=== PATIENT | female | born 1970 | race Caucasian/White ===

== ENCOUNTER 2020-05-31 10:24 | Outpatient (CLI) | payer BC, SELFPAY ==
[2020-05-31 11:18] LABS: Basophils Absolute Auto 0.1 K/mm3 (0.0-0.1); Basophils Percent Auto 1.3 % (0.2-1.2); Eosinophils Absolute Auto 0.1 K/mm3 (0-0.3); Eosinophils Percent Auto 2.2 % (0-4.4); Hemoglobin 12.2 g/dL (12.0-15.0); Immature Granulocyte Absolute 0.01 K/mm3 (0.00-0.031); Immature Granulocyte Percent A 0.2 % (0-0.5); Lymphocytes Percent Auto 43.2 % (18.3-44.2); Mean Corpuscular Volume 91.1 fl (80-100); Mean Platelet Volume 9.9 fl (7.4-10.4); Monocytes Absolute Auto 0.3 K/mm3 (0.1-0.6); Monocytes Percent Auto 5.6 % (2.6-8.5); Neutrophils Absolute Auto 2.2 K/mm3 (1.3-6.7); Neutrophils Percent Auto 47.5 % (45.5-73.1); Platelet Count Result 221 k/mm3 (150-375); Red Blood Count 4.06 M/mm3 (4.2-5.4); Red Cell Distribution Width 12.5 % (11.5-14.5); White Blood Count 4.6 K/mm3 (4.5-10.0)
[2020-05-31 11:32] LABS: Alanine Aminotransferase 53 U/L (4-35); Albumin Level 4.1 g/dL (3.5-5.1); Alkaline Phosphatase 63 U/L (38-126); Anion Gap 6 mmol/L (8-16); Aspartate Amino Transferase 48 U/L (14-36); Bilirubin,Total 0.5 mg/dL (0.2-1.3); Blood Urea Nitrogen 6 mg/dL (7-17); Calcium 8.7 mg/dL (8.4-10.2); Carbon Dioxide 30 mmol/L (22-30); Chloride 102 mmol/L (98-107); Estimated Glomerular Filt Rate > 60; Glucose 90 mg/dL (65-105); Sodium 138 mmol/L (137-145)
[2020-05-31 12:11] LABS: Free T4 Free Thyroxine 1.27 ng/mL (0.78-2.19)
== END 2020-05-31 10:25 | disposition home or self-care (01) ==
PROVIDERS: PCP Family Medicine; Visit Provider Physician Assistant
DX: D64.9 Anemia, unspecified (principal); J45.909 Unspecified asthma, uncomplicated; E03.9 Hypothyroidism, unspecified; Z13.220 Encounter for screening for lipoid disorders
CPT/HCPCS: 36415; 80053; 84439; 84443; 85025

== ENCOUNTER 2020-06-10 15:53 | Outpatient (CLI) | payer BC, SELFPAY ==
--- NOTE | ~2020-06-10 | MM_ITS ---
EXAMINATION: MM screening april BI w taina HISTORY: Screening TECHNIQUE: Craniocaudal and mediolateral oblique 3-D tomosynthesis images were obtained and synthetic 2-D images were generated. CAD analysis was submitted and interpreted. COMPARISON: Comparison to multiple prior studies sequentially, with oldest reviewed study dated 06/16. BREAST PARENCHYMAL COMPOSITION: The breasts are extremely dense, which lowers the sensitivity of mamm ography. FINDINGS: There is focal cluster of calcifications in the upper aspect of the right breast on MLO vie w. No mammographic evidence for malignancy in the left breast. IMPRESSION: 1. Focal cluster of calcifications upper aspect of the right breast on MLO view. 2. Magnification views are recommended. BI-RADS Category 0: Incomplete: Needs additional imaging evaluation. Reviewed, dictated and finalized at location A. IMPRESSION: 1. Focal cluster of calcifications upper aspect of the right breast on MLO view . 2. Magnification views are recommended. BI-RADS Category 0: Incomplete: Needs additional imaging evaluation.
== END 2020-06-10 15:54 | disposition home or self-care (01) ==
LOC: ANHIMG 15:55
PROVIDERS: PCP Family Medicine; Visit Provider Family Medicine
DX: Z12.31 Encounter for screening mammogram for malignant neoplasm of breast (principal); R92.8 Other abnormal and inconclusive findings on diagnostic imaging of breast
CPT/HCPCS: 77063; 77067

== ENCOUNTER 2020-07-05 11:30 | Outpatient (CLI) | payer BC, SELFPAY ==
--- NOTE | ~2020-07-05 | MM_ITS ---
EXAMINATION: MM diagnostic mammo unilat RT HISTORY: Right breast calcifications. TECHNIQUE: Additional 3-D tomosynthesis images of the right breast were performed and synthetic 2-D i mages were generated. CAD analysis was submitted and interpreted. COMPARISON: 06/10/2020 BREAST PARENCHYMAL COMPOSITION: The breasts are heterogenously dense, which may obscure small masses. FINDINGS: There are 2 separate clusters of indeterminate calcifications in the upper outer quadrant o f the right breast. There are no discrete masses or architectural distortion. IMPRESSION: 1. Clustered indeterminate calcifications upper outer quadrant of the right breast. BI-RADS CATEGORY 4-SUSPICIOUS ABNORMALITY RECOMMENDATION: Stereotactic right breast biopsy recommended. Reviewed, dictated and finalized at location A. IMPRESSION: 1. Clustered indeterminate calcifications upper outer quadrant of the right pilar ast. BI-RADS CATEGORY 4-SUSPICIOUS ABNORMALITY RECOMMENDATION: Stereotactic right breast biopsy recommended.
== END 2020-07-05 11:31 | disposition home or self-care (01) ==
PROVIDERS: PCP Family Medicine; Visit Provider Family Medicine
DX: R92.8 Other abnormal and inconclusive findings on diagnostic imaging of breast (principal)
CPT/HCPCS: 77065

== ENCOUNTER 2020-07-19 09:56 | Outpatient (CLI) | payer BC, SELFPAY ==
--- NOTE | ~2020-07-19 | MM_ITS ---
EXAMINATION: MM stereotactic bx RT, MM post biopsy diagnostic RT, MM stereotactic specimen RT, Specim en Radiograph, Tissue Marker Clip Placement, Unilateral Mammogram DATE: 07/19/2020 11:42 (accession [id number]), 07/19/2020 11:48 (accession [id number]), 07/19 11:46 (accession [id number]) INDICATION: Abnormal mammogram: 2 clusters of grouped microcalcifications, upper outer right breast. TECHNIQUE AND FINDINGS: The risks and potential benefits of the procedure were discussed with the patient and written informe d consent was obtained. Timeout procedure was performed. The patient was placed in the prone position on the dedicated stereotactic table with the right breast in lateral medial compression, and the are a of interest was localized and targeted utilizing digital imaging with stereotaxis. After sterile preparation of the skin, 1% lidocaine was utilized for local anesthesia at the skin pun cture site and 1% lidocaine with epinephrine was utilized for deeper local anesthesia/is about the bi opsy site. A 9G [employer] vacuum assisted biopsy needle was advanced to the level of the calcification o f interest from a lateral approach utilizing stereotactic guidance and a total of 15 tissue core biop sies were obtained. A specimen radiograph demonstrates that the great majority of the calcifications of interest are incl uded within the tissue cores. A tissue marker clip was then placed at the biopsy site. A digital ma mmographic exposure confirmed the successful deployment of the biopsy marker. The needle was removed and hemostasis was achieved. A sterile bandage was applied. The patient tolerated the procedure we ll and there is no evidence of significant immediate complication. The patient was given verbal as w ell as written postprocedural instructions prior to discharge from the department. Tissue cores were submitted to surgical pathology for histologic analysis. A 2-view right unilateral digital mammogram was obtained post procedure, demonstrating the tissue mar ker clip in expected position. IMPRESSION: 1. Successful stereotactic biopsy of grouped upper-outer quadrant right breast microcalcifications, followed by tissue marker clip placement. Please refer to pathology report for histologic analysis. Reviewed, dictated and finalized at Location A. Reviewed, dictated and finalized at location A. IMPRESSION: 1. Successful stereotactic biopsy of grouped upper-outer quadrant right breas t microcalcifications, followed by tissue marker clip placement. Please refer to pathology report for histologic analysis. IMPRESSION: 1. Successful stereotactic biopsy of grouped upper-outer quadrant right breas t microcalcifications, followed by tissue marker clip placement. Please refer to pathology report for histologic analysis.
== END 2020-07-19 09:57 | disposition home or self-care (01) ==
PROVIDERS: PCP Family Medicine; Visit Provider Surgery
DX: R92.8 Other abnormal and inconclusive findings on diagnostic imaging of breast (principal)
CPT/HCPCS: 19081; 77065; 88305; 88342; A4648

== ENCOUNTER 2020-11-23 08:10 | Emergency (ER) | payer BC, SELFPAY ==
[2020-11-23 08:36] VITALS: BP 92/64; PULSE 86; RESP 16; TEMP 37.1; O2SAT 97
--- NOTE | 2020-11-23 09:06 | ED.URI ---
HPI - URI/Sore Throat General Chief Complaint: Upper Respiratory Infection Stated Complaint: congestion/headache/body chills-pains/sob Source: patient Mode of arrival: ambulatory Limitations: no limitations History of Present Illness HPI Narrative: 50-year-old female presents to [facility] with complaints of fatigue, body aches, runny nose, shortness of breath, diarrhea, intermittent wheezing, headache and mild cough for the past 2 to 3 days. Patient reports that she has been extremely fatigued and feels out of it. Patient has been taking [id number] cold medications with little relief. Patient reports that she does have history of TIA few years ago. Patient is a non-smoker. Patient denies sick contact. Patient denies recent travel. Patient denies chest pain, nausea or vomiting. MD elicited complaint: cough and rhinorrhea Onset (ago): day(s) (2-3) Consistency: constant Able to tolerate fluids by mouth: Yes Exacerbating factors: nothing Relieving factors: nothing Treatments prior to arrival: cold medicine Related Data Home Medications Medication Instructions Recorded Confirmed cyanocobalamin (vitamin B-12) mcg INTRANASAL 09/07/19 07/18/20 [Nascobal] divalproex PO 09/07/19 07/18/20 duloxetine 30 mg capsule,delayed mg PO DAILY cap 03/10/20 07/18/20 release duloxetine 60 mg capsule,delayed mg PO DAILY cap 03/10/20 07/18/20 release levetiracetam 1,000 mg tablet 1,000 mg PO BID tablet 03/10/20 07/18/20 levetiracetam 250 mg tablet 250 mg PO BID tablet 03/10/20 07/18/20 lorazepam 0.5 mg tablet 0.5 mg PO BID tablet 03/10/20 07/18/20 zaleplon 10 mg capsule 10 mg PO DAILY cap 03/10/20 07/18/20 zonisamide 25 mg capsule 50 mg PO BID cap 05/13/20 07/18/20 sumatriptan succinate mg PO 11/23/20 Allergies Allergy/AdvReac Type Severity Reaction Status Date / Time tetanus immune globulin Allergy Mild HIVES AND Verified 07/18/20 09:20 SWELLING canagliflozin Allergy Unknown Rash Verified 07/18/20 09:20 Penicillins Allergy Unknown Rash Verified 07/18/20 09:20 Tetanus Vaccines and Toxoid Allergy Unknown Rash Verified 07/18/20 09:20 erythromycin base AdvReac Mild NAUSEA/VOMI Verified 07/18/20 09:20 TING IMMUNIZATIONS Allergy Unknown RASH Uncoded 03/10/20 15:02 Mold (Blue) Cheese Allergy Unknown .Hives and Uncoded 03/10/20 15:02 swelling Review of Systems Constitutional: Constitutional: Reports fatigue, Denies fever(s) and Reports weakness ENT: Denies dysphagia, Denies epistaxis and Denies sore throat Comments: runny nose Cardiovascular: Cardiovascular: Denies chest pain, Denies rapid heart rate, Denies radiating jaw, neck or arm pain and Denies slow heart rate Respiratory: Respiratory: Denies chest congestion, Reports cough, Reports dyspnea and Reports wheezing Gastrointestinal: Gastrointestinal: Denies abdominal pain, Reports diarrhea, Denies nausea and Denies vomiting Neurologic: Denies vertigo, Denies dizziness, Denies syncope, Reports headache(s) and Reports weakness PMFSH Past Medical History Medical History Anxiety and depression Asthma Bilateral carpal tunnel syndrome Bipolar disorder Epilepsy GERD (gastroesophageal reflux disease) History of COPD Hypothyroid Interstitial cystitis Migraine Polycystic disease, ovaries Seasonal allergies Shingles Stroke TIA (transient ischemic attack) Surgical History Surgical History H/O arthroscopy of left knee H/O carpal tunnel repair bilateral H/O dilation and curettage History of bunionectomy History of cholecystectomy History of foot surgery History of left knee replacement History of thyroidectomy, subtotal Hx of gastric bypass Family History Family History Sibling Family history of multiple sclerosis, Onset Age: 43 Cerebrovascular accident, Onset Age: 19 Father Hy
== END 2020-11-23 09:11 | disposition left against medical advice (07) ==
PROVIDERS: Emergency Provider Nurse Practitioner Family
DX: J06.9 Acute upper respiratory infection, unspecified (principal); R47.9 Unspecified speech disturbances; Z20.822 Contact with and (suspected) exposure to COVID-19; F41.9 Anxiety disorder, unspecified; J45.909 Unspecified asthma, uncomplicated; K21.9 Gastro-esophageal reflux disease without esophagitis; J44.9 Chronic obstructive pulmonary disease, unspecified; E03.9 Hypothyroidism, unspecified; Z86.73 Personal history of transient ischemic attack (TIA), and cerebral infarction without residual deficits; E28.2 Polycystic ovarian syndrome; G40.909 Epilepsy, unspecified, not intractable, without status epilepticus
CPT/HCPCS: 87426; 87804; 99213; C9803; G0463

== ENCOUNTER 2020-12-01 14:30 | Outpatient (CLI) | payer BC, SELFPAY ==
[2020-12-01 15:08] LABS: Alanine Aminotransferase 44 U/L (4-35); Aspartate Amino Transferase 41 U/L (14-36)
[2020-12-01 16:33] LABS: Free T4 Free Thyroxine 0.52 ng/mL (0.78-2.19)
== END 2020-12-01 14:31 | disposition home or self-care (01) ==
LOC: ANHLAB 14:33
PROVIDERS: PCP Family Medicine; Visit Provider Physician Assistant
DX: E03.9 Hypothyroidism, unspecified (principal); R74.8 Abnormal levels of other serum enzymes
CPT/HCPCS: 36415; 84439; 84443; 84450; 84460

== ENCOUNTER 2021-08-19 11:23 | Outpatient (CLI) | payer BC, SELFPAY ==
[2021-08-19 13:50] LABS: Free T4 Free Thyroxine 0.26 ng/mL (0.78-2.19)
[2021-08-19 14:41] LABS: Thyroid Stimulating Hormone > 100.000 uIU/mL (0.465-4.680)
== END 2021-08-19 11:24 | disposition home or self-care (01) ==
LOC: ANHLAB 11:26
PROVIDERS: PCP Family Medicine; Visit Provider Family Medicine
DX: E03.9 Hypothyroidism, unspecified (principal)
CPT/HCPCS: 36415; 84439; 84443; 84480

== ENCOUNTER 2021-10-24 09:59 | Emergency (ER) | payer BC, SELFPAY ==
[2021-10-24 10:09] VITALS: BP 107/65; PULSE 69; RESP 16; TEMP 36.3; O2SAT 98
--- NOTE | 2021-10-24 10:09 | ED.HA ---
HPI - Headache General Chief Complaint: Headache Stated Complaint: headache Time Seen by Provider: 10/24/21 10:09 Source: patient, RN notes reviewed and old records reviewed Mode of arrival: ambulatory Limitations: no limitations History of Present Illness HPI Narrative: 51-year-old female presents to the [facility] with complaints of a migraine headache that woke her up about 1 AM today. States it feels like her typical migraine and took her Imitrex which is made it better but not gone away. Has vomited 1 time. Patient denies any blurry vision or change in vision but does have a sensitivity to light and sound MD elicited complaint: migraine Related Data Home Medications Medication Instructions Recorded Confirmed budesonide-formoterol 2 puff INHALATION DAILY 10/24/21 10/24/21 cariprazine [Vraylar] 6 mg PO DAILY 10/24/21 10/24/21 divalproex 250 mg PO DAILY 10/24/21 10/24/21 divalproex 500 mg PO DAILY 10/24/21 10/24/21 duloxetine 30 mg PO DAILY 10/24/21 10/24/21 duloxetine 60 mg PO DAILY 10/24/21 10/24/21 levetiracetam 1,000 mg PO DAILY 10/24/21 10/24/21 levothyroxine 200 mcg PO DAILY 10/24/21 10/24/21 liothyronine 5 mcg PO DAILY 10/24/21 10/24/21 montelukast 10 mg PO DAILY 10/24/21 10/24/21 sumatriptan succinate 50 mg PO DAILY 10/24/21 10/24/21 Allergies Allergy/AdvReac Type Severity Reaction Status Date / Time tetanus immune globulin Allergy Mild HIVES AND Verified 10/24/21 10:15 SWELLING canagliflozin Allergy Unknown Rash Verified 10/24/21 10:15 Penicillins Allergy Unknown Rash Verified 10/24/21 10:15 Tetanus Vaccines and Toxoid Allergy Unknown Rash Verified 10/24/21 10:15 erythromycin base AdvReac Mild NAUSEA/VOMI Verified 10/24/21 10:15 TING IMMUNIZATIONS Allergy Unknown RASH Uncoded 09/07/21 16:45 Mold (Blue) Cheese Allergy Unknown .Hives and Uncoded 09/07/21 16:45 swelling Review of Systems Review of Systems: All systems reviewed & are unremarkable except as noted in HPI and below Constitutional: Constitutional: Reports no additional constitutional complaints, Denies chills and Denies fever(s) Eyes: Eyes: Reports no additional eye complaints ENT: Reports system reviewed and no additional complaints, except as documented Cardiovascular: Cardiovascular: Reports no additional cardiovascular complaints Respiratory: Respiratory: Reports no additional respiratory complaints Gastrointestinal: Gastrointestinal: Reports no additional gastrointestinal complaints Musculoskeletal: Musculoskeletal: Reports no additional musculoskeletal complaints Integumentary/Breasts: Skin/Breast: Reports system reviewed and no additional complaints, except as docu Neurologic: Reports as per HPI and Reports headache(s) (Frontal, typical migraine) Psychiatric: Psychiatric: Reports no additional psychiatric complaints Allergic/Immunologic: Allergic/Immunologic: Reports no additional allergic/immunologic complaints [facility] Past Medical History Medical History Anxiety and depression Asthma Bilateral carpal tunnel syndrome Bipolar disorder Epilepsy GERD (gastroesophageal reflux disease) History of COPD Hypothyroid Hypothyroidism (acquired) Interstitial cystitis Migraine Polycystic disease, ovaries Seasonal allergies Shingles Stroke TIA (transient ischemic attack) Surgical History Surgical History H/O arthroscopy of left knee H/O carpal tunnel repair bilateral H/O dilation and curettage History of bunionectomy History of cholecystectomy History of foot surgery History of left knee replacement History of thyroidectomy, subtotal Hx of gastric bypass Family History Family History Sibling Family history of multiple sclerosis, Onset Age: 43 Cerebrovascular accident, Onset Age: 19 Father Hypertension Family history of elevated blood lipids Family histo
[2021-10-24 10:19] VITALS: BP 107/65; PULSE 69; RESP 16; TEMP 36.3; O2SAT 98
[2021-10-24] MEDS: KETOROLAC (*BKC) 60 MG/2 ML VIAL IM (10:24)
[2021-10-24] MEDS: ONDANSETRON HCL ODT 4 MG TABLET SUBLINGUAL (10:24)
== END 2021-10-24 10:50 | disposition home or self-care (01) ==
PROVIDERS: Emergency Provider Nurse Practitioner; PCP Family Medicine
DX: G43.009 Migraine without aura, not intractable, without status migrainosus (principal); E03.9 Hypothyroidism, unspecified; J45.909 Unspecified asthma, uncomplicated; K21.9 Gastro-esophageal reflux disease without esophagitis; E28.2 Polycystic ovarian syndrome; Z86.73 Personal history of transient ischemic attack (TIA), and cerebral infarction without residual deficits; G40.909 Epilepsy, unspecified, not intractable, without status epilepticus
CPT/HCPCS: 96372; 99213; A9270; G0463; J1885

== ENCOUNTER 2022-02-02 12:02 | Outpatient (CLI) | payer BC, SELFPAY ==
[2022-02-02 12:55] LABS: Free T4 Free Thyroxine 2.14 ng/mL (0.78-2.19)
[2022-02-02 13:02] LABS: Total Triiodothyronine (T3) 0.85 NG/ML (0.97-1.69)
== END 2022-02-02 12:03 | disposition home or self-care (01) ==
LOC: ANHLAB 12:04
PROVIDERS: PCP Family Medicine; Visit Provider Family Medicine
DX: E03.9 Hypothyroidism, unspecified (principal)
CPT/HCPCS: 36415; 84439; 84443; 84480

== ENCOUNTER 2022-02-09 16:38 | Outpatient (CLI) | payer BC, SELFPAY ==
[2022-02-09 16:53] LABS: Basophils Absolute Auto 0.1 K/mm3 (0.0-0.1); Basophils Percent Auto 1.1 % (0.2-1.2); Eosinophils Absolute Auto 0.1 K/mm3 (0-0.3); Eosinophils Percent Auto 1.5 % (0-4.4); Hematocrit 34.6 % (37.0-47.0); Hemoglobin 10.8 g/dL (12.0-15.0); Immature Granulocyte Absolute 0.01 K/mm3 (0.00-0.031); Immature Granulocyte Percent A 0.2 % (0-0.5); Lymphocytes Absolute Auto 1.91 K/mm3 (0.9-3.2); Lymphocytes Percent Auto 41.2 % (18.3-44.2); Mean Corpuscular HGB Conc 31.2 g/dl (32-36); Mean Corpuscular Hemoglobin 28.3 pg (26-34); Mean Corpuscular Volume 90.6 fl (80-100); Mean Platelet Volume 9.7 fl (7.4-10.4); Monocytes Absolute Auto 0.4 K/mm3 (0.1-0.6); Monocytes Percent Auto 8.2 % (2.6-8.5); Neutrophils Absolute Auto 2.2 K/mm3 (1.3-6.7); Neutrophils Percent Auto 47.8 % (45.5-73.1); Platelet Count Result 208 k/mm3 (150-375); Red Blood Count 3.82 M/mm3 (4.2-5.4); Red Cell Distribution Width 14.3 % (11.5-14.5); White Blood Count 4.6 K/mm3 (4.5-10.0)
[2022-02-09 17:24] LABS: Iron 62 ug/dL (37-170)
[2022-02-09 17:38] LABS: Percent Iron Saturation 15 % (20-50)
== END 2022-02-09 16:39 | disposition home or self-care (01) ==
LOC: ANHLAB 16:41
PROVIDERS: PCP Family Medicine; Visit Provider Family Medicine
DX: D64.9 Anemia, unspecified (principal); Z98.84 Bariatric surgery status
CPT/HCPCS: 36415; 82607; 82746; 83540; 83550; 85025

== ENCOUNTER 2022-02-22 23:32 | Observation (INO) | payer BC, SELFPAY ==
--- NOTE | ~2022-02-22 | XR_ITS ---
EXAMINATION: XR chest 2V DATE: 02/23/2022 01:08 INDICATION: Chest pain. TECHNIQUE: Frontal and lateral views of the chest were obtained. COMPARISON: Chest 2 views 07/12/2018 FINDINGS: The chest demonstrates clear lungs without pneumonia, pleural effusion, or pneumothorax. Th e heart size is normal. There are prominent paracardial fat pads. Surgical clips in the right upper q uadrant are likely from cholecystectomy. IMPRESSION: 1. No acute cardiopulmonary disease. Reviewed, dictated and finalized at location A.
--- NOTE | 2022-02-22 23:32 | ECG_ITS ---
Measurements Intervals [place] Rate: 87 P: 54 [place]: 137 QRS: 66 QRSD: 91 T: 49 QT: 367 QTc: 443 Interpretive Statements SINUS RHYTHM INCOMPLETE RIGHT BUNDLE BRANCH BLOCK BORDERLINE ECG Electronically Signed On 02-23-2022 6:05:18 CDT by Bertrand Fung D.O.
[2022-02-22 23:34] VITALS: BP 118/68; PULSE 79; RESP 22; TEMP 36.6; O2SAT 95
[2022-02-23] VITALS (16 sets, daily range): BP systolic 93–125; BP diastolic 50–72; PULSE 54–87; RESP 16–20; TEMP 36.1–36.7; O2SAT 96–100; BMI 34.9
--- NOTE | 2022-02-23 00:48 | ED.CHESTPAIN ---
HPI - Chest Pain General Chief Complaint: Chest Pain Stated Complaint: chest pain Time Seen by Provider: 02/22/22 23:51 History of Present Illness HPI narrative: Patient is a 51-year-old female who presents ER with chest pain. Sudden onset at 11:30 PM. Left-sided and pressure. Radiates to the left shoulder and down the left arm. Also radiates into the left neck. Patient reports she feels mild nausea and shortness of breath with this. No history of heart disease. She took 2 baby aspirin's at home and then came to the ER. Patient has no history of heart disease but has history of TIA in the past. No known aggravating factors. Patient reports initially pain was 8/10 but currently 3/10. Related Data Home Medications Medication Instructions Recorded Confirmed cariprazine 6 mg capsule (Vraylar) 4.5 mg PO DAILY 10/24/21 02/23/22 divalproex 250 mg tablet,extended 250 mg PO DAILY 10/24/21 02/23/22 release 24 hr divalproex 500 mg tablet,extended 500 mg PO DAILY 10/24/21 02/23/22 release 24 hr duloxetine 30 mg capsule,delayed 30 mg PO DAILY 10/24/21 02/23/22 release duloxetine 60 mg capsule,delayed 60 mg PO DAILY 10/24/21 02/23/22 release levetiracetam 1,000 mg tablet 1,000 mg PO BID 10/24/21 02/23/22 levothyroxine 200 mcg tablet 200 mcg PO DAILY 10/24/21 02/23/22 liothyronine 5 mcg tablet 5 mcg PO DAILY 10/24/21 02/23/22 montelukast 10 mg tablet 10 mg PO DAILY 10/24/21 02/23/22 levetiracetam 250 mg tablet 250 mg PO BID 02/23/22 02/23/22 linaclotide 290 mcg capsule 290 mcg PO DAILY 02/23/22 02/23/22 (Linzess) lorazepam 0.5 mg tablet 0.5 mg PO BID PRN Anxiety 02/23/22 02/23/22 sumatriptan succinate 50 mg tablet 50 mg PO DAILY PRN Headache 02/23/22 02/23/22 zaleplon 10 mg capsule 10 mg PO HS PRN Insomnia 02/23/22 02/23/22 zonisamide 50 mg capsule 50 mg PO BID 02/23/22 02/23/22 Allergies Allergy/AdvReac Type Severity Reaction Status Date / Time tetanus immune globulin Allergy Mild HIVES AND Verified 02/09/22 15:49 SWELLING canagliflozin Allergy Unknown Rash Verified 02/09/22 15:49 Penicillins Allergy Unknown Rash Verified 02/09/22 15:49 Tetanus Vaccines and Toxoid Allergy Unknown Rash Verified 02/09/22 15:49 erythromycin base AdvReac Mild NAUSEA/VOMI Verified 02/09/22 15:49 TING IMMUNIZATIONS Allergy Unknown RASH Uncoded 02/09/22 15:49 Mold (Blue) Cheese Allergy Unknown .Hives and Uncoded 02/09/22 15:49 swelling Review of Systems Review of Systems: All systems reviewed & are unremarkable except as noted in HPI and below Constitutional: Constitutional: Denies chills, Denies fatigue and Denies fever(s) Cardiovascular: Cardiovascular: Reports chest pain, Denies rapid heart rate and Reports radiating jaw, neck or arm pain Respiratory: Respiratory: Denies chest congestion, Denies cough and Reports dyspnea Gastrointestinal: Gastrointestinal: Denies abdominal pain, Denies diarrhea, Reports nausea and Denies vomiting Musculoskeletal: Musculoskeletal: Denies back pain and Denies myalgias Neurologic: Denies syncope, Denies headache(s) and Denies focal weakness PMFSH Past Medical History Medical History Anxiety and depression Asthma Bilateral carpal tunnel syndrome Bipolar disorder Epilepsy GERD (gastroesophageal reflux disease) History of COPD Hypothyroid Hypothyroidism (acquired) Interstitial cystitis Migraine Polycystic disease, ovaries Seasonal allergies Shingles Stroke TIA (transient ischemic attack) Surgical History Surgical History H/O arthroscopy of left knee H/O carpal tunnel repair bilateral H/O dilation and curettage History of bunionectomy History of cholecystectomy History of foot surgery History of left knee replacement History of thyroidectomy, subtotal Hx of gastric bypass Family History Family History Chiquita
[2022-02-23 01:44] LABS: Alanine Aminotransferase 27 U/L (6-35); Albumin Level 3.5 g/dL (3.5-5.1); Alkaline Phosphatase 68 U/L (38-126); Anion Gap 6 mmol/L (8-16); Aspartate Amino Transferase 28 U/L (14-36); Bilirubin,Total 0.1 mg/dL (0.2-1.3); Blood Urea Nitrogen 8 mg/dL (7-17); Calcium 8.7 mg/dL (8.4-10.2); Carbon Dioxide 28 mmol/L (22-30); Chloride 106 mmol/L (98-107); Estimated CRCL calculation 106 ml/min; Estimated Glomerular Filt Rate > 60; Glucose 79 mg/dL (65-110); Lipase 65 U/L (23-300); Potassium 3.9 mmol/L (3.4-5.0); Sodium 140 mmol/L (137-145); Troponin I < 0.012 ng/mL (0.000-0.034)
[2022-02-23 01:52] LABS: INR 1.1; Partial Thromboplastin Time 28.3 SECONDS (22.3-36.8); Prothrombin Time 13.6 Seconds (11.1-14.7)
[2022-02-23 02:07] LABS: Basophils Absolute Auto 0.1 K/mm3 (0.0-0.1); Basophils Percent Auto 0.9 % (0.2-1.2); Eosinophils Absolute Auto 0.1 K/mm3 (0-0.3); Eosinophils Percent Auto 1.3 % (0-4.4); Hematocrit 33.1 % (37.0-47.0); Hemoglobin 10.7 g/dL (12.0-15.0); Immature Granulocyte Absolute 0.01 K/mm3 (0.00-0.031); Immature Granulocyte Percent A 0.2 % (0-0.5); Lymphocytes Absolute Auto 2.44 K/mm3 (0.9-3.2); Lymphocytes Percent Auto 38.4 % (18.3-44.2); Mean Corpuscular HGB Conc 32.3 g/dl (32-36); Mean Corpuscular Hemoglobin 28.5 pg (26-34); Mean Corpuscular Volume 88.3 fl (80-100); Mean Platelet Volume 9.8 fl (7.4-10.4); Monocytes Absolute Auto 0.7 K/mm3 (0.1-0.6); Monocytes Percent Auto 11.5 % (2.6-8.5); Neutrophils Percent Auto 47.7 % (45.5-73.1); Platelet Count Result 262 k/mm3 (150-375); Red Blood Count 3.75 M/mm3 (4.2-5.4); Red Cell Distribution Width 13.5 % (11.5-14.5); White Blood Count 6.4 K/mm3 (4.5-10.0)
[2022-02-23 03:38] LABS: Troponin I < 0.012 ng/mL (0.000-0.034)
--- NOTE | 2022-02-23 03:38 | PM.IMHP ---
H&P: HPI History of Present Illness Date/Time: 02/23/22 03:38 Chief Complaint: chest pain Narrative: 51-year-old female with past medical history significant for TIA, sees psychiatry for major depressive disorder with associated bipolar disorder, History of bariatric surgery, epilepsy with occasional breakthrough seizures seen Neurology, had medications adjusted recently and has not had any recent seizures since then, COPD, GERD is presenting with left-sided chest pain that radiates up into the left shoulder and down the left arm. There was some associated nausea and shortness of breath. She took 2 baby aspirins at home and then came to the ER. She states the pain did not seem to be exertional. She denies orthopnea. No fevers or chills. She is currently completely asymptomatic. In the ER, EKG and 1st set of troponin were completely normal. Of note, patient is quite sedentary and has been working from home since pandemic. Review of Systems Review of Systems: Twelve point review of systems was reviewed and is negative except as noted in the HPI PMFSH Past Medical History Medical History Anxiety and depression Asthma Bilateral carpal tunnel syndrome Bipolar disorder Epilepsy GERD (gastroesophageal reflux disease) History of COPD Hypothyroid Hypothyroidism (acquired) Interstitial cystitis Migraine Polycystic disease, ovaries Seasonal allergies Shingles Stroke TIA (transient ischemic attack) Surgical History Surgical History H/O arthroscopy of left knee H/O carpal tunnel repair bilateral H/O dilation and curettage History of bunionectomy History of cholecystectomy History of foot surgery History of left knee replacement History of thyroidectomy, subtotal Hx of gastric bypass Family History Family History Sibling Family history of multiple sclerosis, Onset Age: 43 Cerebrovascular accident, Onset Age: 19 Father Hypertension Family history of elevated blood lipids Family history of diabetes mellitus in first degree relative Family history of coronary artery disease Mother Hypertension Family history of elevated blood lipids Family history of diabetes mellitus in first degree relative Family history of coronary artery disease Grandparent Family history of malignant neoplasm of cervix Family history of malignant neoplasm of breast Social History Social History Social History: Smoking status: Never smoker Second hand tobacco smoke exposure: No Alcohol intake: never Substance use: never Substance use type: does not use 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 Gender identity (if verbalized by the patient): Female Sexual Orientation (if Verbalized by the Patient): Lesbian, Thompson, or Homosexual Spiritual care concerns: No Meds Home Medications and Allergies Home Medications Medication Instructions Recorded Confirmed Type cariprazine 6 mg capsule (Vraylar) 6 mg PO DAILY 10/24/21 12/07/21 History divalproex 250 mg tablet,extended 250 mg PO DAILY 10/24/21 12/07/21 History release 24 hr divalproex 500 mg tablet,extended 500 mg PO DAILY 10/24/21 12/07/21 History release 24 hr duloxetine 30 mg capsule,delayed 30 mg PO DAILY 10/24/21 12/07/21 History release duloxetine 60 mg capsule,delayed 60 mg PO DAILY 10/24/21 12/07/21 History release levetiracetam 1,000 mg tablet 1,000 mg PO DAILY 10/24/21 12/07/21 History levothyroxine 200 mcg tablet 200 mcg PO DAILY 10/24/21 12/07/21 History liothyronine 5 mcg tablet 5 mcg PO DAILY 10/24/21 12/07/21 History montelukast 10 mg tablet 10 mg PO DAILY 10/24/21 12/07/21 History polysaccharide iron complex 150 mg 150 mg PO DAILY #30 caps 02/12/22 Rx iron capsule (Poly-Iron) atif
--- NOTE | 2022-02-23 04:16 | ADMGEN ---
This patient, Andrea Grimes, was admitted to IMU Room 207-01. Patient/family oriented to hospital policies and general routines including ID bracelet, bed and alarms, visiting hours, pain management, procedures, bathroom and other care routines, personal items, smoking policy, room service/diet, and visiting hours. Information on how to activate the Rapid Response Team has been discussed. Patient/Family are encouraged to report perceived risks to care and to ask questions if they do not understand what they are told or what they should do.
[2022-02-23] MEDS: MORPHINE SULFATE (*CRX) 2 MG/ML INJ 1 MG IV PUSH (05:28)
[2022-02-23 06:28] LABS: Basophils Absolute Auto 0.1 K/mm3 (0.0-0.1); Basophils Percent Auto 1.2 % (0.2-1.2); Eosinophils Absolute Auto 0.1 K/mm3 (0-0.3); Hematocrit 31.3 % (37.0-47.0); Immature Granulocyte Absolute 0.01 K/mm3 (0.00-0.031); Immature Granulocyte Percent A 0.2 % (0-0.5); Lymphocytes Absolute Auto 2.01 K/mm3 (0.9-3.2); Lymphocytes Percent Auto 40.7 % (18.3-44.2); Mean Corpuscular HGB Conc 31.9 g/dl (32-36); Mean Corpuscular Hemoglobin 28.7 pg (26-34); Mean Corpuscular Volume 89.9 fl (80-100); Mean Platelet Volume 10.1 fl (7.4-10.4); Monocytes Absolute Auto 0.5 K/mm3 (0.1-0.6); Monocytes Percent Auto 10.9 % (2.6-8.5); Neutrophils Absolute Auto 2.2 K/mm3 (1.3-6.7); Platelet Count Result 248 k/mm3 (150-375); Red Blood Count 3.48 M/mm3 (4.2-5.4); Red Cell Distribution Width 13.8 % (11.5-14.5); White Blood Count 4.9 K/mm3 (4.5-10.0)
[2022-02-23] MEDS: LINACLOTIDE 145 MCG CAPSULE 290 MCG PO (06:44)
[2022-02-23] MEDS: LEVOTHYROXINE SODIUM 100 MCG TABLET 200 MCG PO (06:44)
[2022-02-23 06:46] LABS: Alanine Aminotransferase 24 U/L (6-35); Albumin Level 3.3 g/dL (3.5-5.1); Alkaline Phosphatase 65 U/L (38-126); Anion Gap 0 mmol/L (8-16); Aspartate Amino Transferase 26 U/L (14-36); Bilirubin,Total 0.2 mg/dL (0.2-1.3); Blood Urea Nitrogen 7 mg/dL (7-17); Calcium 8.6 mg/dL (8.4-10.2); Carbon Dioxide 31 mmol/L (22-30); Chloride 107 mmol/L (98-107); Estimated CRCL calculation 95 ml/min; Estimated Glomerular Filt Rate > 60; Glucose 92 mg/dL (65-110); Potassium 3.7 mmol/L (3.4-5.0); Sodium 138 mmol/L (137-145)
[2022-02-23 06:58] LABS: Troponin I < 0.012 ng/mL (0.000-0.034)
[2022-02-23] MEDS: levETIRAcetam 250 MG TABLET PO (08:32)
[2022-02-23] MEDS: levETIRAcetam 500 MG TABLET 1000 MG PO (08:33)
[2022-02-23] MEDS: MONTELUKAST SODIUM 10 MG TABLET PO (08:33)
[2022-02-23] MEDS: LIOTHYRONINE SODIUM 5 MCG TABLET PO (08:33)
[2022-02-23] MEDS: DULoxetine HCL 30 MG CAPSULE.DR PO (08:34)
[2022-02-23] MEDS: DIVALPROEX SODIUM ER 250 MG TAB.24H PO (08:34)
[2022-02-23] MEDS: DIVALPROEX SODIUM ER 500 MG TAB.24H PO (08:35)
[2022-02-23] MEDS: POLYSACCHARIDE IRON COMPLEX 150 MG CAPSULE PO (08:36)
[2022-02-23] MEDS: DULoxetine HCL 60 MG CAPSULE.DR PO (08:36)
--- NOTE | 2022-02-23 12:26 | PM.CNCAR ---
Assessment and Plan Assessment and plan (1) Chest pain: Code(s): R07.9 - Chest pain, unspecified Status: Acute Plan This is a 51-year-old lady with an episode of chest pain creating concern last evening with which she came to the hospital. Symptoms are rather atypical for angina. No evidence of acute coronary syndrome by ECG and biomarkers. I would like to arrange for a Lexiscan nuclear study to be done if possible this afternoon to rule out evidence of coronary disease. The patient has risk factors including hypercholesterolemia by her description. He says she can not exercise on the treadmill because of chronic arthritis of her knee. Mervin Phillips MD [facility] History of Present Illness History of Present Illness Consult date/time: 02/23/22 12:26 Consult reason: chest pain Reason For Visit: chest pain Narrative: This is a 51-year-old female I am seeing today at the request of the hospitalist because of chest pain. She is not known to have any specific cardiac problems prior to this and came into the emergency room yesterday because of an episode of chest pain that occurred last night while she was at home she describes the sudden onset of a sharp left precordial discomfort that radiated up into the left side of the neck and down into the left arm. The discomfort was moderate to severe in intensity and was not associated with a sense of any air hunger or diaphoresis. She came to the emergency room for evaluation and her electrocardiogram appears to be normal. Her 1st set of biomarkers in the emergency room were negative. The discomfort gradually subsided on its own it did not really respond to nitrates or any other medication. She has a very mild sense of pressure in the center of the chest following this but otherwise appears to be very comfortable. Since admission to the IMU her vital signs have been fine her telemetry has been unremarkable and her troponin levels are normal x3 sets. The patient denies any history of hypertension or diabetes she does states she has had some elevated cholesterol readings in the past. She has a history of morbid obesity but underwent a bariatric operation with a gastric bypass about 5 or 6 years ago and lost 170 lb. She is not reporting any orthopnea PND or edema palpitations or syncope. Review of Systems Constitutional: Constitutional: Reports no additional constitutional complaints Eyes: Eyes: Reports no additional eye complaints ENT: Reports system reviewed and no additional complaints, except as documented Cardiovascular: Cardiovascular: Reports as per HPI Respiratory: Respiratory: Reports no additional respiratory complaints Gastrointestinal: Gastrointestinal: Reports no additional gastrointestinal complaints Musculoskeletal: Musculoskeletal: Reports no additional musculoskeletal complaints Integumentary/Breasts: Skin/Breast: Reports system reviewed and no additional complaints, except as docu Neurologic: Reports system reviewed and no additional complaints, except as documented Endocrine: Endocrine: Reports no additional endocrine complaints Hematologic/Lymphatic: Hematologic/Lymphatic: Reports no additional hematologic/lymphatic complaints Allergic/Immunologic: Allergic/Immunologic: Reports no additional allergic/immunologic complaints PMFSH Past Medical History Medical History Anxiety and depression Asthma Bilateral carpal tunnel syndrome Bipolar disorder Epilepsy GERD (gastroesophageal reflux disease) History of COPD Hypothyroid Hypothyroidism (acquired) Interstitial cystitis Migraine Polycystic disease, ovaries Seasonal allergies Shingles Stroke TIA (transient ischemic attack) Surgical History Surgical History H/O arthroscopy of left knee H/O carpal tunnel repair bilateral H/O dilation and curettage History of bunionectomy History of
--- NOTE | 2022-02-23 18:46 | PM.DS ---
DS: Admitting Diagnosis Discharge Date 02/23/22 Admitting Diagnosis Atypical Chest Pain DS: Discharge Diagnosis Discharge Diagnosis (1) Chest pain: Code(s): R07.9 - Chest pain, unspecified Status: Acute Assessment and Plan: Troponin negative. EKG w/ st segment or t wave changes. Cardiology recommends outpatient lexiscan. Initially planned to complete today but was unable to be completed and lexiscans are not completed on the weekend. Given patient hemodynamically stable Cardiology VICE PROVOST, spoke with patient who was amenable to completing an outpatient lexiscan -Discharge to home with plan for outpatient lexiscan (2) Hypothyroidism (acquired): Code(s): E03.9 - Hypothyroidism, unspecified Status: Acute Assessment and Plan: TSH 1.040 on 02/02. Continue home medication. (3) BMI 32.0-32.9,adult: Code(s): Z68.32 - Body mass index [BMI] 32.0-32.9, adult Status: Acute (4) Epilepsy: Code(s): G40.909 - Epilepsy, unspecified, not intractable, without status epilepticus Status: Acute Assessment and Plan: continue home medications, stable DS: Summary Hospital Course Reason for hospitalization: Atypical Chest Pain Hospital Course: 51F with a past medical history of TIA, Depression, Bipolar disorder, bariatric surgery, epilepsy, COPD, GERD who presented to the ED reporting left sided chest pain with radiation up into the left shoulder and down the left arm. Troponin were negative. Cardiology consulted and saw no evidence of ACS. Cardiology recommended lexiscan but the lexiscan was unable to be completed inpatient. Cardiology VICE PROVOST spoke with the patient who was amenable to completing the lexiscan outpatient as the lexiscan could not be completed over the weekend. Patient discharged to home. Time Spent with Patient Time attestation: Total time spent providing and/or coordinating discharge services: Exam Narrative: GENERAL: NAD, cooperative HEENT: Normocephalic, atraumatic, anicteric, nares clear, oropharynx moist and clear, dentition normal NECK: Supple CV: Normal S1, S2, RRR, No MRG RESP: CTAB, Normal work of breathing. EXTREMITIES: Warm and well perfused, no clubbing, cyanosis, or edema. SKIN: warm, dry and intact. NEURO: CN 2-12 grossly intact. DS: Data Data Completed and Pending Labs on day of discharge: Labs from last 24 hours 02/23/22 02/23/22 02/23/22 05:46 05:46 05:46 WBC 4.9 RBC 3.48 L Hgb 10.0 L Hct 31.3 L MCV 89.9 MCH 28.7 MCHC 31.9 L RDW 13.8 Plt Count 248 MPV 10.1 Immature Gran % (Auto) 0.2 Neut % (Auto) 45.0 L Lymph % (Auto) 40.7 Robeson % (Auto) 10.9 H Eos % (Auto) 2.0 Baso % (Auto) 1.2 Lymph # (Auto) 2.01 Robeson # (Auto) 0.5 Eos # (Auto) 0.1 Baso # (Auto) 0.1 Abs Immat Gran (auto) 0.01 Absolute Neuts (auto) 2.2 Absolute Nucleated RBC 0.0 Nucleated RBC % 0.0 PT INR APTT Sodium 138 Potassium 3.7 Chloride 107 Carbon Dioxide 31 H Anion Gap 0 L BUN 7 Creatinine 0.60 L Estim Creat Clear Calc 95 Estimated GFR > 60 Glucose 92 Calcium 8.6 Total Bilirubin 0.2 AST 26 ALT 24 Alkaline Phosphatase 65 Troponin I < 0.012 Total Protein 6.0 L Albumin 3.3 L Lipase 02/23/22 02/22/22 02/22/22 02:56 23:58 23:58 WBC RBC Hgb Hct MCV MCH MCHC RDW Plt Count MPV Immature Gran % (Auto) Neut % (Auto) Lymph % (Auto) Robeson % (Auto) Eos % (Auto) Baso % (Auto) Lymph # (Auto) Robeson # (Auto) Eos # (Auto) Baso # (Auto) Abs Immat Gran (auto) Absolute Neuts (auto) Absolute Nucleated RBC Nucleated RBC % PT 13.6 INR 1.1 APTT 28.3 Sodium 140 Potassium 3.9 Chloride 106 Carbon Dioxide 28 Anion Gap 6 L BUN 8 Creatinine 0.60 L Estim Creat Clear Calc 106 Estimated GFR > 60 Glucose 79
== END 2022-02-23 19:20 | disposition home or self-care (01) ==
LOC: ANHED 02-23 02:25 → ANHIMU 02-23 04:30
PROVIDERS: Admitting Provider Student in an Organized Health Care Education/Training Program; Emergency Provider Emergency Medicine; PCP Family Medicine; Visit Provider Family Medicine
DX: R07.9 Chest pain, unspecified (principal); R06.02 Shortness of breath; R11.0 Nausea; J45.909 Unspecified asthma, uncomplicated; G40.909 Epilepsy, unspecified, not intractable, without status epilepticus; F41.8 Other specified anxiety disorders; E89.0 Postprocedural hypothyroidism; K21.9 Gastro-esophageal reflux disease without esophagitis; F31.9 Bipolar disorder, unspecified; E28.2 Polycystic ovarian syndrome; Z86.73 Personal history of transient ischemic attack (TIA), and cerebral infarction without residual deficits; Z98.84 Bariatric surgery status; E66.9 Obesity, unspecified; Z68.34 Body mass index [BMI] 34.0-34.9, adult
CPT/HCPCS: 36415; 71046; 80053; 83690; 84484; 85025; 85610; 85730; 93005; 96374; 99285; A9270; G0378; J2270

== ENCOUNTER 2022-04-14 12:40 | Outpatient (CLI) | payer BC, SELFPAY ==
[2022-04-14 13:00] LABS: Basophils Absolute Auto 0.1 K/mm3 (0.0-0.1); Basophils Percent Auto 0.3 % (0.2-1.2); Eosinophils Absolute Auto 0.1 K/mm3 (0-0.3); Eosinophils Percent Auto 0.2 % (0-4.4); Hematocrit 33.8 % (37.0-47.0); Hemoglobin 11.1 g/dL (12.0-15.0); Immature Granulocyte Absolute 0.15 K/mm3 (0.00-0.031); Immature Granulocyte Percent A 0.7 % (0-0.5); Lymphocytes Absolute Auto 1.23 K/mm3 (0.9-3.2); Mean Corpuscular HGB Conc 32.8 g/dl (32-36); Mean Corpuscular Hemoglobin 28.8 pg (26-34); Mean Corpuscular Volume 87.8 fl (80-100); Mean Platelet Volume 9.1 fl (7.4-10.4); Monocytes Absolute Auto 0.8 K/mm3 (0.1-0.6); Neutrophils Absolute Auto 18.1 K/mm3 (1.3-6.7); Neutrophils Percent Auto 88.8 % (45.5-73.1); Platelet Count Result 305 k/mm3 (150-375); Red Blood Count 3.85 M/mm3 (4.2-5.4); Red Cell Distribution Width 13.8 % (11.5-14.5); White Blood Count 20.4 K/mm3 (4.5-10.0)
== END 2022-04-14 12:41 | disposition home or self-care (01) ==
LOC: ANHLAB 12:41
PROVIDERS: PCP Family Medicine; Visit Provider Nurse Practitioner Gerontology
DX: D64.9 Anemia, unspecified (principal)
CPT/HCPCS: 36415; 85025

== ENCOUNTER 2022-06-07 14:29 | Outpatient (CLI) | payer BC, SELFPAY ==
[2022-06-07 14:55] LABS: Basophils Absolute Auto 0.1 K/mm3 (0.0-0.1); Basophils Percent Auto 1.4 % (0.2-1.2); Eosinophils Absolute Auto 0.1 K/mm3 (0-0.3); Eosinophils Percent Auto 2.8 % (0-4.4); Hematocrit 34.1 % (37.0-47.0); Hemoglobin 10.6 g/dL (12.0-15.0); Immature Granulocyte Absolute 0.01 K/mm3 (0.00-0.031); Immature Granulocyte Percent A 0.2 % (0-0.5); Lymphocytes Percent Auto 32.3 % (18.3-44.2); Mean Corpuscular HGB Conc 31.1 g/dl (32-36); Mean Corpuscular Hemoglobin 28.5 pg (26-34); Mean Corpuscular Volume 91.7 fl (80-100); Mean Platelet Volume 9.6 fl (7.4-10.4); Monocytes Absolute Auto 0.4 K/mm3 (0.1-0.6); Monocytes Percent Auto 8.1 % (2.6-8.5); Neutrophils Absolute Auto 2.4 K/mm3 (1.3-6.7); Neutrophils Percent Auto 55.2 % (45.5-73.1); Platelet Count Result 239 k/mm3 (150-375); Red Blood Count 3.72 M/mm3 (4.2-5.4); Red Cell Distribution Width 14.3 % (11.5-14.5); White Blood Count 4.3 K/mm3 (4.5-10.0)
[2022-06-07 15:00] LABS: Cholesterol 166 mg/dL (0-200); HDL Direct 63 mg/dL; Triglycerides 101 mg/dL (<150)
[2022-06-07 15:04] LABS: Alanine Aminotransferase 22 U/L (6-35); Albumin Level 3.9 g/dL (3.5-5.1); Alkaline Phosphatase 68 U/L (38-126); Anion Gap 8 mmol/L (8-16); Aspartate Amino Transferase 27 U/L (14-36); Bilirubin,Total 0.3 mg/dL (0.2-1.3); Blood Urea Nitrogen 7 mg/dL (7-17); CRP < 0.5 mg/dL (<1.0); Calcium 8.9 mg/dL (8.4-10.2); Carbon Dioxide 28 mmol/L (22-30); Chloride 100 mmol/L (98-107); Estimated Glomerular Filt Rate > 60; Glucose 98 mg/dL (65-110); Sodium 136 mmol/L (137-145)
[2022-06-07 15:11] LABS: LDL Cholesterol Direct 56 mg/dL
[2022-06-07 15:41] LABS: Erythrocyte Sedimentation Rate 16 mm/hr (0-20)
[2022-06-07 16:10] LABS: Folic Acid 12.1 ng/mL (2.76->20)
[2022-06-07 18:45] LABS: Iron 78 ug/dL (37-170); Percent Iron Saturation 16 % (20-50)
[2022-06-13 13:41] LABS: BCR/abl Prior Result Not Given
[2022-06-13 14:29] LABS: BCR/abl P190 Not Detected; BCR/abl P190 Chg YES; BCR/abl P210 Not Detected; BCR/abl P210 Chg YES
== END 2022-06-07 14:30 | disposition home or self-care (01) ==
LOC: ANHLAB 14:31
PROVIDERS: PCP Family Medicine; Referring Provider Internal Medicine Hematology & Oncology; Visit Provider Family Medicine
DX: G45.9 Transient cerebral ischemic attack, unspecified (principal); D72.829 Elevated white blood cell count, unspecified; D64.9 Anemia, unspecified
CPT/HCPCS: 36415; 80053; 80061; 81206; 81207; 82607; 82728; 82746; 83540; 83550; 85025; 85652; 86140; 88184

== ENCOUNTER 2022-07-02 12:00 | Emergency (ER) | payer BC, SELFPAY ==
[2022-07-02 12:15] VITALS: BP 101/53; PULSE 81; RESP 16; TEMP 35.8; O2SAT 99
[2022-07-02 12:20] VITALS: BP 101/53; PULSE 81; RESP 16; TEMP 35.8; O2SAT 99
--- NOTE | 2022-07-02 13:10 | ED.URI ---
HPI - URI/Sore Throat General Chief Complaint: Upper Respiratory Infection Stated Complaint: Nausea,Cough,Running Nose Time Seen by Provider: 07/02/22 13:11 Source: patient, RN notes reviewed and old records reviewed Mode of arrival: ambulatory Limitations: no limitations History of Present Illness HPI Narrative: 52-year-old female presents to the [facility] with complaints of cough, nausea and runny nose. Patient states that she was around a baby with runny nose on Saturday, Saturday night when she got home started having generalized body aches, feeling feverish, took NyQuil and did not get better. MD elicited complaint: cough Related Data Home Medications Medication Instructions Recorded Confirmed cariprazine 6 mg capsule (Vraylar) 4.5 mg PO DAILY 10/24/21 07/02/22 divalproex 500 mg tablet,extended 500 mg PO DAILY 10/24/21 07/02/22 release 24 hr duloxetine 30 mg capsule,delayed 30 mg PO DAILY 10/24/21 07/02/22 release montelukast 10 mg tablet 10 mg PO DAILY 10/24/21 07/02/22 linaclotide 290 mcg capsule 290 mcg PO DAILY 02/23/22 07/02/22 (Linzess) lorazepam 0.5 mg tablet 0.5 mg PO BID PRN Anxiety 02/23/22 07/02/22 zonisamide 50 mg capsule 50 mg PO BID 02/23/22 07/02/22 lemborexant 5 mg tablet (Dayvigo) 5 mg PO QHS 04/26/22 07/02/22 Allergies Allergy/AdvReac Type Severity Reaction Status Date / Time tetanus immune globulin Allergy Mild HIVES AND Verified 07/02/22 12:15 SWELLING canagliflozin Allergy Unknown Rash Verified 07/02/22 12:15 Penicillins Allergy Unknown Rash Verified 07/02/22 12:15 Tetanus Vaccines and Toxoid Allergy Unknown Rash Verified 07/02/22 12:15 erythromycin base AdvReac Mild NAUSEA/VOMI Verified 07/02/22 12:15 TING IMMUNIZATIONS Allergy Unknown RASH Uncoded 07/02/22 12:15 Mold (Blue) Cheese Allergy Unknown .Hives and Uncoded 07/02/22 12:15 swelling Review of Systems Review of Systems: All systems reviewed & are unremarkable except as noted in HPI and below Constitutional: Constitutional: Reports as per HPI, Reports chills, Reports fatigue and Denies fever(s) Eyes: Eyes: Reports no additional eye complaints ENT: Reports as per HPI and Reports sore throat Cardiovascular: Cardiovascular: Reports no additional cardiovascular complaints Respiratory: Respiratory: Reports as per HPI and Reports cough Gastrointestinal: Gastrointestinal: Reports no additional gastrointestinal complaints Musculoskeletal: Musculoskeletal: Reports no additional musculoskeletal complaints Integumentary/Breasts: Skin/Breast: Reports system reviewed and no additional complaints, except as docu Neurologic: Reports system reviewed and no additional complaints, except as documented Psychiatric: Psychiatric: Reports no additional psychiatric complaints Allergic/Immunologic: Allergic/Immunologic: Reports no additional allergic/immunologic complaints [facility] Past Medical History Medical History Anxiety and depression Asthma Bilateral carpal tunnel syndrome Bipolar disorder Epilepsy GERD (gastroesophageal reflux disease) History of COPD Hypothyroid Hypothyroidism (acquired) Interstitial cystitis Migraine Polycystic disease, ovaries Seasonal allergies Shingles Stroke TIA (transient ischemic attack) Surgical History Surgical History H/O arthroscopy of left knee H/O carpal tunnel repair bilateral H/O dilation and curettage History of bunionectomy History of cholecystectomy History of foot surgery History of left knee replacement History of thyroidectomy, subtotal Hx of gastric bypass Family History Family History Sibling Family history of multiple sclerosis, Onset Age: 43 Cerebrovascular accident, Onset Age: 19 Father Hypertension Family history of elevated blood lipids Family history of diabetes mellitus in first deg
== END 2022-07-02 14:05 | disposition home or self-care (01) ==
PROVIDERS: Emergency Provider Nurse Practitioner; PCP Family Medicine
DX: J06.9 Acute upper respiratory infection, unspecified (principal); Z20.822 Contact with and (suspected) exposure to COVID-19; J45.909 Unspecified asthma, uncomplicated; K21.9 Gastro-esophageal reflux disease without esophagitis; J44.9 Chronic obstructive pulmonary disease, unspecified; E03.9 Hypothyroidism, unspecified; E28.2 Polycystic ovarian syndrome; Z86.73 Personal history of transient ischemic attack (TIA), and cerebral infarction without residual deficits; G40.909 Epilepsy, unspecified, not intractable, without status epilepticus; F41.9 Anxiety disorder, unspecified; F31.9 Bipolar disorder, unspecified
CPT/HCPCS: 87426; 87804; 99213; C9803; G0463

== ENCOUNTER 2022-10-03 16:46 | Outpatient (CLI) | payer SELFPAY ==
[2022-10-03 17:46] LABS: Basophils Absolute Auto 0.1 K/mm3 (0.0-0.1); Basophils Percent Auto 0.5 % (0.2-1.2); Eosinophils Percent Auto 0.3 % (0-4.4); Hematocrit 34.3 % (37.0-47.0); Immature Granulocyte Absolute 0.06 K/mm3 (0.00-0.031); Immature Granulocyte Percent A 0.5 % (0-0.5); Lymphocytes Absolute Auto 1.91 K/mm3 (0.9-3.2); Lymphocytes Percent Auto 14.7 % (18.3-44.2); Mean Corpuscular HGB Conc 32.1 g/dl (32-36); Mean Corpuscular Hemoglobin 28.7 pg (26-34); Mean Corpuscular Volume 89.6 fl (80-100); Mean Platelet Volume 9.8 fl (7.4-10.4); Monocytes Absolute Auto 0.8 K/mm3 (0.1-0.6); Monocytes Percent Auto 5.9 % (2.6-8.5); Neutrophils Absolute Auto 10.1 K/mm3 (1.3-6.7); Neutrophils Percent Auto 78.1 % (45.5-73.1); Platelet Count Result 234 k/mm3 (150-375); Red Blood Count 3.83 M/mm3 (4.2-5.4); Red Cell Distribution Width 13.8 % (11.5-14.5)
== END 2022-10-03 16:47 | disposition home or self-care (01) ==
PROVIDERS: PCP Family Medicine; Visit Provider Family Medicine
DX: D72.829 Elevated white blood cell count, unspecified (principal)
CPT/HCPCS: 36415; 85025

== ENCOUNTER 2022-11-10 10:36 | Outpatient (CLI) | payer BC, SELFPAY ==
[2022-11-10 11:12] LABS: Basophils Percent Auto 0.7 % (0.2-1.2); Eosinophils Absolute Auto 0.1 K/mm3 (0-0.3); Eosinophils Percent Auto 2.5 % (0-4.4); Hematocrit 38.2 % (37.0-47.0); Hemoglobin 12.2 g/dL (12.0-15.0); Immature Granulocyte Absolute 0.02 K/mm3 (0.00-0.031); Immature Granulocyte Percent A 0.4 % (0-0.5); Lymphocytes Absolute Auto 1.26 K/mm3 (0.9-3.2); Lymphocytes Percent Auto 28.3 % (18.3-44.2); Mean Corpuscular HGB Conc 31.9 g/dl (32-36); Mean Corpuscular Hemoglobin 29.5 pg (26-34); Mean Corpuscular Volume 92.3 fl (80-100); Mean Platelet Volume 9.5 fl (7.4-10.4); Monocytes Absolute Auto 0.2 K/mm3 (0.1-0.6); Monocytes Percent Auto 5.4 % (2.6-8.5); Neutrophils Absolute Auto 2.8 K/mm3 (1.3-6.7); Neutrophils Percent Auto 62.7 % (45.5-73.1); Platelet Count Result 246 k/mm3 (150-375); Red Blood Count 4.14 M/mm3 (4.2-5.4); Red Cell Distribution Width 13.2 % (11.5-14.5); White Blood Count 4.5 K/mm3 (4.5-10.0)
[2022-11-10 11:40] LABS: Iron 68 ug/dL (37-170)
[2022-11-10 11:49] LABS: Percent Iron Saturation 17 % (20-50)
== END 2022-11-10 10:37 | disposition home or self-care (01) ==
PROVIDERS: PCP Family Medicine; Visit Provider Nurse Practitioner Gerontology
DX: D72.829 Elevated white blood cell count, unspecified (principal); D64.9 Anemia, unspecified
CPT/HCPCS: 36415; 82607; 83540; 83550; 85025

== ENCOUNTER 2022-11-21 09:58 | Emergency (ER) | payer BC, SELFPAY ==
--- NOTE | ~2022-11-21 | XR_ITS ---
Right Knee Technique: AP, lateral, and oblique views were obtained. Clinical History: Pain Findings: No fracture or dislocation is seen. Osseous alignment is anatomic. Minimal tricompartmental degenerative spurring noted. Soft tissues are unremarkable. No joint effusion is seen. Impression: No fracture or dislocation. Minimal tricompartmental degenerative change. Reviewed, dictated and finalized at [facility]. ARE INTERVIEWER Impression: No fracture or dislocation. Minimal tricompartmental degenerative change.
[2022-11-21 10:07] VITALS: BP 118/77; PULSE 81; RESP 12; TEMP 36.3; O2SAT 99
[2022-11-21 10:10] VITALS: BP 118/77; PULSE 81; RESP 12; TEMP 36.3; O2SAT 99
--- NOTE | 2022-11-21 10:19 | ED.LOWEXIN ---
HPI - Extremity Injury (Lower) General Chief Complaint: Extremity Injury, Lower Stated Complaint: right knee pain Time Seen by Provider: 11/21/22 10:25 Source: patient Mode of arrival: ambulatory Limitations: no limitations History of Present Illness HPI Narrative: 52 y/o female presented for c/o right knee pain after injury 2 days ago. States she missed a step while moving a mattress, causing her to hyper extend the right knee and land on it. Denies hitting her head or LOC. Hx residual left sided weakness from CVA (2014) and hx of left TKR (2019). Reports Pain is to the right lateral aspect and behind the knee. Endorses she has been bearing weight but pain is worse with walking and feels the knee will give out. Since the fall she has fallen one more time onto the right knee because the knee gave out. Denies swelling, bruising, numbness, tingling or weakness of the RLE. Taking Motrin for pain. Related Data Home Medications Medication Instructions Recorded Confirmed cariprazine 6 mg capsule (Vraylar) 6 mg PO DAILY 10/24/21 11/15/22 divalproex 500 mg tablet,extended 2,000 mg PO DAILY 10/24/21 11/15/22 release 24 hr duloxetine 30 mg capsule,delayed 30 mg PO DAILY 10/24/21 11/15/22 release lorazepam 0.5 mg tablet 0.5 mg PO TID PRN Anxiety 02/23/22 11/15/22 eszopiclone 3 mg tablet mg 11/21/22 11/21/22 Allergies Allergy/AdvReac Type Severity Reaction Status Date / Time tetanus immune globulin Allergy Mild HIVES AND Verified 11/21/22 10:09 SWELLING canagliflozin Allergy Unknown Rash Verified 11/21/22 10:09 Penicillins Allergy Unknown Rash Verified 11/21/22 10:09 Tetanus Vaccines and Toxoid Allergy Unknown Rash Verified 11/21/22 10:09 erythromycin base AdvReac Mild NAUSEA/VOMI Verified 11/21/22 10:09 TING IMMUNIZATIONS Allergy Unknown RASH Uncoded 11/21/22 10:09 Mold (Blue) Cheese Allergy Unknown .Hives and Uncoded 11/21/22 10:09 swelling Review of Systems Review of Systems: CONSTITUTIONAL: Denies body aches, fever, chills CARDIOVASCULAR: Denies chest pain, palpitations, or edema. RESPIRATORY: Denies cough or dyspnea. GASTROINTESTINAL: Denies abdominal pain, nausea, vomiting, or diarrhea. SKIN: Denies rash, itching, or wounds. MUSCULOSKELETAL: per HPI NEUROLOGIC: Denies headache, numbness, tingling, or weakness. All systems reviewed & are unremarkable except as noted in HPI and below [facility] Past Medical History Medical History Anxiety and depression Asthma Bilateral carpal tunnel syndrome Bipolar disorder Epilepsy GERD (gastroesophageal reflux disease) History of COPD Hypothyroid Hypothyroidism (acquired) Interstitial cystitis Migraine Polycystic disease, ovaries Seasonal allergies Shingles Stroke TIA (transient ischemic attack) Surgical History Surgical History H/O arthroscopy of left knee H/O carpal tunnel repair bilateral H/O dilation and curettage History of bunionectomy History of cholecystectomy History of foot surgery History of left knee replacement History of thyroidectomy, subtotal Hx of gastric bypass Family History Family History Sibling Family history of multiple sclerosis, Onset Age: 43 Cerebrovascular accident, Onset Age: 19 Father Hypertension Family history of elevated blood lipids Family history of diabetes mellitus in first degree relative Family history of coronary artery disease Mother Hypertension Family history of elevated blood lipids Family history of diabetes mellitus in first degree relative Family history of coronary artery disease Grandparent Family history of malignant neoplasm of cervix Family history of malignant neoplasm of breast Social History Social History Social History: Smoking status: Never sm
== END 2022-11-21 10:46 | disposition home or self-care (01) ==
PROVIDERS: Emergency Provider Nurse Practitioner Family; PCP Family Medicine
DX: M25.561 Pain in right knee (principal); K21.9 Gastro-esophageal reflux disease without esophagitis; E03.9 Hypothyroidism, unspecified; E28.2 Polycystic ovarian syndrome; Z96.652 Presence of left artificial knee joint; Z98.84 Bariatric surgery status; F41.9 Anxiety disorder, unspecified; I69.354 Hemiplegia and hemiparesis following cerebral infarction affecting left non-dominant side
CPT/HCPCS: 73564; 99213; G0463

== ENCOUNTER 2022-12-03 15:23 | Observation (INO) | payer BC, SELFPAY ==
[2022-12-03] VITALS (8 sets, daily range): BP systolic 116–146; BP diastolic 70–108; PULSE 72–92; RESP 12–18; TEMP 36.4–36.8; O2SAT 99–100; BMI 41.1
--- NOTE | ~2022-12-03 | CT_ITS ---
EXAMINATION: CT brain wo con DATE: 12/03/2022 15:45 INDICATION: Cerebrovascular accident. TECHNIQUE: Computed tomography (CT) of the head was performed without intravenous contrast. The mA wa s adjusted according to patient size. Iterative reconstruction technique was employed. The dose-lengt h product was 681.00 mGy-cm. COMPARISON: Head CT 01/28/2019 FINDINGS: There is no intracranial hemorrhage, acute infarction, or abnormal intracranial mass lesion . There is a prominent perivascular space in the left basal ganglia. The ventricles are normal in siz e. There is mild mucosal thickening in the ethmoid sinuses. The mastoid air cells are normal. The orb its are normal. IMPRESSION: 1. Normal brain. Reviewed, dictated and finalized at location A. RVISOR LOCOMOTIVE IMPRESSION: 1. Normal brain.
--- NOTE | ~2022-12-03 | XR_ITS ---
XR chest 1V portable DATE: 12/03/2022 16:10 INDICATION: Suspected cerebrovascular accident. TECHNIQUE: Portable upright AP chest views on 12/03/2022 at 1606 and 1607 hours COMPARISON: 02/23/2022 PA and lateral chest FINDINGS: Normal heart size. No hilar or mediastinal enlargement. No pulmonary infiltrate or consolid ation, pleural effusion or pulmonary vascular congestion or pneumothorax. Diffuse idiopathic skeletal hyperostosis of the thoracic spine. Osteopenia. IMPRESSION: No active cardiopulmonary disease Reviewed, dictated and finalized at location B. CATCHER
--- NOTE | ~2022-12-03 | MR_ITS ---
EXAMINATION: MR brain/brain stem wo/w con DATE: 12/04/2022 10:24 INDICATION: Left-sided hemiparesis. Speech changes. Seizure. TECHNIQUE: Magnetic resonance imaging (MRI) of the brain and brainstem was performed without and with 20 mL Multihance intravenous contrast. Sequences included sagittal and axial T1-weighted SE, axial d iffusion-weighted FS SE, axial T2*-weighted GRE, axial 3D SWAN, axial T2-weighted FLAIR, and axial T2 -weighted FSE. Postcontrast axial and coronal T1-weighted SE was obtained. Apparent diffusion coeffic ient (ADC) maps were created. COMPARISON: Head CT dated 12/03/2022 and brain MR dated 07/14/2018 FINDINGS: There are no areas of restricted diffusion to suggest acute infarction. No intracranial hemorrhage or abnormal intracranial mass lesion. No change in a prominent perivascular space at the inferior left basal ganglia. There are no intraparenchymal signal abnormalities seen on the other pulse sequences. The ventricles are symmetric and normal in size. There are no abnormal extra-axial fluid collections. Flow voids are seen in the cerebral arteries on the T2-weighted sequences consistent with their expe cted patency. Mild mucoperiosteal thickening the bilateral anterior ethmoid sinuses. Visualized orbit s and soft tissues are unremarkable. There are no areas of abnormal enhancement on the post contrast images. IMPRESSION: 1. Normal brain. Reviewed, dictated and finalized at location A. OXIDE MILL TENDER IMPRESSION: 1. Normal brain.
--- NOTE | 2022-12-03 15:30 | PC.NURSE ---
Patients partner came into room and told this RN that patients speech was not affected until they were on the way to the hospital, which was in the past hour. Dr. Zamora made aware. Patient taken to stroke stop
--- NOTE | 2022-12-03 15:32 | ECG_ITS ---
Measurements Intervals Raymond Rate: 69 P: DC: 0 QRS: 71 QRSD: 95 T: -23 QT: 383 QTc: 412 Interpretive Statements SINUS RHYTHM INCOMPLETE RIGHT BUNDLE BRANCH BLOCK BORDERLINE ST-T WAVE ABNORMALITY- ANT/INF LEADS BASELINE ARTIFACT- I, II, AVR, AVL, AVF, V1-V6 BORDERLINE ECG COMPARED TO ECG 02/22/2022 23:37:34 NO SIGNIFICANT CHANGES Electronically Signed On 12-03-2022 16:51:28 FURNITURE STAINER by Bertrand Fung D.O.
[2022-12-03 15:40] LABS: Glucose Point of Care 96 mg/dl (65-105)
--- NOTE | 2022-12-03 16:04 | ED.NEUROSD ---
HPI - Neuro Symptoms/Deficit General Chief Complaint: Suspected CVA Stated Complaint: had a seizure this AM, neuro s/s Time Seen by Provider: 12/03/22 15:46 Source: patient and RN notes reviewed Mode of arrival: wheelchair Limitations: no limitations History of Present Illness HPI Narrative: This is a 52 year old female who presents for evaluation of slurred speech. Patient was brought to stroke [facility] for evaluation of speech difficulty. Patient states she has history of epilepsy and she had seizure this morning at 430 am. She states I feel like I've been stuck on stupid since then . She feels like she is having trouble concentrating. She made an appointment with her PCP after her seizure. PCP sent to ER because she seemed confused. Her partner states that while she was in triage, she witnessed her having a seizure, and then they brought patient to [facility]. Patient states she has been out of her lorazepam for 3 days and she takes 0.5 mg tid . She takes keppra 1250 mg bid but she has not missed any doses. She denies any focal weakness. She does reports numbness to her left foot. She is scheduled for MRI brain on Saturday for evaluation of episodes of slurred speech. Related Data Home Medications Medication Instructions Recorded Confirmed cariprazine 6 mg capsule (Vraylar) 6 mg PO HS 10/24/21 12/03/22 divalproex 500 mg tablet,extended 2,000 mg PO HS 10/24/21 12/03/22 release 24 hr duloxetine 30 mg capsule,delayed 90 mg PO HS 10/24/21 12/03/22 release lorazepam 0.5 mg tablet 0.5 mg PO TID PRN Anxiety 02/23/22 12/03/22 eszopiclone 3 mg tablet 3 mg PO HS 11/21/22 12/03/22 duloxetine 60 mg capsule,delayed 90 mg PO HS 12/03/22 12/03/22 release levetiracetam 1,000 mg tablet 1,250 mg PO BID 12/03/22 12/03/22 levetiracetam 250 mg tablet 1,250 mg PO BID 12/03/22 12/03/22 Allergies Allergy/AdvReac Type Severity Reaction Status Date / Time tetanus immune globulin Allergy Mild HIVES AND Verified 12/03/22 20:58 SWELLING Penicillins Allergy Unknown Rash Verified 12/03/22 20:58 Tetanus Vaccines and Toxoid Allergy Unknown Rash Verified 12/03/22 20:58 erythromycin base AdvReac Mild NAUSEA/VOMI Verified 12/03/22 20:58 TING IMMUNIZATIONS Allergy Unknown RASH Uncoded 12/03/22 16:16 Mold (Blue) Cheese Allergy Unknown .Hives and Uncoded 12/03/22 16:16 swelling Review of Systems Constitutional: Constitutional: Denies weakness Cardiovascular: Cardiovascular: Denies syncope, Denies rapid heart rate, Denies irregular heart rhythm, Denies leg edema and Denies dyspnea Respiratory: Respiratory: Denies chest congestion, Denies hemoptysis, Denies excessive phlegm production and Denies dyspnea Gastrointestinal: Gastrointestinal: Denies abdominal pain, Denies hematochezia, Denies diarrhea and Denies vomiting Genitourinary: Genitourinary: Denies hematuria and Denies dysuria Musculoskeletal: Musculoskeletal: Denies joint swelling, Denies loss of height and Denies muscle weakness Neurologic: Reports Abnormal speech present, Denies syncope, Reports lack of coordination, Denies focal weakness, Reports seizure-like activity, Reports Sensory deficit (Neuro), Reports tingling and Denies weakness [facility] Past Medical History Medical History Abdominal pain in female Abnormal finding on breast imaging Acute asthma exacerbation Acute cystitis without hematuria Acute maxillary sinusitis, unspecified Acute pain Anemia Anemia Anxiety and depression Asthma Atrial tachycardia Bilateral carpal tunnel syndrome Bipolar disorder BMI 32.0-32.9,adult Breast cancer screening Breast screening Breast screening Ermelinda tropicalis infection Chest pain Concussion syndrome Congenital hernia of foramen of [place] Constipation by delayed colonic transit Encounter for general adult medical examination with abnormal findings Epilepsy Epilepsy, unspecified, not intractable, witho
--- NOTE | 2022-12-03 16:46 | PC.NURSE ---
multiple IV attempts without success. will attempt with ultrasound.
[2022-12-03 17:50] LABS: Basophils Absolute Auto 0.1 K/mm3 (0.0-0.1); Basophils Percent Auto 1.3 % (0.2-1.2); Eosinophils Absolute Auto 0.1 K/mm3 (0-0.3); Eosinophils Percent Auto 0.9 % (0-4.4); Hematocrit 38.5 % (37.0-47.0); Hemoglobin 12.6 g/dL (12.0-15.0); Immature Granulocyte Absolute 0.01 K/mm3 (0.00-0.031); Immature Granulocyte Percent A 0.2 % (0-0.5); Lymphocytes Absolute Auto 2.04 K/mm3 (0.9-3.2); Lymphocytes Percent Auto 38.3 % (18.3-44.2); Mean Corpuscular HGB Conc 32.7 g/dl (32-36); Mean Corpuscular Volume 91.7 fl (80-100); Monocytes Absolute Auto 0.3 K/mm3 (0.1-0.6); Monocytes Percent Auto 5.4 % (2.6-8.5); Neutrophils Absolute Auto 2.9 K/mm3 (1.3-6.7); Neutrophils Percent Auto 53.9 % (45.5-73.1); Platelet Count Result 265 k/mm3 (150-375); Red Cell Distribution Width 13.5 % (11.5-14.5); White Blood Count 5.3 K/mm3 (4.5-10.0)
[2022-12-03 18:02] LABS: INR 1.1; Prothrombin Time 13.6 Seconds (11.1-14.7)
[2022-12-03 18:03] LABS: Partial Thromboplastin Time 29.7 SECONDS (22.3-36.8)
[2022-12-03] MEDS: LORazepam INJ (*CRX) 2 MG/ML VIAL 0.5 MG IV PUSH (18:05)
[2022-12-03 18:07] LABS: Alanine Aminotransferase 26 U/L (6-35); Albumin Level 4.5 g/dL (3.5-5.1); Alkaline Phosphatase 79 U/L (38-126); Anion Gap 8 mmol/L (8-16); Aspartate Amino Transferase 37 U/L (14-36); Bilirubin,Total 0.5 mg/dL (0.2-1.3); Blood Urea Nitrogen 4 mg/dL (7-17); Calcium 9.1 mg/dL (8.4-10.2); Carbon Dioxide 27 mmol/L (22-30); Chloride 101 mmol/L (98-107); Estimated CRCL calculation 125 ml/min; Estimated Glomerular Filt Rate > 60; Glucose 92 mg/dL (65-110); Potassium 3.8 mmol/L (3.4-5.0); Sodium 136 mmol/L (137-145)
[2022-12-03 18:08] LABS: Ethanol < 10 mg/dL (<10)
[2022-12-03 18:19] LABS: Troponin I < 0.012 ng/mL (0.000-0.034)
[2022-12-03 18:36] LABS: Valproic Acid 49.5 ug/mL (50-120)
[2022-12-03 19:18] LABS: Amphetamine Screen Urine Negative (Negative); Barbiturate Screen Urine Negative (Negative); Benzodiazepines Screen Urine Negative (Negative); Cannabinoid Screen Urine Negative (Negative); Cocaine Screen Urine Negative (Negative); Methadone Screen Urine Negative (Negative); Opiate Screen Urine Negative (Negative); Phencyclidine Screen Urine Negative (Negative)
--- NOTE | 2022-12-03 20:50 | ADMGEN ---
This patient, Andrea Grimes, was admitted to Medical Room 342-01. Patient/family oriented to hospital policies and general routines including ID bracelet, bed and alarms, visiting hours, pain management, procedures, bathroom and other care routines, personal items, smoking policy, room service/diet, and visiting hours. Information on how to activate the Rapid Response Team has been discussed. Patient/Family are encouraged to report perceived risks to care and to ask questions if they do not understand what they are told or what they should do.
[2022-12-04] VITALS (7 sets, daily range): BP systolic 104–121; BP diastolic 54–64; PULSE 74–86; RESP 14–18; TEMP 36.7–37; O2SAT 94–99
[2022-12-04] MEDS: DULoxetine HCL 30 MG CAPSULE.DR 90 MG PO (01:53)
[2022-12-04] MEDS: DIVALPROEX SODIUM ER 500 MG TAB.24H 2000 MG PO (01:53)
--- NOTE | 2022-12-04 02:44 | PM.IMHP ---
H&P: HPI History of Present Illness Date/Time: 12/04/22 02:44 Chief Complaint: Seizure, left-sided weakness Narrative: 52-year-old female with a past medical history of TIA, major depressive disorder/bipolar disorder, COPD, GERD and seizure disorder who presented to the ER with concerns for stroke after having persistent left-sided weakness following a seizure. The patient reports that she had a seizure around 04:30. She reports that she knows that she had a seizures when she woke up she felt her body was extended in achy like when she usually has a seizure. She states she was alone in her room with her 3 dogs. Her was sleeping in the recliner in the living room per their usual. She reports that she ?I feel like I have been stuck on stupid since then. ?. She feels as if it is taking significant thought process to express her self and that her speech is slow. She is having trouble concentrating. She reported that her left side felt heavy and a little bit weak. She has been having intermittent headaches all day. While she was in triage she actually had her typical aura which is like a lightening type sensation in the left side of her head. This was followed by a brief seizure. Her witnessed the root seizure. The patient reports that she has been out of her lorazepam for approximately 3 days. She has not missed any doses of her Keppra. Do her seizure this morning occurred before her usual Keppra dose would be given. She was already scheduled to have an outpatient MRI on Saturday to evaluate episodes of slurred speech. She follows with Dr. Jesse Vila for seizures. The patient reports that her symptoms have completely resolved at this time. She was having some headache that was 6/10 in intensity but that has also resolved. The headache was bandlike in nature around her head. It is been intermittent since her seizure. She denies any loss of bowel or bladder function, she denies any tongue injury. Review of Systems Review of Systems: 12 systems were reviewed with pertinent positives and negatives per HPI. Except as documented in the HPI, all other systems were reviewed and are negative. [facility] Past Medical History Medical History (Updated 12/04/22 @ 08:17 by Alejandra Rodney, ) Anemia Anxiety and depression Asthma Atrial tachycardia Bilateral carpal tunnel syndrome Bipolar disorder Concussion syndrome Congenital hernia of foramen of [place] Constipation by delayed colonic transit Epilepsy Essential (primary) hypertension GERD (gastroesophageal reflux disease) Hypothyroidism (acquired) Interstitial cystitis Metabolic syndrome Migraine Obesity TAM (obstructive sleep apnea) With CPAP use PCOS (polycystic ovarian syndrome) Seasonal allergies Seizure disorder Shingles Slow rate of speech TIA (transient ischemic attack) Surgical History Surgical History H/O arthroscopy of left knee H/O carpal tunnel repair bilateral H/O dilation and curettage History of bunionectomy History of cholecystectomy History of foot surgery History of left knee replacement History of thyroidectomy, subtotal Hx of gastric bypass Family History Family History (Updated 12/04/22 @ 08:18 by Alejandra Rodney DO) Sibling Cerebrovascular accident, Onset Age: 19 Multiple sclerosis Father Hypertension Coronary artery disease Hyperlipidemia Mother Hypertension Heart disease Hyperlipidemia Diabetes mellitus Grandparent Family history of malignant neoplasm of cervix Family history of malignant neoplasm of breast Social History Social History (Updated 12/04/22 @ 08:20 by Alejandra Rodney DO) Social History: The patient has been with her since 2005 they we will give when the lost changed. They have 3 medium to large his dogs at home. The patient works for the [employer] She is lifelong nonsmoker but had history of heavy secondhand smoke exposure until
[2022-12-04] MEDS: FLUTICASONE/SALMETEROL 115-21 MCG INHALER 1 PUFF 2 PUFF INHALATION (08:10)
[2022-12-04] MEDS: LIOTHYRONINE SODIUM 5 MCG TABLET 10 MCG PO (08:54)
[2022-12-04] MEDS: levETIRAcetam 250 MG TABLET PO (08:55)
[2022-12-04] MEDS: levETIRAcetam 500 MG TABLET 1000 MG PO (08:55)
--- NOTE | 2022-12-04 08:55 | WPDNEUROLOGY ---
Neurology EEG Report General Information Date of Study: 12/04/22 TEST eeg DIAGNOSIS Epilepsy CONDITION OF RECORDING awake and drowsy EEG NUMBER [id number] CLINICAL HISTORY patient reports she was brought into the hospital yesterday after having a grand mal seizure and unable to return to normal. Had continued slurred speech and confusion. As a 2nd seizure in the emergency room. History of seizure following the TIA in 2013 EEG DESCRIPTION basic resting occipital frequency consists of low to medium voltage 8 to 10 hertz per 2nd alpha admixed with low-voltage 15 to 18 hertz per 2nd beta. During drowsiness low-voltage beta activity seen diffusely admixed with waxing and waning posterior alpha rhythm. Hyperventilation not done. Photic stimulation not done. Non paroxysmal. Nonfocal. Nonlateralizing. IMPRESSION Normal record at this time.
--- NOTE | 2022-12-04 12:08 | WPDNEUROPN ---
Progress Note: A&P Assessment and Plan (1) Breakthrough seizure: Code(s): G40.919 - Epilepsy, unspecified, intractable, without status epilepticus Status: Acute Plan 1 Breakthrough seizure with normal EEG nonfocal neuro examination and anticonvulsant dosage is enough. Patient was advised to return to home with instruction to follow in the office and transient 3.75 mg has been started for anxiety. Subjective Date/time seen: 12/04/22 12:08 Interval history: 52 years old right-handed female admitted to the hospital through the emergency room for the complaints of dysarthria in addition to the ongoing history of epilepsy and reported seizure in the morning around 4:30 a.m. she also complained of difficulties in concentration while she was in the triage at the emergency room she was noted to have a seizure she has ran out of her lorazepam for 72 hours which she takes 0.5 mg 3 times a day in addition to Keppra 12 50 mg b.i.d. though she has not missed any dosage at the time of visit to the ER she had been taking Depakote 2000 mg at night, duloxetine 90 mg at night, lorazepam 0.5 mg t.i.d. levetiracetam 12 50 mg twice a day, she has ongoing history of multiple medical problems as outlined she has never smoked and never drinker initial exam in the emergency room was nonfocal so as the vital signs were normal she was afebrile CBC was normal basic metabolic panel with borderline sodium 136 valproic acid level 49.5 alcohol level less than 10 drug screen negative levetiracetam level were pending CT scan of the head was negative for the bleed EKG without evidence of atrial fibrillation stroke scale only 1, had an EEG which is normal Review of Systems Review of Systems: All systems reviewed & are unremarkable except as noted in HPI and below Exam Narrative: revealed her to be awake alert cooperative, in no obvious acute distress his speech nor dysphasic no dysarthric not dysphonic. Head normocephalic with no cranial bruit. Ear nose throat examination normal. Neck is supple with no meningeal signs no cervical bruit. Heart regular with no murmur. Lungs clear to auscultation. Abdomen is soft nontender. Neuro examination revealed her to be awake alert oriented x3 his speech nor dysphasic no dysarthric not dysphonic the cranial examination is normal motor examination revealed normal strength and tone bilaterally in upper and lower extremities reflexes symmetrical and plantars are downgoing with no evidence of any cerebellar dysfunction. Objective Data Vital Signs Vital Signs: Vital Signs - 24 hr 12/03/22 15:28 12/03/22 15:49 12/03/22 18:02 Temperature 36.8 C 36.4 C Pulse Rate 73 74 76 Respiratory Rate 18 12 16 Blood Pressure 122/70 146/108 H 136/76 Pulse Oximetry 100 100 100 Oxygen Delivery Room Air 12/03/22 18:53 12/03/22 20:28 12/03/22 21:18 Temperature 36.7 C Pulse Rate 72 92 91 Respiratory Rate 16 16 Blood Pressure 116/72 145/79 H 124/72 Pulse Oximetry 100 100 100 Oxygen Delivery 12/03/22 22:25 12/04/22 00:00 12/04/22 04:00 Temperature Pulse Rate 78 79 81 Respiratory Rate Blood Pressure Pulse Oximetry Oxygen Delivery 12/04/22 05:35 12/03/22 23:05 12/04/22 08:15 Temperature 36.7 C Pulse Rate 74 86 Respiratory Rate 16 18 Blood Pressure 121/64 Pulse Oximetry 99 99 98 Oxygen Delivery Room Air Room Air 12/04/22 08:15 12/04/22 08:00 12/04/22 08:00 Temperature Pulse Rate 86 75 Respiratory Rate 18 Blood Pressure Pulse Oximetry Oxygen Delivery Room Air Intake/Output Intake/Output: Intake & Output 12/01/22 12/02/22 12/03/22 12/04/22 23:59 23:59 23:59 23:59 Intake Total 860 Output Total 900 Balance -900 860 Meds/Results Medications: Active Medications Generic Name Dose Route Start Last Admin Trade Name Freq PRN Reason Stop Dose Admin Divalproex Sodium 2,000 mg 12/04/22 01:35 12/04/22 01:53 Divalproex Sodium Er 500 Mg Tab.
--- NOTE | 2022-12-04 15:01 | PM.DS ---
DS: Admitting Diagnosis Discharge Date 12/04/22 Admitting Diagnosis Persistent left-sided weakness following a seizure DS: Discharge Diagnosis Discharge Diagnosis (1) Breakthrough seizure: Code(s): G40.919 - Epilepsy, unspecified, intractable, without status epilepticus Status: Acute (2) Acute left-sided weakness: Code(s): R53.1 - Weakness Status: Acute (3) Anxiety and depression: Code(s): F41.9 - Anxiety disorder, unspecified; F32.9 - Major depressive disorder, single episode, unspecified Status: Acute DS: Summary Hospital Course Reason for hospitalization: 52yo female with a past medical history of TIA, major depressive disorder/bipolar disorder, COPD, GERD and seizure disorder who presented to the ER with concerns for stroke after having persistent left-sided weakness following a seizure.?Please see H&P for details. Hospital Course: Patient here for left sided weakness after a seizure. The patient reports that she has been out of her lorazepam for approximately 3 days.? She has not missed any doses of her Keppra.? She follows with Dr. Vila for seizures.? CXR clear. Head CT showing no acute findings. CBC, PT, PTT and CMP essentially normal. Troponin negative. UDS negative. Alcohol level negative. VPA level 50. Patient did receive a dose of Keppra in the ER.? Patient did report some left-sided weakness of the hand and foot which has since resolved.? MRI brain showing no acute findings. EEG showing normal record. 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 Neurology was consulted.?They recommended Tranxene 3.75mg bid. She has been up walking to the bathroom. She overall did well and was able to be discharged home on 12/04/22. Discharge instructions discussed. Status at Discharge Cognitive/behavioral status at discharge: Stable Time Spent with Patient Time attestation: Total time spent providing and/or coordinating discharge services: 35 minutes Time spent: Greater than 30 minutes Exam Narrative: AF 98.6 104/54 84 14 94% ra Gen - NARD Chest - CTA bilaterally, nml RR CV - RRR S1/S2 Abd - Soft, NT/ND, Positive BS Ext - No pedal edema Psych - Nml mood and affect Skin - Warm and dry DS: Data Data Completed and Pending Labs on day of discharge: Labs from last 24 hours 12/03/22 12/03/22 12/03/22 18:28 17:38 17:38 WBC RBC Hgb Hct MCV MCH MCHC RDW Plt Count MPV Immature Gran % (Auto) Neut % (Auto) Lymph % (Auto) [place] % (Auto) Eos % (Auto) Baso % (Auto) Lymph # (Auto) [place] # (Auto) Eos # (Auto) Baso # (Auto) Abs Immat Gran (auto) Absolute Neuts (auto) Absolute Nucleated RBC Nucleated RBC % PT INR APTT Sodium Potassium Chloride Carbon Dioxide Anion Gap BUN Creatinine Estim Creat Clear Calc Estimated GFR Glucose POC Capillary Glucose Calcium Total Bilirubin AST ALT Alkaline Phosphatase Troponin I Total Protein Albumin Urine Opiates Screen Negative Urine Methadone Screen Negative Ur Barbiturates Screen Negative Valproic Acid Levetiracetam Pending Ur Phencyclidine Scrn Negative Ur Amphetamine Screen Negative U Benzodiazepines Scrn Negative Urine Cocaine Screen Negative U Cannabinoids Screen Negative Ethyl Alcohol < 10 12/03/22 12/03/22 12/03/22 17:38 17:38 17:38 WBC RBC Hgb Hct MCV MCH MCHC RDW Plt Count MPV Immature Gran % (Auto) Neut % (Auto) Lymph % (Auto) [place] % (Auto) Eos % (Auto) Baso % (Auto) Lymph # (Auto) [place] # (Auto) Eos # (Auto) Baso # (Auto) Abs Immat Gran (auto) Absolute Neuts (auto) Absolute Nucleated RBC Nucleated RBC % PT 13.6 INR 1.1 APTT 29.7 Sodium 136 L Potassium 3.8 Chloride 101 Carbon Dioxide 27 Anion Gap 8 BUN 4 L Creatinin
[2022-12-05 15:03] LABS: Levetiracetam Keppra 17.4 mcg/mL (6.0-46.0)
== END 2022-12-04 16:18 | disposition home or self-care (01) ==
LOC: ANHED 16:27 → ANH3MED 12-04 00:09
PROVIDERS: Emergency Medicine; Admitting Provider Internal Medicine; Emergency Provider General Practice; PCP Family Medicine; Visit Provider Internal Medicine
DX: G40.919 Epilepsy, unspecified, intractable, without status epilepticus (principal); R53.1 Weakness; F41.9 Anxiety disorder, unspecified; R47.81 Slurred speech; J45.909 Unspecified asthma, uncomplicated; K21.9 Gastro-esophageal reflux disease without esophagitis; I10 Essential (primary) hypertension; E03.9 Hypothyroidism, unspecified; F31.9 Bipolar disorder, unspecified; D64.9 Anemia, unspecified; I45.10 Unspecified right bundle-branch block; G43.909 Migraine, unspecified, not intractable, without status migrainosus; G47.33 Obstructive sleep apnea (adult) (pediatric); Z98.84 Bariatric surgery status; Z86.73 Personal history of transient ischemic attack (TIA), and cerebral infarction without residual deficits; Z79.899 Other long term (current) drug therapy; Z82.3 Family history of stroke; Z83.3 Family history of diabetes mellitus; Z82.49 Family history of ischemic heart disease and other diseases of the circulatory system
CPT/HCPCS: 36415; 70450; 70553; 71045; 80053; 80164; 80177; 80307; 81025; 82948; 84484; 85025; 85610; 85730; 93005; 94640; 95816; 96374; 99285; A9270; A9577; G0378; J2060

== ENCOUNTER 2022-12-12 14:21 | Emergency (ER) | payer BC, SELFPAY ==
--- NOTE | ~2022-12-12 | XR_ITS ---
Right ankle Technique: AP, oblique, and lateral views were obtained. Clinical History: Pain Findings: No acute fracture or dislocation is seen. Osseous alignment is anatomic. Ankle mortise and other visualized joint spaces are preserved. Enthesopathic change noted at the Achilles tendon insert ion. Small plantar calcaneal spur noted. Impression: No acute abnormality. Reviewed, dictated and finalized at location . Impression: No acute abnormality.
--- NOTE | 2022-12-12 14:25 | ED.LOWEXIN ---
HPI - Extremity Injury (Lower) General Chief Complaint: Extremity Injury, Lower Stated Complaint: Right Ankle Pain Time Seen by Provider: 12/12/22 14:26 Source: patient Mode of arrival: ambulatory Limitations: no limitations History of Present Illness HPI Narrative: is a 52-year-old female patient presenting to the clinic today with complaints of right ankle pain times. She reports she stepped in a mole hole on Saturday and sprained her right ankle. She reports pain to the lateral aspect of her ankle. Related Data Home Medications Medication Instructions Recorded Confirmed cariprazine 6 mg capsule (Vraylar) 6 mg PO HS 10/24/21 12/03/22 divalproex 500 mg tablet,extended 2,000 mg PO HS 10/24/21 12/03/22 release 24 hr duloxetine 30 mg capsule,delayed 90 mg PO HS 10/24/21 12/03/22 release eszopiclone 3 mg tablet 3 mg PO HS 11/21/22 12/03/22 levetiracetam 1,000 mg tablet 1,250 mg PO BID 12/03/22 12/03/22 budesonide-formoterol HFA 160 2 puff inhalation Q12H PRN Allergy 12/04/22 12/03/22 mcg-4.5 mcg/actuation aerosol Symptoms inhaler (Symbicort) liothyronine 5 mcg tablet 10 mcg PO DAILY 12/04/22 12/04/22 Allergies Allergy/AdvReac Type Severity Reaction Status Date / Time tetanus immune globulin Allergy Mild HIVES AND Verified 12/03/22 20:58 SWELLING Penicillins Allergy Unknown Rash Verified 12/03/22 20:58 Tetanus Vaccines and Toxoid Allergy Unknown Rash Verified 12/03/22 20:58 erythromycin base AdvReac Mild NAUSEA/VOMI Verified 12/03/22 20:58 TING IMMUNIZATIONS Allergy Unknown RASH Uncoded 12/03/22 16:16 Mold (Blue) Cheese Allergy Unknown .Hives and Uncoded 12/03/22 16:16 swelling Review of Systems Review of Systems: Pertinent positives per HPI. Patient denies any fever, chills, rash, headache, visual changes, dizziness, cough, runny nose, sore throat, shortness of breath, chest pain, palpitations, nausea, vomiting, diarrhea, constipation, abdominal pain, or any urinary issues. [facility] Past Medical History Medical History Anemia Anxiety and depression Asthma Atrial tachycardia Bilateral carpal tunnel syndrome Bipolar disorder Concussion syndrome Congenital hernia of foramen of [place] Constipation by delayed colonic transit Epilepsy Essential (primary) hypertension GERD (gastroesophageal reflux disease) Hypothyroidism (acquired) Interstitial cystitis Metabolic syndrome Migraine Obesity TAM (obstructive sleep apnea) With CPAP use PCOS (polycystic ovarian syndrome) Seasonal allergies Seizure disorder Shingles Slow rate of speech TIA (transient ischemic attack) Surgical History Surgical History H/O arthroscopy of left knee H/O carpal tunnel repair bilateral H/O dilation and curettage History of bunionectomy History of cholecystectomy History of foot surgery History of left knee replacement History of thyroidectomy, subtotal Hx of gastric bypass Family History Family History Sibling Cerebrovascular accident, Onset Age: 19 Multiple sclerosis Father Hypertension Coronary artery disease Hyperlipidemia Mother Hypertension Heart disease Hyperlipidemia Diabetes mellitus Grandparent Family history of malignant neoplasm of cervix Family history of malignant neoplasm of breast Social History Social History Social History: The patient has been with her since 2005 they we will give when the lost changed. They have 3 medium to large his dogs at home. The patient works for the [employer]. She is lifelong nonsmoker but had history of heavy secondhand smoke exposure until she was a teenager. She never drinks alcohol and does not have any history of illicit substance use. Code status: Full code Surrogate decision maker:
[2022-12-12 14:33] VITALS: BP 106/60; PULSE 86; RESP 16; TEMP 36.3; O2SAT 98
== END 2022-12-12 15:07 | disposition home or self-care (01) ==
PROVIDERS: Emergency Provider Nurse Practitioner Family; PCP Family Medicine
DX: S93.411A Sprain of calcaneofibular ligament of right ankle, initial encounter (principal); E03.9 Hypothyroidism, unspecified; I10 Essential (primary) hypertension; J45.909 Unspecified asthma, uncomplicated; Z86.73 Personal history of transient ischemic attack (TIA), and cerebral infarction without residual deficits; X50.0XXA Overexertion from strenuous movement or load, initial encounter
CPT/HCPCS: 73610; 99213; G0463

== ENCOUNTER 2023-01-28 14:05 | Outpatient (CLI) | payer BC, SELFPAY ==
[2023-01-28 14:27] LABS: Basophils Absolute Auto 0.1 K/mm3 (0.0-0.1); Eosinophils Absolute Auto 0.1 K/mm3 (0-0.3); Hematocrit 39.2 % (37.0-47.0); Hemoglobin 12.2 g/dL (12.0-15.0); Immature Granulocyte Absolute 0.02 K/mm3 (0.00-0.031); Immature Granulocyte Percent A 0.3 % (0-0.5); Lymphocytes Percent Auto 30.3 % (18.3-44.2); Mean Corpuscular HGB Conc 31.1 g/dl (32-36); Mean Corpuscular Hemoglobin 29.3 pg (26-34); Mean Platelet Volume 9.3 fl (7.4-10.4); Monocytes Absolute Auto 0.4 K/mm3 (0.1-0.6); Monocytes Percent Auto 5.9 % (2.6-8.5); Neutrophils Absolute Auto 3.9 K/mm3 (1.3-6.7); Neutrophils Percent Auto 61.5 % (45.5-73.1); Platelet Count Result 282 k/mm3 (150-375); Red Blood Count 4.17 M/mm3 (4.2-5.4); Red Cell Distribution Width 13.8 % (11.5-14.5); White Blood Count 6.3 K/mm3 (4.5-10.0)
[2023-01-28 14:39] LABS: Alanine Aminotransferase 52 U/L (6-35); Alkaline Phosphatase 64 U/L (38-126); Anion Gap 8 mmol/L (8-16); Aspartate Amino Transferase 42 U/L (14-36); Bilirubin,Total 0.4 mg/dL (0.2-1.3); Blood Urea Nitrogen 8 mg/dL (7-17); Calcium 8.7 mg/dL (8.4-10.2); Carbon Dioxide 27 mmol/L (22-30); Chloride 99 mmol/L (98-107); Estimated Glomerular Filt Rate > 60; Glucose 92 mg/dL (65-110); Potassium 3.9 mmol/L (3.4-5.0); Sodium 134 mmol/L (137-145)
[2023-01-28 15:10] LABS: Total Triiodothyronine (T3) 0.62 NG/ML (0.97-1.69)
[2023-01-28 15:45] LABS: Free T4 Free Thyroxine 0.46 ng/mL (0.78-2.19)
== END 2023-01-28 14:06 | disposition home or self-care (01) ==
LOC: ANHLAB 14:06
PROVIDERS: PCP Family Medicine; Visit Provider Nurse Practitioner Gerontology
DX: D72.829 Elevated white blood cell count, unspecified (principal); E03.9 Hypothyroidism, unspecified; F31.9 Bipolar disorder, unspecified; R74.8 Abnormal levels of other serum enzymes
CPT/HCPCS: 36415; 80053; 84439; 84443; 84480; 85025

== ENCOUNTER 2023-08-02 16:22 | Outpatient (CLI) | payer BC, SELFPAY ==
[2023-08-02 18:03] LABS: Appearance Urine Turbid (Clear); Bacteria Urine None Seen /hpf; Bilirubin Urine Negative (Negative); Blood Urine 3+ (Negative); Color Urine Yellow (Yellow); Glucose Urine UA Negative (Negative); Ketones Urine 1+ mg/dL (Negative); Leukocyte Esterase Ur 3+ LEU/UL (Negative); Nitrate Urine Negative (Negative); Non Pathogenic Casts 0-2; Protein Urine 2+ mg/dL (Negative); RBC Urine 51-100 /hpf (0-2); Specific Grav Ur 1.009 (1.001-1.035); Squamous Epithelial Cell Urine None seen /hpf (Few); Urobilinogen Urine 0.2 mg/dL (<2.0); WBC Urine >100 /hpf
[2023-08-02 18:09] LABS: Add Urine Microscopic? YES
[2023-08-02 18:12] LABS: Alanine Aminotransferase 22 U/L (6-35); Albumin Level 4.2 g/dL (3.5-5.1); Alkaline Phosphatase 67 U/L (38-126); Anion Gap 7 mmol/L (8-16); Aspartate Amino Transferase 25 U/L (14-36); Bilirubin,Total 0.6 mg/dL (0.2-1.3); Blood Urea Nitrogen 8 mg/dL (7-17); Calcium 9.3 mg/dL (8.4-10.2); Carbon Dioxide 27 mmol/L (22-30); Chloride 96 mmol/L (98-107); Estimated Glomerular Filt Rate > 60; Glucose 92 mg/dL (65-110); Potassium 3.7 mmol/L (3.4-5.0); Sodium 130 mmol/L (137-145)
[2023-08-02 18:29] LABS: Free T4 Free Thyroxine 2.74 ng/mL (0.78-2.19)
[2023-08-06 13:51] LABS: Triiodothyronine T3 Free 3.6 pg/mL (2.3-4.2)
== END 2023-08-02 16:23 | disposition home or self-care (01) ==
LOC: ANHLAB 16:24
PROVIDERS: PCP Family Medicine; Referring Provider Physician Assistant; Visit Provider Family Medicine
DX: E03.9 Hypothyroidism, unspecified (principal); E07.9 Disorder of thyroid, unspecified; R30.0 Dysuria; I10 Essential (primary) hypertension
CPT/HCPCS: 36415; 80053; 81001; 84439; 84481; 87077; 87086; 87186

== ENCOUNTER 2023-08-12 16:21 | Outpatient (CLI) | payer BC, SELFPAY ==
[2023-08-12 16:52] LABS: Appearance Urine Cloudy (Clear); Bacteria Urine None Seen /hpf; Bilirubin Urine 1+ (Negative); Blood Urine Negative (Negative); Color Urine Dark Yellow (Yellow); Glucose Urine UA Negative (Negative); Ketones Urine Negative (Negative); Leukocyte Esterase Ur 2+ LEU/UL (Negative); Need Manual Microscopic Reviewed; Nitrate Urine Positive (Negative); Non Pathogenic Casts 0-2; Protein Urine Negative (Negative); Specific Grav Ur 1.017 (1.001-1.035); Squamous Epithelial Cell Urine Moderate /hpf (Few); WBC Urine 51-100 /hpf; pH Urine 5.5 (5.0-9.0)
[2023-08-12 16:53] LABS: Add Urine Microscopic? YES
== END 2023-08-12 16:22 | disposition home or self-care (01) ==
LOC: ANHLAB 16:22
PROVIDERS: PCP Family Medicine; Visit Provider Physician Assistant
DX: R30.0 Dysuria (principal)
CPT/HCPCS: 81001; 87086

== ENCOUNTER 2023-08-25 08:02 | Emergency (ER) | payer BC, SELFPAY ==
--- NOTE | ~2023-08-25 | XR_ITS ---
EXAMINATION: XR chest 2V DATE: 08/25/2023 08:23 INDICATION: Cough and shortness of breath TECHNIQUE: Frontal and lateral views of the chest are obtained COMPARISON: 12/03/2022 FINDINGS: There are minimal airspace opacities of the lung bases. No pleural effusion or pneumothorax . The cardiomediastinal silhouette is normal. There are bridging osteophytes at multiple levels in th e spine, consistent with diffuse idiopathic skeletal hyperostosis (DISH). IMPRESSION: 1. Minimal airspace opacities of the lung bases, likely pneumonia. Reviewed, dictated and finalized at location F. ESS COACH
--- NOTE | 2023-08-25 08:08 | ED.URI ---
HPI - URI/Sore Throat General Chief Complaint: Upper Respiratory Infection Stated Complaint: cough,chest heaviness, hurts to breathe Time Seen by Provider: 08/25/23 08:05 Source: patient Mode of arrival: ambulatory Limitations: no limitations History of Present Illness HPI Narrative: Josue is a 53-year-old female patient presenting to clinic today with complaints of cough, chest heaviness, and pain with inspiration since yesterday. She reports she is bringing up some yellow phlegm. Having periods of shortness of breath as well with body aches and chills. MD elicited complaint: cough, nasal congestion and other (Chest heaviness, shortness breath, pain with inspiration) Related Data Home Medications Medication Instructions Recorded Confirmed divalproex 500 mg tablet,extended 2,000 mg PO HS 10/24/21 08/25/23 release 24 hr ubrogepant 100 mg tablet (Ubrelvy) 100 mg PO ONCE 01/30/23 08/25/23 lorazepam 0.5 mg tablet 0.5 mg PO TID PRN Anxiety 01/31/23 08/25/23 cariprazine 4.5 mg capsule 3 mg PO DAILY 07/30/23 08/25/23 (Vraylar) Allergies Allergy/AdvReac Type Severity Reaction Status Date / Time tetanus immune globulin Allergy Mild HIVES AND Verified 07/30/23 16:29 SWELLING Penicillins Allergy Unknown Rash Verified 07/30/23 16:29 Tetanus Vaccines and Toxoid Allergy Unknown Rash Verified 07/30/23 16:29 erythromycin base AdvReac Mild NAUSEA/VOMI Verified 07/30/23 16:29 TING IMMUNIZATIONS Allergy Unknown RASH Uncoded 07/30/23 16:29 Mold (Blue) Cheese Allergy Unknown .Hives and Uncoded 07/30/23 16:29 swelling Review of Systems Review of Systems: Pertinent positives per HPI. Patient denies any rash, headache, visual changes, dizziness, chest pain, palpitations, nausea, vomiting, diarrhea, constipation, abdominal pain, or any urinary issues. [facility] Past Medical History Medical History Anemia Anxiety and depression Asthma Atrial tachycardia Bilateral carpal tunnel syndrome Bipolar disorder Concussion syndrome Congenital hernia of foramen of [place] Constipation by delayed colonic transit Epilepsy Essential (primary) hypertension GERD (gastroesophageal reflux disease) Hypothyroidism (acquired) Interstitial cystitis Metabolic syndrome Migraine Obesity TAM (obstructive sleep apnea) With CPAP use PCOS (polycystic ovarian syndrome) Seasonal allergies Seizure disorder Shingles Slow rate of speech TIA (transient ischemic attack) Surgical History Surgical History H/O arthroscopy of left knee H/O carpal tunnel repair bilateral H/O dilation and curettage History of bunionectomy History of cholecystectomy History of foot surgery History of left knee replacement History of thyroidectomy, subtotal Hx of gastric bypass Family History Family History Sibling Cerebrovascular accident, Onset Age: 19 Multiple sclerosis Father Hypertension Coronary artery disease Hyperlipidemia Mother Hypertension Heart disease Hyperlipidemia Diabetes mellitus Grandparent Family history of malignant neoplasm of cervix Family history of malignant neoplasm of breast Social History Social History Social History: The patient has been with her since 2005 they we will give when the lost changed. They have 3 medium to large his dogs at home. The patient works for the [employer]. She is lifelong nonsmoker but had history of heavy secondhand smoke exposure until she was a teenager. She never drinks alcohol and does not have any history of illicit substance use. Code status: Full code Surrogate decision maker: Smoking status: Never smoker Second hand tobacco smoke exposure: No Alcohol intake: never Substance use: never Substance use type: does not use [place]
[2023-08-25 08:15] VITALS: BP 119/53; PULSE 75; RESP 14; TEMP 36.6; O2SAT 100
== END 2023-08-25 09:10 | disposition home or self-care (01) ==
PROVIDERS: Emergency Provider Nurse Practitioner Family; PCP Family Medicine
DX: U07.1 COVID-19 (principal); J18.9 Pneumonia, unspecified organism; J45.909 Unspecified asthma, uncomplicated; I10 Essential (primary) hypertension; K21.9 Gastro-esophageal reflux disease without esophagitis; E03.9 Hypothyroidism, unspecified; G47.33 Obstructive sleep apnea (adult) (pediatric); E28.2 Polycystic ovarian syndrome; G40.909 Epilepsy, unspecified, not intractable, without status epilepticus; F41.9 Anxiety disorder, unspecified; F31.9 Bipolar disorder, unspecified; Z86.73 Personal history of transient ischemic attack (TIA), and cerebral infarction without residual deficits; E66.9 Obesity, unspecified; Z68.41 Body mass index [BMI] 40.0-44.9, adult; Z98.84 Bariatric surgery status; Z96.652 Presence of left artificial knee joint
CPT/HCPCS: 71046; 87426; 87804; 99213; C9803; G0463

== ENCOUNTER 2024-03-12 12:52 | Outpatient (CLI) | payer BC, SELFPAY ==
[2024-03-12 14:05] LABS: Appearance Urine Clear (Clear); Bacteria Urine None Seen /hpf; Bilirubin Urine Negative (Negative); Blood Urine Trace (Negative); Color Urine Dark Yellow (Yellow); Glucose Urine UA Negative (Negative); Ketones Urine 1+ mg/dL (Negative); Leukocyte Esterase Ur 1+ LEU/UL (Negative); Need Manual Microscopic Reviewed; Nitrate Urine Positive (Negative); Non Pathogenic Casts 0-2; Protein Urine 1+ mg/dL (Negative); Specific Grav Ur 1.027 (1.001-1.035); Squamous Epithelial Cell Urine None Seen /hpf (Few); WBC Urine 21-50 /hpf (0-3); pH Urine 5.5 (5.0-9.0)
[2024-03-12 14:08] LABS: Add Urine Microscopic? YES
== END 2024-03-12 12:53 | disposition home or self-care (01) ==
PROVIDERS: PCP Family Medicine; Visit Provider Physician Assistant
DX: R30.0 Dysuria (principal)
CPT/HCPCS: 81001; 87077; 87086; 87088; 87186

== ENCOUNTER 2024-03-18 12:14 | Outpatient (CLI) | payer BC, SELFPAY ==
[2024-03-18 12:48] LABS: Basophils Percent Auto 0.6 % (0.2-1.2); Eosinophils Percent Auto 0.6 % (0-4.4); Hematocrit 37.5 % (37.0-47.0); Hemoglobin 12.1 g/dL (12.0-15.0); Immature Granulocyte Absolute 0.01 K/mm3 (0.00-0.031); Immature Granulocyte Percent A 0.2 % (0-0.5); Lymphocytes Absolute Auto 1.53 K/mm3 (0.9-3.2); Lymphocytes Percent Auto 31.5 % (18.3-44.2); Mean Corpuscular HGB Conc 32.3 g/dl (32-36); Mean Corpuscular Hemoglobin 29.2 pg (26-34); Mean Corpuscular Volume 90.4 fl (80-100); Mean Platelet Volume 9.5 fl (7.4-10.4); Monocytes Absolute Auto 0.3 K/mm3 (0.1-0.6); Monocytes Percent Auto 6.8 % (2.6-8.5); Neutrophils Absolute Auto 2.9 K/mm3 (1.3-6.7); Neutrophils Percent Auto 60.3 % (45.5-73.1); Platelet Count Result 255 k/mm3 (150-375); Red Blood Count 4.15 M/mm3 (4.2-5.4); Red Cell Distribution Width 13.9 % (11.5-14.5); White Blood Count 4.9 K/mm3 (4.5-10.0)
[2024-03-18 13:00] LABS: Alanine Aminotransferase 23 U/L (6-35); Alkaline Phosphatase 86 U/L (38-126); Anion Gap 4 mmol/L (4-12); Aspartate Amino Transferase 29 U/L (14-36); Bilirubin,Total 0.7 mg/dL (0.2-1.3); Blood Urea Nitrogen 5 mg/dL (7-17); Calcium 9.2 mg/dL (8.4-10.2); Carbon Dioxide 30 mmol/L (22-30); Chloride 100 mmol/L (98-107); Cholesterol 132 mg/dL (0-200); Estimated Glomerular Filt Rate > 60; Glucose 99 mg/dL (65-110); HDL Direct 76 mg/dL; Potassium 4.3 mmol/L (3.4-5.0); Sodium 134 mmol/L (137-145); Triglycerides 63 mg/dL (<150)
[2024-03-18 13:12] LABS: LDL Cholesterol Direct 46 mg/dL
[2024-03-18 13:31] LABS: Thyroid Stimulating Hormone 0.229 uIU/mL (0.465-4.680)
[2024-03-19 10:19] LABS: Levetiracetam Keppra 22.9 mcg/mL (6.0-46.0)
[2024-03-19 18:24] LABS: Red Blood Cell Folate 552 ng/mL RBC (>280)
[2024-03-21 14:48] LABS: Vitamin D 1,25 (OH)2 Total 58 pg/mL (18-72); Vitamin D2 1,25 (OH)2 <8 pg/mL; Vitamin D3 1,25 (OH)2 58 pg/mL
[2024-03-22 18:52] LABS: Immunofixation, Serum Normal pattern.
[2024-03-23 10:14] LABS: Vitamin B6 8.1 ng/mL (2.1-21.7)
[2024-03-23 15:03] LABS: Vitamin B1 11 nmol/L (8-30)
== END 2024-03-18 12:15 | disposition home or self-care (01) ==
LOC: ANHLAB 12:15
PROVIDERS: PCP Family Medicine; Visit Provider Psychiatry & Neurology Neurology
DX: G40.909 Epilepsy, unspecified, not intractable, without status epilepticus (principal); F31.9 Bipolar disorder, unspecified; G43.909 Migraine, unspecified, not intractable, without status migrainosus; R26.9 Unspecified abnormalities of gait and mobility; E55.9 Vitamin D deficiency, unspecified; G45.9 Transient cerebral ischemic attack, unspecified
CPT/HCPCS: 36415; 80053; 80061; 80164; 80165; 80177; 82607; 82652; 82747; 83036; 84207; 84425; 84443; 85025; 86334

== ENCOUNTER 2024-03-25 13:13 | Emergency (ER) | payer BC, SELFPAY ==
[2024-03-25 13:21] VITALS: BP 99/54; PULSE 74; RESP 18; TEMP 36.3; O2SAT 100
--- NOTE | 2024-03-25 13:55 | ED.HA ---
HPI - Headache General Chief Complaint: Headache Stated Complaint: Migraine Time Seen by Provider: 03/25/24 13:43 Source: patient and RN notes reviewed Mode of arrival: ambulatory Limitations: no limitations History of Present Illness HPI Narrative: Patient presents today complaining of a migraine that started at 6:30 a.m. this morning accompanied by 2 episodes of vomiting with continued mild nausea, photophobia, area. Denies dizziness or lightheadedness, vision changes, numbness or tingling in her extremities. She took some sumatriptan and Excedrin this morning, but states she was not fast enough after onset and they provided no relief. Currently rates her pain 8/10. States her current symptoms are similar to previous migraine symptoms. She does not take any daily control medication for migraines. She is currently taking Levaquin for UTI. Related Data Home Medications Medication Instructions Recorded Confirmed divalproex 500 mg tablet,extended 2,000 mg PO HS 10/24/21 03/25/24 release 24 hr lorazepam 0.5 mg tablet 0.5 mg PO TID PRN Anxiety 01/31/23 03/25/24 cariprazine 4.5 mg capsule 3 mg PO DAILY 07/30/23 03/25/24 (Vraylar) deutetrabenazine 12 mg tablet 12 mg PO DIRECTED 03/25/24 03/25/24 (Austedo) duloxetine 30 mg capsule,delayed 30 mg PO DIRECTED 03/25/24 03/25/24 release sumatriptan 100 mg PO DIRECTED PRN Migraine 03/25/24 03/25/24 Headache Allergies Allergy/AdvReac Type Severity Reaction Status Date / Time tetanus immune globulin Allergy Mild HIVES AND Verified 02/05/24 14:28 SWELLING Penicillins Allergy Unknown Rash Verified 02/05/24 14:28 Tetanus Vaccines and Toxoid Allergy Unknown Rash Verified 02/05/24 14:28 erythromycin base AdvReac Mild NAUSEA/VOMI Verified 02/05/24 14:28 TING IMMUNIZATIONS Allergy Unknown RASH Uncoded 02/05/24 14:28 Mold (Blue) Cheese Allergy Unknown .Hives and Uncoded 02/05/24 14:28 swelling Review of Systems Review of Systems: CONSTITUTIONAL: Denies body aches, fever, chills, or sweats. EYES: Denies visual changes, redness, or discharge. ENT: Denies rhinorrhea, congestion, sore throat, or otalgia.+ photophobia, phonophobia CARDIOVASCULAR: Denies chest pain, palpitations, or edema. RESPIRATORY: Denies cough or dyspnea. GASTROINTESTINAL: Denies abdominal pain,or diarrhea. + nausea, vomiting GENITOURINARY: Denies dysuria or hematuria. SKIN: Denies rash, itching, or wounds. MUSCULOSKELETAL: Denies back pain, joint pain, or myalgia. NEUROLOGIC: Denies numbness, tingling, or weakness.+ headache PSYCH: Denies depression or anxiety. [facility], [facility] Past Medical History Medical History Anemia Anxiety and depression Asthma Atrial tachycardia Bilateral carpal tunnel syndrome Bipolar disorder Concussion syndrome Congenital hernia of foramen of [place] Constipation by delayed colonic transit Epilepsy Essential (primary) hypertension GERD (gastroesophageal reflux disease) Hypothyroidism (acquired) Interstitial cystitis Metabolic syndrome Migraine Obesity TAM (obstructive sleep apnea) With CPAP use PCOS (polycystic ovarian syndrome) Seasonal allergies Seizure disorder Shingles Slow rate of speech TIA (transient ischemic attack) Surgical History Surgical History H/O arthroscopy of left knee H/O carpal tunnel repair bilateral H/O dilation and curettage History of bunionectomy History of cholecystectomy History of foot surgery History of left knee replacement History of thyroidectomy, subtotal Hx of gastric bypass Family History Family History Sibling Cerebrovascular accident, Onset Age: 19 Multiple sclerosis Father Hypertension Coronary artery disease Hyperlipidemia Mother Hypertension Heart disease Hyperlipidemia Diabetes mellitus Grandparent
[2024-03-25] MEDS: KETOROLAC (*BKC) 60 MG/2 ML VIAL IM (14:06)
== END 2024-03-25 15:00 | disposition home or self-care (01) ==
PROVIDERS: Emergency Provider Nurse Practitioner; PCP Family Medicine
DX: G43.909 Migraine, unspecified, not intractable, without status migrainosus (principal); J45.909 Unspecified asthma, uncomplicated; I10 Essential (primary) hypertension; K21.9 Gastro-esophageal reflux disease without esophagitis; G40.909 Epilepsy, unspecified, not intractable, without status epilepticus; E03.9 Hypothyroidism, unspecified; G47.33 Obstructive sleep apnea (adult) (pediatric); E28.2 Polycystic ovarian syndrome; Z86.73 Personal history of transient ischemic attack (TIA), and cerebral infarction without residual deficits; F41.9 Anxiety disorder, unspecified; E66.9 Obesity, unspecified; Z68.42 Body mass index [BMI] 45.0-49.9, adult; Z96.652 Presence of left artificial knee joint; Z98.84 Bariatric surgery status; Z90.89 Acquired absence of other organs
CPT/HCPCS: 96372; 99213; G0463; J1885

== ENCOUNTER 2024-03-26 14:44 | Outpatient (CLI) | payer BC, SELFPAY ==
--- NOTE | ~2024-03-26 | US_ITS ---
EXAMINATION: US carotid duplex BI DATE: 03/26/2024 15:11 INDICATION: Transient ischemic attack. Epilepsy, unspecified, not intractable. TECHNIQUE: Grayscale, color Doppler, and pulsed Doppler images of the cervical carotid arteries were obtained. The degree of vessel stenosis is placed in one of the following categories: normal, <50%, 5 0-69%, >=70% but less than near-occlusion, near-occlusion, or total occlusion. Note that percent sten osis relative to normal distal artery lumen diameter is indirectly measured from velocity measurement s as described by David, et al. Radiology 2003; 229:[id number]. COMPARISON: Ultrasound 04/29/2014 FINDINGS: RIGHT: The right common carotid artery (CCA) peak systolic velocity (PSV) is 126 cm/s. The right internal ca rotid artery (ICA) PSV is 103 cm/s. The right ICA end-diastolic velocity (EDV) is 32 cm/s. The right ICA/CCA PSV ratio is 0.8. Grayscale and color Doppler images yield an estimate of <50% diameter reduc tion from plaque in the ICA. There is antegrade flow in the right vertebral artery. LEFT: The left CCA PSV is 114 cm/s. The left ICA PSV is 106 cm/s. The left ICA EDV is 34 cm/s. The left ICA /CCA PSV ratio is 0.9. Grayscale and color Doppler images yield an estimate of <50% diameter reductio n from plaque in the ICA. There is antegrade flow in the left vertebral artery. IMPRESSION: 1. <50% stenosis in the right internal carotid artery. 2. <50% stenosis in the left internal carotid artery. Reviewed, dictated and finalized at location A.
== END 2024-03-26 14:45 ==
LOC: MICIMG 14:45
PROVIDERS: PCP Family Medicine; Visit Provider Psychiatry & Neurology Neurology
DX: I65.23 Occlusion and stenosis of bilateral carotid arteries (principal); R26.9 Unspecified abnormalities of gait and mobility; G43.909 Migraine, unspecified, not intractable, without status migrainosus; F31.9 Bipolar disorder, unspecified; G40.909 Epilepsy, unspecified, not intractable, without status epilepticus
CPT/HCPCS: 93880

== ENCOUNTER 2024-04-09 11:53 | Emergency (ER) | payer BC, SELFPAY ==
[2024-04-09 12:25] VITALS: BP 112/58; PULSE 75; RESP 20; TEMP 36.1; O2SAT 100
--- NOTE | 2024-04-09 13:16 | ED.FALL ---
HPI - Fall General Chief Complaint: Fall Stated Complaint: FALL Time Seen by Provider: 04/09/24 13:17 Source: patient, RN notes reviewed and old records reviewed Mode of arrival: ambulatory Limitations: no limitations History of Present Illness HPI Narrative: patient presents complaining of pain to left buttock after falling yesterday. She reports that her dog pulled her, she landed on her buttocks. States that left side is hurting her today. She denies other injury or trauma. She is walking without difficulty. She is noted to sit without difficulty. She voices no other concerns or complaints at this time. Related Data Home Medications Medication Instructions Recorded Confirmed divalproex 500 mg tablet,extended 2,000 mg PO HS 10/24/21 04/09/24 release 24 hr lorazepam 0.5 mg tablet 0.5 mg PO TID PRN Anxiety 01/31/23 04/09/24 cariprazine 4.5 mg capsule 3 mg PO DAILY 07/30/23 04/09/24 (Vraylar) deutetrabenazine 12 mg tablet 12 mg PO DIRECTED 03/25/24 04/09/24 (Austedo) duloxetine 30 mg capsule,delayed 30 mg PO DIRECTED 03/25/24 04/09/24 release sumatriptan 100 mg PO DIRECTED PRN Migraine 03/25/24 04/09/24 Headache Allergies Allergy/AdvReac Type Severity Reaction Status Date / Time tetanus immune globulin Allergy Mild HIVES AND Verified 04/09/24 12:12 SWELLING Penicillins Allergy Unknown Rash Verified 04/09/24 12:12 Tetanus Vaccines and Toxoid Allergy Unknown Rash Verified 04/09/24 12:12 erythromycin base AdvReac Mild NAUSEA/VOMI Verified 04/09/24 12:12 TING IMMUNIZATIONS Allergy Unknown RASH Uncoded 04/09/24 12:12 Mold (Blue) Cheese Allergy Unknown .Hives and Uncoded 04/09/24 12:12 swelling Review of Systems Review of Systems: All systems reviewed & are unremarkable except as noted in HPI and below Constitutional: Constitutional: Reports no additional constitutional complaints ENT: Reports system reviewed and no additional complaints, except as documented Cardiovascular: Cardiovascular: Reports no additional cardiovascular complaints Respiratory: Respiratory: Reports no additional respiratory complaints Gastrointestinal: Gastrointestinal: Reports no additional gastrointestinal complaints Musculoskeletal: Comments: Left buttock pain PMFSH Past Medical History Medical History Anemia Anxiety and depression Asthma Atrial tachycardia Bilateral carpal tunnel syndrome Bipolar disorder Concussion syndrome Congenital hernia of foramen of [place] Constipation by delayed colonic transit Epilepsy Essential (primary) hypertension GERD (gastroesophageal reflux disease) Hypothyroidism (acquired) Interstitial cystitis Metabolic syndrome Migraine Obesity TAM (obstructive sleep apnea) With CPAP use PCOS (polycystic ovarian syndrome) Seasonal allergies Seizure disorder Shingles Slow rate of speech TIA (transient ischemic attack) Surgical History Surgical History H/O arthroscopy of left knee H/O carpal tunnel repair bilateral H/O dilation and curettage History of bunionectomy History of cholecystectomy History of foot surgery History of left knee replacement History of thyroidectomy, subtotal Hx of gastric bypass Family History Family History Sibling Cerebrovascular accident, Onset Age: 19 Multiple sclerosis Father Hypertension Coronary artery disease Hyperlipidemia Mother Hypertension Heart disease Hyperlipidemia Diabetes mellitus Grandparent Family history of malignant neoplasm of cervix Family history of malignant neoplasm of breast Social History Social History Social History: The patient has been with her since 2005 they we will give when the lost changed. They have 3 medium to large his dogs at
== END 2024-04-09 13:38 | disposition home or self-care (01) ==
PROVIDERS: Emergency Provider Nurse Practitioner Family; PCP Family Medicine
DX: S30.0XXA Contusion of lower back and pelvis, initial encounter (principal); W19.XXXA Unspecified fall, initial encounter; J45.909 Unspecified asthma, uncomplicated; I10 Essential (primary) hypertension; G40.909 Epilepsy, unspecified, not intractable, without status epilepticus; K21.9 Gastro-esophageal reflux disease without esophagitis; E03.9 Hypothyroidism, unspecified; E88.810 Metabolic syndrome; E28.2 Polycystic ovarian syndrome; Z86.73 Personal history of transient ischemic attack (TIA), and cerebral infarction without residual deficits; G47.33 Obstructive sleep apnea (adult) (pediatric); E66.9 Obesity, unspecified; Z68.43 Body mass index [BMI] 50.0-59.9, adult; Z96.652 Presence of left artificial knee joint; Z98.84 Bariatric surgery status; F41.9 Anxiety disorder, unspecified
CPT/HCPCS: 99212; G0463

== ENCOUNTER 2024-04-20 12:28 | Emergency (ER) | payer BC, SELFPAY ==
--- NOTE | ~2024-04-20 | XR_ITS ---
XR ankle LT min 3V Ordering provider: UZIEL Davenport History: . twisted x4 days. lateral pain to left ankle . Comparison: None. FINDINGS: BONES: No acute fracture or dislocation. Calcaneal spur. Ossification of the insertion of the tendo Achilles. JOINT SPACES: The ankle mortise is normal. SOFT TISSUES: Soft tissue swelling over the lateral malleolus. IMPRESSION: No acute osseous abnormality left ankle. Reviewed, dictated and finalized at location A.
[2024-04-20 12:41] VITALS: BP 104/57; PULSE 69; RESP 16; TEMP 36.2; O2SAT 100
--- NOTE | 2024-04-20 13:39 | ED.LOWEXIN ---
HPI - Extremity Injury (Lower) General Chief Complaint: Extremity Injury, Lower Stated Complaint: twisted left ankle Time Seen by Provider: 04/20/24 13:34 Source: patient and RN notes reviewed Mode of arrival: ambulatory Limitations: no limitations History of Present Illness HPI Narrative: Patient presents today with left ankle pain. Four days ago her large dog was sitting on her ankle when it suddenly jumped up twisting the ankle, causing patient to feel a pop. Since that time she has had some severe ankle pain, the increases with weight-bearing. Denies numbness or tingling. Currently rates her pain 5/10. She has been alternating heat and ice as well as taking Tylenol and wrapping it with mild relief. Related Data Home Medications Medication Instructions Recorded Confirmed divalproex 500 mg tablet,extended 2,000 mg PO HS 10/24/21 04/14/24 release 24 hr lorazepam 0.5 mg tablet 0.5 mg PO TID PRN Anxiety 01/31/23 04/14/24 cariprazine 4.5 mg capsule 3 mg PO DAILY 07/30/23 04/14/24 (Vraylar) deutetrabenazine 12 mg tablet 12 mg PO DIRECTED 03/25/24 04/14/24 (Austedo) duloxetine 30 mg capsule,delayed 30 mg PO DIRECTED 03/25/24 04/14/24 release sumatriptan 100 mg PO DIRECTED PRN Migraine 03/25/24 04/14/24 Headache Allergies Allergy/AdvReac Type Severity Reaction Status Date / Time tetanus immune globulin Allergy Mild HIVES AND Verified 04/14/24 15:40 SWELLING Penicillins Allergy Unknown Rash Verified 04/14/24 15:40 Tetanus Vaccines and Toxoid Allergy Unknown Rash Verified 04/14/24 15:40 erythromycin base AdvReac Mild NAUSEA/VOMI Verified 04/14/24 15:40 TING IMMUNIZATIONS Allergy Unknown RASH Uncoded 04/14/24 15:40 Mold (Blue) Cheese Allergy Unknown .Hives and Uncoded 04/14/24 15:40 swelling Review of Systems Review of Systems: CONSTITUTIONAL: Denies body aches, fever, chills, or sweats. EYES: Denies visual changes, redness, or discharge. ENT: Denies rhinorrhea, congestion, sore throat, or otalgia. CARDIOVASCULAR: Denies chest pain, palpitations, or edema. RESPIRATORY: Denies cough or dyspnea. GASTROINTESTINAL: Denies abdominal pain, nausea, vomiting, or diarrhea. GENITOURINARY: Denies dysuria or hematuria. SKIN: Denies rash, itching, or wounds. MUSCULOSKELETAL: Denies back pain, or myalgia.+ left ankle pain NEUROLOGIC: Denies headache, numbness, tingling, or weakness. PSYCH: Denies depression or anxiety. [facility] Past Medical History Medical History Anemia Anxiety and depression Asthma Atrial tachycardia Bilateral carpal tunnel syndrome Bipolar disorder Concussion syndrome Congenital hernia of foramen of [place] Constipation by delayed colonic transit Epilepsy Essential (primary) hypertension GERD (gastroesophageal reflux disease) Hypothyroidism (acquired) Interstitial cystitis Metabolic syndrome Migraine Obesity TAM (obstructive sleep apnea) With CPAP use PCOS (polycystic ovarian syndrome) Seasonal allergies Seizure disorder Shingles Slow rate of speech TIA (transient ischemic attack) Surgical History Surgical History H/O arthroscopy of left knee H/O carpal tunnel repair bilateral H/O dilation and curettage History of bunionectomy History of cholecystectomy History of foot surgery History of left knee replacement History of thyroidectomy, subtotal Hx of gastric bypass Family History Family History Sibling Cerebrovascular accident, Onset Age: 19 Multiple sclerosis Father Hypertension Coronary artery disease Hyperlipidemia Mother Hypertension Heart disease Hyperlipidemia Diabetes mellitus Grandparent Family history of malignant neoplasm of cervix Family history of malignant neoplasm of breast Social History Social History (Reviewed 04/20/24 @ 13:40 by
== END 2024-04-20 13:46 | disposition home or self-care (01) ==
PROVIDERS: Emergency Provider Nurse Practitioner; PCP Family Medicine
DX: S93.402A Sprain of unspecified ligament of left ankle, initial encounter (principal); W54.8XXA Other contact with dog, initial encounter; J45.909 Unspecified asthma, uncomplicated; F31.9 Bipolar disorder, unspecified; I10 Essential (primary) hypertension; K21.9 Gastro-esophageal reflux disease without esophagitis; E03.9 Hypothyroidism, unspecified; E88.810 Metabolic syndrome; G47.33 Obstructive sleep apnea (adult) (pediatric); E28.2 Polycystic ovarian syndrome; Z86.73 Personal history of transient ischemic attack (TIA), and cerebral infarction without residual deficits; Z96.652 Presence of left artificial knee joint
CPT/HCPCS: 73610; 99213; G0463

== ENCOUNTER 2024-04-21 10:53 | Emergency (ER) | payer BC, SELFPAY ==
--- NOTE | 2024-04-21 11:03 | ED.GENADULT ---
HPI - General Adult General Chief complaint: Extremity Injury, Lower Stated complaint: L ANKLE INJURY Time Seen by Provider: 04/21/24 11:03 Source: patient, RN notes reviewed and old records reviewed Mode of arrival: ambulatory Limitations: no limitations History of Present Illness HPI narrative: 53-year-old female to [facility] for complaint of left ankle pain and swelling. Patient seen here yesterday for same complaint. Patient states that she is unable to control pain with Tylenol at home and is requesting 2nd opinion. Patient able to ambulate to exam room with steady gait. Patient denies numbness, tingling, weakness. patient has attempted to treat at home with Tylenol without relief. Patient sitting in exam room in no acute distress. Respirations even and nonlabored. Related Data Home Medications Medication Instructions Recorded Confirmed divalproex 500 mg tablet,extended 2,000 mg PO HS 10/24/21 04/14/24 release 24 hr lorazepam 0.5 mg tablet 0.5 mg PO TID PRN Anxiety 01/31/23 04/14/24 deutetrabenazine 12 mg tablet 12 mg PO DIRECTED 03/25/24 04/14/24 (Austedo) duloxetine 30 mg capsule,delayed 30 mg PO DIRECTED 03/25/24 04/14/24 release sumatriptan 100 mg PO DIRECTED PRN Migraine 03/25/24 04/14/24 Headache cariprazine 3 mg capsule (Vraylar) mg 04/21/24 04/21/24 Allergies Allergy/AdvReac Type Severity Reaction Status Date / Time tetanus immune globulin Allergy Mild HIVES AND Verified 04/21/24 11:27 SWELLING Penicillins Allergy Unknown Rash Verified 04/21/24 11:27 Tetanus Vaccines and Toxoid Allergy Unknown Rash Verified 04/21/24 11:27 erythromycin base AdvReac Mild NAUSEA/VOMI Verified 04/21/24 11:27 TING IMMUNIZATIONS Allergy Unknown RASH Uncoded 04/21/24 11:27 Mold (Blue) Cheese Allergy Unknown .Hives and Uncoded 04/21/24 11:27 swelling Review of Systems Review of Systems: All systems reviewed & are unremarkable except as noted in HPI and below Constitutional: Constitutional: Reports no additional constitutional complaints Eyes: Eyes: Reports no additional eye complaints ENT: Reports system reviewed and no additional complaints, except as documented Cardiovascular: Cardiovascular: Reports no additional cardiovascular complaints, Denies chest pain and Denies dyspnea Respiratory: Respiratory: Reports no additional respiratory complaints, Denies cough and Denies dyspnea Musculoskeletal: Musculoskeletal: Reports as per HPI, Reports arthralgias and Reports joint swelling Comments: Left ankle Neurologic: Reports system reviewed and no additional complaints, except as documented Psychiatric: Psychiatric: Reports no additional psychiatric complaints PMFSH Past Medical History Medical History Anemia Anxiety and depression Asthma Atrial tachycardia Bilateral carpal tunnel syndrome Bipolar disorder Concussion syndrome Congenital hernia of foramen of [place] Constipation by delayed colonic transit Epilepsy Essential (primary) hypertension GERD (gastroesophageal reflux disease) Hypothyroidism (acquired) Interstitial cystitis Metabolic syndrome Migraine Obesity TAM (obstructive sleep apnea) With CPAP use PCOS (polycystic ovarian syndrome) Seasonal allergies Seizure disorder Shingles Slow rate of speech TIA (transient ischemic attack) Surgical History Surgical History H/O arthroscopy of left knee H/O carpal tunnel repair bilateral H/O dilation and curettage History of bunionectomy History of cholecystectomy History of foot surgery History of left knee replacement History of thyroidectomy, subtotal Hx of gastric bypass Family History Family History Sibling Cerebrovascular accident, Onset Age: 19 Multiple sclerosis Father Hypertension Coronary artery disease Hy
[2024-04-21 11:06] VITALS: BP 108/71; PULSE 65; RESP 16; TEMP 36; O2SAT 100
== END 2024-04-21 11:54 | disposition home or self-care (01) ==
PROVIDERS: Emergency Provider Nurse Practitioner Family; PCP Family Medicine
DX: S93.402A Sprain of unspecified ligament of left ankle, initial encounter (principal); S96.912A Strain of unspecified muscle and tendon at ankle and foot level, left foot, initial encounter; W54.8XXA Other contact with dog, initial encounter; F41.9 Anxiety disorder, unspecified; J45.909 Unspecified asthma, uncomplicated; I10 Essential (primary) hypertension; K21.9 Gastro-esophageal reflux disease without esophagitis; E03.9 Hypothyroidism, unspecified; E88.810 Metabolic syndrome; E66.9 Obesity, unspecified; Z68.41 Body mass index [BMI] 40.0-44.9, adult; G47.33 Obstructive sleep apnea (adult) (pediatric); Z86.73 Personal history of transient ischemic attack (TIA), and cerebral infarction without residual deficits
CPT/HCPCS: 99212; G0463

== ENCOUNTER 2024-08-13 16:36 | Outpatient (CLI) | payer BC, SELFPAY ==
[2024-08-13 16:57] LABS: Add Urine Microscopic? YES; Appearance Urine Clear (Clear); Bacteria Urine Rare /hpf; Bilirubin Urine Negative (Negative); Blood Urine Negative (Negative); Color Urine Yellow (Yellow); Glucose Urine UA Negative (Negative); Ketones Urine Negative (Negative); Leukocyte Esterase Ur 1+ LEU/UL (Negative); Nitrate Urine Negative (Negative); Non Pathogenic Casts 0-2; Protein Urine Negative (Negative); RBC Urine 0-2 /hpf (0-2); Specific Grav Ur 1.007 (1.001-1.035); Squamous Epithelial Cell Urine None Seen /hpf (Few); WBC Urine 21-50 /hpf (0-3)
== END 2024-08-13 16:37 | disposition home or self-care (01) ==
LOC: ANHLAB 16:38
PROVIDERS: PCP Family Medicine; Visit Provider Student in an Organized Health Care Education/Training Program
DX: R30.0 Dysuria (principal)
CPT/HCPCS: 81001

== ENCOUNTER 2024-09-28 13:02 | Emergency (ER) | payer BC, SELFPAY ==
[2024-09-28 13:10] VITALS: BP 126/69; PULSE 75; RESP 16; TEMP 36.4; O2SAT 98
--- NOTE | 2024-09-28 14:22 | ED_ITS ---
HPI - URI/Sore Throat General Chief Complaint: Upper Respiratory Infection Stated Complaint: Cough/Headaches Time Seen by Provider: 09/28/24 14:45 Source: patient, RN notes reviewed and old records reviewed Mode of arrival: ambulatory Limitations: no limitations History of Present Illness HPI Narrative: Patient with generalized muscle weakness due to neurological condition presents accompanied by her friend. She is complaining about 1 week of body aches, productive cough, headache, subjective fever. She reports that sometimes it hurts when she coughs. Due to muscle weakness, she is unable to expectorate, b ut feels as though she needs to cough something up. She reports that she is more tired than normal. She has been taking [id number] medications for her symptoms, but they are worsening. Related Data Home Medications ?Medication ?Instructions ?Recorded ?Confirmed ?Last Taken ?Type divalproex 500 mg tablet,extended 2,000 mg PO HS 10/24/21 04/14/24 12/02/22 21:00 History release 24 hr lorazepam 0.5 mg tablet 0.5 mg PO TID PRN Anxiety 01/31/23 04/14/24 Unknown History deutetrabenazine 12 mg tablet 12 mg PO DIRECTED 03/25/24 04/14/24 Unknown History (Austedo) cariprazine 3 mg capsule (Vraylar) mg 04/21/24 04/21/24 Unknown History lumateperone 10.5 mg capsule 10.5 mg PO DAILY 05/12/24 Unknown History (Caplyta) lithium carbonate 300 mg capsule mg 09/28/24 Unknown History Allergies Allergy/AdvReac Type Severity Reaction Status Date / Time tetanus immune globulin Allergy Mild HIVES AND Verified 09/28/24 13:36 SWELLING Penicillins Allergy Unknown Rash Verified 09/28/24 13:36 Tetanus Vaccines and Toxoid Allergy Unknown Rash Verified 09/28/24 13:36 erythromycin base AdvReac Mild NAUSEA/VOMI Verified 09/28/24 13:36 TING IMMUNIZATIONS Allergy Unknown RASH Uncoded 09/28/24 13:36 Mold (Blue) Cheese Allergy Unknown .Hives and Uncoded 09/28/24 13:36 swelling Review of Systems Review of Systems: All systems reviewed & are unremarkable except as noted in HPI and below Constitutional: Constitutional: Reports no additional constitutional complaints, Reports body ache(s), Reports headache(s) and Reports lethargy ENT: Reports system reviewed and no additional complaints, except as documented Cardiovascular: Cardiovascular: Reports no additional cardiovascular complaints Respiratory: Respiratory: Reports no additional respiratory complaints, Reports chest congestion, Reports cough, Reports excessive phlegm production and Reports wheezing Gastrointestinal: Gastrointestinal: Reports no additional gastrointestinal complaints [facility] Past Medical History Medical History COVID-19 Breakthrough seizure PCOS (polycystic ovarian syndrome) Seizure disorder Obesity Slow rate of speech TAM (obstructive sleep apnea) With CPAP use Metabolic syndrome Essential (primary) hypertension Constipation by delayed colonic transit Congenital hernia of foramen of [place] Concussion syndrome Atrial tachycardia Anemia Hypothyroidism (acquired) Bilateral carpal tunnel syndrome Shingles Bipolar disorder Anxiety and depression Interstitial cystitis GERD (gastroesophageal reflux disease) Epilepsy TIA (transient ischemic attack) Asthma Seasonal allergies Migraine Surgical History Surgical History H/O carpal tunnel repair bilateral History of cholecystectomy History of bunionectomy History of left knee replacement History of foot surgery History of thyroidectomy, subtotal H/O arthroscopy of left knee H/O dilation and curettage Hx of gastric bypass Family History Family History Sibling Cerebrovascular accident, Onset Age: 19 Multiple sclerosis Father Hypertension Coronary artery disease Hyperlipidemia Mother Hypertension Heart disease Hyperlipidemia Diabetes mellitus Grandparent Family history of malignant neoplasm of cervix Family history of malignant neoplasm of breast Social History Social History Social History: The patient has been with her since 2005 they we will give when the lost changed. They have 3 medium to large his dogs at home. The patient works for the [employer]. She is lifelong nonsmoker but had history of heavy secondhand smoke exposure until she was a teenager. She never drinks alcohol and does not have any history of illicit substance use. 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 There is no relevant family history pertinent to the patient complaint. Exam Const: General: cooperative, no acute distress, alert and awake Orientation/consciousness: oriented to person, oriented to place and oriented to time HENMT: Head: normal to inspection Ears: TM's normal bilaterally Mouth: Yes moist mucous membranes Resp: Effort & Inspection: normal respiratory effort and able to speak in complete sentences Auscultation: clear to auscultation bilaterally, no crackles, no rales, no rhonchi, no wheezes and diminished lung sounds Cardio: Palpation: normal PMI Rate: regular rate Rhythm: regular rhythm Heart sounds: S1 normal heart sound present and S2 normal heart sound present Neuro: General: oriented to person, oriented to place and oriented to time Cranial nerves: Yes CN's II-XII intact bilaterally Psych: Appearance: grossly normal Thought process: Normal thought process present Insight: Good insight present (Psych) Judgement: Good judgement present (Psych) Course Course Level of Care: Express Care Visit Vital Signs Vital signs: Vital Signs Temperature 97.5 F L 09/28/24 13:10 Pulse Rate 75 09/28/24 13:10 Respiratory Rate 16 09/28/24 13:10 Blood Pressure 126/69 09/28/24 13:10 Pulse Oximetry 98 09/28/24 13:10 Oxygen Delivery Room Air 09/28/24 13:10 Temperature 97.5 F L 09/28/24 13:10 Pulse Rate 75 09/28/24 13:10 Respiratory Rate 16 09/28/24 13:10 Blood Pressure 126/69 09/28/24 13:10 Pulse Oximetry 98 09/28/24 13:10 Oxygen Delivery Room Air 09/28/24 13:10 Reviewed MDM - URI/Sore Throat MDM Narrative Medical decision making narrative: Patient in no distress at this time. Negative COVID, negative flu, negative strep. Culture pending. History and exam consistent with atypical pneumonia that is prevalent within the community. This patient has generalized muscle weakness, unable to give a strong cough. She is nontoxic appearing at this time. Stable for discharge home with p.o. antibiotics, steroids, bronchodilators. Discharge instructions reviewed with patient, as well as provided in writing per nursing staff. The instructions also include specific and strict return/GO TO THE ER as well as f/u information. All questions have been answered, and the patient deny any further questions with discharge and discharge plan. Some parts of this dictation were generated by voice recognition software and may contain typographical and/or grammatical inaccuracies. Differential Diagnosis Differential diagnosis: Likely upper respiratory infection, sinusitis, viral infection, influenza and pharyngitis Medical Records Attestation: I reviewed the patient's medical records. Lab Data Attestation: I reviewed the patient's lab results. Discharge Plan Discharge Clinical Impression: Atypical pneumonia Patient Disposition: Home, Self-Care Condition: Stable Instructions: Antibiotic Form, Community Acquired Pneumonia (ED) Additional Instructions: Take medications as prescribed. Follow with primary care provider. Emergency department for any new or worsening symptoms Patient Language: [place] Citizen Prescriptions: New prednisone 50 mg tablet 50 mg PO DAILY Qty: 5 0RF albuterol sulfate [Ventolin HFA] 90 mcg/actuation HFA aerosol inhaler 2 puff inhalation QID PRN (Reason: shortness of breath or wheezing) Qty: 8.5 0RF doxycycline hyclate 100 mg capsule 100 mg PO BID Qty: 20 0RF No Action Vraylar 3 mg capsule divalproex 500 mg tablet extended release 24 hr 2,000 mg PO HS Austedo 12 mg tablet 12 mg PO DIRECTED lithium carbonate 300 mg capsule albuterol sulfate 90 mcg/actuation HFA aerosol inhaler 2 puff inhalation Q4-6H PRN (Reason: shortness of breath or wheezing) 30 Days Qty: 8.5 0RF lorazepam 0.5 mg tablet 0.5 mg PO TID PRN (Reason: Anxiety) Caplyta 10.5 mg capsule 10.5 mg PO DAILY levetiracetam 1,000 mg tablet 1,500 mg PO BID Qty: 60 5RF Rx Instructions: takes 1500 mg total BID liothyronine 5 mcg tablet See Rx Instructions .ROUTE .COMPLEX Qty: 120 0RF Dose Instruction: TAKE 4 TABLETS BY MOUTH DAILY Rx Instructions: TAKE 2 TABLETS BY MOUTH DAILY ipratropium-albuterol 0.5 mg-3 mg(2.5 mg base)/3 mL solution for nebulization 3 ml INHALATION Q4H PRN (Reason: wheezing) Qty: 180 3RF Ubrelvy 100 mg tablet 100 mg PO ONCE PRN (Reason: migraine headache) Qty: 14 3RF levothyroxine 200 mcg tablet See Rx Instructions .ROUTE .COMPLEX Qty: 90 1RF Dose Instruction: TAKE 1 TABLET BY MOUTH EVERY DAY Rx Instructions: TAKE 1 TABLET BY MOUTH EVERY DAY zonisamide 100 mg capsule See Rx Instructions .ROUTE .COMPLEX Qty: 270 1RF Dose Instruction: TAKE 3 CAPS BY MOUTH DAILY Rx Instructions: TAKE 3 CAPS BY MOUTH DAILY Linzess 290 mcg capsule See Rx Instructions .ROUTE .COMPLEX Qty: 90 0RF Dose Instruction: TAKE 1 CAPSULE BY MOUTH EVERY DAY Rx Instructions: TAKE 1 CAPSULE BY MOUTH EVERY DAY Breztri Aerosphere 160-9-4.8 mcg/actuation HFA aerosol inhaler See Rx Instructions .ROUTE .COMPLEX Qty: 10.7 0RF Dose Instruction: 2 INHALED BY MOUTH TWICE A DAY Rx Instructions: 2 INHALED BY MOUTH TWICE A DAY Follow-up/Referrals: Tana Doran MD [Primary Care Provider] - 1 Week Time of Disposition: 15:01
[2024-09-28 14:29] LABS: EDCOVIDSCREEN Negative (Negative)
[2024-09-28 14:31] LABS: EDINFLUASCREEN Negative (Negative); EDINFLUBSCREEN Negative (Negative); EDSTREPNEGPOS1 Negative (Negative)
== END 2024-09-28 15:08 | disposition home or self-care (01) ==
PROVIDERS: Emergency Provider Nurse Practitioner Family; PCP Family Medicine
DX: J18.9 Pneumonia, unspecified organism (principal); Z20.822 Contact with and (suspected) exposure to COVID-19; E28.2 Polycystic ovarian syndrome; G40.909 Epilepsy, unspecified, not intractable, without status epilepticus; G47.33 Obstructive sleep apnea (adult) (pediatric); I10 Essential (primary) hypertension; E03.9 Hypothyroidism, unspecified; F31.9 Bipolar disorder, unspecified; F41.9 Anxiety disorder, unspecified; K21.9 Gastro-esophageal reflux disease without esophagitis; J45.909 Unspecified asthma, uncomplicated; Z96.652 Presence of left artificial knee joint; Z98.84 Bariatric surgery status; Z90.89 Acquired absence of other organs; Z86.16 Personal history of COVID-19; Z86.73 Personal history of transient ischemic attack (TIA), and cerebral infarction without residual deficits
CPT/HCPCS: 87081; 87426; 87804; 87880; 99213; G0463

== ENCOUNTER 2024-10-16 10:30 | Outpatient (CLI) | payer BC, SELFPAY ==
[2024-10-16 11:38] LABS: Hematocrit 37.9 % (37.0-47.0); Hemoglobin 11.4 g/dL (12.0-15.0); Mean Corpuscular HGB Conc 30.1 g/dl (32-36); Mean Corpuscular Volume 99.7 fl (80-100); Mean Platelet Volume 10.3 fl (7.4-10.4); Platelet Count Result 243 k/mm3 (150-375); Red Cell Distribution Width 15.5 % (11.5-14.5); White Blood Count 5.7 K/mm3 (4.5-10.0)
[2024-10-16 11:51] LABS: Alanine Aminotransferase 20 U/L (6-35); Albumin Level 3.6 g/dL (3.5-5.1); Alkaline Phosphatase 92 U/L (38-126); Anion Gap 7 mmol/L (4-12); Aspartate Amino Transferase 29 U/L (14-36); Bilirubin,Total 0.6 mg/dL (0.2-1.3); Calcium 8.5 mg/dL (8.4-10.2); Carbon Dioxide 28 mmol/L (22-30); Chloride 104 mmol/L (98-107); Estimated Glomerular Filt Rate > 60; Glucose 109 mg/dL (65-110); Potassium 3.8 mmol/L (3.4-5.0); Sodium 139 mmol/L (137-145)
[2024-10-16 11:52] LABS: Blood Urea Nitrogen < 2 mg/dL (7-17)
[2024-10-16 14:29] LABS: Lithium 0.5 mmol/L (0.6-1.2); Valproic Acid 100.3 ug/mL (50-120)
[2024-10-16 14:44] LABS: Free T4 Free Thyroxine 1.53 ng/dL (0.78-2.19)
[2024-10-21 02:49] LABS: Triiodothyronine T3 Free 2.4 pg/mL (2.3-4.2)
--- OUTSIDE RECORDS SUMMARY | 2024-10-22 06:24 | XMS_ITS | Clinical Summary ---
Author Organization [facility] Address [address] [place] [address] Care Team Providers Care Hospitality Director Name Role Phone Oren Raymond DO Primary Care Provider [phone] Source Comments [facility],non-owned Affiliates and Associated Physician Practices is amultiple site organization consisting of ambulatory clinics and hospital sitesin [place], [place], [place] and [place]. This disclosure is being madepursuant to the Care Everywhere program and may not contain all information available regarding this patient. Last updated 18.[facility] Active Problems Problem Noted Date Diagnosed Date Seizures 06/12/2024 Social History Tobacco Use Types Packs/Day Years Used Date Smoking Tobacco: Never Assessed Sex and Gender Information Value Date Recorded Sex Assigned at Not on file Gender Identity Not on file Sexual Orientation Not on file Last Filed Vital Signs Vital Sign Reading Time Taken Comments Blood Pressure 107/64 05/28/2014 2:28 PM CDT Pulse 80 05/28/2014 2:28 PM CDT Temperature 36.9 ??C (98.4 ??F) 05/28/2014 8:45 AM CD T Respiratory Rate 18 05/28/2014 2:28 PM CDT Oxygen Saturation 100% 05/28/2014 2:28 PM CDT Inhaled Oxygen Concentration - - Weight - - Height - - Body Mass Index - - Plan of Treatment Health Maintenance Due Date Last Done Comments ERIC (AGES 45-75) - COL ON CA SCREENING 1969 COLON MONITORING 1969 COLONOSCOPY - COLON CA SCREENING 1969 CT COLONOGRAPHY - COLON CA SCREENING 1969 Colorectal Cancer Screening 1969 FIT - COLON CA SCREENING 1969 FLEX SIG - COLON CA SCREENING 1969 LIPID TESTING 1969 MAMMOGRAM 1969 PAP SMEAR 1969 HIV SCREENING 1984 HEPATITIS C SCREENING 06/01/1987 DTAP/TDAP/TD VACCINES (1 - Tdap) 1988 HEPATITIS B VACCINE (1 of 3 - 19+ 3-dose series) 1988 PNEUMOCOCCAL VACCINE 50+ (1 of 1 - PCV) 2019 ZOSTER VACCINE (1 of 2) 2019 COVID-19 VACCINE ( - 2023-2 5 season) 2024 INFLUENZA VACCINE (#1) 2024 DEPRESSION SCREENING 09/30/2024 HIB VACCINE Aged Out No longer eligi ble based on patient's age to complete this topic HPV VACCINE Aged Out No longer eligi ble based on patient's age to complete this topic MENINGOCOCCAL (Group B) VACCINE Aged Out No longer eligible based on patient's age to complete this topic MENINGOCOCCAL VACCINE Aged Out No emily sonu eligible based on patient's age to complete this topic PNEUMOCOCCAL VACCINE Aged Out No long er eligible based on patient's age to complete this topic Care Teams Hospitality Director Relationship Specialty Start Date End Date Oren Raymond DO [address] [place] [address] PCP - General 04/07/19
--- OUTSIDE RECORDS SUMMARY | 2024-10-22 06:24 | XMS_ITS | Referral Summary ---
Author Organization [facility] Address [address] [place] [address] Care Team Providers Care Software Support Technician Name Role Phone Oren Raymond DO Primary Care Provider Source Comments [facility],non-owned Affiliates and Associated Physician Practices is amultiple site organization consisting of ambulatory clinics and hospital sitesin [place], [place], [place] and [place]. This disclosure is being madepursuant to the Care Everywhere program and may not contain all information available regarding this patient. Last updated 18.[facility] Active Problems Problem Noted Date Diagnosed Date [...] Mass Index - - Plan of Treatment Not on file Care Teams Software Support Technician Relationship Specialty Start Date End Date Oren Raymond DO [address] [place] [address] PCP - General 04/07/19
--- OUTSIDE RECORDS SUMMARY | 2024-10-22 06:25 | XMS_ITS | Encounter Summary ---
Author Organization [facility] Address [address] [place] [address] Phone Care Team Providers Care Technology Assistant Name Role Phone Tana Doran MD Primary Care Provider [phone] Daquan Dowd MD Primary Care Provider [phone] Reason for Visit * Reason Onset Date Comments New Patient 06/27/2021 new pt appt Encounter Details Date Type Department Care Team (Late st Contact Info) Description 06/27/2021 Telephone [facility] [address] [place] [address] Tana Doran MD [address] [facility] [address] [place] [address] New Patient (new pt appt) Social History Tobacco Use Types Packs/Day Years Used Date Smoking Tobacco: Never Cigarettes Smokeless Tobacco: Never Chew Alcohol Use Standard Drinks/Week Comments Never 0 (1 standard drink = 0.6 oz pur e alcohol) AUDIT-C Answer Date Recorded Frequency of Alcohol Consumption Never 05/25/2020 Average Number of Drinks Not on file 020 Frequency of Binge Drinking Not on file 05/01 PHQ-2 Answer Date Recorded PHQ-2 Score 0 2019 Comments Unknown Sex and Gender Information Value Date Recorded Sex Assigned at Not on file Legal Sex Female 7:41 AM CDT Gender Identity Not on file Sexual Orientation Not on file COVID-19 Exposure Response Date Recorded In the last month, have you been in contact with someone who was confirmed or suspected to have Coronavirus / COVID-19? No / Unsure 06/29/2021 8:08 AM CDT documented as of this encounter Miscellaneous Notes * Telephone Encounter - Allyssa Ro - 06/27/2021 11:21 AM CDT ----- Message from Corrine Wynn sent at 06/27/2021 10:23 AM CDT ----- Regarding: new patient New [facility] Primary Provider Request Insurance of patient: joao [facility] Name of person calling: Andrea Grimes Relationship to patient: self Preferred phone number: [phone] Alternate phone number: na Region / Office location preference: [place] Provider preference (male/female, specific provider name): female Willing to see someone other than physician, such as [facility]NAL [facility], [place], resident? na Patient reason for appointment/any current symptoms: needing pcp/Daquan Dowd Other information (including need for healthcare interpreter): na Route ALL calls to: [facility] PATIENT STONEWORK SUPERVISOR documented in this encounter Plan of Treatment Not on file documented as of this encounter Visit Diagnoses Not on filedocumented in this encounter Additional Health Concerns Assessment Noted Time PHQ-9 Depression Total Score: 0 05/11/20 19 12:01 PM CDT documented as of this encounter Care Teams Technology Assistant Relationship Specialty Start Date End Date Tana Doran MD [address] [place] [address] PCP - General Family Medicine 04/06/19 06/28/21 Daquan Dowd MD [address] [place] [address] PCP - General Family Medicine 06/29/21 04/26/22 documented as of this encounter
--- OUTSIDE RECORDS SUMMARY | 2024-10-22 06:25 | XMS_ITS | Encounter Summary ---
Author Organization [facility] Address [address] [place] [address] Care Team Providers Care Supervisor Lamp Shades Name Role Phone Oren Raymond Primary Care Provider [phone] Encounter Details Date Type Department Care Team (Late st Contact Info) Description 04/08/2019 Lab Requisition [facility] Care Pathology Lab [address] [place] [address] Padmini Smith MD [address] [place] [address] Gross hematuria Social History Tobacco Use Types Packs/Day Years Used Date Smoking Tobacco: Never Assessed Sex and Gender Information Value Date Recorded Sex Assigned at Not on file Gender Identity Not on file Sexual Orientation Not on file documented as of this encounter Plan of Treatment Not on file documented as of this encounter Procedures Procedure Name Priority Date/Time Associated Diagnosis Comments PATHOLOGY TISSUE Routine 04/06/2019 11:1 7 AM CDT Gross hematuria documented in this encounter Results * PATHOLOGY TISSUE (04/06/2019 11:17 AM CDT) Case Report Surgical Pathology Report ? Case: [id number] ? Authorizing Provider: ??Padmini Smith MD ? Collected: ? 04/06/2019 11:17 AM ? Pathologist: ? Jose Miguel Gaitan MD ? Received: ?04/08/2019 11:17 AM ? Specimen: ?Urine ? 04/09/2019 10:09 AM [facility] Final Diagnosis Urine, voided, Thin Prep, cytology: - Hypocellular for urothelial cells - Negative for high-grade urothelial neoplasia - Benign squamous cells are seen in abundance 04/09/2019 10:09 AM [facility] Microscopic Description and Comment Performed 04/09/2019 10:09 AM [facility] Clinical History Hematuria; cystoscopy negative. 04/09/2019 10:09 AM [facility] Gross Description Prepared slide (1) received from [facility] labeled [id number], Andrea Grimes . All material will be returned. 04/09/2019 10:09 AM [facility] Disclaimer The performance characteristics of all immunohistochemical and indirect immunofluorescence stains (if any) cited in this report were determined by the [facility] of [facility]. Some of these tests were developed by our own laboratory and have not been cleared or approved by the US Food and Drug Administration. The FDA does not require this test to go through premarket FDA review. These tests are used for clinical purposes. They should not be regarded as investigational or for research. This laboratory is certified under the Clinical Laboratory Improvement Amendments (CLIA) as qualified to perform high complexity clinical laboratory testing. This case has been personally reviewed and interpreted by the attending (teaching) pathologist. 04/09/2019 10:09 AM CDT [facility] Embedded Images 04/09/2019 10:09 AM CDT [facility] Pathology/Cytolo gy URINE / Unknown 04/06/2019 11:17 AM CDT 04/08/2019 11:17 AM CDT Padmini Smith MD LAB - PATHOLOGY/CYTO LOGY ORDERABLES Performing Organization Address City/State/[facility] Co de Phone Number [facility] [address] [phone] documented in this encounter Visit Diagnoses Diagnosis Gross hematuria documented in this encounter Care Teams Supervisor Lamp Shades Relationship Specialty Start Date End Date Oren Ramyond DO [address] [place] [address] PCP - General 04/07/19 documented as of this encounter
--- OUTSIDE RECORDS SUMMARY | 2024-10-22 06:25 | XMS_ITS | Clinical Summary ---
Author Organization [facility] Address [address] [address] Phone Care Team Providers Care Business Banking Sales Assistant Name Role Phone Unavailable Primary Care Provider Unavailabl e Allergies Active Allergy Reactions Criticality Noted Date Comments Penicillins Hives 04/24/2019 Tetanus Antitoxin Hives 04/24/2019 Medications levothyroxine (SYNTHROID) 200 MCG Tablet Take 200 mcg by mouth every morning. Active estazolam (PROSOM) 2 MG Tablet Take 2 mg by mouth nightly as needed. Active LORazepam (ATIVAN) 0.5 MG Tablet Take 0.5 mg by mouth every 6 hours as needed. Active iron polysaccharides (NIFEREX) 150 MG Capsule Take 150 mg by mouth 2 times daily. Active Zonisamide 50 MG Capsule Take 25 mg by mouth 2 times daily. Active levETIRAcetam (KEPPRA) 250 MG Tablet Take 250 mg by mouth 2 times daily. Active Levetiracetam 1000 MG Tablet Take 1 Tab by mouth 2 times daily. Active DULOXETINE HCL PO Take 90 mg by mouth every evening. Active divalproex (DEPAKOTE) 250 MG Tablet Delayed Response Take 250 mg by mouth 3 times daily. Active linaclotide (LINZESS) 290 MCG Capsule Take by mouth every morning (before breakfast). Active Ascorbic Acid (VITAMIN C PO) Take 1 Tab by mouth daily as needed. when taking a cold Active aspirin 81 MG Chewable Tablet Take 81 mg by mouth daily. Active Family History Medical History Relation Name Comments Alcohol Abuse Brother 1 Alcohol Abuse Brother 2 Alcohol Abuse Brother 3 Colon Cancer Father Diabetes Maternal Grandfather Heart Disease Maternal Grandfather Diabetes Maternal Grandmother Heart Disease Maternal Grandmother Multiple Sclerosis Maternal Grandmother Ovarian Cancer Maternal Grandmother Heart Disease Mother atrial fibrill ation Hypertension Mother Multiple Sclerosis Sister Relation Name Status Comments Brother 1 Brother 2 Brother 3 Alive Father Maternal Grandfather Maternal Grandmother Mother Alive Sister patient has 9 S ISTERS TOTAL Social History Tobacco Use Types Packs/Day Years [...] Sign Reading Time Taken Comments Blood Pressure 114/72 06/28/2020 12:58 PM CDT Pulse 82 06/28/2020 12:58 PM CDT Temperature 36 ??C (96.8 ??F) 06/28/2020 12:58 PM CDT Respiratory Rate 15 06/28/2020 12:58 PM CDT Oxygen Saturation 100% 06/28/2020 12:58 PM CDT Inhaled Oxygen Concentration - - Weight 81.6 kg (180 lb) 05/25/2020 1:00 PM CDT Height 160 cm (5' 3 ) 05/25/2020 1:00 PM CDT Body Mass Index 31.89 05/25/2020 1:00 PM CDT Plan of Treatment Health Maintenance Due Date Last Done Comments Hepatitis C Virus (HCV) Screening 1969 TdaP Immunization 1969 Hepatitis B Immunization (1 of 3 - 19+ 3-dose series) 1988 Pap Smear 1990 Cervical Cancer Screening (CCS) 1999 HPV/Cotest 1999 Cologuard 2019 Immunochemical Fecal Occult Blood 2019 Mammogram 2019 Pneumococcal Immunization (5 0+ years) (1 of 1 - PCV) 2019 Zoster Immunization (1 of 2) 2019 Colonoscopy 06/28/2023 06/28/2020, 05/11/2019 Colorectal Cancer Screening 06/28/2023 Influenza Immunization (#1) 2024 06/30/2020 SARS-COV-2 Immunization (4 - season) 2024 05/18/2021, 12/24/2020, 12/01/2020 Respiratory Syncytial Virus (RSV) Immunization (Adult) (1 - 1-dose 75+ series) 2044 06/28/2020, 05/11/2019 Meningococcal Immunization (ACWY) Aged Out No longer eligible b ased on patient's age to complete this topic Pneumococcal Immunization Combined Aged Out No longer eligible b ased on patient's age to complete this topic Rotavirus Immunization Aged Out No lo nger eligible based on patient's age to complete this topic Insurance
--- OUTSIDE RECORDS SUMMARY | 2024-10-22 06:25 | XMS_ITS | Patient Health Summary ---
Author Organization [facility] Address [address] [place] [address] Care Team Providers Care Band Saw Runner Name Role Phone Oren Raymond DO Primary Care Provider [phone] Note from Formerly named [facility],non-owned Affiliates and Associated Physician Practices is amultiple site organization consisting of ambulatory clinics and hospital sitesin [place], [place], [place] and [place]. This disclosure is being madepursuant to the Care Everywhere program and may not contain all information available regarding this patient. Last updated 18.[facility] Active Problems Problem Noted Date Diagnosed Date [...] - - Body Mass Index - - Procedures * PATHOLOGY TISSUE(Performed 04/06/2019) Performed for Gross hematuria * CT HEAD WO CONTRAST(Performed 05/28/2014) * HCG URINE QUALITATIVE - POCT (IP) [facility](Performed 05/28/2014) * HCG URINE QUALITATIVE - POCT (IP) [facility](Performed 05/28/2014) * GLUCOSE - POINT OF CARE (AMB) [facility](Performed 05/28/2014) * GLUCOSE - POINT OF CARE (AMB) [facility](Performed 05/28/2014) * GLUCOSE ACCUCHECK(Performed 05/28/2014) * DRUG ABUSE PANEL 10-20+ETHANOL URINE NO CONFIRM(Performed 05/28/2014) * BASIC METABOLIC PANEL (CALCIUM TOTAL)(Performed 05/28/2014) * URINALYSIS REFLEX TO MICROSCOPIC NO CULTURE(Performed 05/28/2014) * CBC W AUTO DIFFERENTIAL(Performed 05/28/2014) * CBC W AUTO DIFFERENTIAL(Performed 05/28/2014) * CULTURE BLOOD(Performed 04/29/2014) * CULTURE BLOOD(Performed 04/29/2014) Results * PATHOLOGY TISSUE (04/06/2019 11:17 AM CDT) Case Report Surgical Pathology Report ? Case: [id number] ? Authorizing Provider: ??Padmini Smith MD ? Collected: ? 04/06/2019 11:17 AM ? Pathologist: ? Jose Miguel Gaitan MD ? Received: ?04/08/2019 11:17 AM ? Specimen: ?Urine ? 04/09/2019 10:09 AM CDT [facility] Final Diagnosis Urine, voided, Thin Prep, cytology: - Hypocellular for urothelial cells - Negative for high-grade urothelial neoplasia - Benign squamous cells are seen in abundance 04/09/2019 10:09 AM [facility] Microscopic Description and Comment Performed 04/09/2019 10:09 AM [facility] Clinical History Hematuria; cystoscopy negative. 04/09/2019 10:09 AM [facility] Gross Description Prepared slide (1) received from [facility] labeled [id number], [place] . All material will be returned. 04/09/2019 10:09 AM [facility] Disclaimer The performance characteristics of all immunohistochemical and indirect immunofluorescence stains (if any) cited in this report were determined by the Histopathology Laboratory of [facility]. Some of these tests were developed by [...] the attending (teaching) pathologist. 04/09/2019 10:09 AM [facility] Embedded Images 04/09/2019 10:09 AM [facility] Pathology/Cytolo gy URINE / Unknown 04/06/2019 11:17 AM CDT 04/08/2019 11:17 AM CDT Padmini Smith MD LAB - PATHOLOGY/CYTO LOGY ORDERABLES [facility] [address] [place], [place] [id number] [place] [address] * CT HEAD WO CONTRAST (05/28/2014 11:13 AM CDT) Anatomical Region Laterality Modality Head Other Impressions 05/28/2014 1:07 PM CDT IMPRESSION: 1. No acute intracranial process. The above findings were discussed with Dr. Irving by Dr. Son at 11:20 AM. This report was approved ??by Jamie Son M.D. ?? on 05/28/2014 11:23 AM . I, Dr. CAMPOS POTTER M.D. have personally reviewed and interpreted this examination/study. This report was electronically signed by CAMPOS POTTER M.D. ??on 05/28/2014 1:07 PM . Narrative 05/28/2014 1:07 PM CDT EXAMINATION: Computed tomography (CT) of the head without contrast HISTORY: Seizure. TECHNIQUE: CT of the head was performed without contrast according to standard protocol. FINDINGS: No prior study is available for comparison. No acute intra- or extra-axial fluid collections are identified. The ventricles are of normal size, shape, and morphology. The basilar cisterns are patent. No mass effect or midline shift is seen. The bright-white matter differentiation is normal. Hypoattenuating focus in the left basal ganglia likely represents a dilated perivascular space. Other than trace fluid in the mastoids bilaterally, the visualized portions of the orbits, paranasal sinuses, and mastoids appear normal. No acute fracture is identified. Procedure Note Campos Potter MD - 12/28/2017 EXAMINATION: Computed tomography (CT) of the head without contrast HISTORY: Seizure. TECHNIQUE: CT of the head was performed without contrast according tostandard protocol. FINDINGS: No prior study is available for comparison. No acute intra- or extra-axial fluid collections are identified. Theventricles are of normal size, shape, and morphology. The basilar cisternsare patent. No mass effect or midline shift is seen. The bright-white matterdifferentiation is normal. Hypoattenuating focus in the left basal ganglia likely represents adilated perivascular space. Other than trace fluid in the mastoidsbilaterally, the visualized portions of the orbits, paranasal sinuses, andmastoids appear normal. No acute fracture is identified. IMPRESSION IMPRESSION: 1. No acute intracranial process. The above findings were discussed with Dr. Irving by Dr. Son at 11:20 AM. This report was approved by Jamie Son M.D. on 05/28/2014 11:23 AM. I, Dr. CAMPOS POTTER M.D. have personally reviewed and interpreted thisexamination/study. This report was electronically signed by CAMPOS POTTER M.D. on 05/28/20141:07 PM . Deborah Gracia MD CT ORDERABLES * HCG URINE QUALITATIVE - POCT (IP) [facility] (05/28/2014 10:43 AM CDT) Only the most recent of2 resultswithin the time period is included. NEGATIVE [facility] Comment:Block Machine Operator: PENELOPE MACIEL 05/28/2014 10:4 3 AM CDT Deborah Gracia MD LAB - POINT OF CARE ORDERABLES Performing Organization Address [facility] Co de Phone Number [facility] * GLUCOSE - POINT OF CARE (AMB) [facility] (05/28/2014 10:42 AM CDT) Only the most recent of2 resultswithin the time period is included. Deborah Gracia MD LAB - POINT OF CARE ORDERABLES Performing Organization Address [facility]/ZIP Co de Phone Number [facility] * GLUCOSE ACCUCHECK (05/28/2014 10:42 AM CDT) Glucose, Fingerstick 87 70-115mg/d L mg/dL [facility] Comment:Block Machine Operator: PENELOPE MACIEL 05/28/2014 10:4 2 AM CDT Deborah Gracia MD LAB - CHEMISTRY ORDE RABLES Performing Organization Address [facility] Co de Phone Number [facility] * DRUG ABUSE PANEL 10-20+ETHANOL URINE NO CONFIRM (05/28/2014 10:39 AM CDT) Amphetamines Screen Urine Negative Negative: < 1000 ng/mL [facility] Barbiturates Screen Urine Negative Negative: < 200 ng/mL [facility] Benzodiazepine Screen Urine Negative Negative: < 200 ng/mL [facility] Opiates Urine Negative Negative: < 300 ng/mL [facility] Cocaine Metabolites Urine Negative Negative: < 300 ng/mL [facility] Phencyclidine Screen Urine Negative Negative: < 25 ng/ml [facility] Cannabinoids Screen Urine Negative Negative: <50 ng/mL [facility] Methadone Screen Urine Negative Negative: < 300 ng/mL [facility] Urine specimen (specimen) 05/28/2014 10:39 AM CDT 05/28/2014 10:58 AM CDT Narrative [facility] - 05/28/2014 11:48 AM CDT The Urine Toxicology Screening Panel does not screen for Propoxyphene, Meprobamate, Carisoprodol, Trazodone, [id number] medications and/or volatiles (Acetone, Isopropanol, Methanol or Ethylene Glycol). Ethanol, Salicylate, Acetaminophen, Tricyclic Antidepressants and several therapeutic drugs may be individually assayed in serum or plasma specimen. Toxicology testing by the [facility] is an aid to medical diagnosis and treatment of patients. No documented chain of custody was maintained. Results are intended to be used for clinical purposes only. ? Deborah Gracia MD LAB - URINE CHEMISTR Y ORDERABLES [facility] [address] [place] [id number], [facility] [phone] * (ABNORMAL) URINALYSIS REFLEX TO MICROSCOPIC NO CULTURE (05/28/2014 10:39 AM CDT) Color UA Yellow Straw, Yellow, Colorless, Light Yellow [facility] Clarity UA Clear Clear [facility] Specific [place] UA 1.004 1.001 - 1.030 [facility] pH UA 5.0 5.0 - 8.0 [facility] Protein UA Negative <=20 mg/dL [facility] Glucose UA Negative Negative mg/dL [facility] Ketone UA Negative Negative mg/dL [facility] Bilirubin UA Negative Negative mg/dL [facility] Blood UA Negative Negative [facility] Nitrite UA Negative Negative [facility] Leukocyte Esterase Negative Negative [facility] Urobilinogen UA <2.0 <2.0 mg/dL [facility] RBC UA 1 0 - 8 /HPF [facility] WBC UA 1 0 - 2 /HPF [facility] Bacteria UA Rare Rare, Occasional, None /HPF [facility] Squamous Epithelial Cells UA 3(H) 0 - 1 /HPF [facility] Urine specimen (specimen) 05/28/2014 10:39 AM CDT 05/28/2014 10:59 AM CDT Deborah Gracia MD LAB - URINALYSIS ORD ERABLES [facility] [address] [place] [address] * (ABNORMAL) CBC W AUTO DIFFERENTIAL (05/28/2014 10:39 AM CDT) Only the most recent of2 resultswithin the time period is included. WBC 6.6 3.5 - 10.5 10? 3 /uL [facility] RBC 4.21 3.90 - 5.00 10? 6 /uL [facility] Hemoglobin 11.7(L) 12.0 - 15.5 g/dL [facility] Hematocrit 35.9 35.0 - 45.0 % [facility] MCV 85.3 81.0 - 97.0 fL [facility] MCH 27.8(L) 28.0 - 34.0 pg [facility] MCHC 32.6 32.0 - 36.0 g/dL [facility] Platelet Count 328 150 - 400 10? 3 /uL [facility] RDW-SD 41.6 36.0 - 50.0 fL [facility] RDW-CV 13.5 11.2 - 14.8 % [facility] MPV 9.4 9.3 - 12.8 fL [facility] nRBC Absolute 0.00 0 10? 3 /uL [facility] nRBC Auto 0.0 0 /100 WBC [facility] Neutrophils % 68.2 35.0 - 70.0 % [facility] Lymphocytes % 23.6 19.7 - 55.1 % [facility] Monocytes % 5.7 3.0 - 15.0 % [facility] Eosinophils % 1.8 0.0 - 6.0 % [facility] Basophil % 0.5 0.0 - 1.5 % [facility] Neutrophils Absolute 4.5 1.6 - 7.0 10? 3 /uL [facility] Lymphocyte Absolute 1.6 0.8 - 2.9 10? 3 /uL [facility] Monocytes Absolute 0.38 0.14 - 0.66 10? 3 /uL [facility] Eosinophils Absolute 0.12 0.00 - 0.22 10? 3 /uL [facility] Basophils Absolute 0.03 0.00 - 0.06 10? 3 /uL [facility] Immature Granulocytes % 0.2 0.0 - 1.0 % [facility] Blood specimen (specimen) BLOOD SPECIMEN / Unknown 05/28/2014 10:39 AM CDT 05/28/2014 10:59 AM CDT Deborah rGacia MD LAB - HEMATOLOGY ORD ERABLES Performing Organization Address City/State/[facility] Co de Phone Number [address] [phone] * (ABNORMAL) BASIC METABOLIC PANEL (CALCIUM TOTAL) (05/28/2014 10:39 AM CDT) BUN 7 7 - 26 mg/dL [facility] Creatinine 0.7 0.6 - 1.2 mg/dL [facility] Sodium 141 136 - 145 mmol/L [facility] Potassium 4.2 3.5 - 4.5 mmol/L [facility] Chloride 108(H) 98 - 107 mmol/L [facility] CO2 20(L) 22 - 29 mmol/L [facility] Glucose 82 70 - 115 mg/dL [facility] Calcium 9.1 8.4 - 10.2 mg/dL [facility] Anion Gap 17 8 - 18 [facility] BUN/Creatinine Ratio 10 7 - 23 [facility] Osmolality Calculated 274 270 - 300 mOsm/kg [facility] eGFR >60 >60 mL/min/1.7 3 m2 [facility] Blood specimen (specimen) BLOOD SPECIMEN / Unknown 05/28/2014 10:39 AM CDT 05/28/2014 10:59 AM CDT Deborah Gracia MD LAB - CHEMISTRY JUSTINO GUAMAN Performing Organization Address City/[facility]/ZIP Co de Phone Number [address] [phone] * CULTURE BLOOD (04/29/2014 1:45 AM CDT) Only the most recent of2 resultswithin the time period is included. Culture Blood No Growth at 5 days [facility] Blood specimen (specimen) BLOOD SPECIMEN / Unknown 04/29/2014 1:45 AM CDT 04/29/2014 3:05 PM CDT Narrative [facility] - 05/04/2014 3:15 PM CDT AndersonSpecimen#[id number] Kai Loc/Rm/Bed: 3 [facility]/316/01 Historical Provider LAB - MICROBIOLOG Y ORDERABLES [address] [phone] Care Teams Band Saw Runner Relationship Specialty Start Date End Date Oren Raymond DO [address] [place] [address] PCP - General 04/07/19
--- OUTSIDE RECORDS SUMMARY | 2024-10-22 06:25 | XMS_ITS | Clinical Summary ---
Author Organization [facility] Address [address] [place] [address] Phone Care Team Providers Care Drapery Head Former Name Role Phone Tana Doran MD Primary Care Provider [phone] Allergies Active Allergy Reactions Criticality Noted Date Comments Penicillins Hives,Itching,Swelling High 04/24/2019 Tetanus Antitoxin Hives,Itching,Swelling High 2018 Medications ascorbic acid, vitamin C, (Vitamin C) 1,000 mg Tablet Take 1 Tablet by mouth daily. Active Vraylar 4.5 mg Capsule capsule Take 4.5 mg by mouth late in the day. 05/04/20 20 Active cyclobenzaprine (FLEXERIL) 5 mg Tablet Take 5 mg by mouth Continuous as needed for Spasm. Active divalproex (DEPAKOTE) 250 mg Delayed Release tablet Take 250 mg by mouth see administration instructions. Take 3 tablets once a day. 05/03/20 20 Active DULoxetine (CYMBALTA) 30 mg Capsule, Delayed Release(E.C.) Take 30 mg by mouth late in the day. Active DULoxetine (CYMBALTA) 60 mg Capsule, Delayed Release(E.C.) Take 60 mg by mouth late in the day. Active zaleplon (SONATA) 10 mg capsule Take 10 mg by mouth daily. 04/24/20 20 Active ipratropium-albute roL (DUONEB) 0.5 mg-3 mg(2.5 mg base)/3 mL Solution for Nebulization INHALE 3 ML EVERY 4 HOURS NEEDED FOR WHEEZING 03/14/20 20 Active polysaccharide iron complex (FERREX 150,IFEREX 150) 150 mg iron capsule Poly-Iron 150 mg iron capsule TK 1 C PO BID Active levETIRAcetam (KEPPRA) 1,000 mg tablet Take 1,000 mg by mouth 2 times daily. 04/14/20 20 Active levETIRAcetam (KEPPRA) 250 mg tablet Take 250 mg by mouth 2 times daily. Active levothyroxine 200 mcg tablet Take 200 mcg by mouth daily. Active linaCLOtide (Linzess) 290 mcg capsule Take 290 mcg by mouth daily. Active LORazepam (ATIVAN) 0.5 mg tablet Take 0.5 mg by mouth 2 times daily. Active SUMAtriptan (IMITREX) 50 mg tablet Take 50 mg by mouth Continuous as needed for Headaches. 04/08/20 20 Active zonisamide (ZONEGRAN) 50 mg CapsuleIndications :Partial epilepsy with nonintractable epilepsy (CMS/HCC) Take one capsule by mouth in the morning. 30 Capsule 5 07/14/20 20 Active Zonisamide (ZONEGRAN) 100 mg capsuleIndications :Partial epilepsy with nonintractable epilepsy (CMS/HCC) TAKE 1 CAPSULE BY MOUTH EVERY DAY IN THE EVENING 90 Capsule 06/22/20 21 Active eszopiclone (LUNESTA) 3 mg Tablet Take 3 mg by mouth nightly as needed for Insomnia. Active Active Problems Problem Noted Date Diagnosed Date Other dietary vitamin B12 deficiency anemia 06/01 Leukocytosis (leucocytosis) 06/07/2022 Chronic anemia 06/07/2022 Social History Tobacco Use Types Packs/Day Years Used Date Smoking Tobacco: Never Smokeless Tobacco: Never Tobacco Cessation:Counseling Given: Not Answered Comments No Sex and Gender Information Value Date Recorded Sex Assigned at Not on file Legal Sex Female 3:03 PM CDT Gender Identity Not on file Sexual Orientation Not on file Last Filed Vital Signs Vital Sign Reading Time Taken Comments Blood Pressure 113/82 06/28/2022 2:34 PM CDT Pulse 79 06/28/2022 2:34 PM CDT Temperature 36.2 ??C (97.1 ??F) 06/28/2022 2:34 PM CD T Respiratory Rate - - Oxygen Saturation 98% 06/28/2022 2:34 PM CDT Inhaled Oxygen Concentration - - Weight 98.4 kg (217 lb) 06/28/2022 2:34 PM CDT Height 160 cm (5' 3 ) 06/28/2022 2:34 PM CDT Body Mass Index 38.44 06/28/2022 2:34 PM CDT Plan of Treatment Health Maintenance Due Date Last Done Comments PNEUMOCOCCAL VACCINE 0-64 YEARS (1 of 2 - PCV) 975 DTAP/TDAP/TD VACCINES (1 - Tdap) 1988 HEPATITIS B VACCINES (1 of 3 - 19+ 3-dose series) 02/1988 CERVICAL CANCER SCREENING 1999 BREAST CANCER SCREENING 2009 COLORECTAL SCREENING 2014 Colorectal Cancer Screening 2014 FIT-DNA Q 3 years 2014 FIT/FOBT Q 1 year 2014 Flex Sig/CT Colonography Q 5 years 2014 ZOSTER VACCINE (1 of 2) 2019 INFLUENZA VACCINE (#1) 2024 Insurance [facility] [employer] PREFERRED Care Teams Drapery Head Former Relationship Specialty Start Date End Date Tana Doran MD PCP - General Family Practice 06/07/22
== END 2024-10-16 10:31 | disposition home or self-care (01) ==
LOC: ANHLAB 10:32
PROVIDERS: PCP Family Medicine; Visit Provider Nurse Practitioner Family
DX: Z79.899 Other long term (current) drug therapy (principal)
CPT/HCPCS: 36415; 80053; 80164; 80178; 84439; 84443; 84481; 85027

== ENCOUNTER 2024-11-05 06:14 | Emergency (ER) | payer BC, SELFPAY ==
[2024-11-05] VITALS (31 sets, daily range): BP systolic 93–128; BP diastolic 53–97; PULSE 69–84; RESP 9–22; TEMP 36.4; O2SAT 99–100
--- NOTE | 2024-11-05 | ECHO_ITS ---
Patient Info Name: Andrea Grimes Age: 54 years : 1970 Gender: Female Ht: 62 in Wt: 245 lbs BSA: 2.27 m2 HR: 79 bpm BP: 118 / 68 mmHg Heart Rhythm: Sinus Rhythm Technical Quality: Good Exam Date: 11/05/2024 1:21 PM Exam Location: Echo Lab Exam Room: ER 2-B Patient Status: Emergency Admit Date: 11/05/2024 Staff Ordering Physician: Evan Guzman MD Ross Lift Operator: Kathy Hughes RDCS Attending Provider: Evan Guzman MD Referring Physician: Megan CASH; Exam Type: CA echo doppler color flow Study Info Indications - Dyspnea Complete two-dimensional, color flow and Doppler transthoracic echocardiogram is performed. Summary 1. Complete two-dimensional, color flow and Doppler transthoracic echocardiogram is performed. 2. The left ventricle is normal in size and systolic function. 3. The right ventricle is normal in size and systolic function. Left Ventricle The left ventricle is normal in size and systolic function. Right Ventricle The right ventricle is normal in size and systolic function. Left Atria The left atrium is normal size. Right Atria The right atrium is normal size. Atrial Septum The atrial septum visually appears intact. Aortic Valve The aortic valve is probable trileaflet and opens well. Pulmonic Valve The pulmonic valve is grossly normal. Mitral Valve The mitral valve is normal. Tricuspid Valve The tricuspid valve is normal. Pericardium/Pleural Pericardium is normal in appearance with no evidence for significant pericardial effusion. Inferior Vena Cava Normal inferior vena cava with >50% collapse upon inspiration consistent with normal right atrial pressure, 3 mmHg. Aorta The aortic root at the sinus of valsalva is 2.9cm in diameter. Left Ventricular Outflow Tract Name Value Normal LVOT 2D LVOT Diameter 2.1 cm LVOT Doppler LVOT Peak Gradient 7 mmHg LVOT Mean Gradient 3 mmHg LVOT VTI 27 cm LVOT VTI/AV VTI Ratio 1.0 LVOT Stroke Volume 91 ml LVOT CO 6.4 l/min LVOT CI 2.8 l/min/m2 Pulmonic Valve Name Value Normal PV Doppler PV Peak Gradient 4 mmHg Mitral Valve Name Value Normal MV Doppler MV Peak Gradient 5 mmHg MV Mean Gradient 2 mmHg MV Decel [place] 595 cm/s2 MV PHT 56 ms MV Area (PHT) 3.9 cm2 4.0-5.0 MV Area (Cont Eq VTI) 2.8 cm2 MV Diastolic Function MV E Peak Velocity 115 cm/s MV A Peak Velocity 94 cm/s MV E/A 1.2 MV Decel Time 193 ms MV Annular TDI MV E/e' (Septal) 10.3 <=8.0 MV E/e' (Lateral) 7.8 <=8.0 MV E/e' (Average) 9.1 Tricuspid Valve Name Value Normal Estimated PAP/RSVP RA Pressure 3 mmHg <=5 Aorta Name Value Normal Ascending Aorta Ao Root Diameter (MM) 1.9 cm Ao Root Diam Index (MM) 0.8 cm/m2 Aortic Valve Name Value Normal AV Doppler AV Peak Velocity 144 cm/s AV Peak Gradient 8 mmHg AV Mean Gradient 4 mmHg AV VTI 28 cm AV Area (Cont Eq VTI) 3.3 cm2 >=3.0 AV Area (Cont Eq Leonel) 2.9 cm2 AV Regurgitation 2D LVOT Area 3.3 cm2 Ventricles Name Value Normal LV Dimensions 2D/MM IVS Diastolic Thickness (2D) 0.8 cm 0.6-1.0 IVS Diastole Thickness (MM) 0.8 cm 0.6-0.9 LVID Diastole (2D) 5.5 cm 3.8-5.2 LVID Diastole (MM) 5.2 cm 3.8-5.2 LVIW Diastolic Thickness (2D) 0.8 cm 0.6-0.9 LVIW Diastolic Thickness (MM) 0.8 cm 0.6-0.9 LVID Systole (2D) 3.9 cm 2.2-3.5 LVID Systole (MM) 3.3 cm 2.2-3.5 LVOT Diameter 2.1 cm LV Mass (2D Cubed) 152.59 g 67.00-162.00 LV Mass Index (2D Cubed) 67 g/m2 43-95 Relative Wall Thickness (2D) 0.28 LV Mass (MM Cubed) 139.73 g 67.00-162.00 LV Mass Index (MM Cubed) 62 g/m2 43-95 Relative Wall Thickness (MM) 0.30 LV Fractional Shortening/Ejection Fraction 2D/MM LV Fractional Shortening (2D) 29 % 27-45 LV Fractional Shortening (MM) 37 % 27-45 LV EF (MM Teicholz) 66 % 54-74 LV EF (2D Teicholz) 56 % 54-74 LV Diastolic Volume (4C MOD) 131 ml LV EF (4C MOD) 70 % LV Diastolic Length (4C) 8.8 cm LV Systolic Length (4C) 6.8 cm LV Stroke Volume (4C MOD) 92 ml Atria Name Value Normal LA Dimensions LA Dimension (MM) 3.8 cm 2.7-3.8 LA Volume (4C A-L) 45 ml RA Dimensions RA Area (4C) 15.4 cm2 <=18.0 Report Signatures
--- NOTE | ~2024-11-05 | CT_ITS ---
EXAMINATION: CTA chest PE protocol DATE: 11/05/2024 09:57 INDICATION: Shortness of breath. TECHNIQUE: Computed tomography (CT) pulmonary angiogram of the chest was performed with 100 mL Omnipa que-350 intravenous contrast. Additional 3D reconstructions utilizing coronal maximum intensity proje ction (MIP) were performed. Automated exposure control and iterative reconstruction technique were em ployed. The dose-length product was 811.14 mGy-cm. COMPARISON: 11/05/2016 FINDINGS: No pulmonary embolism. Mild mosaic artifact in the lungs with diffuse subtle groundglass opacity with subsegmental regions of more lucent air trapping likely related to incomplete inspiratory effort wit h scattered air trapping related to small airway disease. Mild discoid atelectasis in the left lower lobe. No pneumonia, pulmonary edema or pleural effusion. Heart size is normal. No pericardial effusio n. Thoracic aorta is normal in caliber with no dissection. No pathologically enlarged abdominal or pe lvic lymphadenopathy. Cholecystectomy clips the gallbladder fossa. Postoperative change of prior gilberto araceli bypass procedure. Mild thoracic spondylosis. Age-indeterminate but likely relatively recent L2 bu rst fracture with subtle linear sclerosis underlying the mildly depressed superior endplate with 10% anterior to central vertebral body height loss and with 1 mm retropulsion. IMPRESSION: 1. No pulmonary embolism or other acute cardiopulmonary disease. 2. Age-indeterminate but likely relatively recent L2 burst fracture with 10% vertebral body height lo ss. Reviewed, dictated and finalized at location A. N ROOM OPERATOR IMPRESSION: 1. No pulmonary embolism or other acute cardiopulmonary disease. 2. Age-indeterminate but likely relatively recent L2 burst fracture with 10% ve rtebral body height loss.
--- NOTE | ~2024-11-05 | US_ITS ---
EXAMINATION: US venous doppler [facility] DATE: 11/05/2024 10:30 INDICATION: Lower limb and pain, swelling and erythema TECHNIQUE: Grayscale ultrasound images without and with compression and Doppler ultrasound images of the bilateral lower extremity veins were obtained. COMPARISON: None. FINDINGS: The visualized portions of right common femoral vein, profunda (deep) femoral vein, femoral vein, pop liteal vein, posterior tibial veins and greater saphenous vein outflow are patent. The visualized portions of left common femoral vein, profunda femoral vein, femoral vein, popliteal v ein, posterior tibial veins and greater saphenous vein outflow are patent. IMPRESSION: 1. No deep venous thrombosis in either lower limb. Reviewed, dictated and finalized at location A. TRAINER
--- NOTE | ~2024-11-05 | XR_ITS ---
Clinical Indication: Shortness of breath PA and lateral views of the chest: Comparison: 08/25/2023 Findings: The lungs are clear, without evidence of focal consolidation or pleural effusion. Cardiome diastinal silhouette is within normal limits. Bones and soft tissues are unremarkable. Impression: Normal chest. Reviewed, dictated and finalized at [facility]. CRITIC Impression: Normal chest.
--- OUTSIDE RECORDS SUMMARY | 2024-11-05 06:17 | XMS_ITS | Encounter Summary ---
Author Organization [facility] Address [address] [place] [address] Care Team Providers Care Mussel Opener Name Role Phone Oren Raymond Primary Care Provider [phone] Encounter Details Date Type Department Care Team (Late st Contact Info) Description 04/08/2019 Lab Requisition [facility] Care Pathology Lab [address] [place] [address] Padmini Smith MD [address] [place] [address] Gross hematuria Social History Tobacco Use Types [...] AM CDT) Case Report Surgical Pathology Report Case: [id number] Authorizing Provider: Padmini Smith MD Collected: 04/06/2019 11:17 AM Pathologist: Jose Miguel Gaitan MD Received: 04/08/2019 11:17 AM Specimen: Urine 04/09/2019 10:09 AM [facility] PATH[facility] Final Diagnosis Urine, voided, Thin Prep, cytology: - Hypocellular for urothelial cells - Negative for high-grade urothelial neoplasia - Benign squamous cells are seen in abundance 04/09/2019 10:09 AM [facility] PATH[facility] Microscopic Description and Comment Performed 04/09/2019 10:09 AM [facility] PATH[facility] Clinical History Hematuria; cystoscopy negative. 04/09/2019 10:09 AM [facility] PATH[facility] Gross Description Prepared slide (1) received from [facility] labeled [id number], Andrea Grimes . All material will be returned. 04/09/2019 10:09 AM [facility] PATH[facility] Disclaimer The performance characteristics of all immunohistochemical and indirect immunofluorescence stains (if any) cited in this report were determined by the Histopathology Laboratory of [facility]. Some of these tests were developed by [...] the attending (teaching) pathologist. 04/09/2019 10:09 AM [facility] PATH[facility] Embedded Images 04/09/2019 10:09 AM [facility] PATH[facility] Pathology/Cytolo gy URINE / Unknown 04/06/2019 11:17 AM CDT 04/08/2019 11:17 AM CDT Padmini Smith MD LAB - PATHOLOGY/CYTO LOGY ORDERABLES [facility] PATHOLOGY LAB [address] [place], [place] [address] [place] [address] documented in this encounter Visit Diagnoses Diagnosis Gross hematuria documented in this encounter Care Teams Mussel Opener Relationship Specialty Start Date End Date Oren Raymond DO [address] [place] [address] PCP - General 04/07/19 documented as of this encounter
--- OUTSIDE RECORDS SUMMARY | 2024-11-05 06:17 | XMS_ITS | Clinical Summary ---
Author Organization [facility] Address [address] [address] Phone Care Team Providers Care Senior Estimator Name Role Phone Unavailable Primary Care Provider [...] 82 06/28/2020 12:58 PM CDT Temperature 36 C (96.8 F) 06/28/2020 12:58 PM CDT Respiratory Rate 15 [...] Influenza Immunization (#1) 2024 06/30/2020 SARS-COV-2 Immunization ( season) 2024 05/18/2021, 12/24/2020, 12/01/2020 Respiratory Syncytial [...] patient's age to complete this topic Insurance * Guarantor: Andrea Grimes Account Type Relation to Patient Date of Phone Billing Address Personal/Family Self [address] [place] [address]
--- OUTSIDE RECORDS SUMMARY | 2024-11-05 06:17 | XMS_ITS | Encounter Summary ---
Author Organization [facility] Address [address] [facility] [place] [address] Phone Care Team Providers Care Tennis Ball Cover Cementer Name Role Phone Tana Doran MD Primary Care Provider [phone] Daquan Dowd MD Primary Care Provider [phone] Reason for Visit * Reason Onset Date Comments New Patient 06/27/2021 new pt appt Encounter Details Date Type Department Care Team (Late st Contact Info) Description 06/27/2021 Telephone [facility] [address] [place] [address] Tana Doran MD [address] [facility] [address] [place] [address] New Patient (new pt appt) [...] Primary Provider Request Insurance of patient: joao [facility] Name of person calling: Andrea Grimes Relationship to patient: self Preferred phone number: [phone] Alternate phone number: na Region / Office location preference: [place] Provider preference (male/female, specific provider name): female Willing to see someone other than physician, such as CHIEF MEDICAL TECHNOLOGIST, PA, resident? na Patient reason for appointment/any current symptoms: needing pcp/Daquan Dodw Other information (including need for erecting engineer): na Route ALL calls to: [facility] PATIENT MAINTENANCE MECHANIC HELPER documented in this encounter Plan of Treatment Not on file documented as of this encounter Visit Diagnoses Not on filedocumented in this encounter Additional Health Concerns Assessment Noted Time PHQ-9 Depression Total Score: 0 05/11/20 19 12:01 PM CDT documented as of this encounter Care Teams Tennis Ball Cover Cementer Relationship Specialty Start Date End Date Tana Doran MD [address] [place] [address] PCP - General Family Medicine 04/06/19 06/28/21 Daquan Dowd MD [address] [place] [address] PCP - General Family Medicine 06/29/21 04/26/22 documented as of this encounter
--- OUTSIDE RECORDS SUMMARY | 2024-11-05 06:17 | XMS_ITS | Clinical Summary ---
Author Organization [facility] Address [address] [place] [address] Phone Care Team Providers Care Host And Hostess Name Role Phone Tana Doran MD Primary Care Provider [phone] Allergies Active Allergy Reactions Criticality Noted Date [...] 79 06/28/2022 2:34 PM CDT Temperature 36.2 C (97.1 F) 06/28/2022 2:34 PM CDT Respiratory Rate - - Oxygen Saturation 98% [...] 2) 2019 INFLUENZA VACCINE (#1) 2024 Insurance [employer] PREFERRED Care Teams Host And Hostess Relationship Specialty Start Date End Date Tana Doran MD PCP - General Family Practice 06/07/22
--- OUTSIDE RECORDS SUMMARY | 2024-11-05 06:17 | XMS_ITS | Patient Health Summary ---
Author Organization [facility] Address [address] [place] [address] Care Team Providers Care Imaging Services Director Name Role Phone Oren Raymond DO Primary Care Provider [phone] Note from [facility],non-owned Affiliates and Associated Physician Practices is amultiple site organization consisting of ambulatory clinics and hospital sitesin [place], [place], [place] and [place]. This disclosure is being madepursuant to the Care Everywhere program and may not contain all information available regarding this patient. Last updated 18.[facility] Active Problems Problem Noted Date [...] 80 05/28/2014 2:28 PM CDT Temperature 36.9 C (98.4 F) 05/28/2014 8:45 AM CDT Respiratory Rate 18 05/28/2014 2:28 PM CDT [...] CDT) Case Report Surgical Pathology Report Case: [id number] Authorizing Provider: Padmini Smith MD Collected: 04/06/2019 11:17 AM Pathologist: Jose Miguel Gaitan MD Received: 04/08/2019 11:17 AM Specimen: Urine 04/09/2019 10:09 AM [facility] PATH[facility] Final Diagnosis Urine, voided, Thin Prep, cytology: - Hypocellular for urothelial cells - Negative for high-grade urothelial neoplasia - Benign squamous cells are seen in abundance 04/09/2019 10:09 AM [facility] PATH[facility] LAB Microscopic Description and Comment Performed 04/09/2019 10:09 AM CDT [facility] PATH[facility]Y LAB Clinical History Hematuria; cystoscopy negative. 04/09/2019 10:09 AM CDT [facility] PATH[facility] Gross Description Prepared slide (1) received from [facility] labeled [id number], Andrea Grimes . All material will be returned. 04/09/2019 10:09 AM [facility] Disclaimer The performance characteristics of all immunohistochemical and indirect immunofluorescence stains (if any) cited in this report were determined by the Histopathology Laboratory of [facility]. Some of these tests were developed [...] attending (teaching) pathologist. 04/09/2019 10:09 AM CDT [facility] PATH[facility] Embedded Images 04/09/2019 10:09 AM CDT [facility] PATH[facility] Pathology/Cytolo gy URINE / Unknown 04/06/2019 11:17 AM CDT 04/08/2019 11:17 AM CDT Padmini Smith MD LAB - PATHOLOGY/CYTO LOGY ORDERABLES Performing Organization Address City/State/[facility] Co de Phone Number [facility] [address] [phone] * CT HEAD WO CONTRAST (05/28/2014 11:13 AM CDT) Anatomical Region Laterality Modality Head Other Impressions 05/28/2014 1:07 PM CDT IMPRESSION: 1. No acute intracranial process. The above findings were discussed with Dr. Irving by Dr. Son at 11:20 AM. This report was approved by Jamie Son M.D. on 05/28/2014 11:23 AM . I, Dr. CAMPOS POTTER M.D. have personally reviewed and interpreted this examination/study. This report was electronically signed by CAMPOS POTTER M.D. on 05/28/2014 1:07 PM . Narrative 05/28/2014 1:07 [...] * HCG URINE QUALITATIVE - POCT (IP) [facility] (05/28/2014 10:43 AM CDT) Only the most recent of2 resultswithin the time period is included. NEGATIVE [facility] CYNTHIA PENA) Comment:Airconditioning Engineer: PENELOPE MACIEL 05/28/2014 10:4 3 AM CDT Deborah Gracia MD LAB - POINT OF CARE ORDERABLES [facility] [place]IA PENA) * GLUCOSE - POINT OF CARE (AMB) [facility] (05/28/2014 10:42 AM CDT) Only the most recent of2 resultswithin the time period is included. Deborah Gracia MD LAB - POINT OF CARE ORDERABLES [facility] RADIOLOGY * GLUCOSE ACCUCHECK (05/28/2014 10:42 AM CDT) Glucose, Fingerstick 87 70-115mg/d L mg/dL [facility]) Comment:Airconditioning Engineer: PENELOPE MACIEL 05/28/2014 10:4 2 AM CDT Deborah Gracia MD LAB - CHEMISTRY ORDE RABLES Performing Organization Address City/[facility]/ZIP Co de Phone Number [facility]) * DRUG ABUSE PANEL 10-20+ETHANOL URINE NO CONFIRM (05/28/2014 10:39 AM CDT) Amphetamines Screen Urine Negative Negative: < 1000 ng/mL [facility] Barbiturates Screen Urine Negative Negative: < 200 ng/mL [facility] Benzodiazepine Screen Urine Negative Negative: < 200 ng/mL [facility] Opiates Urine Negative Negative: < 300 ng/mL [facility] Cocaine Metabolites Urine Negative Negative: < 300 ng/mL [facility] Phencyclidine Screen Urine Negative Negative: < 25 ng/ml [facility] Cannabinoids Screen Urine Negative Negative: <50 ng/mL [facility] Methadone Screen Urine Negative Negative: < 300 ng/mL [facility] Urine specimen (specimen) 05/28/2014 10:39 AM CDT 05/28/2014 10:58 AM CDT Narrative [facility] - 05/28/2014 11:48 AM CDT The Urine Toxicology Screening Panel does not screen for Propoxyphene, Meprobamate, Carisoprodol, Trazodone, phjj-gze-pmennjl medications and/or volatiles (Acetone, Isopropanol, Methanol or Ethylene Glycol). Ethanol, Salicylate, Acetaminophen, Tricyclic Antidepressants and several therapeutic drugs may be individually assayed in serum or plasma specimen. Toxicology testing by the [facility] is an aid to medical diagnosis and treatment of patients. No documented chain of custody was maintained. Results are intended to be used for clinical purposes only. Deborah Gracia MD LAB - URINE CHEMISTR Y ORDERABLES Performing Organization Address [facility]/ZIP Co de Phone Number [address] [phone] * (ABNORMAL) URINALYSIS REFLEX TO MICROSCOPIC NO CULTURE (05/28/2014 10:39 AM CDT) Color UA Yellow Straw, Yellow, Colorless, Light Yellow [facility] Clarity UA Clear Clear [facility] Specific [place] UA 1.004 1.001 - 1.030 [facility] pH UA 5.0 5.0 - 8.0 [facility] Protein UA Negative <=20 mg/dL [facility] Glucose UA Negative Negative mg/dL [facility] Ketone UA Negative Negative mg/dL [facility] Bilirubin UA Negative Negative mg/dL [facility] Blood UA Negative Negative [facility] Nitrite UA Negative Negative [facility] Leukocyte Esterase Negative Negative [facility] Urobilinogen UA <2.0 <2.0 mg/dL [facility] RBC UA 1 0 - 8 /HPF [facility] WBC UA 1 0 - 2 /HPF [facility] Bacteria UA Rare Rare, Occasional, None /HPF [facility] Squamous Epithelial Cells UA 3(H) 0 - 1 /HPF [facility] Urine specimen (specimen) 05/28/2014 10:39 AM CDT 05/28/2014 10:59 AM CDT Deborah Gracia MD LAB - URINALYSIS ORD ERABLES Performing Organization Address [facility]/ZIP Co de Phone Number [address] [phone] * (ABNORMAL) CBC W AUTO DIFFERENTIAL (05/28/2014 10:39 AM CDT) Only the most recent of2 resultswithin the time period is included. WBC 6.6 3.5 - 10.5 10 3/uL [facility] RBC 4.21 3.90 - 5.00 10 6/uL [facility] Hemoglobin 11.7(L) 12.0 - 15.5 g/dL [facility] Hematocrit 35.9 35.0 - 45.0 % [facility] MCV 85.3 81.0 - 97.0 fL [facility] MCH 27.8(L) 28.0 - 34.0 pg [facility] MCHC 32.6 32.0 - 36.0 g/dL [facility] Platelet Count 328 150 - 400 10 3/uL [facility] RDW-SD 41.6 36.0 - 50.0 fL [facility] RDW-CV 13.5 11.2 - 14.8 % [facility] MPV 9.4 9.3 - 12.8 fL [facility] nRBC Absolute 0.00 0 10 3/uL [facility] nRBC Auto 0.0 0 /100 WBC [facility] Neutrophils % 68.2 35.0 - 70.0 % [facility] Lymphocytes % 23.6 19.7 - 55.1 % [facility] Monocytes % 5.7 3.0 - 15.0 % [facility] Eosinophils % 1.8 0.0 - 6.0 % [facility] Basophil % 0.5 0.0 - 1.5 % [facility] Neutrophils Absolute 4.5 1.6 - 7.0 10 3/uL [facility] Lymphocyte Absolute 1.6 0.8 - 2.9 10 3/uL [facility] Monocytes Absolute 0.38 0.14 - 0.66 10 3/uL [facility] Eosinophils Absolute 0.12 0.00 - 0.22 10 3/uL [facility] Basophils Absolute 0.03 0.00 - 0.06 10 3/uL [facility] Immature Granulocytes % 0.2 0.0 - 1.0 % [facility] Blood specimen (specimen) BLOOD SPECIMEN / Unknown 05/28/2014 10:39 AM CDT 05/28/2014 10:59 AM CDT Deborah Gracia MD LAB - HEMATOLOGY ORD ERABLES [facility] [address] [phone] * (ABNORMAL) BASIC METABOLIC PANEL (CALCIUM TOTAL) (05/28/2014 10:39 AM CDT) BUN 7 7 - 26 mg/dL [facility] Creatinine 0.7 0.6 - 1.2 mg/dL [facility] Sodium 141 136 - 145 mmol/L [facility] Potassium 4.2 3.5 - 4.5 mmol/L [facility] Chloride 108(H) 98 - 107 mmol/L [facility] CO2 20(L) 22 - 29 mmol/L [facility] Glucose 82 70 - 115 mg/dL [facility] Calcium 9.1 8.4 - 10.2 mg/dL [facility] Anion Gap 17 8 - 18 [facility] BUN/Creatinine Ratio 10 7 - 23 [facility] Osmolality Calculated 274 270 - 300 mOsm/kg [facility] eGFR >60 >60 mL/min/1.7 3 m2 [facility] Blood specimen (specimen) BLOOD SPECIMEN / Unknown 05/28/2014 10:39 AM CDT 05/28/2014 10:59 AM CDT Deborah Gracia MD LAB - CHEMISTRY JUSTINO GUAMAN [address] [phone] * CULTURE BLOOD (04/29/2014 1:45 AM CDT) Only the most recent of2 resultswithin the time period is included. Culture Blood No Growth at 5 days [facility] Blood specimen (specimen) BLOOD SPECIMEN / Unknown 04/29/2014 1:45 AM CDT 04/29/2014 3:05 PM CDT Narrative [facility] - 05/04/2014 3:15 PM CDT AndersonSpecimen#[id number] Kai Loc/Rm/Bed: 3 MED/316/01 Historical Provider LAB - MICROBIOLOG Y ORDERABLES [address] [phone] Care Teams Imaging Services Director Relationship Specialty Start Date End Date Oren Raymond DO [address] [place] [address] PCP - General 04/07/19
--- OUTSIDE RECORDS SUMMARY | 2024-11-05 06:17 | XMS_ITS | Clinical Summary ---
Author Organization [facility] Address [address] [place] [address] Care Team Providers Care Associate Professor Of Biostatistics Name Role Phone Oren Raymond DO Primary Care Provider [phone] Source Comments [facility],non-owned Affiliates and Associated Physician Practices is amultiple site organization consisting of ambulatory clinics and hospital sitesin [place], [place], [place] and [place]. This disclosure is being madepursuant to the Care Everywhere program and may not contain all information available regarding this patient. Last updated 18.[facility] Active Problems Problem Noted Date Diagnosed Date [...] age to complete this topic Care Teams Associate Professor Of Biostatistics Relationship Specialty Start Date End Date Oren Raymond DO [address] [place] [address] PCP - General 04/07/19
--- OUTSIDE RECORDS SUMMARY | 2024-11-05 06:17 | XMS_ITS | Referral Summary ---
Author Organization [facility] Address [address] [facility] [place] [address] Care Team Providers Care Retirement Manager Name Role Phone Oren Raymond DO Primary Care Provider [phone] Source Comments [facility],non-owned Affiliates and Associated Physician Practices is amultiple site organization consisting of ambulatory clinics and hospital sitesin [place], [place], [place] and [place]. This disclosure is being madepursuant to the Care Everywhere program and may not contain all information available regarding this patient. Last updated 18.[facility] Active Problems Problem Noted Date Diagnosed [...] of Treatment Not on file Care Teams Retirement Manager Relationship Specialty Start Date End Date Oren Raymond DO [address] [place] [address] PCP - General 04/07/19
--- NOTE | 2024-11-05 06:22 | ECG_ITS ---
Test Date: 2024-11-05 06:28:22 Measurements Intervals [place] Rate: 82 P: 21 AR: 148 QRS: 59 QRSD: 102 T: 13 QT: 401 QTc: 471 Interpretive Statements SINUS RHYTHM LOW QRS VOLTAGE IN PRECORDIAL LEADS NONSPECIFIC ST & T-WAVE ABNORMALITY- ANTEROLAT/INF LEADS BASELINE ARTIFACT- I, II, AVR, AVL BORDERLINE ECG No previous ECG available for comparison Electronically Signed On 11-05-2024 07:55:32 TRAFFIC MAINTENANCE SUPERVISOR by Bertrand Fung D.O.
[2024-11-05 07:54] LABS: Basophils Percent Auto 0.5 % (0.2-1.2); Eosinophils Absolute Auto 0.1 K/mm3 (0-0.3); Eosinophils Percent Auto 1.6 % (0-4.4); Hematocrit 33.6 % (37.0-47.0); Hemoglobin 10.2 g/dL (12.0-15.0); Immature Granulocyte Absolute 0.01 K/mm3 (0.00-0.031); Immature Granulocyte Percent A 0.2 % (0-0.5); Lymphocytes Absolute Auto 1.64 K/mm3 (0.9-3.2); Lymphocytes Percent Auto 28.9 % (18.3-44.2); Mean Corpuscular HGB Conc 30.4 g/dl (32-36); Mean Corpuscular Volume 102.1 fl (80-100); Mean Platelet Volume 9.1 fl (7.4-10.4); Monocytes Absolute Auto 0.7 K/mm3 (0.1-0.6); Monocytes Percent Auto 11.8 % (2.6-8.5); Neutrophils Absolute Auto 3.2 K/mm3 (1.3-6.7); Platelet Count Result 327 k/mm3 (150-375); Red Blood Count 3.29 M/mm3 (4.2-5.4); Red Cell Distribution Width 14.6 % (11.5-14.5); White Blood Count 5.7 K/mm3 (4.5-10.0)
[2024-11-05 08:31] LABS: NT Pro B Type Natriuretic Pept 274 pg/mL (19.9-100); Troponin I < 0.012 ng/mL (0.000-0.034)
[2024-11-05 08:34] LABS: Alanine Aminotransferase 15 U/L (6-35); Albumin Level 3.7 g/dL (3.5-5.1); Alkaline Phosphatase 83 U/L (38-126); Anion Gap 10 mmol/L (4-12); Aspartate Amino Transferase 20 U/L (14-36); Bilirubin,Total 0.5 mg/dL (0.2-1.3); Blood Urea Nitrogen 2 mg/dL (7-17); Calcium 9.3 mg/dL (8.4-10.2); Carbon Dioxide 22 mmol/L (22-30); Chloride 108 mmol/L (98-107); Estimated CRCL calculation 107 ml/min; Estimated Glomerular Filt Rate > 60; Glucose 47 mg/dL (65-110); Sodium 140 mmol/L (137-145)
[2024-11-05 08:40] LABS: Glucose Point of Care 88 mg/dl (65-105)
[2024-11-05 08:45] LABS: Prothrombin Time 13.5 Seconds (11.1-14.7)
[2024-11-05 08:46] LABS: Partial Thromboplastin Time 20.5 Seconds (22.3-36.8)
--- OUTSIDE RECORDS SUMMARY | 2024-11-05 09:01 | XMS_ITS | Clinical Summary ---
Author Organization [facility] Address [address] [place] [address] Care Team Providers Care Lab Aid Name Role Phone Oren Raymond DO Primary Care Provider [phone] Source Comments [facility],non-owned Affiliates and Associated Physician Practices is amultiple site organization consisting of ambulatory clinics and hospital sitesin [place], [place], [place] and [place]. This disclosure is being madepursuant to the Care Everywhere program and may not contain all information available regarding this patient. Last updated 18.[facility] Active Problems Problem Noted Date Diagnosed Date [...] age to complete this topic Care Teams Lab Aid Relationship Specialty Start Date End Date Oren Raymond DO [address] [place] [address] PCP - General 04/07/19
--- OUTSIDE RECORDS SUMMARY | 2024-11-05 09:01 | XMS_ITS | Clinical Summary ---
Author Organization [facility] Address [address] [address] Phone Care Team Providers Care Biostatistics Manager Name Role Phone Unavailable Primary Care Provider [...]
--- OUTSIDE RECORDS SUMMARY | 2024-11-05 09:01 | XMS_ITS | Encounter Summary ---
Author Organization [facility] Address [address] [place] [address] Care Team Providers Care Blue Prints Trimmer Name Role Phone Oren Raymond Primary Care Provider [phone] Encounter Details Date Type Department Care Team (Late st Contact Info) Description 04/08/2019 Lab Requisition [facility] [address] [place] [address] Padmini Smith MD [address] [place] [address] Gross hematuria Social History Tobacco Use Types [...] CDT) Case Report Surgical Pathology Report Case: [id number] Authorizing Provider: Padmini Smith MD Collected: 04/06/2019 11:17 AM Pathologist: Jose Miguel Gaitan MD Received: 04/08/2019 11:17 AM Specimen: Urine 04/09/2019 10:09 AM [facility] LAB Final Diagnosis Urine, voided, Thin Prep, cytology: - Hypocellular for urothelial cells - Negative for high-grade urothelial neoplasia - Benign squamous cells are seen in abundance 04/09/2019 10:09 AM [facility] PATH[facility] LAB Microscopic Description and Comment Performed 04/09/2019 10:09 AM [facility] PATH[facility] Clinical History Hematuria; cystoscopy negative. 04/09/2019 10:09 AM [facility] PATH[facility] Gross Description Prepared slide (1) received from [facility] labeled [id number], Andrea Grimes . All material will be returned. 04/09/2019 10:09 AM [facility] PATH[facility] Disclaimer The performance characteristics of all immunohistochemical and indirect immunofluorescence stains (if any) cited in this report were determined by the Histopathology Laboratory of [facility]. Some of these tests were developed [...] the attending (teaching) pathologist. 04/09/2019 10:09 AM [facility] PATH[facility] LAB Embedded Images 04/09/2019 10:09 AM [facility] PATH[facility] LAB Pathology/Cytolo gy URINE / Unknown 04/06/2019 11:17 AM CDT 04/08/2019 11:17 AM CDT Padmini Smith MD LAB - PATHOLOGY/CYTO LOGY ORDERABLES [facility] [address] [place], [place] [address] [place] [address] documented in this encounter Visit Diagnoses Diagnosis Gross hematuria documented in this encounter Care Teams Blue Prints Trimmer Relationship Specialty Start Date End Date Oren Raymond DO [address] [place] [id number] PCP - General 04/07/19 documented as of this encounter
--- OUTSIDE RECORDS SUMMARY | 2024-11-05 09:01 | XMS_ITS | Encounter Summary ---
Author Organization [facility] Address [address] [facility] [place] [address] Phone Care Team Providers Care Lime Spreader Name Role Phone Tana Doran MD Primary Care Provider [phone] Daquan Dowd MD Primary Care Provider [phone] Reason for Visit * Reason Onset Date Comments New Patient 06/27/2021 new pt appt Encounter Details Date Type Department Care Team (Late st Contact Info) Description 06/27/2021 Telephone [facility] [address] [place] [address] Tana Doran MD [address] [facility] [address] [place] [address] New Patient (new pt appt) [...] Primary Provider Request Insurance of patient: joao [facility] Name of person calling: Andrea Grimes Relationship to patient: self Preferred phone number: [phone] Alternate phone number: na Region / Office location preference: [place] Provider preference (male/female, specific provider name): female Willing to see someone other than physician, such as TALENT ACQUISITION COORDINATOR, [place], resident? na Patient reason for appointment/any current symptoms: needing pcp/Daquan Dowd Other information (including need for hospital nursing assistant): na Route ALL calls to: [facility] PATIENT VEST BASTER documented in this encounter Plan of Treatment Not on file documented as of this encounter Visit Diagnoses Not on filedocumented in this encounter Additional Health Concerns Assessment Noted Time PHQ-9 Depression Total Score: 0 05/11/20 19 12:01 PM CDT documented as of this encounter Care Teams Lime Spreader Relationship Specialty Start Date End Date Tana Doran MD [address] [place] [address] PCP - General Family Medicine 04/06/19 06/28/21 Daquan Dowd MD [address] [place] [address] PCP - General Family Medicine 06/29/21 04/26/22 documented as of this encounter
--- OUTSIDE RECORDS SUMMARY | 2024-11-05 09:01 | XMS_ITS | Patient Health Summary ---
Author Organization [facility] Address [address] [place] [address] Care Team Providers Care Door Glass Installer Name Role Phone Oren Raymond DO Primary Care Provider [phone] Note from [facility],non-owned Affiliates and Associated Physician Practices is amultiple site organization consisting of ambulatory clinics and hospital sitesin [place], [place], [place] and [place]. This disclosure is being madepursuant to the Care Everywhere program and may not contain all information available regarding this patient. Last updated 18.[facility] Active Problems Problem Noted Date Diagnosed Date [...] CDT) Case Report Surgical Pathology Report Case: [id number] Authorizing Provider: Padmini Smith MD Collected: 04/06/2019 11:17 AM Pathologist: Jose Miguel Gaitan MD Received: 04/08/2019 11:17 AM Specimen: Urine 04/09/2019 10:09 AM [facility] PATHOLOGY LAB Final Diagnosis Urine, voided, Thin Prep, cytology: - Hypocellular for urothelial cells - Negative for high-grade urothelial neoplasia - Benign squamous cells are seen in abundance 04/09/2019 10:09 AM [facility] PATH[facility] LAB Microscopic Description and Comment Performed 04/09/2019 10:09 AM CDT [facility] PATH[facility]Y LAB Clinical History Hematuria; cystoscopy negative. 04/09/2019 10:09 AM CDT [facility] PATHOLOGY LAB Gross Description Prepared slide (1) received from [facility] labeled [id number], Andrea Grimes . All material will be returned. 04/09/2019 10:09 [facility] Disclaimer The performance characteristics of all immunohistochemical and indirect immunofluorescence stains (if any) cited in this report were determined by the Histopathology Laboratory of [facility]. Some of these tests were developed by [...] attending (teaching) pathologist. 04/09/2019 10:09 AM CDT [facility] PATHOLOGY LAB Embedded Images 04/09/2019 10:09 AM CDT [facility] PATH[facility] LAB Pathology/Cytolo gy URINE / Unknown 04/06/2019 11:17 AM CDT 04/08/2019 11:17 AM CDT Padmini Smith MD LAB - PATHOLOGY/CYTO LOGY ORDERABLES Performing Organization Address City/State/[facility] Co de Phone Number [facility] PATHOLOGY LAB [address] [phone] * CT HEAD WO CONTRAST (05/28/2014 11:13 [...] * HCG URINE QUALITATIVE - POCT (IP) [facility] (05/28/2014 10:43 AM CDT) Only the most recent of2 resultswithin the time period is included. NEGATIVE [facility] CYNTHIA PENA) Comment:Home Builder: PENELOPE MACIEL 05/28/2014 10:4 3 AM CDT Deborah Gracia MD LAB - POINT OF CARE ORDERABLES [facility] CYNTHIA [place]) * GLUCOSE - POINT OF CARE (AMB) [facility] (05/28/2014 10:42 AM CDT) Only the most recent of2 resultswithin the time period is included. Deborah Gracia MD LAB - POINT OF CARE ORDERABLES [facility] RADIOLOGY * GLUCOSE ACCUCHECK (05/28/2014 10:42 AM CDT) Glucose, Fingerstick 87 70-115mg/d L mg/dL [facility]) Comment:Home Builder: PENELOPE MACIEL 05/28/2014 10:4 2 AM CDT Deborah Gracia MD LAB - CHEMISTRY ORDE RABLES Performing Organization Address City/[facility]/ZIP Co de Phone Number [facility]) * DRUG ABUSE PANEL 10-20+ETHANOL URINE NO CONFIRM (05/28/2014 10:39 AM CDT) Amphetamines Screen Urine Negative Negative: < 1000 ng/mL [facility] Barbiturates Screen Urine Negative Negative: < 200 ng/mL [facility] Benzodiazepine Screen Urine Negative Negative: < 200 ng/mL [facility] Opiates Urine Negative Negative: < 300 ng/mL [facility] Cocaine Metabolites Urine Negative Negative: < 300 ng/mL [facility] Phencyclidine Screen Urine Negative Negative: < 25 ng/ml [facility] Cannabinoids Screen Urine Negative Negative: <50 ng/mL [facility] Methadone Screen Urine Negative Negative: < 300 ng/mL [facility] Urine specimen (specimen) 05/28/2014 10:39 AM CDT 05/28/2014 10:58 AM CDT Narrative [facility] - 05/28/2014 11:48 AM CDT The Urine Toxicology Screening Panel does not screen for Propoxyphene, Meprobamate, Carisoprodol, Trazodone, evpa-fop-kjcrevm medications and/or volatiles (Acetone, Isopropanol, Methanol or Ethylene Glycol). Ethanol, Salicylate, Acetaminophen, Tricyclic Antidepressants and several therapeutic drugs may be individually assayed in serum or plasma specimen. Toxicology testing by the [facility] is an aid to medical diagnosis and treatment of patients. No documented chain of custody was maintained. Results are intended to be used for clinical purposes only. Deborah Gracia MD LAB - URINE CHEMISTR Y ORDERABLES Performing Organization Address [facility]/ZIP Co de Phone Number [address] [phone] * (ABNORMAL) URINALYSIS REFLEX TO MICROSCOPIC NO CULTURE (05/28/2014 10:39 AM CDT) Color UA Yellow Straw, Yellow, Colorless, Light Yellow [facility] Clarity UA Clear Clear [facility] Specific Paguate UA 1.004 1.001 - 1.030 [facility] pH UA 5.0 5.0 - 8.0 [facility] Protein UA Negative <=20 mg/dL [facility] Glucose UA Negative Negative mg/dL [facility] Ketone UA Negative Negative mg/dL [facility] Bilirubin UA Negative Negative mg/dL [facility] Blood UA Negative Negative [facility] Nitrite UA Negative Negative [facility] Leukocyte Esterase Negative Negative [facility] Urobilinogen UA <2.0 <2.0 mg/dL [facility] RBC UA 1 0 - 8 /HPF [facility] WBC UA 1 0 - 2 /HPF [facility] Bacteria UA Rare Rare, Occasional, None /HPF [facility] Squamous Epithelial Cells UA 3(H) 0 - 1 /HPF [facility] Urine specimen (specimen) 05/28/2014 10:39 AM CDT 05/28/2014 10:59 AM CDT Deborah Gracia MD LAB - URINALYSIS ORD ERABLES Performing Organization Address [facility]/ZIP Co de Phone Number [address] [phone] * (ABNORMAL) CBC W AUTO DIFFERENTIAL (05/28/2014 10:39 AM CDT) Only the most recent of2 resultswithin the time period is included. WBC 6.6 3.5 - 10.5 10 3/uL [facility] RBC 4.21 3.90 - 5.00 10 6/uL [facility] Hemoglobin 11.7(L) 12.0 - 15.5 g/dL [facility] Hematocrit 35.9 35.0 - 45.0 % [facility] MCV 85.3 81.0 - 97.0 fL [facility] MCH 27.8(L) 28.0 - 34.0 pg [facility] MCHC 32.6 32.0 - 36.0 g/dL [facility] Platelet Count 328 150 - 400 10 3/uL [facility] RDW-SD 41.6 36.0 - 50.0 fL [facility] RDW-CV 13.5 11.2 - 14.8 % [facility] MPV 9.4 9.3 - 12.8 fL [facility] nRBC Absolute 0.00 0 10 3/uL [facility] nRBC Auto 0.0 0 /100 WBC [facility] Neutrophils % 68.2 35.0 - 70.0 % [facility] Lymphocytes % 23.6 19.7 - 55.1 % [facility] Monocytes % 5.7 3.0 - 15.0 % [facility] Eosinophils % 1.8 0.0 - 6.0 % [facility] Basophil % 0.5 0.0 - 1.5 % [facility] Neutrophils Absolute 4.5 1.6 - 7.0 10 3/uL [facility] Lymphocyte Absolute 1.6 0.8 - 2.9 10 3/uL [facility] Monocytes Absolute 0.38 0.14 - 0.66 10 3/uL [facility] Eosinophils Absolute 0.12 0.00 - 0.22 10 3/uL [facility] Basophils Absolute 0.03 0.00 - 0.06 10 3/uL [facility] Immature Granulocytes % 0.2 0.0 - 1.0 % [facility] Blood specimen (specimen) BLOOD SPECIMEN / Unknown 05/28/2014 10:39 AM CDT 05/28/2014 10:59 AM CDT Deborah Gracia MD LAB - HEMATOLOGY ORD ERABLES [facility] [address] [phone] * (ABNORMAL) BASIC METABOLIC PANEL (CALCIUM TOTAL) (05/28/2014 10:39 AM CDT) BUN 7 7 - 26 mg/dL [facility] Creatinine 0.7 0.6 - 1.2 mg/dL [facility] Sodium 141 136 - 145 mmol/L [facility] Potassium 4.2 3.5 - 4.5 mmol/L [facility] Chloride 108(H) 98 - 107 mmol/L [facility] CO2 20(L) 22 - 29 mmol/L [facility] Glucose 82 70 - 115 mg/dL [facility] Calcium 9.1 8.4 - 10.2 mg/dL [facility] Anion Gap 17 8 - 18 [facility] BUN/Creatinine Ratio 10 7 - 23 [facility] Osmolality Calculated 274 270 - 300 mOsm/kg [facility] eGFR >60 >60 mL/min/1.7 3 m2 [facility] Blood specimen (specimen) BLOOD SPECIMEN / Unknown 05/28/2014 10:39 AM CDT 05/28/2014 10:59 AM CDT Deborah Gracia MD LAB - CHEMISTRY JUSTINO GUAMAN [address] [phone] * CULTURE BLOOD (04/29/2014 1:45 AM CDT) Only the most recent of2 resultswithin the time period is included. Culture Blood No Growth at 5 days [facility] Blood specimen (specimen) BLOOD SPECIMEN / Unknown 04/29/2014 1:45 AM CDT 04/29/2014 3:05 PM CDT Narrative [facility] - 05/04/2014 3:15 PM CDT AndersonSpecimen#[id number] Kai Loc/Rm/Bed: 3 MED/316/01 Historical Provider LAB - MICROBIOLOG Y ORDERABLES [address] [phone] Care Teams Door Glass Installer Relationship Specialty Start Date End Date Oren Raymond DO [address] [place] [address] PCP - General 04/07/19
--- OUTSIDE RECORDS SUMMARY | 2024-11-05 09:01 | XMS_ITS | Referral Summary ---
Author Organization [facility] Address [address] [facility] [place] [address] Care Team Providers Care Six Horse Hitch Driver Name Role Phone Oren Raymond DO Primary Care Provider [phone] Source Comments [facility],non-owned Affiliates and Associated Physician Practices is amultiple site organization consisting of ambulatory clinics and hospital sitesin [place], [place], [place] and [place]. This disclosure is being madepursuant to the Care Everywhere program and may not contain all information available regarding this patient. Last updated 18.[facility] Active Problems Problem Noted Date Diagnosed Date [...] of Treatment Not on file Care Teams Six Horse Hitch Driver Relationship Specialty Start Date End Date Oren Raymond DO [address] [place] [address] PCP - General 04/07/19
--- NOTE | 2024-11-05 11:08 | ED_ITS ---
HPI - General Adult General Chief complaint: Shortness of Breath/Dyspnea Stated complaint: SOB bilateral leg pain and swelling Time Seen by Provider: 11/05/24 08:41 History of Present Illness HPI narrative: Patient 54-year-old female who presents emergency department with chief complaint of peripheral edema and shortness of breath. The patient reports that her lower extremities have been swollen reports that they are tender to touch and reports that they feel warm. The patient reports that she has had no fever reports that she has been having increasing shortness of breath particularly with exertion the patient reports that she is unable lay flat reports that she has prior history of sleep apnea but reports that she has not been wearing her BiPAP because her dog ate her rib CPAP machine Related Data Home Medications ?Medication ?Instructions ?Recorded ?Confirmed ?Last Taken ?Type divalproex 500 mg tablet,extended 2,000 mg PO HS 10/24/21 04/14/24 12/02/22 21:00 History release 24 hr lorazepam 0.5 mg tablet 0.5 mg PO TID PRN Anxiety 01/31/23 04/14/24 Unknown History deutetrabenazine 12 mg tablet 12 mg PO DIRECTED 03/25/24 04/14/24 Unknown History (Austedo) cariprazine 3 mg capsule (Vraylar) mg 04/21/24 04/21/24 Unknown History lumateperone 10.5 mg capsule 10.5 mg PO DAILY 05/12/24 Unknown History (Caplyta) lithium carbonate 300 mg capsule mg 09/28/24 Unknown History Allergies Allergy/AdvReac Type Severity Reaction Status Date / Time tetanus immune globulin Allergy Mild HIVES AND Verified 09/28/24 13:36 SWELLING Penicillins Allergy Unknown Rash Verified 09/28/24 13:36 Tetanus Vaccines and Toxoid Allergy Unknown Rash Verified 09/28/24 13:36 erythromycin base AdvReac Mild NAUSEA/VOMI Verified 09/28/24 13:36 TING IMMUNIZATIONS Allergy Unknown RASH Uncoded 09/28/24 13:36 Mold (Blue) Cheese Allergy Unknown .Hives and Uncoded 09/28/24 13:36 swelling Review of Systems 2 Review of Systems: A 10 system review of systems was completed on the patient and is negative except for what is stated in the HPI. Nursing and ancillary documentation was reviewed. [facility] Past Medical History Medical History COVID-19 Breakthrough seizure PCOS (polycystic ovarian syndrome) Seizure disorder Obesity Slow rate of speech TAM (obstructive sleep apnea) With CPAP use Metabolic syndrome Essential (primary) hypertension Constipation by delayed colonic transit Congenital hernia of foramen of [place] Concussion syndrome Atrial tachycardia Anemia Hypothyroidism (acquired) Bilateral carpal tunnel syndrome Shingles Bipolar disorder Anxiety and depression Interstitial cystitis GERD (gastroesophageal reflux disease) Epilepsy TIA (transient ischemic attack) Asthma Seasonal allergies Migraine Surgical History Surgical History H/O carpal tunnel repair bilateral History of cholecystectomy History of bunionectomy History of left knee replacement History of foot surgery History of thyroidectomy, subtotal H/O arthroscopy of left knee H/O dilation and curettage Hx of gastric bypass Family History Family History Sibling Cerebrovascular accident, Onset Age: 19 Multiple sclerosis Father Hypertension Coronary artery disease Hyperlipidemia Mother Hypertension Heart disease Hyperlipidemia Diabetes mellitus Grandparent Family history of malignant neoplasm of cervix Family history of malignant neoplasm of breast Social History Social History Social History: The patient has been with her since 2005 they we will give when the lost changed. They have 3 medium to large his dogs at home. The patient works for the [employer]. She is lifelong nonsmoker but had history of heavy secondhand smoke exposure until she was a teenager. She never drinks alcohol and does not have any history of illicit substance use. 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 HEAD: Normocephalic, atraumatic. EYES: PERRLA and EOMI. ENT: Nares clear, no rhinorrhea or epistaxis. Mucous membranes moist. NECK: Supple. CHEST: Clear to auscultation. No respiratory distress. HEART: Regular rate and rhythm. No murmur heard. Normal peripheral pulses. ABDOMEN: Soft, nontender, nondistended, normal active bowel sounds. EXTREMITIES: Normal range of motion. 2+ edema. SKIN: Warm, dry, no rash. NEURO: No focal deficits. Alert and oriented x3. PSYCH: Normal mood and affect. Course Vital Signs Vital signs: Vital Signs Temperature 36.4 C L 11/05/24 06:18 Pulse Rate 82 11/05/24 06:18 Respiratory Rate 20 11/05/24 06:18 Blood Pressure 119/53 L 11/05/24 06:18 Pulse Oximetry 100 11/05/24 06:18 Oxygen Delivery Room Air 11/05/24 06:18 Temperature 36.4 C L 11/05/24 06:18 Pulse Rate 81 11/05/24 17:57 Respiratory Rate 19 11/05/24 17:57 Blood Pressure 111/63 11/05/24 17:57 Pulse Oximetry 100 11/05/24 17:57 Oxygen Delivery Room Air 11/05/24 07:24 Medical Decision Making [facility] Narrative Medical decision making narrative: Differential diagnosis includes CHF, pulmonary embolism, pneumonia, COVID flu and RSV were negative chest x-ray showed no evidence of focal infiltrate CTA chest showed no evidence of pulmonary embolism lower extremity ultrasound showed no evidence of DVT You a echo was performed that showed no evidence of heart failure the patient will be started on the has low-dose Lasix for the next several days and instructed to elevate her lower extremities the patient should follow up with primary care provider Vital Signs Vital Signs: Vital Signs Temperature 36.4 C L 11/05/24 06:18 Pulse Rate 82 11/05/24 06:18 Respiratory Rate 20 11/05/24 06:18 Blood Pressure 119/53 L 11/05/24 06:18 Pulse Oximetry 100 11/05/24 06:18 Oxygen Delivery Room Air 11/05/24 06:18 Temperature 36.4 C L 11/05/24 06:18 Pulse Rate 81 11/05/24 17:57 Respiratory Rate 19 11/05/24 17:57 Blood Pressure 111/63 11/05/24 17:57 Pulse Oximetry 100 11/05/24 17:57 Oxygen Delivery Room Air 11/05/24 07:24 Lab Data 11/05/24 07:46 11/05/24 07:46 Labs: Lab Results 11/05/24 11/05/24 11/05/24 Range/Units 07:46 08:37 10:27 WBC 5.7 (4.5-10.0) K/mm3 RBC 3.29 L (4.2-5.4) M/mm3 Hgb 10.2 L (12.0-15.0) g/dL Hct 33.6 L (37.0-47.0) % MCV 102.1 H (80-100) fl MCH 31.0 (26-34) pg MCHC 30.4 L (32-36) g/dl RDW 14.6 H (11.5-14.5) % Plt Count 327 (150-375) k/mm3 MPV 9.1 (7.4-10.4) fl Immature Gran % (Auto) 0.2 (0-0.5) % Neut % (Auto) 57.0 (45.5-73.1) % Lymph % (Auto) 28.9 (18.3-44.2) % Lyman % (Auto) 11.8 H (2.6-8.5) % Eos % (Auto) 1.6 (0-4.4) % Baso % (Auto) 0.5 (0.2-1.2) % Lymph # (Auto) 1.64 (0.9-3.2) K/mm3 Lyman # (Auto) 0.7 H (0.1-0.6) K/mm3 Eos # (Auto) 0.1 (0-0.3) K/mm3 Baso # (Auto) 0.0 (0.0-0.1) K/mm3 Abs Immat Gran (auto) 0.01 (0.00-0.031) K/mm3 Absolute Neuts (auto) 3.2 (1.3-6.7) K/mm3 Absolute Nucleated RBC 0.000 (0.0-0.012) K/mm3 Nucleated RBC % 0.0 (0.0-0.2) % PT 13.5 (11.1-14.7) Seconds INR 1.0 APTT 20.5 L (22.3-36.8) Seconds Sodium 140 (137-145) mmol/L Potassium 4.0 (3.4-5.0) mmol/L Chloride 108 H (98-107) mmol/L Carbon Dioxide 22 (22-30) mmol/L Anion Gap 10 (4-12) mmol/L BUN 2 L (7-17) mg/dL Creatinine 0.59 L (0.7-1.0) mg/dL Estim Creat Clear Calc 107 ml/min Estimated GFR > 60 (59 - ) Glucose 47 L* (65-110) mg/dL POC Capillary Glucose 88 (65-105) mg/dl Calcium 9.3 (8.4-10.2) mg/dL Total Bilirubin 0.5 (0.2-1.3) mg/dL AST 20 (14-36) U/L ALT 15 (6-35) U/L Alkaline Phosphatase 83 (38-126) U/L Troponin I < 0.012 (0.000-0.034) ng/mL NT-Pro-B Natriuret Pep 274 H (19.9-100) pg/mL Total Protein 7.0 (6.3-8.2) g/dL Albumin 3.7 (3.5-5.1) g/dL Influenza A (RT-PCR) Negative (Negative) Influenza B (RT-PCR) Negative (Negative) RSV (RT-PCR) Negative (Negative) SARS-CoV-2 RNA (RT-PCR) Negative (Negative) Discharge Plan Discharge Clinical Impression: Bilateral lower extremity edema Patient Disposition: Home, Self-Care Condition: Stable Instructions: Antibiotic Form, Edema (ED) Additional Instructions: Is recommended the elevate her lower extremities a please follow-up with your primary care provider your echo showed no evidence of heart failure Patient Language: Greenlandic Prescriptions: New furosemide [Lasix] 20 mg tablet 20 mg PO BID 5 Days Qty: 10 0RF No Action Vraylar 3 mg capsule divalproex 500 mg tablet extended release 24 hr 2,000 mg PO HS Austedo 12 mg tablet 12 mg PO DIRECTED lithium carbonate 300 mg capsule prednisone 50 mg tablet 50 mg PO DAILY Qty: 5 0RF albuterol sulfate [Ventolin HFA] 90 mcg/actuation HFA aerosol inhaler 2 puff inhalation QID PRN (Reason: shortness of breath or wheezing) Qty: 8.5 0RF doxycycline hyclate 100 mg capsule 100 mg PO BID Qty: 20 0RF albuterol sulfate 90 mcg/actuation HFA aerosol inhaler 2 puff inhalation Q4-6H PRN (Reason: shortness of breath or wheezing) 30 Days Qty: 8.5 0RF lorazepam 0.5 mg tablet 0.5 mg PO TID PRN (Reason: Anxiety) Caplyta 10.5 mg capsule 10.5 mg PO DAILY liothyronine 5 mcg tablet See Rx Instructions .ROUTE .COMPLEX Qty: 120 0RF Dose Instruction: TAKE 4 TABLETS BY MOUTH DAILY Rx Instructions: TAKE 2 TABLETS BY MOUTH DAILY ipratropium-albuterol 0.5 mg-3 mg(2.5 mg base)/3 mL solution for nebulization 3 ml INHALATION Q4H PRN (Reason: wheezing) Qty: 180 3RF Ubrelvy 100 mg tablet 100 mg PO ONCE PRN (Reason: migraine headache) Qty: 14 3RF levothyroxine 200 mcg tablet See Rx Instructions .ROUTE .COMPLEX Qty: 90 1RF Dose Instruction: TAKE 1 TABLET BY MOUTH EVERY DAY Rx Instructions: TAKE 1 TABLET BY MOUTH EVERY DAY zonisamide 100 mg capsule See Rx Instructions .ROUTE .COMPLEX Qty: 270 1RF Dose Instruction: TAKE 3 CAPS BY MOUTH DAILY Rx Instructions: TAKE 3 CAPS BY MOUTH DAILY Linzess 290 mcg capsule See Rx Instructions .ROUTE .COMPLEX Qty: 90 0RF Dose Instruction: TAKE 1 CAPSULE BY MOUTH EVERY DAY Rx Instructions: TAKE 1 CAPSULE BY MOUTH EVERY DAY Breztri Aerosphere 160-9-4.8 mcg/actuation HFA aerosol inhaler See Rx Instructions .ROUTE .COMPLEX Qty: 10.7 0RF Dose Instruction: 2 INHALED BY MOUTH TWICE A DAY Rx Instructions: 2 INHALED BY MOUTH TWICE A DAY levetiracetam 1,000 mg tablet 1,500 mg PO BID Qty: 60 5RF Rx Instructions: takes 1500 mg total BID Follow-up/Referrals: Polo Harris MD [Primary Care Provider] - Time of Disposition: 18:38
[2024-11-05 11:10] LABS: Influenza A QL RT-PCR Negative (Negative); Influenza B QL RT-PCR Negative (Negative); RSV RNA, RT-PCR Negative (Negative); SARS-CoV-2 RNA PCR Negative (Negative)
[2024-11-05] MEDS: FUROSEMIDE INJ 40 MG/4 ML VIAL IV PUSH (13:10)
== END 2024-11-05 19:15 | disposition home or self-care (01) ==
PROVIDERS: Emergency Provider Emergency Medicine; PCP Family Medicine
DX: R60.0 Localized edema (principal); Z20.822 Contact with and (suspected) exposure to COVID-19; I10 Essential (primary) hypertension; E88.810 Metabolic syndrome; E28.2 Polycystic ovarian syndrome; E03.9 Hypothyroidism, unspecified; G40.909 Epilepsy, unspecified, not intractable, without status epilepticus; G47.33 Obstructive sleep apnea (adult) (pediatric); J45.909 Unspecified asthma, uncomplicated; K21.9 Gastro-esophageal reflux disease without esophagitis; D64.9 Anemia, unspecified; F31.9 Bipolar disorder, unspecified; F41.9 Anxiety disorder, unspecified; Z86.16 Personal history of COVID-19; Z86.73 Personal history of transient ischemic attack (TIA), and cerebral infarction without residual deficits; R94.31 Abnormal electrocardiogram [ECG] [EKG]; Z98.84 Bariatric surgery status; Z77.22 Contact with and (suspected) exposure to environmental tobacco smoke (acute) (chronic); Z79.899 Other long term (current) drug therapy
CPT/HCPCS: 36415; 71046; 71275; 80053; 82948; 83880; 84484; 85025; 85610; 85730; 87637; 93005; 93306; 93970; 96374; 96375; 99284; J1940; Q9967

== ENCOUNTER 2025-01-02 08:17 | Outpatient (CLI) | payer BC, SELFPAY ==
--- OUTSIDE RECORDS SUMMARY | 2025-01-02 08:21 | XMS_ITS | Clinical Summary ---
Author Organization [facility] Address [address] [address] Phone Care Team Providers Care Senior Ui Developer Name Role Phone Unavailable Primary Care Provider [...] of 3 - 19+ 3-dose series) 1988 Cologuard 2019 Immunochemical Fecal Occult Blood 2019 Pneumococcal Immunization (5 0+ years) (1 [...]
--- OUTSIDE RECORDS SUMMARY | 2025-01-02 08:21 | XMS_ITS | Clinical Summary ---
Author Organization [facility] Address [address] [place] [address] Phone Care Team Providers Care Special Certificate Dictator Name Role Phone Tana Doran MD Primary Care Provider [phone] Allergies Active Allergy Reactions Criticality Noted Date [...] Due Date Last Done Comments PNEUMOCOCCAL VACCINE 0-49 YEARS (1 of 2 - PCV) 975 DTAP/TDAP/TD VACCINES (1 - Tdap) 1988 HEPATITIS B VACCINES (1 of 3 - 19+ 3-dose series) 02/1988 HPV/Cotest (21-29) 1990 PAP SMEAR 1990 CERVICAL CANCER SCREENING 1999 HPV/Cotest (30-65) 1999 PAP SMEAR 1999 BREAST CANCER SCREENING 2009 COLORECTAL SCREENING 2014 Colorectal Cancer Screening 2014 FIT-DNA Q 3 years 2014 FIT/FOBT Q 1 year 2014 Flex Sig/CT Colonography Q 5 years 2014 ZOSTER VACCINE (1 of 2) 2019 INFLUENZA VACCINE (#1) 2024 Insurance Care Teams Special Certificate Dictator Relationship Specialty Start Date End Date Tana Doran MD PCP - General Family Practice 06/07/22
--- OUTSIDE RECORDS SUMMARY | 2025-01-02 08:21 | XMS_ITS | Encounter Summary ---
Author Organization [facility] Address [address] [address] Phone Care Team Providers Care Slag Worker Name Role Phone Tana Doran MD Primary Care Provider [phone] Daquan Dowd MD Primary Care Provider [phone] Reason for Visit * Reason Onset Date Comments New Patient 06/27/2021 new pt appt Encounter Details Date Type Department Care Team (Late st Contact Info) Description 06/27/2021 Telephone [facility] [address] [place] [address] Tana Doran MD [address] [facility] [address] [place] [address] New Patient (new pt appt) [...] Primary Provider Request Insurance of patient: joao [facility] Name of person calling: Andrea Grimes Relationship to patient: self Preferred phone number: [phone] Alternate phone number: na Region / Office location preference: [place] Provider preference (male/female, specific provider name): female Willing to see someone other than physician, such as ACUTE CARE CLINICAL NURSE SPECIALIST, [place], resident? na Patient reason for appointment/any current symptoms: needing pcp/Daquan Dowd Other information (including need for fitter welder): na Route ALL calls to: [facility] PATIENT CREDIT CARD ASSOCIATE documented in this encounter Plan of Treatment Not on file documented as of this encounter Visit Diagnoses Not on filedocumented in this encounter Additional Health Concerns Assessment Noted Time PHQ-9 Depression Total Score: 0 05/11/20 19 12:01 PM CDT documented as of this encounter Care Teams Slag Worker Relationship Specialty Start Date End Date Tana Doran MD [address] [place] [address] PCP - General Family Medicine 04/06/19 06/28/21 Daquan Dowd MD [address] [place] [address] PCP - General Family Medicine 06/29/21 04/26/22 documented as of this encounter
--- OUTSIDE RECORDS SUMMARY | 2025-01-02 08:21 | XMS_ITS | Clinical Summary ---
Author Organization [facility] Address [address] [place] [address] Care Team Providers Care Field Underwriter Name Role Phone Oren Raymond DO Primary Care Provider [phone] Source Comments [facility],non-owned Affiliates and Associated Physician Practices is amultiple site organization consisting of ambulatory clinics and hospital sitesin [place], [place], [place] and [place]. This disclosure is being madepursuant to the Care Everywhere program and may not contain all information available regarding this patient. Last updated 18.[facility] Active Problems Problem Noted Date Diagnosed Date [...] VACCINE ( - 2023-2 5 season) 2024 DEPRESSION SCREENING 09/30/2024 INFLUENZA VACCINE (Season Ended) 2025 HIB VACCINE Aged Out No longer eligi ble based on patient's age to complete this topic HPV VACCINE Aged Out No longer eligi ble based on patient's age to complete this topic MENINGOCOCCAL (Group B) VACC INE SHARED DECISION-MAKING Aged Out No longer eligibl e based on patient's age to complete this topic MENINGOCOCCAL GROUPS A/C/Y/W VACCINE Aged Out No longer eligible b ased on patient's age to complete this topic Care Teams Field Underwriter Relationship Specialty Start Date End Date Oren Raymond DO [address] [place] [address] PCP - General 04/07/19
--- OUTSIDE RECORDS SUMMARY | 2025-01-02 08:21 | XMS_ITS | Encounter Summary ---
Author Organization [facility] Address [address] [place] [address] Care Team Providers Care Flower Picker Name Role Phone Oren Raymond Primary Care Provider [phone] Encounter Details Date Type Department Care Team (Late st Contact Info) Description 04/08/2019 Lab Requisition [facility] Care Pathology Lab [address] [place] [address] Padmini Smith MD [address] [place] [address] Gross hematuria Social History Tobacco Use Types [...] CDT) Case Report Surgical Pathology Report Case: [id number] Authorizing Provider: Padmini Smith MD Collected: 04/06/2019 11:17 AM Pathologist: Jose Miguel Gaitan MD Received: 04/08/2019 11:17 AM Specimen: Urine 04/09/2019 10:09 AM [facility] Final Diagnosis Urine, voided, Thin Prep, cytology: - Hypocellular for urothelial cells - Negative for high-grade urothelial neoplasia - Benign squamous cells are seen in abundance 04/09/2019 10:09 AM [facility] Microscopic Description and Comment Performed 04/09/2019 10:09 AM [facility] Clinical History Hematuria; cystoscopy negative. 04/09/2019 10:09 AM [facility] Gross Description Prepared slide (1) received from [facility] labeled [id number], Andrea Grimes . All material will be returned. 04/09/2019 10:09 AM [facility] Disclaimer The performance characteristics of all immunohistochemical and indirect immunofluorescence stains (if any) cited in this report were determined by the Histopathology Laboratory of [facility]. Some of these tests were developed by [...] the attending (teaching) pathologist. 04/09/2019 10:09 AM [facility] Embedded Images 04/09/2019 10:09 AM [facility] Pathology/Cytolo gy URINE / Unknown 04/06/2019 11:17 AM CDT 04/08/2019 11:17 AM CDT Padmini Smith MD LAB - PATHOLOGY/CYTO LOGY ORDERABLES [facility] [address] [place], [place] [id number] [place] [address] documented in this encounter Visit Diagnoses Diagnosis Gross hematuria documented in this encounter Care Teams Flower Picker Relationship Specialty Start Date End Date Oren Raymond DO [address] [place] [id number] PCP - General 04/07/19 documented as of this encounter
[2025-01-02 08:44] LABS: Basophils Percent Auto 0.8 % (0.2-1.2); Eosinophils Absolute Auto 0.1 K/mm3 (0-0.3); Eosinophils Percent Auto 1.7 % (0-4.4); Hematocrit 33.6 % (37.0-47.0); Hemoglobin 10.2 g/dL (12.0-15.0); Immature Granulocyte Absolute 0.01 K/mm3 (0.00-0.031); Immature Granulocyte Percent A 0.2 % (0-0.5); Lymphocytes Absolute Auto 1.07 K/mm3 (0.9-3.2); Lymphocytes Percent Auto 20.3 % (18.3-44.2); Mean Corpuscular HGB Conc 30.4 g/dl (32-36); Mean Corpuscular Hemoglobin 28.9 pg (26-34); Mean Corpuscular Volume 95.2 fl (80-100); Mean Platelet Volume 9.7 fl (7.4-10.4); Monocytes Absolute Auto 0.5 K/mm3 (0.1-0.6); Monocytes Percent Auto 8.5 % (2.6-8.5); Neutrophils Absolute Auto 3.6 K/mm3 (1.3-6.7); Neutrophils Percent Auto 68.5 % (45.5-73.1); Platelet Count Result 281 k/mm3 (150-375); Red Blood Count 3.53 M/mm3 (4.2-5.4); Red Cell Distribution Width 12.2 % (11.5-14.5); White Blood Count 5.3 K/mm3 (4.5-10.0)
[2025-01-02 08:57] LABS: Alanine Aminotransferase 15 U/L (6-35); Albumin Level 3.7 g/dL (3.5-5.1); Alkaline Phosphatase 75 U/L (38-126); Anion Gap 7 mmol/L (4-12); Aspartate Amino Transferase 19 U/L (14-36); Bilirubin,Total 0.3 mg/dL (0.2-1.3); Blood Urea Nitrogen 7 mg/dL (7-17); Calcium 9.3 mg/dL (8.4-10.2); Carbon Dioxide 27 mmol/L (22-30); Chloride 106 mmol/L (98-107); Estimated Glomerular Filt Rate > 60; Glucose 90 mg/dL (65-110); Potassium 3.6 mmol/L (3.4-5.0); Sodium 140 mmol/L (137-145)
[2025-01-02 09:16] LABS: Free T4 Free Thyroxine 2.84 ng/dL (0.78-2.19)
[2025-01-02 09:26] LABS: Thyroid Stimulating Hormone < 0.015 uIU/mL (0.465-4.680)
[2025-01-04 14:54] LABS: Levetiracetam Keppra 33.9 mcg/mL (6.0-46.0)
== END 2025-01-02 08:18 | disposition home or self-care (01) ==
LOC: ANHLAB 08:19
PROVIDERS: Psychiatry & Neurology Neurology; PCP Family Medicine; Visit Provider Physician Assistant Medical
DX: D64.9 Anemia, unspecified (principal); R79.89 Other specified abnormal findings of blood chemistry; E03.9 Hypothyroidism, unspecified; G40.909 Epilepsy, unspecified, not intractable, without status epilepticus; G43.909 Migraine, unspecified, not intractable, without status migrainosus; G24.01 Drug induced subacute dyskinesia; T43.505A Adverse effect of unspecified antipsychotics and neuroleptics, initial encounter
CPT/HCPCS: 36415; 80053; 80177; 84439; 84443; 85025

== ENCOUNTER 2025-01-29 11:13 | Outpatient (CLI) | payer BC, SELFPAY ==
--- OUTSIDE RECORDS SUMMARY | 2025-01-30 12:35 | XMS_ITS | Clinical Summary ---
Author Organization [facility] Address [address] [place] [address] Care Team Providers Care Boiler House Inspector Name Role Phone Oren Raymond Primary Care Provider [phone] Source Comments [facility],non-owned Affiliates and Associated Physician Practices is amultiple site organization consisting of ambulatory clinics and hospital sitesin [place], [place], [place] and [place]. This disclosure is being madepursuant to the Care Everywhere program and may not contain all information available regarding this patient. Last updated 18.[facility] Active Problems Problem Noted Date Diagnosed Date Seizures 06/12/2024 Social History Tobacco Use Types Packs/Day Years Used Date Smoking Tobacco: Never Assessed Comments Unknown Sex and Gender Information Value Date Recorded Sex Assigned at Not on file Legal Sex Female 5:40 AM CMS EXPERT Gender Identity Not on file Sexual Orientation [...] Health Maintenance Due Date Last Done Comments COLOGUARD (AGES 45-75) - COL ON CA SCREENING [...] patient's age to complete this topic Insurance DUANE Care Teams Boiler House Inspector Relationship Specialty Start Date End Date Oren Raymond DO [address] [place] [id number] PCP - General 04/07/19
--- OUTSIDE RECORDS SUMMARY | 2025-01-30 12:36 | XMS_ITS | Clinical Summary ---
Author Organization [facility] Address [address] [address] Phone Care Team Providers Care Clinical Project Leader Name Role Phone Unavailable Primary Care Provider [...]
--- OUTSIDE RECORDS SUMMARY | 2025-01-30 12:36 | XMS_ITS | Encounter Summary ---
Author Organization [facility] Address [address] [place] [place] [address] Phone Care Team Providers Care Child And Family Services Worker Name Role Phone Tana Doran MD Primary Care Provider [phone] Daquan Dowd MD Primary Care Provider [phone] Reason for Visit * Reason Onset Date Comments New Patient 06/27/2021 new pt appt Encounter Details Date Type Department Care Team (Late st Contact Info) Description 06/27/2021 Telephone [facility] [address] [place] [address] Tana Doran MD [address] [facility] [address] [place] [address] New Patient (new pt appt) [...] Request Insurance of patient: joao [facility] Name of person calling: Andrea Grimes Relationship to patient: self Preferred phone number: [phone] Alternate phone number: na Region / Office location preference: [place] Provider preference (male/female, specific provider name): female Willing to see someone other than physician, such as CUT OFF WORKER, PA, resident? na Patient reason for appointment/any current symptoms: needing pcp/Daquan Dowd Other information (including need for glass cutter hand): na Route ALL calls to: [facility] PATIENT [employer] P[employer] documented in this encounter Plan of Treatment Not on file documented as of this encounter Visit Diagnoses Not on filedocumented in this encounter Additional Health Concerns Assessment Noted Time PHQ-9 Depression Total Score: 0 05/11/20 19 12:01 PM CDT documented as of this encounter Care Teams Child And Family Services Worker Relationship Specialty Start Date End Date Tana Doran MD [address] [place] [address] PCP - General Family Medicine 04/06/19 06/28/21 Daquan Dowd MD [address] [place] [address] PCP - General Family Medicine 06/29/21 04/26/22 documented as of this encounter
--- OUTSIDE RECORDS SUMMARY | 2025-01-30 12:36 | XMS_ITS | Clinical Summary ---
Author Organization [facility] Address [address] [place] [address] Phone Care Team Providers Care Recovery Assistant Name Role Phone Tana Doran MD Primary Care Provider [phone] Allergies Active Allergy Reactions Criticality Noted Date [...] Health Maintenance Due Date Last Done Comments DTAP/TDAP/TD VACCINES (1 - Tdap) 1988 HEPATITIS B VACCINES (1 of 3 - 19+ 3-dose series) 02/1988 HPV/Cotest (21-29) 1990 CERVICAL CANCER SCREENING 1999 HPV/Cotest (30-65) 1999 PAP SMEAR 1999 BREAST CANCER SCREENING 2009 COLORECTAL SCREENING 2014 Colorectal Cancer Screening 2014 FIT-DNA Q 3 years 2014 FIT/FOBT Q 1 year 2014 Flex Sig/CT Colonography Q 5 years 2014 ZOSTER VACCINE (1 of 2) 2019 INFLUENZA VACCINE (#1) 2024 Insurance [facility] [employer] PREFERRED Care Teams Recovery Assistant Relationship Specialty Start Date End Date Tana Doran MD PCP - General Family Practice 06/07/22
--- OUTSIDE RECORDS SUMMARY | 2025-01-30 12:36 | XMS_ITS | Patient Health Record ---
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 paperwork for the patient. - Continue current medications. - Reevaluate depression symptoms in 3 weeks. 3. Insomnia: - Patient reports poor sleep due to unavailability of Zolpidem 12.5 mg at their current pharmacy. Plan: - Send a new prescription for Zolpidem 12.5 mg to [facility] (either [facility] or [facility]) as per patient's preference. - Monitor sleep quality and adjust treatment as needed. 4. Mood swings and irritability: - Patient reports mood swings, irritability, and anger, snapping at people and pets. Plan: - Adjust Vraylar prescription: discontinue Vraylar 3 mg and prescribe Vraylar 1.5 mg. - Encourage the patient to seek counseling to address mood swings and improve coping strategies. Follow-up: - Schedule a follow-up appointment in 3 weeks to reevaluate symptoms and treatment effectiveness. - Complete FMLA and disability paperwork for the patient by next week. 09/09/2024 Post-traumatic stress disorder, unspecified (ICD-10 - F43.10) 1. Bipolar Disorder: - Continue Chinquapin 300 mg twice a day - Continue Caplyta 42 mg daily - Continue Vraylar 1.5 mg daily - Continue Depakote 250 mg daily Plan: - Assess the possibility of reducing other medications if Chinquapin is effective - Monitor for psychomotor retardation and adjust medications accordingly - Encourage the patient to maintain a mood diary to track symptoms and medication effectiveness 2. Insomnia: - Continue Zolpidem as needed for sleep Plan: - Encourage good sleep hygiene practices - Reassess sleep quality at follow-up appointments 3. Abnormal Movements: - Continue Austedo for abnormal movements Plan: - Monitor for any changes in movement patterns or side effects - Reassess the need for Austedo at follow-up appointments 4. Suicidal Thoughts: Plan: - Encourage the patient to continue focusing on positive aspects of life and coping strategies - Monitor for any recurrence of suicidal thoughts or worsening of mood - Consider referral to a therapist for additional support if needed 5. Cognitive Function: Plan: - Perform a Slum's test to assess cognitive function - Submit the results to the appropriate agency as required 6. Work Status: Plan: - Continue the patient's current off-work status - Reassess the patient's ability to return to work at follow-up appointments 7. Laboratory Tests: Plan: - Encourage the patient to schedule a blood test appointment for Chinquapin level monitoring - Review the results before considering any adjustments to the Chinquapin dosage Follow-up: - Schedule a follow-up appointment in 4 weeks to monitor the patient's progress, medication effectiveness, and side effects - Adjust the treatment plan as needed based on the patient's response to medications and overall mental health status 10/15/2024 Post-traumatic stress disorder, unspecified (ICD-10 - F43.10) 10/15/2024 Drug induced subacute dyskinesia (ICD-10 - G24.01) Austedo 24mg bid 09/09/2024 Drug induced subacute dyskinesia (ICD-10 - G24.01) Austedo 24mg bid 1. Bipolar Disorder: - Continue Chinquapin 300 mg twice a day - Continue Caplyta 42 mg daily - Continue Vraylar 1.5 mg daily - Continue Depakote 250 mg daily Plan: - Assess the possibility of reducing other medications if Chinquapin is effective - Monitor for psychomotor retardation and adjust medications accordingly - Encourage the patient to maintain a mood diary to track symptoms and medication effectiveness 2. Insomnia: - Continue Zolpidem as needed for sleep Plan: - Encourage good sleep hygiene practices - Reassess sleep quality at follow-up appointments 3. Abnormal Movements: - Continue Austedo for abnormal movements Plan: - Monitor for any changes in movement patterns or side effects - Reassess the need for Austedo at follow-up appointments 4. Suicidal Thoughts: Plan: - Encourage the patient to continue focusing on positive aspects of life and coping strategies - Monitor for any recurrence of suicidal thoughts or worsening of mood - Consider referral to a therapist for additional support if needed 5. Cognitive Function: Plan: - Perform a Slum's test to assess cognitive function - Submit the results to the appropriate agency as required 6. Work Status: Plan: - Continue the patient's current off-work status - Reassess the patient's ability to return to work at follow-up appointments 7. Laboratory Tests: Plan: - Encourage the patient to schedule a blood test appointment for Chinquapin level monitoring - Review the results before considering any adjustments to the Chinquapin dosage Follow-up: - Schedule a follow-up appointment in 4 weeks to monitor the patient's progress, medication effectiveness, and side effects - Adjust the treatment plan as needed based on the patient's response to medications and overall mental health status 08/25/2024 Bipolar disorder with depression (ICD-10 - F31.9) 1. Bipolar depression: - Patient reports persistent depression, irritability, and mood swings despite current medications (Caplyta 42 mg, Vraylar 1.5 mg, Depakote 250 mg, and Lorazepam 0.5 mg twice a day). Plan: - Add Chinquapin 300 mg twice a day to the current medication regimen. - Instruct the patient to return in 2 weeks for a follow-up appointment. - Order labs to be done a couple of days before the next appointment, including lithium level (12 hours after the last dose), metabolic panel, and thyroid function tests. 2. Insomnia: - Patient reports spotty sleep but improved compared to before. Plan: - Continue monitoring sleep quality during the follow-up appointment. 3. Work-related stress and disability: - Patient's FMLA is ending on the , and they are considering options for disability or part-time work. Plan: - Extend FMLA for another 30 days to allow the patient more time to recover and make decisions about their work situation. - Encourage the patient to consider seeking legal advice if needed for disability application. 4. Suicidal thoughts: - Patient denies active suicidal ideation but reports passive thoughts of and the upcoming anniversary of a family member's suicide. Plan: - Continue to monitor for suicidal thoughts during follow-up appointments. - Encourage the patient to seek counseling or therapy for additional support. 5. Social and emotional difficulties: - Patient reports difficulty with emotional control, irritability, and challenges in their work environment. Plan: - Encourage the patient to seek counseling or therapy to address these issues and improve coping strategies. - Monitor progress during follow-up appointments. 06/04/2024 Post-traumatic stress disorder, unspecified (ICD-10 - F43.10) 1. Depression and anxiety - Patient reports improved mood with Cymbalta but still experiencing some sadness and lack of motivation. - Plan: Increase Caplyta from 10.5 mg to 21 mg daily. - Continuous FMLA for depression, anxiety, and irritability from June 04 to July 06. 2. Sleep disturbance - Patient reports improved sleep since the medication change (lorazepam decrease and escitalopram addition). - Plan: Continue current regimen of zolpidem extended-release 12.5 mg at bedtime, lorazepam 0.5 mg once a day, and escitalopram 20 mg daily. 3. Follow-up - Schedule a follow-up appointment before July 06 to assess the patient's readiness to return to work and evaluate the effectiveness of the increased Caplyta dosage. 08/04/2024 Post-traumatic stress disorder, unspecified (ICD-10 - F43.10) 1. Anxiety: - Patient reports issues with lorazepam prescription, which was refilled at once per day instead of twice per day as prescribed. Plan: - Send a new prescription for lorazepam 1 tablet twice a day to [facility] in [place] with a clear note on the change. - Continue monitoring anxiety symptoms and adjust treatment as needed. 2. Depression: - Patient reports increased depression and anxiety due to work situation, considering disability prison. - Currently on Caplyta 42 mg, esketamine 20 mg daily, and Depakote 250 mg once a day. Plan: - Complete FMLA and disability paperwork for the patient. - Continue current medications. - Reevaluate depression symptoms in 3 weeks. 3. Insomnia: - Patient reports poor sleep due to unavailability of Zolpidem 12.5 mg at their current pharmacy. Plan: - Send a new prescription for Zolpidem 12.5 mg to [facility] (either [facility] or [facility]) as per patient's preference. - Monitor sleep quality and adjust treatment as needed. 4. Mood swings and irritability: - Patient reports mood swings, irritability, and anger, snapping at people and pets. Plan: - Adjust Vraylar prescription: discontinue Vraylar 3 mg and prescribe Vraylar 1.5 mg. - Encourage the patient to seek counseling to address mood swings and improve coping strategies. Follow-up: - Schedule a follow-up appointment in 3 weeks to reevaluate symptoms and treatment effectiveness. - Complete FMLA and disability paperwork for the patient by next week. 05/05/2024 Drug induced subacute dyskinesia (ICD-10 - G24.01) General Anxiety Disorder -Continue Lexapro 20mg daily -Continue Lorazepam 0.5mg three times daily -stop duloxetine 30mg daily Insomnia -Continue Zolpidem 12.5mg at bedtime Bipolar Disorder -Start Caplyta 12.5mg daily -Continue Depakote 250mg daily and 2000mg at bedtime -Continue Vraylar 3mg daily Dyskinesia -Continue Austedo 12mg daily Pt Seen by PMHNP student Ting Walker I have examined the patient with [employer] Student. It reflects today's encounter and my assessment and treatment plan. 07/01/2024 Post-traumatic stress disorder, unspecified (ICD-10 - F43.10) 1. Panic disorder and anxiety: - The patient reported a massive panic attack and increased anxiety related to the thought of returning to work. The anxiety has been affecting her sleep and daily functioning. Plan: - Increase Lorazepam to 0.5 mg twice a day as needed for anxiety. 2. Bipolar depression: - The patient reported a return of depressive symptoms, including difficulty with self-care and increased counting compulsions. Plan: - Continue monitoring depressive symptoms and provide support for the patient's decision to retire, which may alleviate work-related stress. 3. Bipolar disorder: - The patient reported experiencing bouts of kendrick, restlessness, and fidgeting. Plan: - Adjust medications as follows: - Increase Caplyta to 42 mg daily. - Decrease Vraylar to 1.5 mg daily. - Continue Depakote 250 mg daily. 4. Insomnia: - The patient reported difficulty sleeping due to anxiety and kendrick. Plan: - Continue Zolpidem 12.5 mg nightly as needed for sleep. 5. Tardive dyskinesia: - The patient is currently on Austedo 24 mg twice a day. Plan: - Continue Austedo at the current dose and monitor for any changes in symptoms. 6. Work-related stress: - The patient expressed a desire to retire due to work-related stress and has submitted paperwork for prison. Plan: - Provide a medical leave extension until 08-03 to allow time for prison paperwork processing. Encourage the patient to continue seeking support from her partner during this time. 7. Follow-up: - Schedule a follow-up appointment to assess the patient's response to medication adjustments and monitor her mental health status. 01/26/2025 Encounter for screening for depression (ICD-10 - Z13.31) 01/25/2025 Post-traumatic stress disorder, unspecified (ICD-10 - F43.10) 12/16/2024 Encounter for screening for depression (ICD-10 - Z13.31) 12/16/2024 Generalized anxiety disorder (ICD-10 - F41.1) escitalopram 20mg daily, lorazepam 0.5mg BID prn 11/18/2024 Drug induced subacute dyskinesia (ICD-10 - G24.01) Austedo 24mg bid 11/18/2024 Bipolar disorder with depression (ICD-10 - F31.9) stop vraylar 12/16/2024 Drug induced subacute dyskinesia (ICD-10 - G24.01) Austedo 24mg bid 01/25/2025 Generalized anxiety disorder (ICD-10 - F41.1) escitalopram 20mg daily, lorazepam 0.5mg BID prn 07/01/2024 Drug induced subacute dyskinesia (ICD-10 - G24.01) Austedo 24mg bid 1. Panic disorder and anxiety: - The patient reported a massive panic attack and increased anxiety related to the thought of returning to work. The anxiety has been affecting her sleep and daily functioning. Plan: - Increase Lorazepam to 0.5 mg twice a day as needed for anxiety. 2. Bipolar depression: - The patient reported a return of depressive symptoms, including difficulty with self-care and increased counting compulsions. Plan: - Continue monitoring depressive symptoms and provide support for the patient's decision to retire, which may alleviate work-related stress. 3. Bipolar disorder: - The patient reported experiencing bouts of kendrick, restlessness, and fidgeting. Plan: - Adjust medications as follows: - Increase Caplyta to 42 mg daily. - Decrease Vraylar to 1.5 mg daily. - Continue Depakote 250 mg daily. 4. Insomnia: - The patient reported difficulty sleeping due to anxiety and kendrick. Plan: - Continue Zolpidem 12.5 mg nightly as needed for sleep. 5. Tardive dyskinesia: - The patient is currently on Austedo 24 mg twice a day. Plan: - Continue Austedo at the current dose and monitor for any changes in symptoms. 6. Work-related stress: - The patient expressed a desire to retire due to work-related stress and has submitted paperwork for prison. Plan: - Provide a medical leave extension until 08-03 to allow time for prison paperwork processing. Encourage the patient to continue seeking support from her partner during this time. 7. Follow-up: - Schedule a follow-up appointment to assess the patient's response to medication adjustments and monitor her mental health status. 08/04/2024 Drug induced subacute dyskinesia (ICD-10 - G24.01) Austedo 24mg bid 1. Anxiety: - Patient reports issues with lorazepam prescription, which was refilled at once per day instead of twice per day as prescribed. Plan: - Send a new prescription for lorazepam 1 tablet twice a day to [facility] in [place] with a clear note on the change. - Continue monitoring anxiety symptoms and adjust treatment as needed. 2. Depression: - Patient reports increased depression and anxiety due to work situation, considering disability prison. - Currently on Caplyta 42 mg, esketamine 20 mg daily, and Depakote 250 mg once a day. Plan: - Complete FMLA and disability paperwork for the patient. - Continue current medications. - Reevaluate depression symptoms in 3 weeks. 3. Insomnia: - Patient reports poor sleep due to unavailability of Zolpidem 12.5 mg at their current pharmacy. Plan: - Send a new prescription for Zolpidem 12.5 mg to [facility] (either [facility] or [facility]) as per patient's preference. - Monitor sleep quality and adjust treatment as needed. 4. Mood swings and irritability: - Patient reports mood swings, irritability, and anger, snapping at people and pets. Plan: - Adjust Vraylar prescription: discontinue Vraylar 3 mg and prescribe Vraylar 1.5 mg. - Encourage the patient to seek counseling to address mood swings and improve coping strategies. Follow-up: - Schedule a follow-up appointment in 3 weeks to reevaluate symptoms and treatment effectiveness. - Complete FMLA and disability paperwork for the patient by next week. 06/04/2024 Drug induced subacute dyskinesia (ICD-10 - G24.01) Austedo 24mg bid 1. Depression and anxiety - Patient reports improved mood with Cymbalta but still experiencing some sadness and lack of motivation. - Plan: Increase Caplyta from 10.5 mg to 21 mg daily. - Continuous FMLA for depression, anxiety, and irritability from June 04 to July 06. 2. Sleep disturbance - Patient reports improved sleep since the medication change (lorazepam decrease and escitalopram addition). - Plan: Continue current regimen of zolpidem extended-release 12.5 mg at bedtime, lorazepam 0.5 mg once a day, and escitalopram 20 mg daily. 3. Follow-up - Schedule a follow-up appointment before July 06 to assess the patient's readiness to return to work and evaluate the effectiveness of the increased Caplyta dosage. 08/25/2024 On assisted drug therapy (ICD-10 - Z79.899) 1. Bipolar depression: - Patient reports persistent depression, irritability, and mood swings despite current medications (Caplyta 42 mg, Vraylar 1.5 mg, Depakote 250 mg, and Lorazepam 0.5 mg twice a day). Plan: - Add Chinquapin 300 mg twice a day to the current medication regimen. - Instruct the patient to return in 2 weeks for a follow-up appointment. - Order labs to be done a couple of days before the next appointment, including lithium level (12 hours after the last dose), metabolic panel, and thyroid function tests. 2. Insomnia: - Patient reports spotty sleep but improved compared to before. Plan: - Continue monitoring sleep quality during the follow-up appointment. 3. Work-related stress and disability: - Patient's FMLA is ending on the , and they are considering options for disability or part-time work. Plan: - Extend FMLA for another 30 days to allow the patient more time to recover and make decisions about their work situation. - Encourage the patient to consider seeking legal advice if needed for disability application. 4. Suicidal thoughts: - Patient denies active suicidal ideation but reports passive thoughts of and the upcoming anniversary of a family member's suicide. Plan: - Continue to monitor for suicidal thoughts during follow-up appointments. - Encourage the patient to seek counseling or therapy for additional support. 5. Social and emotional difficulties: - Patient reports difficulty with emotional control, irritability, and challenges in their work environment. Plan: - Encourage the patient to seek counseling or therapy to address these issues and improve coping strategies. - Monitor progress during follow-up appointments. 09/09/2024 Bipolar disorder with depression (ICD-10 - F31.9) 1. Bipolar Disorder: - Continue Chinquapin 300 mg twice a day - Continue Caplyta 42 mg daily - Continue Vraylar 1.5 mg daily - Continue Depakote 250 mg daily Plan: - Assess the possibility of reducing other medications if Chinquapin is effective - Monitor for psychomotor retardation and adjust medications accordingly - Encourage the patient to maintain a mood diary to track symptoms and medication effectiveness 2. Insomnia: - Continue Zolpidem as needed for sleep Plan: - Encourage good sleep hygiene practices - Reassess sleep quality at follow-up appointments 3. Abnormal Movements: - Continue Austedo for abnormal movements Plan: - Monitor for any changes in movement patterns or side effects - Reassess the need for Austedo at follow-up appointments 4. Suicidal Thoughts: Plan: - Encourage the patient to continue focusing on positive aspects of life and coping strategies - Monitor for any recurrence of suicidal thoughts or worsening of mood - Consider referral to a therapist for additional support if needed 5. Cognitive Function: Plan: - Perform a Slum's test to assess cognitive function - Submit the results to the appropriate agency as required 6. Work Status: Plan: - Continue the patient's current off-work status - Reassess the patient's ability to return to work at follow-up appointments 7. Laboratory Tests: Plan: - Encourage the patient to schedule a blood test appointment for Chinquapin level monitoring - Review the results before considering any adjustments to the Chinquapin dosage Follow-up: - Schedule a follow-up appointment in 4 weeks to monitor the patient's progress, medication effectiveness, and side effects - Adjust the treatment plan as needed based on the patient's response to medications and overall mental health status 10/15/2024 Bipolar disorder with depression (ICD-10 - F31.9) 10/15/2024 On assisted drug therapy (ICD-10 - Z79.899) 09/09/2024 On assisted drug therapy (ICD-10 - Z79.899) 1. Bipolar Disorder: - Continue Chinquapin 300 mg twice a day - Continue Caplyta 42 mg daily - Continue Vraylar 1.5 mg daily - Continue Depakote 250 mg daily Plan: - Assess the possibility of reducing other medications if Chinquapin is effective - Monitor for psychomotor retardation and adjust medications accordingly - Encourage the patient to maintain a mood diary to track symptoms and medication effectiveness 2. Insomnia: - Continue Zolpidem as needed for sleep Plan: - Encourage good sleep hygiene practices - Reassess sleep quality at follow-up appointments 3. Abnormal Movements: - Continue Austedo for abnormal movements Plan: - Monitor for any changes in movement patterns or side effects - Reassess the need for Austedo at follow-up appointments 4. Suicidal Thoughts: Plan: - Encourage the patient to continue focusing on positive aspects of life and coping strategies - Monitor for any recurrence of suicidal thoughts or worsening of mood - Consider referral to a therapist for additional support if needed 5. Cognitive Function: Plan: - Perform a Slum's test to assess cognitive function - Submit the results to the appropriate agency as required 6. Work Status: Plan: - Continue the patient's current off-work status - Reassess the patient's ability to return to work at follow-up appointments 7. Laboratory Tests: Plan: - Encourage the patient to schedule a blood test appointment for Chinquapin level monitoring - Review the results before considering any adjustments to the Chinquapin dosage Follow-up: - Schedule a follow-up appointment in 4 weeks to monitor the patient's progress, medication effectiveness, and side effects - Adjust the treatment plan as needed based on the patient's response to medications and overall mental health status 01/25/2025 Drug induced subacute dyskinesia (ICD-10 - G24.01) Austedo 48 mg daily 11/18/2024 On terminal block assembler drug therapy (ICD-10 - Z79.899) 12/16/2024 Encounter for screening for cardiovascular disorders (ICD-10 - Z13.6) 12/16/2024 On terminal block assembler drug therapy (ICD-10 - Z79.899) 01/25/2025 Encounter for screening for cardiovascular disorders (ICD-10 - Z13.6) 01/25/2025 On assisted drug therapy (ICD-10 - Z79.899) 08/25/2024 Other Divaproex 250mg daily 1. Bipolar depression: - Patient reports persistent depression, irritability, and mood swings despite current medications (Caplyta 42 mg, Vraylar 1.5 mg, Depakote 250 mg, and Lorazepam 0.5 mg twice a day). Plan: - Add Chinquapin 300 mg twice a day to the current medication regimen. - Instruct the patient to return in 2 weeks for a follow-up appointment. - Order labs to be done a couple of days before the next appointment, including lithium level (12 hours after the last dose), metabolic panel, and thyroid function tests. 2. Insomnia: - Patient reports spotty sleep but improved compared to before. Plan: - Continue monitoring sleep quality during the follow-up appointment. 3. Work-related stress and disability: - Patient's FMLA is ending on the , and they are considering options for disability or part-time work. Plan: - Extend FMLA for another 30 days to allow the patient more time to recover and make decisions about their work situation. - Encourage the patient to consider seeking legal advice if needed for disability application. 4. Suicidal thoughts: - Patient denies active suicidal ideation but reports passive thoughts of and the upcoming anniversary of a family member's suicide. Plan: - Continue to monitor for suicidal thoughts during follow-up appointments. - Encourage the patient to seek counseling or therapy for additional support. 5. Social and emotional difficulties: - Patient reports difficulty with emotional control, irritability, and challenges in their work environment. Plan: - Encourage the patient to seek counseling or therapy to address these issues and improve coping strategies. - Monitor progress during follow-up appointments. 10/15/2024 Other 1. Bipolar Disorder, Depressed: - Patient reports feeling flat and , with no motivation or interest, and excessive sleepiness. Plan: - Decrease Vraylar to 1.5 mg and discontinue the current 3 mg dose. - Recommend the patient to see a counselor for additional support. - Reevaluate the patient's condition in 2 weeks. 2. Psychomotor Retardation: - Patient exhibits slow movements, difficulty formulating sentences, and challenges in performing self-care tasks. Plan: - Order labs: thyroid panel, comprehensive metabolic panel, CBC, lithium level, and Depakote level to investigate potential causes. - Consider referral to a medical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
--- OUTSIDE RECORDS SUMMARY | 2025-01-30 12:36 | XMS_ITS ---
Author Organization [facility] [email or web address] Address [address] [place] [address] Care Team Providers Care Storm Sash Maker Name Role Phone Andreea CHAMPION, Tana Primary Care Provider Pedro Hoffman Unavailable [phone] Allergies Allergen (clinical drug ingredient) Drug/Non Drug Allergy documented on EMR Reaction Allergy Type Onset Date Status TETANUS VACCINES AND TOXOID (uncoded) Unknown Allergy 01/21/2024 Active Substance with penicillin structure and antibacterial mechanism of action (substance) Penicillins Unknown Drug Allergy 01/21/2024 Active REASON FOR VISIT follow-up Medications Medication SIG (Take, Route, Frequency, Duration) Notes Start Date End Date Status Caplyta 42 MG 1 capsule Orally once daily for 30 days Active LORazepam 0.5 MG 1 tablet Oral twice a day for 30 days 01/25/2025 Active hydrOXYzine HCl 25 MG 1 tablet Orally twice a day for 90 days 01/25/2025 Active Zolpidem Tartrate ER 12.5 MG 1 tablet at bedtime Oral Once a day for 30 days As needed 01/25/2025 Active Divalproex Sodium 250 MG 1 tablet Oral once daily for 90 days Active Levothyroxine Sodium 200 MCG Oral 01/21/2024 Active Austedo XR 48 MG 1 tablet Orally Once a day for 30 day(s) 01/25/2025 02/24/2025 Active Escitalopram Oxalate 20 MG TAKE 1 TABLET BY MOUTH EVERY DAY FOR 90 DAYS for 90 Active Linzess 290 MCG Oral 01/21/2024 Act aracelis [place] Carbonate 150 MG 1 capsule Orally once a day for 14 days take in the morning decrease morning dose to 150mg x 14 days then stop morning lithium dose 12/16/2024 Active BUDESONIDE-FORMOTEROL HFA 160 MCG-4.5 MCG/ACTUATION AEROSOL INHALER *Reorder from [employer] for eRx and Interaction Alerts* 01/21/2024 Active Breztri Aerosphere 160-9-4.8 MCG/ACT Inhalation *Reorder from [employer] for eRx and Interaction Alerts* 01/21/2024 Active Ipratropium-Albuterol 0.5-2.5 (3) MG/3ML Inhalation 01/21/2024 Active ProAir HFA 108 (90 Base) MCG/ACT Inhalation 01/21/2024 Active Liothyronine Sodium 5 MCG Oral 01/21/2024 Active levETIRAcetam 1000 MG Oral 01/21/2024 Active [place] Carbonate 300 MG 1 capsule Orally Twice a day for 30 days Active [place] Carbonate 300 MG 1 capsule at bedtime Orally Once a day for 30 days Active Social History Sex Assigned At : Social History Observation Description Sex Assigned At Female Problems Problem Type SNOMED Code ICD Code Onset Dates Problem Status W/U Status Risk Notes Problem Bipolar disorder with depression (F31.9) Active confirmed Vital Signs Height 63.00 in 01/25/2025 Weight 239 lbs 01/25/2025 BMI 42.33 kg/m2 01/25/2025 Height-cm 160.02 cm 01/25/2025 Weight-kg 108.41 kg 01/25/2025 Encounters Encounter Location Date [facility] [address] [address] 01/25/2025 Pedro Mishra Encounter for screen ing for depression Z13.31 ; Bipolar disorder with depression F31.9 ; Other insomnia G47.09 ; Post-traumatic stress disorder, unspecified F43.10 ; Generalized anxiety disorder F41.1 ; 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 ; Encounter for screening for cardiovascular disorders Z13.6 and On senior living drug therapy Z79.899 Assessments Encounter Date Diagnosis (ICD Code) Assessment Notes Treatment Notes Treatment Clinical Notes Section Notes 01/25/2025 Encounter for screening for depression (ICD-10 - Z13.31) 01/25/2025 Bipolar disorder with depression (ICD-10 - F31.9) stop vraylar 01/25/2025 Other insomnia (ICD-10 - G47.09) zolpidem er 12.5mg hs 01/25/2025 Post-traumatic stress disorder, unspecified (ICD-10 - F43.10) 01/25/2025 Generalized anxiety disorder (ICD-10 - F41.1) escitalopram 20mg daily, lorazepam 0.5mg BID prn 01/25/2025 Drug induced subacute dyskinesia (ICD-10 - G24.01) Austedo 48 mg daily 01/25/2025 Encounter for screening for cardiovascular disorders (ICD-10 - Z13.6) 01/25/2025 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 (ICD-10 - Z79.899) Plan Of Treatment Medication Medication Name Sig Start Date Stop Date Notes Caplyta 42 MG 1 capsule Orally onc e daily for 30 days LORazepam 0.5 MG 1 tablet Oral twice a day for 30 days 01/25/2025 hydrOXYzine HCl 25 MG 1 tablet Orally tw ice a day for 90 days 01/25/2025 Zolpidem Tartrate ER 12.5 MG 1 tablet at bedtime Oral Once a day for 30 days 01/25/2025 Divalproex Sodium 250 MG 1 tablet Oral o nce daily for 90 days Austedo XR 48 MG 1 tablet Orally Once a day for 30 day(s) 01/25/2025 02/24/2025 [place] Carbonate 300 MG 1 capsule at be dtime Orally Once a day for 30 days Treatment Notes Assessment Notes Bipolar disorder with depression stop vr aylar Other insomnia zolpidem er 12.5mg h s Generalized anxiety disorder escitalopra m 20mg daily, lorazepam 0.5mg BID prn Drug induced subacute dyskinesia Austedo 48 mg daily Next Appt Details Follow Up: 3 Weeks, Reason: f/u bipolar d/o Provider Name:Irwin Alva , 02/03/2025 04:00:00 PM, [address], [facility] [address], [place], [address], Provider Name:Pedro mendez 02/11/2025 03:45:00 PM, [address], [facility] [address], [place], [address], Provider Name:Irwin Alva , 02/18/2025 04:00:00 PM, [address], [facility] [address], [place], [address], Provider Name:Irwin Alva , 02/26/2025 03:00:00 PM, [address], [facility] [address], [place], [address], Progress Notes * EV ALMODOVARB:[birth year] (54 yo F)Acc No.[id number]:01/25/2025 Patient: MIRIAM DIXON Provider: TAMIKO BARRIENTOS :1970 A ge:54 Y S ex:Female Date:01/25/2025 [facility] Pcp:Tana Doran MD Subjective: * Chief Complaints: * 1 . Follow-up. * HPI: D epression screening: PHQ-9 L ittle interest or pleasure in doing things?Nearly every day F eeling down, depressed, or hopeless N early every day T rouble falling or staying asleep, or sleeping too much N early every day F eeling tired or having little energy N early every day P oor appetite or overeating N early every day F eeling bad about yourself or that you are a failure, or have let yourself or your family down N early every day T rouble concentrating on things, such as reading the newspaper or watching television N early every day M oving or speaking so slowly that other people could have noticed; or the opposite, being so fidgety or restless that you have been moving around a lot more than usual N early every day T houghts that you would be better off or of hurting yourself in some way S everal days (Consider Suicide Assessment Risk) T otal Score 2 5 I nterpretation S evere Depression Intervention D epression Screening Findings P ositve F oll[facility] for [facility], Patient follow-up to return when and if necessary S uicide Risk Assessment Performed 0 01/25/2025 A dditional Evaluation for Depression P sychiatric interview and evaluation N richard of the standardized tool used for adult depression screening: P atient Health Questionnaire (PHQ-9) H istory of Presenting Problem: Anxiety O nset: years ago, Associated Symptoms: fidgety, insomnia, shakey, Aggravated by: work stress. Lisha/Hypomania h ad a night was wide awake, couldn't go to sleep, felt like was buzzing. Mood lability b ipolar d/o. Endorses anger, irritability, feeling overwhelmed. Sleep disturbance u nable to fall asleep. Suicidal ideation h as thoughts of , no suicide plan or intention H ad a nephew complete suicide by hanging.? Psychotherapy d nico alva. Memory f eels she has to force her words out. . P ast Medication history: lithium- wt gain, seroquel- hypersomnia, vraylar. * Medical History: P roblems: Bipolar disorder, Contusion of knee, Generalized anxiety disorder, Implantation of joint prosthesis, Knee pain, Long-term drug therapy, Neuroleptic-induced tardive dyskinesia, Osteoarthritis, Persistent insomnia, Posttraumatic stress disorder, ,. * Social History: M igrated Social History: M igrated Social History: Alcohol Intake: Occasional 09/03/2018,Tobacco Years: Never smoker 09/03/2018. * Medications: T aking Divalproex Sodium 250 MG Tablet Delayed Release 1 tablet Oral once daily , Taking Zolpidem Tartrate ER 12.5 MG Tablet Extended Release 1 tablet at bedtime Oral Once a day As needed, Taking LORazepam 0.5 MG Tablet 1 tablet Oral twice a day , Taking Caplyta 42 MG Capsule 1 capsule Orally once daily , Taking [place] Carbonate 300 MG Capsule 1 capsule Orally Twice a day , Taking levETIRAcetam 1000 MG Tablet Oral , Taking Liothyronine Sodium 5 MCG Tablet Oral , Taking ProAir HFA 108 (90 Base) MCG/ACT Aerosol Solution Inhalation , Taking Breztri Aerosphere 160-9-4.8 MCG/ACT Aerosol Inhalation , Notes to Pharmacist: *Reorder from [employer] for eRx and Interaction Alerts*, Taking BUDESONIDE-FORMOTEROL HFA 160 MCG-4.5 MCG/ACTUATION AEROSOL INHALER , Notes to Pharmacist: *Reorder from [facility] for eRx and Interaction Alerts*, Taking Ipratropium-Albuterol 0.5-2.5 (3) MG/3ML Solution Inhalation , Taking Levothyroxine Sodium 200 MCG Tablet Oral , Taking Linzess 290 MCG Capsule Oral , Taking Escitalopram Oxalate 20 MG Tablet TAKE 1 TABLET BY MOUTH EVERY DAY FOR 90 DAYS , Taking [place] Carbonate 150 MG Capsule 1 capsule Orally once a day take in the morning, Notes to Pharmacist: decrease morning dose to 150mg x 14 days then stop morning lithium dose, Taking [place] Carbonate 300 MG Capsule 1 capsule at bedtime Orally Once a day , Discontinued Austedo 12 mg Tablet 2 tablets Oral twice daily , Medication List reviewed and reconciled with the patient * Allergies: T ETANUS VACCINES AND TOXOID: Allergy - Onset Date 01/21/2024, Penicillins: Allergy - Onset Date 01/21/2024. Objective: * Vitals: W t:239lbs, Wt-k.41 kg, Ht: 63.00 in, Ht-cm: 160.02 cm, BMI:42.33Index, Body Surface Area: 2.19. * Examination: P sychiatry: Appearance: w ell-groomed, well-nourished, obese, anxious.? Abnormal body movements: AIMS score 33. Affect / mood: a ppropriate. Attitude: c ooperative. Homicidal ideation: n one. Suicidal ideation: p assive; denies active SI, plan, or intent. Assessment: * Assessment: 1. G eneralized anxiety disorder - F41.1 (Primary) 2 . E ncounter for screening for depression - Z13.31 3 . B ipolar disorder with depression - F31.9 ? 4 . O ther insomnia - G47.09 5 . P ost-traumatic stress disorder, unspecified - F43.10 6 . D rug induced subacute dyskinesia - G24.01 ?7. E ncounter for screening for cardiovascular disorders - Z13.6 8 . 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 B ipolar disorder with depression Continue Divalproex Sodium Tablet Delayed Release, 250 MG, 1 tablet, Oral, once daily, 90 days, 90, Refills 1; R efill Caplyta Capsule, 42 MG, 1 capsule, Orally, once daily, 30 days, 30, Refills 1; R efill [place] Carbonate Capsule, 300 MG, 1 capsule at bedtime, Orally, Once a day, 30 days, 30 Capsule, Refills 1. Notes: stop vraylar 3. O ther insomnia Refill Zolpidem Tartrate ER Tablet Extended Release, 12.5 MG, 1 tablet at bedtime, Oral, Once a day As needed, 30 days, 30 Tablet, Refills 1. Notes: zolpidem er 12.5mg hs 4. D rug induced subacute dyskinesia Start Austedo XR Tablet Extended Release 24 Hour, 48 MG, 1 tablet, Orally, Once a day, 30 day(s), 30. Notes: Austedo 48 mg daily * Procedure Codes: 9 6127 BEHAV ASSMT W/SCORE & DOCD/STAND INSTRUMENT, 1036F TOBACCO NON-USER, 26840 BEHAV ASSMT W/SCORE & DOCD/STAND INSTRUMENT, G8431 CLIN DEPRESSION SCREEN DOC, G8431 CLIN DEPRESSION SCREEN DOC * Follow Up: 3 Weeks (Reason: f/u bipolar d/o) * Billing Information: * Visit Code: 31668 OFFICE OUTPATIENT VISIT 25 MINUTES DETAILED HISTORY AND EXAM/MODERATE MEDICAL DECISION MAKING. * Procedure Codes: 37345 BEHAV ASSMT W/SCORE & DOCD/STAND INSTRUMENT. 1036F TOBACCO NON-USER. 25644 BEHAV ASSMT W/SCORE & DOCD/STAND INSTRUMENT. G8431 CLIN DEPRESSION SCREEN DOC. G8431 CLIN DEPRESSION SCREEN DOC. * Electronic signature of TAMIKO Hernandez on 01/30/2025 at 12:35 PM CDT Sign off status: Pending * Provider: TAMIKO BARRIENTOS Date: 0 01/25/2025 Generated for Karla cantu/Mil/Carmen on: 0 01/30/2025 12:35 PM CDT History and Physical Notes * HPI (History of Present Illness) Category Sub-Category Detail Notes Category Not es History of Presenting Problem Anxiety Onset: years ago, Associated Symptoms: fidgety, insomnia, shakey, Aggravated by: work stress Suicidal ideation has thoughts of deat h, no suicide plan or intention Had a nephew complete suicide by hanging Sleep disturbance unable to fall aslee p Mood lability bipolar d/o. Endorse s anger, irritability, feeling overwhelmed Psychotherapy irwin avla Memory feels she has to for ce her words out. Lisha/Hypomania had a night was wide awake, couldn't go to sleep, felt like was buzzing Depression screening PHQ-9 Little inte rest or pleasure in doing things: Nearly every day Feeling down, depressed, or hopeless: Ne nata every day Trouble falling or staying asleep, or sl eeping too much: Nearly every day Feeling tired or having little energy: N early every day Poor appetite or overeating: Nearly ever y day Feeling bad about yourself o r that you are a failure, or have let yourself or your family down: Nearly every day Trouble concentrating on thi ngs, such as reading the newspaper or watching television: Nearly every day Moving or speaking so slowly that other people could have noticed; or the opposite, being so fidgety or restless that you have been moving around a lot more than usual: Nearly every day Thoughts that you would be b aylin off or of hurting yourself in some way: Several days (Consider Suicide Assessment Risk) Total Score: 25 Interpretation: Severe Depression Intervention Depression Screening Findings: P ositve Follow-Up for Depression: [facility] treatment assessment, Patient follow-up to return when and if necessary Suicide Risk Assessment Performed: 01/25 Additional Evaluation for Depression: Ps ychiatric interview and evaluation Name of the standardized too l used for adult depression screening:: Patient Health Questionnaire (PHQ-9) Examination Category Sub-Category Detail Notes Category Not es Psychiatry Appearance: well-groomed, well-nourished , obese, anxious Attitude: cooperative Abnormal body movements: 01/25/25 AIMS sc ore 33 Affect / mood: appropriate Suicidal ideation: passive; denies acti ve SI, plan, or intent Homicidal ideation: none
--- OUTSIDE RECORDS SUMMARY | 2025-01-30 12:36 | XMS_ITS | Encounter Summary ---
Author Organization [facility] Address [address] [place] [address] Care Team Providers Care Button Buttonhole Marker Name Role Phone Oren Raymond Primary Care Provider [phone] Encounter Details Date Type Department Care Team (Late st Contact Info) Description 04/08/2019 Lab Requisition [facility] [address] [place] [address] Padmini Smith MD [address] [place] [address] Gross hematuria Social History Tobacco Use Types Packs/Day Years Used Date Smoking Tobacco: Never Assessed Comments Unknown Sex and Gender Information Value Date Recorded Sex Assigned at Not on file 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 Gender Identity Not on file Sexual Orientation Not on file documented as of this encounter Plan of Treatment Not on file documented as of this encounter Procedures Procedure Name Priority Date/Time Associated Diagnosis Comments PATHOLOGY TISSUE Routine 04/06/2019 11:1 7 AM CDT Gross hematuria documented in this encounter Results * PATHOLOGY TISSUE (04/06/2019 11:17 AM CDT) Case Report Surgical Pathology Report Case: [id number] Authorizing Provider: Padmini Smith MD Collected: 04/06/2019 11:17 AM Pathologist: Jose Miguel Gaitan MD Received: 04/08/2019 11:17 AM Specimen: Urine 04/09/2019 10:09 AM [facility] Final Diagnosis Urine, voided, Thin Prep, cytology: - Hypocellular for urothelial cells - Negative for high-grade urothelial neoplasia - Benign squamous cells are seen in abundance 04/09/2019 10:09 AM [facility] Microscopic Description and Comment Performed 04/09/2019 10:09 AM [facility] Clinical History Hematuria; cystoscopy negative. 04/09/2019 10:09 AM [facility] Gross Description Prepared slide (1) received from [facility] labeled [id number], Andrea Grimes . All material will be returned. 04/09/2019 10:09 AM [facility] Disclaimer The performance characteristics of all immunohistochemical and indirect immunofluorescence stains (if any) cited in this report were determined by the Histopathology Laboratory of [facility]. Some of these tests were [...] the attending (teaching) pathologist. 04/09/2019 10:09 AM [facility] Embedded Images 04/09/2019 10:09 AM [facility] Pathology/Cytolo gy URINE / Unknown 04/06/2019 11:17 AM CDT 04/08/2019 11:17 AM CDT us Padmini Smith MD LAB - PATHOLOGY/CYTOLOGY ORDERAB LES Final Result [facility] [address] [phone] documented in this encounter Visit Diagnoses Diagnosis Gross hematuria documented in this encounter Care Teams Button Buttonhole Marker Relationship Specialty Start Date End Date Oren Raymond DO [address] [place] [address] PCP - General 04/07/19 documented as of this encounter
--- NOTE | 2025-02-02 08:56 | WPDNEUROLOGY ---
Neurology EEG Report General Information Date of Study: 01/29/25 TEST EEG DIAGNOSIS Personal history of healed physical injury and trauma. CONDITION OF RECORDING Awake drowsy and asleep. EEG NUMBER [id number] CLINICAL HISTORY Patient reports she had a TIA about 12 years ago and since then she has episodes of spacing out, lasting between a few minutes up to a minute. EEG DESCRIPTION Basic resting occipital frequency consists of well-organized low to medium voltage 9 to 11 hertz per 2nd alpha admixed with low-voltage 15 to 18 hertz per 2nd beta. Low-voltage beta activity seen diffusely admixed with waxing and waning posterior alpha rhythm during drowsiness admixed with 5 to 7 hertz per 2nd theta activity. Bilateral symmetrical sleep activity seen with a mixture of beta alpha and theta activity evolving into bilateral symmetrical sleep spindles. Photic stimulation produced normal drive hyperventilation not done. Non paroxysmal. Nonfocal. Nonlateralizing. IMPRESSION Normal record, clinical correlation recommended as normal record does not rule out the possibility of the seizures .
== END 2025-01-29 11:14 | disposition home or self-care (01) ==
LOC: ANHNEURO 11:14
PROVIDERS: PCP Family Medicine; Visit Provider Psychiatry & Neurology Neurology
DX: Z87.820 Personal history of traumatic brain injury (principal)
CPT/HCPCS: 95816

== ENCOUNTER 2025-07-12 08:20 | Emergency (ER) | payer BC, SELFPAY ==
--- NOTE | 2025-07-12 08:21 | ED.URI ---
HPI - URI/Sore Throat General Chief Complaint: Upper Respiratory Infection Stated Complaint: Sore Throat/Bodyaches Time Seen by Provider: 07/12/25 08:21 Source: patient Mode of arrival: ambulatory Limitations: no limitations History of Present Illness HPI Narrative: Patient is a 55-year-old female who presents with 4 days of fever, body aches, sore throat, cough, nasal drainage. Family member has similar symptoms. Patient states she thinks her fever broke last night and has not had 1 this morning. Denies any nausea, vomiting. Has been taking Tylenol, ibuprofen and other [id number] treatment with no relief Related Data Home Medications ?Medication ?Instructions ?Recorded ?Confirmed ?Last Taken ?Type lorazepam 0.5 mg tablet 0.5 mg PO TID PRN Anxiety 01/31/23 06/21/25 Unknown History deutetrabenazine 12 mg tablet 12 mg PO DIRECTED 03/25/24 06/21/25 Unknown History (Austedo) lumateperone 10.5 mg capsule 10.5 mg PO DAILY 05/12/24 06/21/25 Unknown History (Caplyta) lithium carbonate 300 mg capsule mg 09/28/24 06/21/25 Unknown History quetiapine 150 mg tablet 150 mg PO DAILY 06/21/25 06/21/25 Unknown History Allergies Allergy/AdvReac Type Severity Reaction Status Date / Time tetanus immune globulin Allergy Mild HIVES AND Verified 07/12/25 08:37 SWELLING Penicillins Allergy Unknown Rash Verified 07/12/25 08:37 Tetanus Vaccines and Toxoid Allergy Unknown Rash Verified 07/12/25 08:37 erythromycin base AdvReac Mild NAUSEA/VOMI Verified 07/12/25 08:37 TING IMMUNIZATIONS Allergy Unknown RASH Uncoded 12/30/24 13:09 Mold (Blue) Cheese Allergy Unknown .Hives and Uncoded 12/30/24 13:09 swelling Review of Systems Review of Systems: All systems reviewed & are unremarkable except as noted in HPI and below Constitutional: Constitutional: Denies chills, Denies fatigue, Reports fever(s), Denies headache(s), Denies malaise and Denies weakness Eyes: Eyes: Denies blurry vision, Denies itchy eyes and Denies loss of vision ENT: Denies otalgia, Denies headache(s), Reports nasal congestion, Denies sinus pain and Reports sore throat Cardiovascular: Cardiovascular: Denies chest pain, Denies irregular heart rhythm and Denies dyspnea Respiratory: Respiratory: Reports cough and Denies dyspnea Gastrointestinal: Gastrointestinal: Denies abdominal pain, Denies diarrhea, Denies nausea and Denies vomiting Musculoskeletal: Musculoskeletal: Denies back pain, Reports myalgias and Denies arthralgias Integumentary/Breasts: Skin/Breast: Denies pruritus and Denies rash Neurologic: Denies headache(s), Denies loss of vision and Denies weakness Psychiatric: Psychiatric: Reports no additional psychiatric complaints Endocrine: Endocrine: Denies fatigue Allergic/Immunologic: Allergic/Immunologic: Denies itchy eyes PMFSH Past Medical History Medical History COVID-19 Breakthrough seizure PCOS (polycystic ovarian syndrome) Seizure disorder Obesity Slow rate of speech TAM (obstructive sleep apnea) With CPAP use Metabolic syndrome Essential (primary) hypertension Constipation by delayed colonic transit Congenital hernia of foramen of [place] Concussion syndrome Atrial tachycardia Anemia Hypothyroidism (acquired) Bilateral carpal tunnel syndrome Shingles Bipolar disorder Anxiety and depression Interstitial cystitis GERD (gastroesophageal reflux disease) Epilepsy TIA (transient ischemic attack) Asthma Seasonal allergies Migraine Surgical History Surgical History H/O carpal tunnel repair bilateral History of cholecystectomy History of bunionectomy History of left knee replacement History of foot surgery History of thyroidectomy, subtotal H/O arthroscopy of left knee H/O dilation and curettage Hx of gastric bypass Family History Family History Sibling Cerebrovascular accident, Onset Age: 19 Multiple sclerosis Father Hypertension Coronary artery disease Hyperlipidemia Mother Hypertension Heart disease Hyperlipidemia Diabetes mellitus Grandparent Family history of malignant neoplasm of cervix Family history of malignant neoplasm of breast Social History Social History Social History: The patient has been with her since 2005 they we will give when the lost changed. They have 3 medium to large his dogs at home. The patient works for the [employer]. She is lifelong nonsmoker but had history of heavy secondhand smoke exposure until she was a teenager. She never drinks alcohol and does not have any history of illicit substance use. 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 There is no relevant family history pertinent to the presenting complaint. Exam Const: General: cooperative, healthy appearing, comfortable, no acute distress and well nourished Nutritional Appearance: well nourished Orientation/consciousness: patient oriented x3 Limitations: no limitations HENMT: Head: normal to inspection, normocephalic and atraumatic Ears: hearing grossly normal bilaterally, external ears normal, TM's normal bilaterally, EAC's normal and no periauricular adenopathy Face/Nose/Sinus: Normal external nose present, Abnormal mucous membranes and turbinates present erythematous bilateral and diffuse, normal facial exam, sinuses nontender and face symmetric Face and sinus: normal facial exam, sinuses nontender and face symmetric Mouth: Yes Normal oral and palatal mucosa present, Yes lip normal, Yes tongue normal, Yes Normal salivary glands and ducts present, Yes oropharynx normal and Yes moist mucous membranes Teeth and gingiva: dentition normal Throat: posterior oropharynx normal, tonsils normal and uvula midline Eyes: General: appearance normal, both eyes and all related structures Alignment and Position: alignment normal and position normal Periorbital: periorbital findings normal Eyelids: eyelids normal Pupils: Equal, round and reactive pupils present Neck: Neck: normal visual inspection, full ROM, no lymphadenopathy and supple Chest: Chest palpation & inspection: normal inspection of the chest and normal palpation of entire chest wall Resp: Effort & Inspection: normal respiratory effort and able to speak in complete sentences Auscultation: clear to auscultation bilaterally, no crackles, no rales, no rhonchi and no wheezes Cardio: Rate: regular rate Rhythm: regular rhythm Heart sounds: S1 normal heart sound present and S2 normal heart sound present GI: Inspection: normal to inspection Skin: General skin exam: normal color and no rashes or lesions noted Neuro: General: patient oriented x3 and moves all extremities Cranial nerves: Yes Equal, round and reactive pupils present Speech: normal speech Gait exam (Neuro): Normal gait present Extrem: General: normal to inspection, full ROM and no edema Psych: Appearance: grossly normal and well kempt Mental Status: mental status grossly normal Speech and movement: Normal speech and movement present Affect: normal affect Attitude: cooperative Thought process: Normal thought process present Course Course Emergency Course: Discharge instructions reviewed with patient, as well as provided in writing per nursing staff. The instructions also include specific and strict return/GO TO THE ER as well as f/u information. All questions have been answered, and the patient deny any further questions with discharge and discharge plan. Portions of this record may have been created with voice recognition software Level of Care: Express Care Visit Vital Signs Vital signs: Vital Signs Temperature 36.3 C L 07/12/25 08:35 Pulse Rate 70 07/12/25 08:35 Respiratory Rate 16 07/12/25 08:35 Blood Pressure 109/49 L 07/12/25 08:35 Pulse Oximetry 100 07/12/25 08:35 Oxygen Delivery Room Air 07/12/25 08:35 Temperature 36.3 C L 07/12/25 08:35 Pulse Rate 70 07/12/25 08:35 Respiratory Rate 16 07/12/25 08:35 Blood Pressure 109/49 L 07/12/25 08:35 Pulse Oximetry 100 07/12/25 08:35 Oxygen Delivery Room Air 07/12/25 08:35 Reviewed MDM - URI/Sore Throat MDM Narrative Medical decision making narrative: Pt well hydrated appearing, in no respiratory distress, hemodynamically stable. Recommend supportive care. The patient is stable at time of discharge the clinical impression was discussed and the patient was given the opportunity to ask questions, which were addressed as completely as possible given the information available at present. Anticipatory guidance and return to care precautions were discussed and the importance of primary care follow-up was stressed and encouraged. The patient voiced understanding of the plan, indications to return, and the need for follow-up. Exam findings show no acute concerns or changes Patient is appropriate for outpatient treatment and follow-up. Differential diagnosis considered: Oleary virus, strep pharyngitis, allergic rhinitis, upper respiratory tract infection, sinusitis, rhinosinusitis, nasopharyngitis. viral pharyngitis, otitis media, otitis externa, otitis effusion, foreign body, cerumen impaction, viral syndrome, and influenza.? Medical Records Attestation: I reviewed the patient's medical records. Lab Data Attestation: I reviewed the patient's lab results. Labs: Lab Results 07/12/25 Range/Units 08:32 POC Influenza A Ag Positive (Negative) POC Influenza B Ag Negative (Negative) POC SARS CoV-2 Ag Negative (Negative) POC Grp A Strep Screen Negative (Negative) Discharge Plan Discharge Clinical Impression: Influenza Patient Disposition: Home Condition: Stable Instructions: Influenza (ED) Additional Instructions: Were positive for influenza A. Your Covid is negative. Your strep was also negative Your symptoms are due to a viral illness, which is not treated with antibiotics. Viral symptoms can be present for up to a few weeks. -For fever/pain, you may take: Tylenol 650-1000mg by mouth every 4-6 hours. Do not exceed 4000mg in 24 hours. Advil (Ibuprofen) 600 mg by mouth every 6 hours. Do not exceed 2400mg in 24 hours. 8 AM: Tylenol 11 AM: Ibuprofen 2 PM: Tylenol 5 PM: Ibuprofen 8 PM: Tylenol 11 PM: Ibuprofen 2 AM: Tylenol 5 AM: Ibuprofen -Antihistamine medication such as Benadryl/Zyrtec at night and Claritin/Priscila during the day can help improve symptoms. -Use Flonase twice a day for 5 days then daily to help reduce the inflammation and dry up your sinuses. -You can also use Sudafed behind the pharmacy counter(12 or 24 hour). Be sure to drink plenty of water with these medications at least 8 ounces with every dose and it is important to drink 8 to 10 glasses of water per day. Water is a natural decongestant -Eat and drink things that are easy to swallow, like tea or soup, or popsicles. -Oral rinses such as: Salt water gargles and/or may use topical anesthetic (eg. Chloraseptic spray) or lozenges to relieve dryness or throat pain). -Frequent hand washing or hand process control board operator is one of the best ways to prevent spread of infection. -Using a vaporizer or humidifier at night will also help thin secretions and help with coughing up phlegm. -Follow up with primary care provider in 3-5 days if condition is not improving - For new or worsening symptoms go directly to the nearest ER Patient Language: Montserratian Prescriptions: New benzonatate 100 mg capsule 100 mg PO BID PRN (Reason: cough) Qty: 14 0RF ibuprofen 600 mg tablet 600 mg PO TID PRN (Reason: fever or pain) Qty: 30 0RF fluticasone propionate [Flonase Allergy Relief] 50 mcg/actuation spray,suspension 1 spray intranasal DAILY Qty: 16 0RF Rx Instructions: administer into each nostril No Action Austedo 12 mg tablet 12 mg PO DIRECTED lithium carbonate 300 mg capsule albuterol sulfate [Ventolin HFA] 90 mcg/actuation HFA aerosol inhaler 2 puff inhalation QID PRN (Reason: shortness of breath or wheezing) Qty: 8.5 0RF albuterol sulfate 90 mcg/actuation HFA aerosol inhaler 2 puff inhalation Q4-6H PRN (Reason: shortness of breath or wheezing) 30 Days Qty: 8.5 0RF lorazepam 0.5 mg tablet 0.5 mg PO TID PRN (Reason: Anxiety) nystatin 100,000 unit/gram powder 1 applic topical BID Qty: 30 2RF Caplyta 10.5 mg capsule 10.5 mg PO DAILY quetiapine 150 mg tablet 150 mg PO DAILY levetiracetam 1,000 mg tablet 1,500 mg PO BID Qty: 180 3RF Rx Instructions: takes 1500 mg total BID zonisamide 100 mg capsule See Rx Instructions .ROUTE .COMPLEX Qty: 270 2RF Dose Instruction: TAKE 3 CAPS BY MOUTH DAILY Rx Instructions: TAKE 3 CAPS BY MOUTH DAILY divalproex 500 mg tablet extended release 24 hr 1,500 mg PO HS Qty: 270 3RF sumatriptan succinate [Imitrex] 100 mg tablet See Rx Instructions PO .COMPLEX Qty: 14 6RF Rx Instructions: take 1 tab at onset of headache; if no relief, may repeat 1 tab after at least 2 hrs; max = 2 tabs/24 hrs PO may be combined with naproxen 500 mg for better results ipratropium-albuterol 0.5 mg-3 mg(2.5 mg base)/3 mL solution for nebulization 3 ml INHALATION Q4H PRN (Reason: wheezing) Qty: 180 3RF Linzess 290 mcg capsule See Rx Instructions .ROUTE .COMPLEX Qty: 90 0RF Dose Instruction: TAKE 1 CAPSULE BY MOUTH EVERY DAY Rx Instructions: TAKE 1 CAPSULE BY MOUTH EVERY DAY Breztri Aerosphere 160-9-4.8 mcg/actuation HFA aerosol inhaler See Rx Instructions .ROUTE .COMPLEX Qty: 10.7 0RF Dose Instruction: 2 INHALED BY MOUTH TWICE A DAY Rx Instructions: 2 INHALED BY MOUTH TWICE A DAY levothyroxine 150 mcg tablet See Rx Instructions .ROUTE .COMPLEX Qty: 30 0RF Dose Instruction: TAKE 1 TABLET BY MOUTH DAILY Rx Instructions: TAKE 1 TABLET BY MOUTH DAILY furosemide 40 mg tablet 40 mg PO DAILY Qty: 90 0RF naproxen 500 mg tablet 500 mg PO BID PRN (Reason: pain) Qty: 60 2RF Follow-up/Referrals: Polo Harris MD [Primary Care Provider, Family Practice] - 3 Days Time of Disposition: 09:00
[2025-07-12 08:35] VITALS: BP 109/49; PULSE 70; RESP 16; TEMP 36.3; O2SAT 100
[2025-07-12 08:54] LABS: EDCOVIDSCREEN Negative (Negative)
[2025-07-12 08:55] LABS: EDINFLUASCREEN Positive (Negative); EDINFLUBSCREEN Negative (Negative); EDSTREPNEGPOS1 Negative (Negative)
== END 2025-07-12 09:04 | disposition home or self-care (01) ==
PROVIDERS: Emergency Provider Nurse Practitioner Family; PCP Family Medicine
DX: J10.1 Influenza due to other identified influenza virus with other respiratory manifestations (principal); Z20.822 Contact with and (suspected) exposure to COVID-19; G40.909 Epilepsy, unspecified, not intractable, without status epilepticus; E28.2 Polycystic ovarian syndrome; I10 Essential (primary) hypertension; E03.9 Hypothyroidism, unspecified; K21.9 Gastro-esophageal reflux disease without esophagitis; J45.909 Unspecified asthma, uncomplicated; N30.10 Interstitial cystitis (chronic) without hematuria; E88.810 Metabolic syndrome; F41.9 Anxiety disorder, unspecified; F31.9 Bipolar disorder, unspecified; E66.9 Obesity, unspecified; Z68.35 Body mass index [BMI] 35.0-35.9, adult; Z86.73 Personal history of transient ischemic attack (TIA), and cerebral infarction without residual deficits; Z86.16 Personal history of COVID-19
CPT/HCPCS: 87081; 87426; 87804; 87880; 99213; G0463

== ENCOUNTER 2025-07-15 09:19 | Emergency (ER) | payer BC, SELFPAY ==
--- OUTSIDE RECORDS SUMMARY | 2025-05-24 11:00 | XMS_ITS ---
Author Organization [facility] [facility] Address [facility] [address] [address] Care Team Providers Care Assistant Professor Of Religion Name Role Phone Andreea CHAMPION, Tana Primary Care Provider Pedro Hoffman Unavailable [phone] Xuan Alva Unavailable [phone] REASON FOR VISIT Therapy Visit Social History Sex Assigned At : Social History Observation Description Sex Assigned At Female Encounters Encounter Location Date Provider Diagnosis [facility] [place] [address] [facility] [address] [place] [address] 05/24/2025 Xuan Alva Plan Of Treatment No Information Progress Notes * NISHI SORENSOLEDAD:[birth year] (55 yo F)Acc No.[id number]:05/24/2025 Patient: SOREN DIXONA Provider: Ezio ALVA LCSW :1970 A ge:54 Y S ex:Female Date:05/24/2025 [address] [facility] [facility] Pcp:aTna Doran MD Data: * Chief Complaints: * T herapy Visit Billing Information: * Procedure Codes: * Electronic signature of Flavia Alva LCSW on 07/15/2025 at 10:12 AM CDT Sign off status: Pending Signatures: No Ad Hoc Signature Added * Provider: Ezio ALVA LCSW Date: 0 05/24/2025 Generated for Printi ng/Mil/eTransmitting on: 1 10:12 AM CDT
--- OUTSIDE RECORDS SUMMARY | 2025-06-22 11:15 | XMS_ITS ---
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 Name Role Phone Andreea CHAMPION, Tana Primary Care Provider Pedro Hoffman Unavailable [phone] Allergies Allergen (clinical drug ingredient) Drug/Non Drug Allergy documented on EMR Reaction Allergy Type Onset Date Status TETANUS VACCINES AND TOXOID (uncoded) Unknown Allergy 01/21/2024 Active Substance with penicillin structure and antibacterial mechanism of action (substance) Penicillins Unknown Drug Allergy 01/21/2024 Active REASON FOR VISIT 3 week f/u and genesite Medications Medication SIG (Take, Route, Frequency, Duration) Notes Start Date End Date Status Divalproex Sodium ER 250 MG Tablet Extended Release 24 Hour 1 tablet Orally Once a day; Duration: 30 days 06/22/2025 07/22/2025 Active Ingrezza 40 MG Capsule 1 capsule Orally Once a day; Duration: 7 days samples given 06/22/2025 Active QUEtiapine Fumarate ER 50 MG Tablet Extended Release 24 Hour 1 tablet in the evening Orally Once a day; Duration: 7 days 06/22/2025 Active Ingrezza 80 MG Capsule 1 capsule Orally Once a day; Duration: 30 day(s) 06/22/2025 Active hydrOXYzine HCl 25 MG Tablet 1 tablet Orally three times a day; Duration: 90 days As needed 06/22/2025 Active Caplyta 42 MG Capsule 1 capsule Orally once daily; Duration: 30 days 06/22/2025 Active [place] Carbonate 300 MG Capsule 1 capsule at bedtime Orally Once a day; Duration: 30 days 06/22/2025 Active LORazepam 0.5 MG Tablet 1 tablet Oral twice a day; Duration: 30 days 06/22/2025 Active QUEtiapine Fumarate ER 150 MG Tablet Extended Release 24 Hour TAKE 1 TABLET BY MOUTH EVERY DAY IN THE EVENING; Duration: 90 Active Invega 3 MG Tablet Extended Release 24 Hour 1 tablet in the morning Orally Once a day; Duration: 30 day(s) 06/22/2025 Active Divalproex Sodium ER 250 MG Tablet Extended Release 24 Hour TAKE 1 TABLET BY MOUTH EVERY DAY; Duration: 30 Active [place] Carbonate 300 MG Capsule TAKE 1 CAPSULE BY MOUTH EVERYDAY AT BEDTIME; Duration: 90 Active Zolpidem Tartrate ER 12.5 MG Tablet Extended Release 1 tablet at bedtime Oral Once a day; Duration: 30 days As needed 06/22/2025 08/21/2025 Active QUEtiapine Fumarate ER 50 MG Tablet Extended Release 24 Hour TAKE 1 TABLET BY MOUTH EVERY DAY IN THE EVENING; Duration: 90 Active [place] Carbonate 150 MG Capsule 1 capsule Orally once a day; Duration: 14 days take in the morning decrease morning dose to 150mg x 14 days then stop morning lithium dose 12/16/2024 Active Escitalopram Oxalate 20 MG Tablet TAKE 1 TABLET BY MOUTH EVERY DAY; Duration: 90 Active Linzess 290 MCG Capsule Oral 01/21/2024 Active LORazepam 0.5 MG Tablet TAKE 1 TABLET BY MOUTH TWICE A DAY; Duration: 30 04/22/2025 Active BUDESONIDE-FORMOTEROL HFA 160 MCG-4.5 MCG/ACTUATION AEROSOL INHALER *Reorder from [employer] for eRx and Interaction Alerts* 01/21/2024 Active Ipratropium-Albuterol 0.5-2.5 (3) MG/3ML Solution Inhalation 01/21/2024 Active ProAir HFA 108 (90 Base) MCG/ACT Aerosol Solution Inhalation 01/21/2024 Active Breztri Aerosphere 160-9-4.8 MCG/ACT Aerosol Inhalation *Reorder from [employer] for eRx and Interaction Alerts* 01/21/2024 Active Levothyroxine Sodium 200 MCG Tablet Oral 01/21/2024 Active levETIRAcetam 1000 MG Tablet Oral 01/21/2024 Active Liothyronine Sodium 5 MCG Tablet Oral 01/21/2024 Active Social History Tobacco Use: Social History Observation Description Date Details (start date - stop date) Never Smoker NA - NA Sex Assigned At : Social History Observation Description Sex Assigned At Female Social History Miscellaneous: Social Info Question Answer Notes Advance Care Planning Are you your own decision-maker Yes Do you have Power of Artificial Breast Fabricator for Health or Medi jett? No Tobacco Use: Social Info Question Answer Notes Tobacco Control (Standard) Tobacco use: Nonsmoker Additional Details Category Social Info Options Details Migrated Social History Migrated Social History Alcohol Intake: Occasional 09/03/2018,Tobacco Years: Never smoker 09/03/2018 Vital Signs Blood pressure systolic 96 mm Hg 06/22/20 25 Blood pressure diastolic 60 mm Hg 025 Heart Rate 74 /min 06/22/2025 Height 63.00 in 06/22/2025 Weight 191.8 lbs 06/22/2025 BMI 33.97 kg/m2 06/22/2025 Height-cm 160.02 cm 06/22/2025 Weight-kg 87 kg 06/22/2025 Encounters Encounter Location Date Provider Diagnosis [facility] [employer] [facility] [address] [place] [address] [address] [facility] [address] [place] [address] 06/22/2025 Pedro Mishra Bipolar disorder wit h depression F31.9 ; Other insomnia G47.09 ; Post-traumatic stress disorder, unspecified F43.10 ; Generalized anxiety disorder F41.1 ; 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 and On lobsterman drug therapy Z79.899 Assessments Encounter Date Diagnosis (ICD Code) Assessment Notes Treatment Notes Treatment Clinical Notes Section Notes 06/22/2025 Bipolar disorder with depression (ICD-10 - F31.9) 06/22/2025 Other insomnia (ICD-10 - G47.09) zolpidem er 12.5mg hs 06/22/2025 Post-traumatic stress disorder, unspecified (ICD-10 - F43.10) 06/22/2025 Generalized anxiety disorder (ICD-10 - F41.1) escitalopram 20mg daily, lorazepam 0.5mg BID prn 06/22/2025 Drug induced subacute dyskinesia (ICD-10 - G24.01) 06/22/2025 On fpc drug therapy (ICD-10 - Z79.899) 06/22/2025 Other Genesight test completed 06/02/25 Reduced folic acid conversion, recommend daily folic acid or Folate supplement Plan Of Treatment Medication Medication Name Sig Start Date Stop Date Notes Divalproex Sodium ER 250 MG Tablet Extended Release 24 Hour 1 tablet Orally Once a day; Duration: 30 days 06/22/2025 07/22/2025 Ingrezza 40 MG Capsule 1 capsule Orally Once a day; Duration: 7 days 06/22/2025 samples given QUEtiapine Fumarate ER 50 MG Tablet Extended Release 24 Hour 1 tablet in the evening Orally Once a day; Duration: 7 days 06/22/2025 Ingrezza 80 MG Capsule 1 capsule Orally Once a day; Duration: 30 day(s) 06/22/2025 QUEtiapine Fumarate ER 150 MG Tablet Extended Release 24 Hour 1 tablet in the evening Orally Once a day; Duration: 30 days 06/22/2025 Austedo XR 48 MG Tablet Extended Release 24 Hour 1 tablet Orally Once a day; Duration: 30 days 06/22/2025 hydrOXYzine HCl 25 MG Tablet 1 tablet Orally three times a day; Duration: 90 days 06/22/2025 Caplyta 42 MG Capsule 1 capsule Orally o nce daily; Duration: 30 days 06/22/2025 [place] Carbonate 300 MG Capsule 1 capsule at bedtime Orally Once a day; Duration: 30 days 06/22/2025 LORazepam 0.5 MG Tablet 1 tablet Oral tw ice a day; Duration: 30 days 06/22/2025 Invega 3 MG Tablet Extended Release 24 Hour 1 tablet in the morning Orally Once a day; Duration: 30 day(s) 06/22/2025 Zolpidem Tartrate ER 12.5 MG Tablet Extended Release 1 tablet at bedtime Oral Once a day; Duration: 30 days 06/22/2025 08/21/2025 Treatment Notes Assessment Notes Other insomnia zolpidem er 12.5mg h s Generalized anxiety disorder escitalopra m 20mg daily, lorazepam 0.5mg BID prn Other Genesight test completed 06/02/25 Reduced folic acid conversion, recommend daily folic acid or Folate supplement Next Appt Details Follow Up: 3 Weeks, Reason: History and Physical Notes * HPI (History of Present Illness) Category Sub-Category Detail Notes Category Not es History of Presenting Problem Depression screening done Depression screening PHQ-9 Little inte rest or pleasure in doing things: More than half the days Feeling down, depressed, or hopeless: Mo re than half the days Trouble falling or staying asleep, or sl eeping too much: Nearly every day Feeling tired or having little energy: N early every day Poor appetite or overeating: Not at all Feeling bad about yourself o r that you are a failure, or have let yourself or your family down: More than half the days Trouble concentrating on thi ngs, such as reading the newspaper or watching television: More than half the days Moving or speaking so slowly that other people could have noticed; or the opposite, being so fidgety or restless that you have been moving around a lot more than usual: More than half the days Thoughts that you would be b aylin off or of hurting yourself in some way: Not at all Total Score: 16 Interpretation: Moderately Severe Depres naida Intervention Depression Screening Findings: William lewis Follow-Up for Depression: [facility] health care management, Psychiatric follow-up Suicide Risk Assessment Performed: 06/22 __ date Depression Screening GAUTAM-7 (2018 Edition) Feelin g nervous, anxious, or on edge: Nearly every day Not being able to stop or control worryi ng: Nearly every day Worrying too much about different things : Nearly every day Trouble relaxing: Nearly every day Being so restless that it is hard to sit still: Nearly every day Becoming easily annoyed or irritable: Ne nata every day Feeling afraid as if something awful leo ht happen: Not at all Total GAUTAM-7 Score: 18 If you checked any problems, how difficult have they made it for you to do your work, take care of things at home, or get along with other people?: Extremely difficult Interpretation of Total: (15 and over) S evere Examination Category Sub-Category Detail Notes Category Not es Psychiatry Appearance: well-groomed Attitude: cooperative Abnormal body movements: constantly rubb ing her knees, rocking in chair Attention: good Affect / mood: anxious, depressed Suicidal ideation: none Homicidal ideation: none Memory status: no impairment noted Gait shuffled, slow Progress Notes * JOELLE ALMODOVAR:[birth year] (55 yo F)Acc No.[id number]:06/22/2025 Patient: MIRIAM DIXON Provider: TAMIKO BARRIENTOS :1970 A ge:55 Y S ex:Female Date:06/22/2025 Address:[address] [place], [facility] Pcp:Tana Doran MD Subjective: * Chief Complaints: * 3 week f/u and genesite * HPI: D epression screening: PHQ-9 L ittle interest or pleasure in doing things?More than half the days F eeling down, depressed, or hopeless M ore than half the days T rouble falling or staying asleep, or sleeping too much N early every day F eeling tired or having little energy N early every day P oor appetite or overeating N ot at all F eeling bad about yourself or that you are a failure, or have let yourself or your family down M ore than half the days T rouble concentrating on things, such as reading the newspaper or watching television M ore than half the days M oving or speaking so slowly that other people could have noticed; or the opposite, being so fidgety or restless that you have been moving around a lot more than usual M ore than half the days T houghts that you would be better off or of hurting yourself in some way N ot at all T otal Score 1 6 I nterpretation M oderately Severe Depression Intervention D epression Screening Findings P ositve F ollow-Up for Depression M ental health care management, Psychiatric follow-up S uicide Risk Assessment Performed 0 06/22/2025 __ date H istory of Presenting Problem: Depression screening done. D epression Screening: GAUTAM-7 (2018 Edition) F eeling nervous, anxious, or on edge N early every day N ot being able to stop or control worrying?Nearly every day W orrying too much about different things N early every day T rouble relaxing N early every day B eing so restless that it is hard to sit still N early every day B ecoming easily annoyed or irritable N early every day F eeling afraid as if something awful might happen N ot at all T otal GAUTAM-7 Score 1 8 I f you checked any problems, how difficult have they made it for you to do your work, take care of things at home, or get along with other people? E xtremely difficult I nterpretation of Total ( 15 and over) Severe * Medical History: Problems: Bipolar disorder Contusion of knee Generalized anxiety disorder Implantation of joint prosthesis Knee pain Long-term drug therapy Neuroleptic-induced tardive dyskinesia Osteoarthritis Persistent insomnia Posttraumatic stress disorder , Medical History Verified * Surgical History: Other 01/02/2024 Cataract surgery (42944) 01/02/2024 Removal of gallbladder (19175) 07/14/2015 Surgical History verified. * Hospitalization/Major Diagno stic Procedure: Denies Past Hospitalization. Hospitalization Verified. * Family History: F ather: Alcohol abuse . U nspecified Relation: Diabetes mellitus , Anxiety disorder , Alcohol abuse , Schizophrenia , Substance abuse . M aternal Grandmother: Anxiety disorder , Schizophrenia , Diabetes mellitus . F amily History Verified.. * Social History: T obacco Use: T obacco Control (Standard) T obacco use: N onsmoker M igrated Social History: M igrated Social History: Alcohol Intake: Occasional 09/03/2018,Tobacco Years: Never smoker 09/03/2018. M iscellaneous: A dvance Care Planning A re you your own decision-maker Y es D o you have Power of Artificial Breast Fabricator for Health or Medical? N o S ocial History Verified. * Medications: T akinglevETIRAcetam 1000 MG Tablet Oral Liothyronine Sodium 5 MCG Tablet Oral ProAir HFA 108 (90 Base) MCG/ACT Aerosol Solution Inhalation Breztri Aerosphere 160-9-4.8 MCG/ACT Aerosol Inhalation , Notes to Pharmacist: *Reorder from [employer] for eRx and Interaction Alerts*BUDESONIDE-FORMOTEROL HFA 160 MCG-4.5 MCG/ACTUATION AEROSOL INHALER , Notes to Pharmacist: *Reorder from [employer] for eRx and Interaction Alerts*Ipratropium-Albuterol 0.5-2.5 (3) MG/3ML Solution Inhalation Levothyroxine Sodium 200 MCG Tablet Oral Linzess 290 MCG Capsule Oral [place] Carbonate 150 MG Capsule 1 capsule Orally once a day take in the morning, Notes to Pharmacist: decrease morning dose to 150mg x 14 days then stop morning lithium doseEscitalopram Oxalate 20 MG Tablet TAKE 1 TABLET BY MOUTH EVERY DAY LORazepam 0.5 MG Tablet TAKE 1 TABLET BY MOUTH TWICE A DAY Zolpidem Tartrate ER 12.5 MG Tablet Extended Release 1 tablet at bedtime Oral Once a day As needed, stop date 07/23/2025LORazepam 0.5 MG Tablet 1 tablet Oral twice a day Caplyta 42 MG Capsule 1 capsule Orally once daily Austedo XR 48 MG Tablet Extended Release 24 Hour 1 tablet Orally Once a day QUEtiapine Fumarate ER 50 MG Tablet Extended Release 24 Hour TAKE 1 TABLET BY MOUTH EVERY DAY IN THE EVENING QUEtiapine Fumarate ER 150 MG Tablet Extended Release 24 Hour TAKE 1 TABLET BY MOUTH EVERY DAY IN THE EVENING Divalproex Sodium ER 250 MG Tablet Extended Release 24 Hour TAKE 1 TABLET BY MOUTH EVERY DAY [place] Carbonate 300 MG Capsule TAKE 1 CAPSULE BY MOUTH EVERYDAY AT BEDTIME hydrOXYzine HCl 25 MG Tablet 1 TABLET ORALLY THREE TIMES A DAY NEEDED 90 DAYS Medication List reviewed and reconciled with the patientTaking levETIRAcetam 1000 MG Tablet Oral Taking Liothyronine Sodium 5 MCG Tablet Oral Taking ProAir HFA 108 (90 Base) MCG/ACT Aerosol Solution Inhalation Taking Breztri Aerosphere 160-9-4.8 MCG/ACT Aerosol Inhalation , Notes to Pharmacist: *Reorder from [facility] for eRx and Interaction Alerts*Taking BUDESONIDE-FORMOTEROL HFA 160 MCG-4.5 MCG/ACTUATION AEROSOL INHALER , Notes to Pharmacist: *Reorder from [facility] for eRx and Interaction Alerts*Taking Ipratropium-Albuterol 0.5-2.5 (3) MG/3ML Solution Inhalation Taking Levothyroxine Sodium 200 MCG Tablet Oral Taking Linzess 290 MCG Capsule Oral Taking [place] Carbonate 150 MG Capsule 1 capsule Orally once a day take in the morning, Notes to Pharmacist: decrease morning dose to 150mg x 14 days then stop morning lithium doseTaking Escitalopram Oxalate 20 MG Tablet TAKE 1 TABLET BY MOUTH EVERY DAY Taking LORazepam 0.5 MG Tablet TAKE 1 TABLET BY MOUTH TWICE A DAY Taking Zolpidem Tartrate ER 12.5 MG Tablet Extended Release 1 tablet at bedtime Oral Once a day As needed, stop date 07/23/2025Taking LORazepam 0.5 MG Tablet 1 tablet Oral twice a day Taking Caplyta 42 MG Capsule 1 capsule Orally once daily Taking Austedo XR 48 MG Tablet Extended Release 24 Hour 1 tablet Orally Once a day Taking QUEtiapine Fumarate ER 50 MG Tablet Extended Release 24 Hour TAKE 1 TABLET BY MOUTH EVERY DAY IN THE EVENING Taking QUEtiapine Fumarate ER 150 MG Tablet Extended Release 24 Hour TAKE 1 TABLET BY MOUTH EVERY DAY IN THE EVENING Taking Divalproex Sodium ER 250 MG Tablet Extended Release 24 Hour TAKE 1 TABLET BY MOUTH EVERY DAY Taking [place] Carbonate 300 MG Capsule TAKE 1 CAPSULE BY MOUTH EVERYDAY AT BEDTIME Taking hydrOXYzine HCl 25 MG Tablet 1 TABLET ORALLY THREE TIMES A DAY NEEDED 90 DAYS Medication List reviewed and reconciled with the patient * Allergies: T ETANUS VACCINES AND TOXOID: Allergy - Onset Date 01/21/2024enicillins: Allergy - Onset Date 01/21/2024yesAllergies Verified. Objective: * Vitals: B P:96/60mm Hg, HR:74/min, Wt:191.8lbs, Wt-k kg, Ht: 63.00 in, Ht-cm: 160.02 cm, BMI:33.97Index, Body Surface Area: 1.96. * Examination: P sychiatry: Appearance: w ell-groomed. Abnormal body movements: c onstantly rubbing her knees, rocking in chair. Affect / mood: a nxious, depressed. Attention: g ood. Attitude: c ooperative. Gait s huffled, slow. Homicidal ideation: n one. Suicidal ideation: n one. Memory status: n o impairment noted. Assessment: * Assessment: 1. B ipolar disorder with depression - F31.9 (Primary) 2 . O ther insomnia - G47.09 3 . P ost-traumatic stress disorder, unspecified - F43.10 ?4. G eneralized anxiety disorder - F41.1 5 . D rug induced subacute dyskinesia - G24.01 6 . O n lobsterman drug therapy - Z79.899 Plan: * Treatment: 2. O ther insomnia Continue Zolpidem Tartrate ER Tablet Extended Release, 12.5 MG, 1 tablet at bedtime, Oral, Once a day As needed, 30 days, 30 Tablet, Refills 1. Notes: zolpidem er 12.5mg hs 3. G eneralized anxiety disorder Continue LORazepam Tablet, 0.5 MG, 1 tablet, Oral, twice a day, 30 days, 60 Tablet, Refills 1; C ontinue hydrOXYzine HCl Tablet, 25 MG, 1 tablet, Orally, three times a day As needed, 90 days, 270 Tablet, Refills 0. Notes: escitalopram 20mg daily, lorazepam 0.5mg BID prn 4. D rug induced subacute dyskinesia Stop Austedo XR Tablet Extended Release 24 Hour, 48 MG, 1 tablet, Orally, Once a day, 30 days, 30 Tablet; S tart Ingrezza Capsule, 40 MG, 1 capsule, Orally, Once a day, 7 days, 7 Capsule, Refills 0, Notes to Pharmacist: samples given; S tart Ingrezza Capsule, 80 MG, 1 capsule, Orally, Once a day, 30 day(s), 30. 5. O thers Notes: Genesight test completed 06/02/25 Reduced folic acid conversion, recommend daily folic acid or Folate supplement * Procedure Codes: 1 036F TOBACCO [id number] BEHAV ASSMT W/SCORE & DOCD/STAND INSTRUMENT * Preventive Medicine: Screenings: D epression screening Have you had a recent depression screening? Y es * Follow Up: 3 Weeks Billing Information: * Visit Code: 30407 OFFICE OUTPATIENT VISIT 25 MINUTES DETAILED HISTORY AND EXAM/MODERATE MEDICAL DECISION MAKING. * Procedure Codes: 1036F TOBACCO NON-USER. 97638 BEHAV ASSMT W/SCORE & DOCD/STAND INSTRUMENT. * Electronic signature of TAMIKO Hernandez on 07/15/2025 at 10:12 AM CDT Sign off status: Pending * Provider: TAMIKO BARRIENTOS Date: 0 06/22/2025 Generated for Karla cantu/Mil/Carmen on: 1 10:12 AM CDT
[2025-07-15] VITALS (9 sets, daily range): BP systolic 106–124; BP diastolic 38–76; PULSE 73–145; RESP 13–21; TEMP 36.9; O2SAT 97–100
--- OUTSIDE RECORDS SUMMARY | 2025-07-15 10:12 | XMS_ITS | Encounter Summary ---
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 Gender Identity Not on file Sexual Orientation Not on file documented as of this encounter Plan of Treatment Not on file documented as of this encounter Procedures Procedure Name Priority Date/Time Associated Diagnosis Comments PATHOLOGY TISSUE Routine 04/06/2019 11:1 7 AM CDT Gross hematuria documented in this encounter Results * PATHOLOGY TISSUE (04/06/2019 11:17 AM CDT) Case Report Surgical Pathology Report Case: [id number] Authorizing Provider: Padmini Smith MD Collected: 04/06/2019 11:17 AM Pathologist: Jose Miguel Gaitan MD Received: 04/08/2019 11:17 AM Specimen: Urine 04/09/2019 10:09 AM T [facility] Final Diagnosis Urine, voided, Thin Prep, cytology: - Hypocellular for urothelial cells - Negative for high-grade urothelial neoplasia - Benign squamous cells are seen in abundance 04/09/2019 10:09 AM T [facility] at 1009 CDT Microscopic Description and Comment Performed 04/09/2019 10:09 AM T [facility] Clinical History Hematuria; cystoscopy negative. 04/09/2019 10:09 AM T [facility] Gross Description Prepared slide (1) received from [facility] labeled [id number], Andrea Grimes. All material will be returned. 04/09/2019 10:09 AM T [facility] Disclaimer The performance characteristics of all immunohistochemical and indirect immunofluorescence stains (if any) cited in this report were determined by the Histopathology Laboratory of [facility]. Some of these tests were developed [...] the attending (teaching) pathologist. 04/09/2019 10:09 AM T [facility] Embedded Images 04/09/2019 10:09 AM T [facility] Pathology/Cytolo gy URINE / Unknown 04/06/2019 11:17 AM CDT 04/08/2019 11:17 AM CDT us Padmini Smith MD LAB - PATHOLOGY/CYTOLOGY ORDERAB LES Final Result [facility] [address] [phone] documented in this encounter Visit Diagnoses Diagnosis Gross hematuria documented in this encounter Care Teams Quality Assurance Group Leader Relationship Specialty Start Date End Date Oren Raymond DO [address] [place] [address] PCP - General 04/07/19 documented as of this encounter
--- OUTSIDE RECORDS SUMMARY | 2025-07-15 10:12 | XMS_ITS | Patient Health Record ---
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 Continue monitoring anxiety symptoms and adjust treatment as needed. 2. Depression: - Patient reports increased depression and anxiety due to work situation, considering disability nursing home. - Currently on Caplyta 42 mg, esketamine [...] new prescription for Zolpidem 12.5 mg to [facility] (either [facility] or [facility]) as per patient's preference. - Monitor sleep [...] paperwork for the patient by next week. 02/18/2025 Post-traumatic stress disorder, unspecified (ICD-10 - F43.10) 02/26/2025 Encounter for screening for depression (ICD-10 - Z13.31) 03/16/2025 Encounter for screening for depression (ICD-10 - Z13.31) 05/10/2025 Chronic posttraumatic stress disorder (ICD-10 - F43.12) 04/07/2025 Post-traumatic stress disorder, unspecified (ICD-10 - F43.10) 06/22/2025 Post-traumatic stress disorder, unspecified (ICD-10 - F43.10) 05/24/2025 Post-traumatic stress disorder, unspecified (ICD-10 - F43.10) 03/10/2025 Encounter for screening for depression (ICD-10 - Z13.31) 09/09/2024 Post-traumatic stress disorder, unspecified (ICD-10 - F43.10) 1. Bipolar Disorder: - Continue Corry 300 mg twice a day - Continue Caplyta 42 mg daily - Continue Vraylar 1.5 mg daily - Continue Depakote 250 mg daily Plan: - Assess the possibility of reducing other medications if Corry is effective - Monitor for psychomotor retardation [...] to schedule a blood test appointment for Corry level monitoring - Review the results before considering any adjustments to the Corry dosage Follow-up: - Schedule a follow-up appointment in 4 weeks to monitor the patient's progress, medication effectiveness, and side effects - Adjust the treatment plan as needed based on the patient's response to medications and overall mental health status 10/15/2024 Post-traumatic stress disorder, unspecified (ICD-10 - F43.10) 11/18/2024 Post-traumatic stress disorder, unspecified (ICD-10 - F43.10) 12/16/2024 Post-traumatic stress disorder, unspecified (ICD-10 - F43.10) 01/13/2025 Post-traumatic stress disorder, unspecified (ICD-10 - F43.10) Client is a 54 y/o female, (same sex) 11 yrs. , with no children. Client has some college. 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 Client is the youngest of 12 children and grew up in [place], [place]. Client reports her childhood was hellish. [...] Post-traumatic stress disorder, unspecified (ICD-10 - F43.10) 02/03/2025 Encounter for screening for depression (ICD-10 - Z13.31) 02/11/2025 Bipolar disorder with depression (ICD-10 - F31.9) she reports she is taking Depakote 250mg am, 4 500mg tab in pm stop depakote 250mg in morning, in 2 weeks take depakote 500mg 3 tabs in pm 05/06/2025 Generalized anxiety disorder (ICD-10 - F41.1) escitalopram 20mg daily, lorazepam 0.5mg BID prn 02/11/2025 Other insomnia (ICD-10 - G47.09) zolpidem er 12.5mg hs 01/26/2025 Encounter for screening for depression (ICD-10 - Z13.31) 01/25/2025 Post-traumatic stress disorder, unspecified (ICD-10 - F43.10) 12/16/2024 Generalized anxiety disorder (ICD-10 - F41.1) escitalopram 20mg daily, lorazepam 0.5mg BID prn 12/16/2024 Encounter for screening for depression (ICD-10 - Z13.31) 11/18/2024 Drug induced subacute dyskinesia (ICD-10 - G24.01) Austedo 24mg bid 10/15/2024 Drug induced subacute dyskinesia (ICD-10 - G24.01) Austedo 24mg bid 09/09/2024 Drug induced subacute dyskinesia (ICD-10 - G24.01) Austedo 24mg bid 1. Bipolar Disorder: - Continue Corry 300 mg twice a day - Continue Caplyta 42 mg daily - Continue Vraylar 1.5 mg daily - Continue Depakote 250 mg daily Plan: - Assess the possibility of reducing other medications if Corry is effective - Monitor for psychomotor retardation [...] to schedule a blood test appointment for Corry level monitoring - Review the results before considering any adjustments to the Corry dosage Follow-up: - Schedule a follow-up appointment in 4 weeks to monitor the patient's progress, medication effectiveness, and side effects - Adjust the treatment plan as needed based on the patient's response to medications and overall mental health status 05/24/2025 Generalized anxiety disorder (ICD-10 - F41.1) escitalopram 20mg daily, lorazepam 0.5mg BID prn 06/22/2025 Generalized anxiety disorder (ICD-10 - F41.1) escitalopram 20mg daily, lorazepam 0.5mg BID prn 04/07/2025 Generalized anxiety disorder (ICD-10 - F41.1) escitalopram 20mg daily, lorazepam 0.5mg BID prn 05/06/2025 Drug induced subacute dyskinesia (ICD-10 - G24.01) Austedo 48 mg daily 08/04/2024 Post-traumatic stress disorder, unspecified (ICD-10 - F43.10) 1. Anxiety: - Patient reports issues with lorazepam prescription, which was refilled at once per day instead of twice per day as prescribed. Plan: - Send a new prescription for lorazepam 1 tablet twice a day to [facility] in [place] with a clear note on the change. - Continue monitoring anxiety symptoms and adjust treatment as needed. 2. Depression: - Patient reports increased depression and anxiety due to work situation, considering disability nursing home. - Currently on Caplyta 42 mg, esketamine [...] new prescription for Zolpidem 12.5 mg to [facility] (either [facility] or [facility]) as per patient's preference. - Monitor sleep [...] paperwork for the patient by next week. 04/12/2025 Encounter for screening for depression (ICD-10 - Z13.31) 03/08/2025 Other insomnia (ICD-10 - G47.09) zolpidem er 12.5mg hs 08/25/2024 Bipolar disorder with depression (ICD-10 - F31.9) 1. Bipolar depression: - Patient reports persistent depression, irritability, and mood swings despite current medications (Caplyta 42 mg, Vraylar 1.5 mg, Depakote 250 mg, and Lorazepam 0.5 mg twice a day). Plan: - Add Corry 300 mg twice a day to the [...] - Monitor progress during follow-up appointments. 08/25/2024 On care home drug therapy (ICD-10 - Z79.899) 1. Bipolar depression: - Patient reports persistent depression, irritability, and mood swings despite current medications (Caplyta 42 mg, Vraylar 1.5 mg, Depakote 250 mg, and Lorazepam 0.5 mg twice a day). Plan: - Add Corry 300 mg twice a day to the [...] strategies. - Monitor progress during follow-up appointments. 03/08/2025 Post-traumatic stress disorder, unspecified (ICD-10 - F43.10) 08/04/2024 Drug induced subacute dyskinesia (ICD-10 - G24.01) Austedo 24mg bid 1. Anxiety: - Patient reports issues with lorazepam prescription, which was refilled at once per day instead of twice per day as prescribed. Plan: - Send a new prescription for lorazepam 1 tablet twice a day to [facility] in [place] with a clear note on the change. - Continue monitoring anxiety symptoms and adjust treatment as needed. 2. Depression: - Patient reports increased depression and anxiety due to work situation, considering disability nursing home. - Currently on Caplyta 42 mg, esketamine [...] new prescription for Zolpidem 12.5 mg to [facility] (either [facility] or [facility]) as per patient's preference. - Monitor sleep [...] paperwork for the patient by next week. 04/07/2025 Drug induced subacute dyskinesia (ICD-10 - G24.01) Austedo 48 mg daily 05/24/2025 Drug induced subacute dyskinesia (ICD-10 - G24.01) Austedo 48 mg daily 06/22/2025 Drug induced subacute dyskinesia (ICD-10 - G24.01) 05/06/2025 On care home drug therapy (ICD-10 - Z79.899) 09/09/2024 Bipolar disorder with depression (ICD-10 - F31.9) 1. Bipolar Disorder: - Continue Corry 300 mg twice a day - Continue Caplyta 42 mg daily - Continue Vraylar 1.5 mg daily - Continue Depakote 250 mg daily Plan: - Assess the possibility of reducing other medications if Corry is effective - Monitor for psychomotor retardation [...] to schedule a blood test appointment for Corry level monitoring - Review the results before considering any adjustments to the Corry dosage Follow-up: - Schedule a follow-up appointment in 4 weeks to monitor the patient's progress, medication effectiveness, and side effects - Adjust the treatment plan as needed based on the patient's response to medications and overall mental health status 10/15/2024 Bipolar disorder with depression (ICD-10 - F31.9) 11/18/2024 Bipolar disorder with depression (ICD-10 - F31.9) stop vraylar 12/16/2024 Drug induced subacute dyskinesia (ICD-10 - G24.01) Austedo 24mg bid 01/25/2025 Generalized anxiety disorder (ICD-10 - F41.1) escitalopram 20mg daily, lorazepam 0.5mg BID prn 02/11/2025 Post-traumatic stress disorder, unspecified (ICD-10 - F43.10) 02/11/2025 Generalized anxiety disorder (ICD-10 - F41.1) escitalopram 20mg daily, lorazepam 0.5mg BID prn 01/25/2025 Drug induced subacute dyskinesia (ICD-10 - G24.01) Austedo 48 mg daily 12/16/2024 Encounter for screening for cardiovascular disorders (ICD-10 - Z13.6) 11/18/2024 On care home drug therapy (ICD-10 - Z79.899) 10/15/2024 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 Bipolar Disorder: - Continue Corry 300 mg twice a day - Continue Caplyta 42 mg daily - Continue Vraylar 1.5 mg daily - Continue Depakote 250 mg daily Plan: - Assess the possibility of reducing other medications if Corry is effective - Monitor for psychomotor retardation [...] to schedule a blood test appointment for Corry level monitoring - Review the results before considering any adjustments to the Corry dosage Follow-up: - Schedule a follow-up appointment in 4 weeks to monitor the patient's progress, medication effectiveness, and side effects - Adjust the treatment plan as needed based on the patient's response to medications and overall mental health status 06/22/2025 On care home drug therapy (ICD-10 - Z79.899) 05/24/2025 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 (ICD-10 - Z79.899) 03/08/2025 Generalized anxiety disorder (ICD-10 - F41.1) escitalopram 20mg daily, lorazepam 0.5mg BID prn 04/07/2025 On care home drug therapy (ICD-10 - Z79.899) 03/08/2025 Drug induced subacute dyskinesia (ICD-10 - G24.01) Austedo 48 mg daily 12/16/2024 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 Bipolar depression: - Patient reports persistent depression, irritability, and mood swings despite current medications (Caplyta 42 mg, Vraylar 1.5 mg, Depakote 250 mg, and Lorazepam 0.5 mg twice a day). Plan: - Add Corry 300 mg twice a day to the [...] leave from work due to a problematic manager reimbursement, who has now been removed. Plan: - Extend the patient's leave for another 45 days, until November 30, to allow for further recovery and stabilization. - Assist the patient with the application for medical nursing home, if necessary. 4. Medication Management: Plan: - [...] any injuries or recurrent falls. 4. Medical Mcfp: - Patient is waiting on paperwork for medical nursing home. Plan: - Provide the requested letter for medical nursing home. - Assist with any necessary documentation. 5. Mental Health Support: - Patient inquired about therapist recommendations. Plan: - Refer patient to therapists Xuan or Jose Juan for additional mental health support. - Schedule an appointment for the patient. Follow-up: - Schedule a follow-up appointment in one month to assess patient's progress and medication management. 12/16/2024 Other Andrea Almodovar, female patient with bipolar disorder and major depressive disorder, presents with worsening tremors, cognitive issues, anxiety, and recent falls. Medication-induc ed tremors and cognitive impairment Assessment: Patient reports [...] (lumateperone), lithium, Depakote (valproic acid), and Austedo (deutetrabenazin e). Recent medication adjustments are being made to [...] has some college. 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 Client is the youngest of 12 children and grew up in [place], [place]. Client reports her childhood was hellish. [...] hypervigilance, and exaggerated startle response. 01/25/2025 Other Andrea Almodovar, an adult female patient with a history of depression, anxiety, and tardive dyskinesia, presents with worsening anxiety due to work-related stress and exacerbation of movement disorder symptoms. Major Depressive Disorder Assessment: Patient reports persistent depressive symptoms, describing it as feeling like you're sliding off the world. She denies current suicidal plan or intent but expresses passive suicidal ideation, stating it would be better without me here. Patient reports anhedonia, unable to enjoy activities except for the presence of her dogs. Depression appears to be severe and chronic, with limited response to current medication regimen. Plan: - Continue Caplyta 42 mg PO daily - Continue Depakote 250 mg PO daily - Continue lithium 300 mg PO at bedtime - Continue psychotherapy; patient reports positive experience with first session and has weekly follow-ups scheduled - Provide work excuse until March 29 - Follow up to assess response to treatment and movement disorder symptoms Generalized Anxiety Disorder Assessment: Patient reports significant anxiety, particularly exacerbated by work-related stress due to downsizing and potential early nursing home. Anxiety is triggered by computer use and receiving mail. Patient also experiences somatic symptoms of anxiety, including itching like I've got fleas when anxiety intensifies. Plan: - Initiate hydroxyzine 25 mg PO twice daily for anxiety and associated itching - Continue current anxiety management strategies - Encourage ongoing psychotherapy to address work-related stressors and anxiety management techniques Tardive Dyskinesia Assessment: Patient presents with worsening tardive dyskinesia symptoms, including significant tongue movements, rocking, hand rubbing, and leg movements. Symptoms have exacerbated since discontinuation of previous medication (likely Austedo) due to insurance issues approximately 1.5 weeks ago. Patient reports movements persisting during sleep and causing new calluses on knees. The exacerbation of movement disorder symptoms is contributing to increased anxiety and mood deterioration. Plan: - Initiate Austedo XR 48 mg PO daily - Provide samples of Austedo XR - Submit prior authorization for Austedo XR to insurance - Monitor for improvement in movement disorder symptoms at follow-up Insomnia Assessment: Patient has a history of insomnia, currently managed with medication. Plan: - Continue Ambien 12.5 mg PO at bedtime the note is transcribed using speech recognition software. It is a reflection of a visit with the patient. It might have some inaccuracy, including medication names and transcribing errors, though efforts have been made to correct them. 01/26/2025 Other Client went over the handout [...] minutes every hour). PHQ=27 severe GAUTAM=21 severe 02/03/2025 Other Client reports she requires the help of her partner with daily living skills (ex: getting dressed). Cliente reports she is frustrated at times when her spouse is overly protective and checking on her constantly. Therapist asked questions for clarification and specific details. Therapist then utilized a cognitive behavioral intervention to help client explore strategies to do more for herself (exposure therapy to check her work e-mails and increasing the time spent doing this, having spouse supervise her filling her own pillboxes, and possibly using a family tracking naga to help allay spouses concerns about client safety). 02/11/2025 Other Andrea Almodovar presents with anxiety, particularly in public settings, and reports improvement in depression symptoms. She also experiences night terrors and has a history of abnormal movements. Anxiety Disorder Assessment: Patient reports increased anxiety, particularly in public settings and large crowds. She experiences physical symptoms such as twitching, knee movements, and hand shaking when in social situations like restaurants. The anxiety is less pronounced when at home. The recent decision not to return to work has provided some relief from workplace-relate d stress. Plan: - Increase hydroxyzine to 3 times daily for anxiety management - Encourage continued use of home environment as a safe space for anxiety reduction - Monitor efficacy of increased hydroxyzine dosage at follow-up appointment Depressive Disorder Assessment: Patient reports improvement in depressive symptoms. She notes less resistance to engaging in activities and appears more engaged in conversation with improved facial affect compared to previous visits. Plan: - Continue current antidepressant regimen (specific medication not mentioned in transcript) - Encourage ongoing engagement in pleasurable activities - Monitor mood at follow-up appointment Bipolar Disorder Assessment: Patient is currently on a mood stabilizer regimen including Depakote and lithium. Recent lithium dose reduction has resulted in less daytime fatigue. No manic symptoms reported. Given the stability of mood and absence of manic symptoms, a further reduction in mood stabilizer dosage is considered. Plan: - Decrease Depakote dosage: - Discontinue 250 mg morning dose - Start Depakote 50 mg in the morning - In 2 weeks, reduce evening dose from 500 mg (4 tablets) to 375 mg (3 tablets) - Continue lithium at current reduced dose (specific dose not mentioned) - Monitor for any emergence of manic symptoms with medication adjustments Sleep Disorder with Night Terrors Assessment: Patient reports an increase in night terrors, with difficulty returning to sleep due to re-experiencing the terrors upon falling back asleep. Currently using Ambien for sleep management. Plan: - Continue Ambien for sleep (dose not specified) - Monitor frequency and intensity of night terrors - Explore potential psychosocial stressors, including family-related stress on social media Tardive Dyskinesia Assessment: Patient is currently taking Austedo XR for management of abnormal movements, likely tardive dyskinesia. She reports that the movements are less noticeable at home but worsen in public settings when she needs to function. This suggests a potential exacerbation of symptoms under stress or increased attention. Plan: - Continue Austedo XR (dose not specified) - Monitor efficacy of Austedo XR, particularly in relation to stress-induced symptom exacerbation - Assess for any improvement in abnormal movements at next follow-up Pruritus Assessment: Patient reports improvement in itching symptoms with the use of hydroxyzine. Plan: - Increase hydroxyzine to 3 times daily (also addresses anxiety management) - Monitor for continued improvement in pruritus symptoms the note is transcribed using speech recognition software. It is a reflection of a visit with the patient. It might have some inaccuracy, including medication names and transcribing errors, though efforts have been made to correct them. 02/18/2025 Other Karma reports she and her spouse have been arguing a lot of late. She states her spouse expects her to take care of everything around the home since she is not currently working. Client states she grijalva not feel this is fair. Client's spouse works outside the home. Therapist actively listened to client and asked questions for clarification. Therapist then utilized a cognitive behavioral intervention to help client explore strategies to help resolve their differences (1 person cooks, the other cleans up; use a timer to rest and get up wand work this can help her pace herself; think about how long it will take to get the task at hand completed as this is usually a much shorter amount of time than imagined). PHQ=12 moderate 02/26/2025 Other Client wants to work on reducing her anxiety.Therapis t actively listened to client and asked questions for clarification. Therapist then utilized a cognitive behavioral intervention to help client explore strategies to minimize her anxiety (grounding techniques, 5-yr rule, listening to Margareth Egan, irvin). PHQ=27 severe 03/08/2025 Other Andrea Almodovar, female patient with a history of depression and anxiety, presenting with improving depressive symptoms and ongoing anxiety. Major Depressive Disorder Assessment: Patient reports improvement in depressive symptoms, with reduced psychomotor retardation and increased ability to perform household tasks. This suggests a positive response to current treatment regimen. However, the patient still experiences some residual symptoms, indicating ongoing management is necessary. Plan: - Decrease Depakote to 2 tablets of 500 mg at bedtime - Continue Corry 300 mg at bedtime - [facility] [facility] - Follow up in 4 weeks Anxiety Disorder Assessment: Patient continues to experience anxiety, particularly in crowded and noisy environments. Recent attempt to dine out at [facility] resulted in increased anxiety symptoms. Patient is scheduled to meet with Xuan (likely a therapist) in 2 days to learn anxiety management techniques. Plan: - Continue Hydroxyzine for anxiety management - Continue Lorazepam 0.5 mg as needed - Encourage patient to apply anxiety management techniques to be learned from Xuan Insomnia Assessment: Patient continues to use sleep medication as needed, suggesting ongoing sleep difficulties. Plan: - Continue Zolpidem ER 12.5 mg at bedtime as needed Tardive Dyskinesia Assessment: Patient has been using Austedo XR (deutetrabenazin e) for management of abnormal movements, likely tardive dyskinesia. The patient has run out of samples and has not received a refill due to insurance or pharmacy issues. Plan: - Provide samples of Austedo XR - Resend prescription for Austedo XR to pharmacy Medication Side Effects Assessment: Patient reports dry mouth and throat, likely side effects from multiple medications including Hydroxyzine, Corry, and potentially others. Plan: - Educate patient on staying well-hydrated - Recommend sugar-free cough drops for symptom relief - Advise patient to sip water frequently the note is transcribed using speech recognition software. It is a reflection of a visit with the patient. It might have some inaccuracy, including medication names and transcribing errors, though efforts have been made to correct them. 03/10/2025 Other Client reports issues with anxiety, feeling down, and not sleeping well. Therapist actively listened to client and asked questions for clarification. Therapist then utilized a cognitive behavioral intervent to help client explore strategies to minimize her anxiety and depression (music, games on her phone, reading meditation, getting outside). PHQ=14 moderate 03/16/2025 Other Client reports continued issues with trying to get her anxiety under control. Therapist actively listened to client and asked questions for clarification. THerapist then utilized a cognitive behavioral intervention to help client explore strategies to counter her self talk (handout with worksheets as homework). PHQ=9 mild 04/07/2025 Patrick Almodovar, a patient with a history of bipolar disorder and depression, presents with ongoing mood fluctuations, including recent weight loss and episodes of hypomania. Bipolar Disorder Assessment: Patient reports a mix of depressive and hypomanic symptoms. Depressive symptoms include lack of motivation, low energy, and poor self-care (e.g., infrequent showering). Patient experienced a recent hypomanic episode lasting one day, triggered by family events. Weight loss of 8 pounds noted, though not intentional. Patient denies suicidal ideation. Social functioning shows some improvement with attendance at family events and occasional outings. Plan: - Continue Caplyta 42 mg - Continue Corry 300 mg at bedtime - Decrease Depakote to 2 tablets of 500 mg at bedtime - Continue Ambien 12.5 mg at bedtime for sleep - Continue Lorazepam twice daily as needed - Continue Hydroxyzine three times daily - Provide samples of Austedo - Follow up in one month Anxiety Assessment: Patient reports using as-needed medication during recent family events due to being startled repeatedly by a family member, resulting in anxiety symptoms including rocking behavior. Plan: - Continue Lorazepam twice daily as needed for anxiety symptoms the note is transcribed using speech recognition software. It is a reflection of a visit with the patient. It might have some inaccuracy, including medication names and transcribing errors, though efforts have been made to correct them. 04/12/2025 Other Client is excited to tell therapist that she was able to turn all her work computer over to her employer without the need of taking extra anxiety medications. She states she has been doing more around the home since quitting. She states that she and the dogs have been creating routines that are enjoyable for them all. She reports feeling more relaxed since quitting. Therapist actively listened to client and asked questions for clarification. The therapist then provided a supportive intervention by helping client maintain her current level of functioning through the showing of acceptance. Client and therapist discussed the future of therapy sessions. Client is to keep her next appointment to ensure she is still maintaining her current good mood. PHQ=5 mild 05/06/2025 Patrick Almodovar presents with difficulty maintaining conversations and sleep disturbances, reporting only 4-5 hours of sleep per night despite taking Ambien. Cognitive difficulties Assessment: Patient reports difficulty holding conversations and maintaining the conversational string. This cognitive impairment may be related to current medication regimen, particularly Depakote, which could be causing slowness in thought processes and speech. Plan: - Decrease Depakote to one tablet at bedtime (from two tablets) - Consider reintroducing Seroquel (pending further evaluation) - Conduct gene site test to evaluate medication metabolism - Follow-up appointment in two weeks to review gene site test results Insomnia Assessment: Patient reports poor sleep quality, averaging 4-5 hours per night despite taking Ambien. She experiences difficulty staying asleep and prolonged periods of wakefulness after brief sleep episodes. Plan: - Continue zolpidem - Maintain current sleep hygiene practices - Monitor sleep patterns and reassess at follow-up appointment Medication management Assessment: Current medication regimen includes Depakote, lithium, zolpidem, Ativan, and hydroxyzine. Patient is experiencing side effects, possibly from Depakote, necessitating medication adjustments and further evaluation of medication metabolism through gene site testing. Plan: - Continue lithium 300 mg daily - Continue Ativan twice daily - Continue hydroxyzine as needed - Conduct gene site test (cheek swab) today - Review gene site test results at follow-up appointment in two weeks to guide future medication decisions the note is transcribed using speech recognition software. It is a reflection of a visit with the patient. It might have some inaccuracy, including medication names and transcribing errors, though efforts have been made to correct them. 05/10/2025 Patrick Parada reports she and her partner have been fussing with each other more than usual. She vented about some of the things they have been arguing about. Therapist actively listened to client and utilized a cognitive intervention to help client minimize her frustrion with her partner. Therapist also suggested client and her partner seek the help of a marriage and family therapist to assist with the relationship issues. 05/24/2025 Patrick Almodovar presents with bipolar disorder symptoms including recent manic episode, sleep disturbances, irritability, panic attacks, and ongoing depression. Bipolar Disorder with Recent Manic Episode Assessment: Patient reports experiencing a recent manic episode lasting two days, characterized by inability to sleep, excessive cleaning and activity, and inability to sit still. This episode was preceded by a night of insomnia. Patient also notes increased irritability and panic attacks. Depression symptoms appear to be stable. PHQ-9 assessment indicates persistent depressive symptoms, including sleep troubles, fatigue, appetite issues, and concentration problems occurring every day. Patient exhibits psychomotor agitation and restlessness during the visit, which could be related to thyroid dyskinesia or akathisia. Plan: - Decrease Depakote to 250 mg daily - Start Seroquel XR: - 50 mg every afternoon for 1 week - Increase to 150 mg after 1 week - Patient given option to take medication in the morning instead of evening - Redo gene test due to reported handling error - Follow-up appointment in 3 weeks Sleep Disturbances Assessment: Patient reports significant sleep disturbances, including a recent night of complete insomnia and ongoing difficulties with sleep initiation and maintenance. Previous interventions, including Ambien ER, have been ineffective. Sleep issues are likely related to bipolar disorder symptoms. Plan: - Start Seroquel XR as outlined above, which may help address sleep issues - Monitor sleep patterns and response to new medication regimen the note is transcribed using speech recognition software. It is a reflection of a visit with the patient. It might have some inaccuracy, including medication names and transcribing errors, though efforts have been made to correct them. Plan Of Treatment Pending Test Test Name Order Date Cytochrome P450 2D6 Genotyping Cytochrome P450 2C9 Genotyping 5 Cytochrome P450 2C19 05/06/2025 TSH+FREE T4 (94547) 10/15/2024 COMPREHENSIVE METABOLIC PANEL (20515) CBC (H/H, RBC, INDICES, WBC, PLT) (1759) 10/15/2024 T3, FREE (09322) 10/15/2024 LITHIUM (613) 10/15/2024 VALPROIC ACID (916) 10/15/2024 Insurance Providers Payer Name Payer Address Payer Phone Subscriber Number Group Number Insured Name Patient Relationship to Insured Coverage Start Date Coverage End Date [employer] [employer] Ppo [address] [place] [address] [id number] ANDREA ALMODOVAR Self - patient is the insured Medical (General) History Medical History History ICD Code Problems: Bipolar disorder Contusion of knee Generalized anxiety disorder Implantation of joint prosthesis Knee pain Long-term drug therapy Neuroleptic-induced tardive dyskinesia Osteoarthritis Persistent insomnia Posttraumatic stress disorder , Surgical History Surgery Date(Month/Year) Other 01/02/2024 Cataract surgery (91969) 01/02/2024 Removal of gallbladder (80427) 5
--- OUTSIDE RECORDS SUMMARY | 2025-07-15 10:12 | XMS_ITS | Clinical Summary ---
Author Organization [facility] Address [address] [place] [address] Phone Care Team Providers Care Corporate Sales Manager Name Role Phone Tana Doran MD Primary Care Provider [phone] Allergies Active Allergy Reactions Criticality Noted Date [...] 2:34 PM CDT Height 160 cm (5' 3) 06/28/2022 2:34 PM CDT Body Mass Index [...] (1 of 2) 2019 INFLUENZA VACCINE (#1) 2025 Insurance Member Subscriber Plan / Payer (Ef fective 2021-Present) Name:Andrea Grimes Relation to Subscriber:Self Name:Andrea Grimes Payer ID:[id number] ([facility]) Type:[facility] [employer] PREFERRED Care Teams Corporate Sales Manager Relationship Specialty Start Date End Date Tana Doran MD PCP - General Family Practice 06/07/22
--- OUTSIDE RECORDS SUMMARY | 2025-07-15 10:12 | XMS_ITS | Clinical Summary ---
Author Organization [facility] Address [address] [address] Phone Care Team Providers Care Core Manager Name Role Phone Unavailable Primary Care [...] 1:00 PM CDT Height 160 cm (5' 3) 05/25/2020 1:00 PM CDT Body Mass Index 31.89 05/25/2020 1:00 PM CDT Plan of Treatment Health Maintenance Due Date Last Done Comments Hepatitis C Virus (HCV) Screening 1969 TdaP Immunization 1969 Hepatitis B Immunization (1 of 3 - 19+ 3-dose series) 1988 Pap Smear 1990 Cervical Cancer Screening (CCS) 1999 HPV/Cotest 1999 Cologuard 2014 Immunochemical Fecal Occult Blood 2014 Pneumococcal Immunization (5 0+ years) (1 of 1 - PCV) 2019 Zoster Immunization (1 of 2) 2019 Colonoscopy 06/28/2023 06/28/2020, 05/11/2019 Colorectal Cancer Screening 06/28/2023 Influenza Immunization (#1) 2025 06/30/2020 SARS-COV-2 Immunization ( season) 2025 05/18/2021, 12/24/2020, 12/01/2020 Respiratory Syncytial Virus (RSV) Immunization (Adult) (1 - 1-dose 75+ series) 2044 Human Papillomavirus (HPV) Immunization Aged Out No longer eligible b ased on patient's age to complete this topic Meningococcal Immunization (ACWY) Aged Out No longer eligible b ased on patient's age to complete this topic Rotavirus Immunization Aged Out No lo nger eligible based on patient's age to complete this topic Insurance
--- OUTSIDE RECORDS SUMMARY | 2025-07-15 10:12 | XMS_ITS | Clinical Summary ---
Author Organization [facility] Address [address] [place] [address] Care Team Providers Care Automotive Painter Helper Name Role Phone Oren Raymond DO Primary Care Provider [phone] Source Comments [facility],non-owned Affiliates and Associated Physician Practices is amultiple site organization consisting of ambulatory clinics and hospital sitesin [place], [place], [place] and [place]. This disclosure is being madepursuant to the Care Everywhere program and may not contain all information available regarding this patient. 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 Gender Identity Not on file Sexual Orientation [...] SCREENING 1969 LIPID TESTING 1969 MAMMOGRAM 1969 HIV SCREENING 1984 HEPATITIS C SCREENING 06/01/1987 DTAP/TDAP/TD VACCINES (1 - Tdap) 1988 HEPATITIS B VACCINE (1 of 3 - 19+ 3-dose series) 1988 PAP SMEAR 1990 PNEUMOCOCCAL VACCINE 50+ (1 of 1 - PCV) 2019 ZOSTER VACCINE (1 of 2) 2019 DEPRESSION SCREENING 09/30/2024 COVID-19 VACCINE (1 - 2023-2 5 season) 2025 INFLUENZA VACCINE (#1) 2025 HIB VACCINE Aged Out No longer [...] patient's age to complete this topic Insurance [id number] [place] Care Teams Automotive Painter Helper Relationship Specialty Start Date End Date Oren Raymond DO [address] [place] [id number] PCP - General 04/07/19
--- OUTSIDE RECORDS SUMMARY | 2025-07-15 10:13 | XMS_ITS | Encounter Summary ---
Author Organization [facility] Address [address] [place] [address] Phone Care Team Providers Care Ip Technology Transactions Attorney Name Role Phone Tana Doran MD Primary Care Provider [phone] Daquan Dowd MD Primary Care Provider Reason for Visit * Reason Onset Date Comments New Patient 06/27/2021 new pt appt Encounter Details Date Type Department Care Team (Late st Contact Info) Description 06/27/2021 Telephone [facility] [address] [place] [address] Tana Doran MD [address] [facility] [address] [place] [address] New Patient (new pt appt) [...] Provider Request Insurance of patient: joao [facility] Name of person calling: Andrea Grimes Relationship to patient: self Preferred phone number: [phone] Alternate phone number: na Region / Office location preference: [place] Provider preference (male/female, specific provider name): female Willing to see someone other than physician, such as CELL ATTENDANT, PA, resident? na Patient reason for appointment/any current symptoms: needing pcp/Daquan Dowd Other information (including need for bilingual interpreter): na Route ALL calls to: [facility] PATIENT WORKERS COMPENSATION ADJUSTER documented in this encounter Plan of Treatment Not on file documented as of this encounter Visit Diagnoses Not on filedocumented in this encounter Additional Health Concerns Assessment Noted Time PHQ-9 Depression Total Score: 0 05/11/20 19 12:01 PM CDT documented as of this encounter Care Teams Ip Technology Transactions Attorney Relationship Specialty Start Date End Date Tana Doran MD [address] [place] [address] PCP - General Family Medicine 04/06/19 06/28/21 Daquan Dowd MD [address] [place] [address] PCP - General Family Medicine 06/29/21 04/26/22 documented as of this encounter
--- NOTE | 2025-07-15 10:59 | ED.ALLEREA ---
HPI - Allergic Reaction General Chief complaint: Allergic Reaction Stated complaint: started new medication- itching, rash Time Seen by Provider: 07/15/25 09:59 Source: patient Mode of arrival: ambulatory Limitations: no limitations History of Present Illness HPI narrative: This is a 55-year-old female, with history of seizure disorder and hypothyroidism who presents to the emergency department complaining of rash beginning last night. The patient states 3 days ago she was diagnosed with flu and started on benzonatate, Flonase and naproxen. This morning she woke up with diffuse itching rash and some difficulty breathing. She denies nausea, vomiting, loss of consciousness or chest pain. She has no other complaints at this time. Related Data Home Medications ?Medication ?Instructions ?Recorded ?Confirmed ?Last Taken ?Type lorazepam 0.5 mg tablet 0.5 mg PO TID PRN Anxiety 01/31/23 06/21/25 Unknown History deutetrabenazine 12 mg tablet 12 mg PO DIRECTED 03/25/24 06/21/25 Unknown History (Austedo) lumateperone 10.5 mg capsule 10.5 mg PO DAILY 05/12/24 06/21/25 Unknown History (Caplyta) lithium carbonate 300 mg capsule mg 09/28/24 06/21/25 Unknown History quetiapine 150 mg tablet 150 mg PO DAILY 06/21/25 06/21/25 Unknown History Allergies Allergy/AdvReac Type Severity Reaction Status Date / Time tetanus immune globulin Allergy Mild HIVES AND Verified 07/15/25 09:23 SWELLING Penicillins Allergy Unknown Rash Verified 07/15/25 09:23 Tetanus Vaccines and Toxoid Allergy Unknown Rash Verified 07/15/25 09:23 erythromycin base AdvReac Mild NAUSEA/VOMI Verified 07/15/25 09:23 TING IMMUNIZATIONS Allergy Unknown RASH Uncoded 12/30/24 13:09 Mold (Blue) Cheese Allergy Unknown .Hives and Uncoded 12/30/24 13:09 swelling Review of Systems Review of Systems: All systems reviewed & are unremarkable except as noted in HPI and below PMFSH Past Medical History Medical History COVID-19 Breakthrough seizure PCOS (polycystic ovarian syndrome) Seizure disorder Obesity Slow rate of speech TAM (obstructive sleep apnea) With CPAP use Metabolic syndrome Essential (primary) hypertension Constipation by delayed colonic transit Congenital hernia of foramen of [place] Concussion syndrome Atrial tachycardia Anemia Hypothyroidism (acquired) Bilateral carpal tunnel syndrome Shingles Bipolar disorder Anxiety and depression Interstitial cystitis GERD (gastroesophageal reflux disease) Epilepsy TIA (transient ischemic attack) Asthma Seasonal allergies Migraine Surgical History Surgical History H/O carpal tunnel repair bilateral History of cholecystectomy History of bunionectomy History of left knee replacement History of foot surgery History of thyroidectomy, subtotal H/O arthroscopy of left knee H/O dilation and curettage Hx of gastric bypass Family History Family History Sibling Cerebrovascular accident, Onset Age: 19 Multiple sclerosis Father Hypertension Coronary artery disease Hyperlipidemia Mother Hypertension Heart disease Hyperlipidemia Diabetes mellitus Grandparent Family history of malignant neoplasm of cervix Family history of malignant neoplasm of breast Social History Social History Social History: The patient has been with her since 2005 they we will give when the lost changed. They have 3 medium to large his dogs at home. The patient works for the [employer]. She is lifelong nonsmoker but had history of heavy secondhand smoke exposure until she was a teenager. She never drinks alcohol and does not have any history of illicit substance use. 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 HEAD: Normocephalic, atraumatic. EYES: PERRLA and EOMI. ENT: Nares clear, no rhinorrhea or epistaxis. Mucous membranes moist. Oropharynx without tonsillar hypertrophy exudate or other lesions. Bilateral TMs pearly bright nonbulging NECK: Supple. No stridor. No JVD CHEST: Clear to auscultation. No respiratory distress. No wheezes rales or rhonchi HEART: Regular rate and rhythm. No murmur heard. Normal peripheral pulses. ABDOMEN: Soft, nontender, nondistended, normal active bowel sounds. EXTREMITIES: Normal range of motion. No edema. SKIN: Scattered erythematous, slightly indurated rashes are noted on the bilateral arms, abdomen and back consistent with urticaria. Skin otherwise warm and dry. NEURO: Alert and oriented x3. No focal deficit. Moving all 4 limbs spontaneously PSYCH: Normal mood and affect. Course Course Emergency Course: 11:25 - The patient became tachycardic to the 130s. EKG shows changes consistent with atrial flutter with RVR. Blood pressure 115/56. Will give IV fluids and diltiazem. 14:10 - Patient's heart rate improved with IV fluids diltiazem. She is now sinus on the monitor. On further discussion she states she has had multiple episodes of palpitations without obvious cause. I suspect the patient has had episodes atrial flutter or AFib. Chads 2 Vasc score 2. Has-BLED score 1. Will start the patient on Eliquis and discharge with beta-blockers and recommendation for cardiology follow-up. I discussed the findings and recommendations with the patient. Discussed return and emergency precautions including signs/symptoms of anaphylaxis, ACS and respiratory distress. The patient voiced understanding and agreement with the plan. All questions answered to the patient's satisfaction. Vital Signs Vital signs: Vital Signs Temperature 98.5 F 07/15/25 09:37 Pulse Rate 73 07/15/25 09:37 Respiratory Rate 16 07/15/25 09:37 Blood Pressure 107/66 07/15/25 09:37 Pulse Oximetry 100 07/15/25 09:37 Oxygen Delivery Room Air 07/15/25 09:37 Temperature 98.5 F 07/15/25 09:37 Pulse Rate 75 07/15/25 13:45 Respiratory Rate 20 07/15/25 13:45 Blood Pressure 120/76 07/15/25 13:45 Pulse Oximetry 98 07/15/25 13:45 Oxygen Delivery Room Air 07/15/25 11:05 MDM - Allergic Reaction MDM Narrative Medical decision making narrative: Plan: Antihistamines, steroids, observation Differential Diagnosis Differential diagnosis: Likely allergic reaction, contact dermatitis, urticaria and other Lab Data 07/15/25 11:42 07/15/25 11:42 Labs: Lab Results 07/15/25 07/15/25 Range/Units 11:41 11:42 WBC 8.8 (4.5-10.0) K/mm3 RBC 4.19 L (4.2-5.4) M/mm3 Hgb 11.9 L (12.0-15.0) g/dL Hct 36.6 L (37.0-47.0) % MCV 87.4 (80-100) fl MCH 28.4 (26-34) pg MCHC 32.5 (32-36) g/dl RDW 12.6 (11.5-14.5) % Plt Count 277 (150-375) k/mm3 MPV 9.4 (7.4-10.4) fl Immature Gran % (Auto) 0.3 (0-0.5) % Neut % (Auto) 87.2 H (45.5-73.1) % Lymph % (Auto) 7.4 L (18.3-44.2) % [place] % (Auto) 4.8 (2.6-8.5) % Eos % (Auto) 0.2 (0-4.4) % Baso % (Auto) 0.1 L (0.2-1.2) % Lymph # (Auto) 0.65 L (0.9-3.2) K/mm3 [place] # (Auto) 0.4 (0.1-0.6) K/mm3 Eos # (Auto) 0.0 (0-0.3) K/mm3 Baso # (Auto) 0.0 (0.0-0.1) K/mm3 Abs Immat Gran (auto) 0.03 (0.00-0.031) K/mm3 Absolute Neuts (auto) 7.7 H (1.3-6.7) K/mm3 Absolute Nucleated RBC 0.000 (0.0-0.012) K/mm3 Nucleated RBC % 0.0 (0.0-0.2) % PT 13.8 (11.1-14.7) Seconds INR 1.1 Sodium 137 (137-145) mmol/L Potassium 3.3 L (3.4-5.0) mmol/L Chloride 103 (98-107) mmol/L Carbon Dioxide 25 (22-30) mmol/L Anion Gap 9 (4-12) mmol/L BUN 7 (7-17) mg/dL Creatinine 0.63 L (0.7-1.0) mg/dL Estim Creat Clear Calc 88 ml/min Estimated GFR > 60 (59 - ) Glucose 123 H (65-110) mg/dL Calcium 9.3 (8.4-10.2) mg/dL Magnesium 1.8 (1.6-2.3) mg/dL Total Bilirubin 0.3 (0.2-1.3) mg/dL AST 23 (14-36) U/L ALT 16 (6-35) U/L Alkaline Phosphatase 79 (38-126) U/L Total Protein 6.7 (6.3-8.2) g/dL Albumin 3.8 (3.5-5.1) g/dL ECG Data EKG #1: Attestation: I personally reviewed and interpreted this ECG as follows: ECG completion date: 07/15/25 ECG completion time: 11:20 Interpretation: A flutter with RVR, rate 137, normal axis, no ST segment elevations or T-wave inversions concerning for ischemia normal QRS and QTC of 405 Critical Care Time Critical Care Time Critical Care Time: Yes Total Critical Care Time: 35 Discharge Plan Discharge Clinical Impression: Urticaria, Atrial fibrillation/flutter Allergic reaction Qualifiers: Encounter type: initial encounter Qualified Code(s): T78.40XA - Allergy, unspecified, initial encounter Patient Disposition: Home Condition: Stable Instructions: Antibiotic Form, Atrial Flutter (ED), Urticaria (ED) Additional Instructions: You were seen in the emergency department. Your exam is consistent with urticaria. I recommend stopping the benzonatate, Flonase and naproxen. If you develop[ ], or if you have other emergent concerns for life, limb, or eyesight, return to the emergency department. Patient Language: Mongolian Prescriptions: New diphenhydramine HCl 50 mg capsule 50 mg PO BID 4 Days Qty: 8 0RF famotidine 40 mg tablet 40 mg PO BID 4 Days Qty: 8 0RF prednisone 20 mg tablet 20 mg PO DAILY 4 Days Qty: 4 0RF metoprolol tartrate 25 mg tablet 12.5 mg PO BID Qty: 60 0RF Eliquis 5 mg tablet 5 mg PO BID Qty: 60 0RF No Action Austedo 12 mg tablet 12 mg PO DIRECTED lithium carbonate 300 mg capsule albuterol sulfate [Ventolin HFA] 90 mcg/actuation HFA aerosol inhaler 2 puff inhalation QID PRN (Reason: shortness of breath or wheezing) Qty: 8.5 0RF albuterol sulfate 90 mcg/actuation HFA aerosol inhaler 2 puff inhalation Q4-6H PRN (Reason: shortness of breath or wheezing) 30 Days Qty: 8.5 0RF benzonatate 100 mg capsule 100 mg PO BID PRN (Reason: cough) Qty: 14 0RF ibuprofen 600 mg tablet 600 mg PO TID PRN (Reason: fever or pain) Qty: 30 0RF fluticasone propionate [Flonase Allergy Relief] 50 mcg/actuation spray,suspension 1 spray intranasal DAILY Qty: 16 0RF Rx Instructions: administer into each nostril lorazepam 0.5 mg tablet 0.5 mg PO TID PRN (Reason: Anxiety) nystatin 100,000 unit/gram powder 1 applic topical BID Qty: 30 2RF Caplyta 10.5 mg capsule 10.5 mg PO DAILY quetiapine 150 mg tablet 150 mg PO DAILY levetiracetam 1,000 mg tablet 1,500 mg PO BID Qty: 180 3RF Rx Instructions: takes 1500 mg total BID zonisamide 100 mg capsule See Rx Instructions .ROUTE .COMPLEX Qty: 270 2RF Dose Instruction: TAKE 3 CAPS BY MOUTH DAILY Rx Instructions: TAKE 3 CAPS BY MOUTH DAILY divalproex 500 mg tablet extended release 24 hr 1,500 mg PO HS Qty: 270 3RF sumatriptan succinate [Imitrex] 100 mg tablet See Rx Instructions PO .COMPLEX Qty: 14 6RF Rx Instructions: take 1 tab at onset of headache; if no relief, may repeat 1 tab after at least 2 hrs; max = 2 tabs/24 hrs PO may be combined with naproxen 500 mg for better results ipratropium-albuterol 0.5 mg-3 mg(2.5 mg base)/3 mL solution for nebulization 3 ml INHALATION Q4H PRN (Reason: wheezing) Qty: 180 3RF Linzess 290 mcg capsule See Rx Instructions .ROUTE .COMPLEX Qty: 90 0RF Dose Instruction: TAKE 1 CAPSULE BY MOUTH EVERY DAY Rx Instructions: TAKE 1 CAPSULE BY MOUTH EVERY DAY Breztri Aerosphere 160-9-4.8 mcg/actuation HFA aerosol inhaler See Rx Instructions .ROUTE .COMPLEX Qty: 10.7 0RF Dose Instruction: 2 INHALED BY MOUTH TWICE A DAY Rx Instructions: 2 INHALED BY MOUTH TWICE A DAY levothyroxine 150 mcg tablet See Rx Instructions .ROUTE .COMPLEX Qty: 30 0RF Dose Instruction: TAKE 1 TABLET BY MOUTH DAILY Rx Instructions: TAKE 1 TABLET BY MOUTH DAILY furosemide 40 mg tablet 40 mg PO DAILY Qty: 90 0RF naproxen 500 mg tablet 500 mg PO BID PRN (Reason: pain) Qty: 60 2RF Follow-up/Referrals: Polo Harris MD [Primary Care Provider, Family Practice] - 1 Week Mata Rodriguez MD [Physician, Interventional Cardiology] - 1 Week Time of Disposition: 14:10
[2025-07-15] MEDS: FAMOTIDINE 20 MG/2 ML VIAL 40 MG IV PUSH (11:10)
--- NOTE | 2025-07-15 11:16 | ECG_ITS ---
Test Date: 2025-07-15 11:20:00 Measurements Intervals [place] Rate: 137 P: 0 NE: 0 QRS: 64 QRSD: 87 T: 8 QT: 325 QTc: 492 Interpretive Statements ATRIAL FLUTTER/TACHYCARDIA WITH RAPID VENTRICULAR RESPONSE NONSPECIFIC ST & T-WAVE ABNORMALITY- ANTEROLAT/INF LEADS ABNORMAL ECG Compared to ECG 11/05/2024 06:28:22 Sinus rhythm no longer present Electronically Signed On 07-15-2025 12:12:52 CDT by Bertrand Fung D.O.
[2025-07-15] MEDS: SODIUM CHLORIDE 0.9% IV 1,000 ML 999 ML IV CONT (11:36)
--- OUTSIDE RECORDS SUMMARY | 2025-07-15 11:36 | XMS_ITS | Clinical Summary ---
Author Organization [facility] Address [address] [place] [address] Phone Care Team Providers Care Finance Clerk Name Role Phone Tana Doran MD Primary Care Provider [phone] Allergies Active Allergy Reactions Criticality Noted Date [...] 2) 2019 INFLUENZA VACCINE (#1) 2025 Insurance [facility] [employer] PREFERRED Care Teams Finance Clerk Relationship Specialty Start Date End Date Tana Doran MD PCP - General Family Practice 06/07/22
--- OUTSIDE RECORDS SUMMARY | 2025-07-15 11:36 | XMS_ITS | Clinical Summary ---
Author Organization [facility] Address [address] [place] [address] Care Team Providers Care Procedures Nurse Name Role Phone Oren Raymond DO Primary Care Provider [phone] [facility],non-owned Affiliates and Associated Physician Practices is amultiple site organization consisting of ambulatory clinics and hospital sitesin [place], [place], [place] and [place]. This disclosure is being madepursuant to the Care Everywhere program and may not contain all information available regarding this patient. Last updated 18.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
--- OUTSIDE RECORDS SUMMARY | 2025-07-15 11:36 | XMS_ITS | Encounter Summary ---
Author Organization [facility] Address [address] [facility] [address] Phone Care Team Providers Care Bucket Operator Name Role Phone Tana Doran MD Primary Care Provider [phone] Daquan Dowd MD Primary Care Provider [phone] Reason for Visit * Reason Onset Date Comments New Patient 06/27/2021 new pt appt Encounter Details Date Type Department Care Team (Late st Contact Info) Description 06/27/2021 Telephone [facility] [address] [place] [address] Tana Doran MD [address] [facility] [address] [place] [address] New Patient (new pt appt) [...] Primary Provider Request Insurance of patient: joao [facility] Name of person calling: Andrea Grimes Relationship to patient: self Preferred phone number: [phone] Alternate phone number: na Region / Office location preference: [place] Provider preference (male/female, specific provider name): female Willing to see someone other than physician, such as YARN DRY ROOM WORKER, PA, resident? na Patient reason for appointment/any current symptoms: needing pcp/Daquan Dowd Other information (including need for diesel trailer mechanic): na Route ALL calls to: [facility] PATIENT EMPLOYMENT REPRESENTATIVE documented in this encounter Plan of Treatment Not on file documented as of this encounter Visit Diagnoses Not on filedocumented in this encounter Additional Health Concerns Assessment Noted Time PHQ-9 Depression Total Score: 0 05/11/20 19 12:01 PM CDT documented as of this encounter Care Teams Bucket Operator Relationship Specialty Start Date End Date Tana Doran MD [address] [place] [address] PCP - General Family Medicine 04/06/19 06/28/21 Daquan Dowd MD [address] [place] [address] PCP - General Family Medicine 06/29/21 04/26/22 documented as of this encounter
--- OUTSIDE RECORDS SUMMARY | 2025-07-15 11:36 | XMS_ITS | Clinical Summary ---
Author Organization [facility] Address [address] [address] Phone Care Team Providers Care Inside Sales Engineer Name Role Phone Unavailable Primary Care Provider [...]
--- OUTSIDE RECORDS SUMMARY | 2025-07-15 11:36 | XMS_ITS | Encounter Summary ---
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 Gender Identity Not on file Sexual Orientation Not on file documented as of this encounter Plan of Treatment Not on file documented as of this encounter Procedures Procedure Name Priority Date/Time Associated Diagnosis Comments PATHOLOGY TISSUE Routine 04/06/2019 11:1 7 AM CDT Gross hematuria documented in this encounter Results * PATHOLOGY TISSUE (04/06/2019 11:17 AM CDT) Case Report Surgical Pathology Report Case: [id number] Authorizing Provider: Padmini Smith MD Collected: 04/06/2019 11:17 AM Pathologist: Jose Miguel Gaitan MD Received: 04/08/2019 11:17 AM Specimen: Urine 04/09/2019 10:09 AM T [facility] Final Diagnosis Urine, voided, Thin Prep, cytology: - Hypocellular for urothelial cells - Negative for high-grade urothelial neoplasia - Benign squamous cells are seen in abundance 04/09/2019 10:09 AM T [facility] at 1009 CDT Microscopic Description and Comment Performed 04/09/2019 10:09 AM T [facility] Clinical History Hematuria; cystoscopy negative. 04/09/2019 10:09 AM T [facility] Gross Description Prepared slide (1) received from [facility] labeled [id number], Andrea Grimes. All material will be returned. 04/09/2019 10:09 AM T [facility] Disclaimer The performance characteristics of all immunohistochemical and indirect immunofluorescence stains (if any) cited in this report were determined by the Histopathology Laboratory of [facility]. Some of these tests were [...] attending (teaching) pathologist. 04/09/2019 10:09 AM T [facility] Embedded Images 04/09/2019 10:09 AM T [facility] Pathology/Cytolo gy URINE / Unknown 04/06/2019 11:17 AM CDT 04/08/2019 11:17 AM CDT us Padmini Smith MD LAB - PATHOLOGY/CYTOLOGY ORDERAB LES Final Result [facility] [address] [phone] documented in this encounter Visit Diagnoses Diagnosis Gross hematuria documented in this encounter Care Teams Curtain Hemmer Automatic Relationship Specialty Start Date End Date Oren Raymond DO [address] [place] [address] PCP - General 04/07/19 documented as of this encounter
[2025-07-15 11:49] LABS: Hematocrit 36.6 % (37.0-47.0); Hemoglobin 11.9 g/dL (12.0-15.0); Immature Granulocyte Percent A 0.3 % (0-0.5); Lymphocytes Absolute Auto 0.65 K/mm3 (0.9-3.2); Mean Corpuscular HGB Conc 32.5 g/dl (32-36); Mean Corpuscular Hemoglobin 28.4 pg (26-34); Mean Corpuscular Volume 87.4 fl (80-100); Nucleated Red Blood Cells Absolute Auto 0.000 K/mm3 (0.0-0.012); Nucleated Red Blood Cells Perc 0.0 % (0.0-0.2); Platelet Count Result 277 k/mm3 (150-375); Red Blood Count 4.19 M/mm3 (4.2-5.4); White Blood Count 8.8 K/mm3 (4.5-10.0)
[2025-07-15 12:20] LABS: Alanine Aminotransferase 16 U/L (6-35); Albumin Level 3.8 g/dL (3.5-5.1); Alkaline Phosphatase 79 U/L (38-126); Anion Gap 9 mmol/L (4-12); Aspartate Amino Transferase 23 U/L (14-36); Bilirubin,Total 0.3 mg/dL (0.2-1.3); Blood Urea Nitrogen 7 mg/dL (7-17); Calcium 9.3 mg/dL (8.4-10.2); Carbon Dioxide 25 mmol/L (22-30); Chloride 103 mmol/L (98-107); Estimated CRCL calculation 88 ml/min; Estimated Glomerular Filt Rate > 60; Glucose 123 mg/dL (65-110); Magnesium 1.8 mg/dL (1.6-2.3); Potassium 3.3 mmol/L (3.4-5.0); Sodium 137 mmol/L (137-145); Total Protein 6.7 g/dL (6.3-8.2)
[2025-07-15] MEDS: POTASSIUM BICARBONATE 25 MEQ TABEF 50 MEQ PO (12:54)
[2025-07-15 14:00] LABS: INR 1.1; Prothrombin Time 13.8 Seconds (11.1-14.7)
== END 2025-07-15 14:28 | disposition home or self-care (01) ==
PROVIDERS: Emergency Provider Preventive Medicine Aerospace Medicine; PCP Family Medicine
DX: L50.0 Allergic urticaria (principal); T39.315A Adverse effect of propionic acid derivatives, initial encounter; T49.6X5A Adverse effect of otorhinolaryngological drugs and preparations, initial encounter; T48.3X5A Adverse effect of antitussives, initial encounter; I48.91 Unspecified atrial fibrillation; G40.909 Epilepsy, unspecified, not intractable, without status epilepticus; I10 Essential (primary) hypertension; E89.0 Postprocedural hypothyroidism; E28.2 Polycystic ovarian syndrome; E88.810 Metabolic syndrome; E66.9 Obesity, unspecified; Z68.35 Body mass index [BMI] 35.0-35.9, adult; J45.909 Unspecified asthma, uncomplicated; K21.9 Gastro-esophageal reflux disease without esophagitis; G47.33 Obstructive sleep apnea (adult) (pediatric); F41.9 Anxiety disorder, unspecified; F31.9 Bipolar disorder, unspecified; Z98.84 Bariatric surgery status; Z96.652 Presence of left artificial knee joint; Z86.73 Personal history of transient ischemic attack (TIA), and cerebral infarction without residual deficits; Z86.16 Personal history of COVID-19; Z90.49 Acquired absence of other specified parts of digestive tract; Z77.22 Contact with and (suspected) exposure to environmental tobacco smoke (acute) (chronic); Z79.899 Other long term (current) drug therapy
CPT/HCPCS: 36415; 80053; 83735; 85025; 85610; 93005; 96361; 96374; 96375; 99284; A9270; J1163; J1200; J7030; J7512

== ENCOUNTER 2025-09-28 07:47 | Outpatient (CLI) | payer BC, SELFPAY ==
--- OUTSIDE RECORDS SUMMARY | 2025-05-24 10:00 | XMS_ITS ---
Author Organization [facility] Address [facility] [address] [address] Care Team Providers Care Banquet Director Name Role Phone Andreea CHAMPION, Tana Primary Care Provider Pedro Hoffman Unavailable [phone] Xuan Alva Unavailable [phone] REASON FOR VISIT Therapy Visit Social History Sex Assigned At : Social History Observation Description Sex Assigned At Female Encounters Encounter Location Date Provider Diagnosis [facility] [place] [address] [facility] [address] [address] 05/24/2025 Xuan Alva Plan Of Treatment No Information Progress Notes * NISHI SORENSOLEDAD:[birth year] (55 yo F)Acc No.[id number]:05/24/2025 Patient: MIRIAM DIXON Provider: Ezio ALVA LCSW :1970 A ge:54 Y S ex:Female Date:05/24/2025 [address] [facility] Pcp:Tana Doran MD Data: * Chief Complaints: * T herapy Visit Billing Information: * Procedure Codes: * Electronic signature of Flavia Alva LCSW on 09/28/2025 at 07:52 AM PAPER CONSERVATOR Sign off status: Pending Signatures: No Ad Hoc Signature Added * Provider: Ezio ALVA LCSW Date: 0 05/24/2025 Generated for Saeidi alondra/Mil/eTransmitting on: 1 07:52 AM PAPER CONSERVATOR
--- OUTSIDE RECORDS SUMMARY | 2025-09-28 07:51 | XMS_ITS | Clinical Summary ---
Author Organization [facility] Address [address] [place] [address] Care Team Providers Care Textile Finisher Name Role Phone Oren Raymond Primary Care Provider [phone] Source Comments [facility],non-owned Affiliates and Associated Physician Practices is amultiple site organization consisting of ambulatory clinics and hospital sitesin [place], [place], [place] and [place]. This disclosure is being madepursuant to the Care Everywhere program and may not contain all information available regarding this patient. 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
--- OUTSIDE RECORDS SUMMARY | 2025-09-28 07:52 | XMS_ITS | Clinical Summary ---
Author Organization [facility] Address [address] [place] [address] Phone Care Team Providers Care Museum Assistant Name Role Phone Tana Doran MD Primary Care Provider [phone] Allergies Active Allergy Reactions Criticality Noted Date [...] 2) 2019 INFLUENZA VACCINE (#1) 2025 Insurance Care Teams Museum Assistant Relationship Specialty Start Date End Date Tana Doran MD PCP - General Family Practice 06/07/22
--- OUTSIDE RECORDS SUMMARY | 2025-09-28 07:52 | XMS_ITS | Patient Health Record ---
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 escitalopram 20mg daily, lorazepam 0.5mg BID prn 08/24/2025 Generalized anxiety disorder (ICD-10 - F41.1) escitalopram 20mg daily, lorazepam 0.5mg BID prn 12/16/2024 Encounter for screening for depression (ICD-10 - Z13.31) 10/15/2024 Drug induced subacute dyskinesia (ICD-10 - G24.01) Austedo 24mg bid 11/18/2024 Drug induced subacute dyskinesia (ICD-10 - G24.01) Austedo 24mg bid 12/16/2024 Generalized anxiety disorder (ICD-10 - F41.1) escitalopram 20mg daily, lorazepam 0.5mg BID prn 01/25/2025 Post-traumatic stress disorder, unspecified (ICD-10 - F43.10) 01/26/2025 Encounter for screening for depression (ICD-10 - Z13.31) 02/11/2025 Other insomnia (ICD-10 - G47.09) zolpidem er 12.5mg hs 04/07/2025 Generalized anxiety disorder (ICD-10 - F41.1) escitalopram 20mg daily, lorazepam 0.5mg BID prn 05/06/2025 Drug induced subacute dyskinesia (ICD-10 - G24.01) Austedo 48 mg daily 05/24/2025 Generalized anxiety disorder (ICD-10 - F41.1) escitalopram 20mg daily, lorazepam 0.5mg BID prn 09/21/2025 Drug induced subacute dyskinesia (ICD-10 - G24.01) 06/22/2025 Generalized anxiety disorder (ICD-10 - F41.1) escitalopram 20mg daily, lorazepam 0.5mg BID prn 03/08/2025 Other insomnia (ICD-10 - G47.09) zolpidem er 12.5mg hs 04/12/2025 Encounter for screening for depression (ICD-10 - Z13.31) 03/08/2025 Post-traumatic stress disorder, unspecified (ICD-10 - F43.10) 09/21/2025 On senior care drug therapy (ICD-10 - Z79.899) 05/24/2025 Drug induced subacute dyskinesia (ICD-10 - G24.01) Austedo 48 mg daily 06/22/2025 Drug induced subacute dyskinesia (ICD-10 - G24.01) 05/06/2025 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 (ICD-10 - Z79.899) 04/07/2025 Drug induced subacute dyskinesia (ICD-10 - G24.01) Austedo 48 mg daily 02/11/2025 Post-traumatic stress disorder, unspecified (ICD-10 - F43.10) 01/25/2025 Generalized anxiety disorder (ICD-10 - F41.1) escitalopram 20mg daily, lorazepam 0.5mg BID prn 12/16/2024 Drug induced subacute dyskinesia (ICD-10 - G24.01) Austedo 24mg bid 11/18/2024 Bipolar disorder with depression (ICD-10 - F31.9) stop vraylar 10/15/2024 Bipolar disorder with depression (ICD-10 - F31.9) 08/24/2025 Drug induced subacute dyskinesia (ICD-10 - G24.01) 07/28/2025 Drug induced subacute dyskinesia (ICD-10 - G24.01) 08/24/2025 On senior care drug therapy (ICD-10 - Z79.899) 07/28/2025 On senior care drug therapy (ICD-10 - Z79.899) 10/15/2024 On senior care drug therapy (ICD-10 - Z79.899) 11/18/2024 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 (ICD-10 - Z79.899) 12/16/2024 Encounter for screening for cardiovascular disorders (ICD-10 - Z13.6) 01/25/2025 Drug induced subacute dyskinesia (ICD-10 - G24.01) Austedo 48 mg daily 02/11/2025 Generalized anxiety disorder (ICD-10 - F41.1) escitalopram 20mg daily, lorazepam 0.5mg BID prn 04/07/2025 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 (ICD-10 - Z79.899) 05/24/2025 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 (ICD-10 - Z79.899) 06/22/2025 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 (ICD-10 - Z79.899) 03/08/2025 Generalized anxiety disorder (ICD-10 - F41.1) escitalopram 20mg daily, lorazepam 0.5mg BID prn 03/08/2025 Drug induced subacute dyskinesia (ICD-10 - G24.01) Austedo 48 mg daily 02/11/2025 Drug induced subacute dyskinesia (ICD-10 - G24.01) Austedo 48 mg daily 01/25/2025 Encounter for screening for cardiovascular disorders (ICD-10 - Z13.6) 12/16/2024 On senior care drug therapy (ICD-10 - Z79.899) 01/25/2025 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 (ICD-10 - Z79.899) 02/11/2025 On senior care drug therapy (ICD-10 - Z79.899) 03/08/2025 On senior care drug therapy (ICD-10 - Z79.899) 10/15/2024 Other 1. 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 Plan: - Extend the patient's leave for another 45 days, until November 30, to allow for further recovery and stabilization. - Assist the patient with the application for medical fpc, if necessary. 4. Medication Management: Plan: - [...] any injuries or recurrent falls. 4. Medical Care Home: - Patient is waiting on paperwork for medical fpc. Plan: - Provide the requested letter for medical fpc. - Assist with any necessary documentation. 5. [...] has some college. 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 Client is the youngest of 12 children and grew up in [place], [place]. Client reports her childhood was hellish. [...] anhedonia, feels down, poor self-esteem, difficulty with confrontation, , has episodes of explosive anger, hypervigilance , and exaggerated startle response. 01/25/2025 Other Andrea [...] stress due to downsizing and potential early fpc. Anxiety is triggered by computer use and [...] been made to correct them. 02/18/2025 Other Cleelizabeth reports she and her spouse have been [...] Egan, irvin). PHQ=27 severe 03/08/2025 Other Andrea Alomdovar, female patient with a history of depression [...] of 500 mg at bedtime - Continue [place] Croft 300 mg at bedtime - Refill Depakote prescription at [facility] - Follow up in 4 weeks Anxiety Disorder Assessment: Patient continues to experience anxiety, particularly in crowded and noisy environments. Recent attempt to dine out at [facility] resulted in increased anxiety symptoms. Patient is [...] side effects from multiple medications including Hydroxyzine, La Croft, and potentially others. Plan: - Educate patient [...] with worksheets as homework). PHQ=9 mild 04/07/2025 Other Andrea Almodovar, a patient with a history of [...] - Continue Caplyta 42 mg - Continue La Croft 300 mg at bedtime - Decrease Depakote [...] efforts have been made to correct them. 06/22/2025 Other Affleight test completed 06/02/25 Reduced folic acid conversion, recommend daily folic acid or Folate supplement Andrea Almodovar presents with acute manic symptoms, reporting multiple manic episodes in the past 2 weeks, with the longest lasting 2 days. Acute Kendrick Assessment: Patient reports experiencing acute manic symptoms since this morning, describing it as feeling revved up and that her skin doesn't fit. She mentions having 2-3 manic episodes in the last 2 weeks, with the longest lasting 2 days. During one episode, she woke up at 4:30 AM with racing thoughts. Current medications, including Austedo at maximum dose (48 mg daily) and quetiapine, are not effectively managing symptoms. Patient's mood has been relatively even, aside from situational sadness, but she reports feeling more manic on some days. Genetic testing indicates potential gene-drug interactions with current medications. Plan: - Decrease quetiapine ER to 50 mg PO daily for 7 days, then discontinue - Start Invega 3 mg PO daily - Start Ingrezza for tardive dyskinesia: - 40 mg PO daily for 1 week - Then increase to 80 mg PO daily - Recommend daily folic acid intake due to reduced folic acid conversion - Follow-up appointment in 3 weeks Tardive Dyskinesia Assessment: Patient reports increased shaking, which was noted by her neurologist during a recent visit. Current treatment with Austedo at maximum dose (48 mg daily) is not providing adequate symptom control. Decision made to switch to Ingrezza based on inadequate response to Austedo and patient's willingness to try a new medication. Plan: - Discontinue Austedo (taper not specified) - Start Ingrezza: - 40 mg PO daily for 1 week - Then increase to 80 mg PO daily the note is transcribed using speech recognition software. It is a reflection of a visit with the patient. It might have some inaccuracy, including medication names and transcribing errors, though efforts have been made to correct them. 07/28/2025 Patrick Almodovar is a patient with bipolar disorder and sleep apnea who recently developed atrial fibrillation and is experiencing improved psychiatric symptoms on current medication regimen. Atrial fibrillation Assessment: Patient developed atrial fibrillation discovered during emergency department visit for breathing difficulties and chest pressure following flu A illness and subsequent hives. EKG confirmed atrial fibrillation diagnosis. Cardiology referral has been arranged and Holter monitor fitting scheduled for next Saturday to capture additional arrhythmic episodes. Plan: - Continue Eliquis - Continue metoprolol - Holter monitor fitting scheduled for next Saturday - Follow cardiology referral Bipolar disorder Assessment: Patient reports significant improvement in manic symptoms and physical restlessness. Previous medication-rela radha side effects including constant rocking and shakiness have resolved since medication adjustments. Seroquel was previously discontinued and patient transitioned from Aristada to Invega 3 mg with good response. Patient describes feeling more human and reports this is the best she has felt in a long time, with ability to sit without physical agitation. Plan: - Continue Invega 3 mg (refill to be sent) - Continue lithium 150 mg at bedtime (patient reduced from 300 mg and doing well on lower dose without side effects) - Continue lorazepam twice daily Sleep apnea Assessment: Patient has history of sleep apnea with last sleep study over 10 years ago. Given significant weight changes following bariatric surgery, current sleep apnea status is uncertain and requires reassessment. Plan: - Sleep study to be ordered the note is transcribed using speech recognition software. It is a reflection of a visit with the patient. It might have some inaccuracy, including medication names and transcribing errors, though efforts have been made to correct them. 08/24/2025 Other Client reports she and partner continue to have issues. Client has had some health issues since last seen and it has prevented her from helping around the home as her partneer feels she should. Therapist actively listened to client and asked questions for clarification. Therapist then utilized a cogntive behavioral intervention to help client explore strategies to help client begin a routine to help a bit more around the home without over exerting herself. 08/24/2025 Patrick Almodovar presents with ongoing depression and significant sleep disturbances, including 2-3 nights per week of insomnia with longest stretch of 48 hours without sleep despite taking Ambien. Insomnia Assessment: Patient reports severe sleep disturbances with 2-3 nights per week of complete insomnia, including one episode lasting 48 hours despite taking 2 Ambien tablets. On other nights, experiences frequent nocturnal awakenings. Has history of sleep apnea but CPAP machine was destroyed and replacement pending new sleep study ordered by last model maker. Patient denies caffeine intake and daytime napping. Has previously tried multiple sleep medications including trazodone and Lunesta without sustained benefit. Sleep apnea may be contributing to frequent awakenings and overall poor sleep quality. Plan: - Start trazodone 50 mg at bedtime - Patient to contact sleep center to schedule sleep study as ordered by last model maker - Consider returning to quetiapine if trazodone ineffective, as it previously helped with sleep Depression Assessment: Depression symptoms remain stable without significant change from previous visit. Current treatment appears to be stabilizing. Plan: - Continue current medications unchanged as symptoms appear to be leveling out the note is transcribed using speech recognition software. It is a reflection of a visit with the patient. It might have some inaccuracy, including medication names and transcribing errors, though efforts have been made to correct them. 09/21/2025 Patrick Almodovar is a patient with bipolar disorder, anxiety, tardive dyskinesia, and insomnia who presents for routine follow-up with stable mood and improved sleep. Bipolar disorder Assessment: Patient reports stable mood with no recent manic episodes. States I never felt like I was lighting up the room, which is good and describes being even keel. Kendrick has been well-controlled on current medication regimen. Reports mild depressive symptoms related to ongoing financial stressors but overall mood stability maintained. Plan: - Continue lithium 150 milligrams, invega 3mg - Continue current medication regimen given good response and tolerability Anxiety Assessment: Anxiety symptoms managed with current PRN medications. Patient tolerating medications well without reported side effects. Plan: - Continue lorazepam as needed - Continue hydroxyzine 25 milligrams as needed Tardive dyskinesia Assessment: Condition being treated with Ingrezza with apparent stability on current dose. Plan: - Continue Ingrezza 80 milligrams Insomnia Assessment: Sleep has significantly improved since starting trazodone. Patient reports getting 7-9 hours of sleep nightly and states the medication is helping with both getting sleep and maintaining sleep quality. Plan: - Continue trazodone given positive response the note is transcribed using speech recognition software. It is a reflection of a visit with the patient. It might have some inaccuracy, including medication names and transcribing errors, though efforts have been made to correct them. Plan Of Treatment Pending Test Test Name Order Date Cytochrome P450 2D6 Genotyping 5 Cytochrome P450 2C9 Genotyping 5 Cytochrome P450 2C19 05/06/2025 TSH+FREE T4 (34899) 10/15/2024 COMPREHENSIVE METABOLIC PANEL (14686) CBC (H/H, RBC, INDICES, WBC, PLT) (1759) 10/15/2024 T3, FREE (18302) 10/15/2024 LITHIUM (613) 10/15/2024 VALPROIC ACID (916) 10/15/2024 Insurance Providers Payer Name Payer Address Payer Phone Subscriber Number Group Number Insured Name Patient Relationship to Insured Coverage Start Date Coverage End Date [employer] [employer]po [address] [place] [address] [id number] ANDREA ALMODOVAR Self - patient is the insured Medical (General) History Medical History History ICD Code Problems: Bipolar disorder Contusion of knee Generalized anxiety disorder Implantation of joint prosthesis Knee pain Long-term drug therapy Neuroleptic-induced tardive dyskinesia Osteoarthritis Persistent insomnia Posttraumatic stress disorder , Surgical History Surgery Date(Month/Year) Other 01/02/2024 Cataract surgery (24960) 01/02/2024 Removal of gallbladder (82119) 5
--- OUTSIDE RECORDS SUMMARY | 2025-09-28 07:52 | XMS_ITS | Clinical Summary ---
Author Organization [facility] Address [address] [address] Phone Care Team Providers Care Electroplating Worker Name Role Phone Unavailable Primary Care Provider [...] 75+ series) 2044 Human Papillomavirus (HPV) Immunization (No Doses Required) Completed Meningococcal Immunization (ACWY) Aged Out No longer eligible b ased on patient's age to complete this topic Rotavirus Immunization Aged Out No lo nger eligible based on patient's age to complete this topic Insurance
--- OUTSIDE RECORDS SUMMARY | 2025-09-28 07:52 | XMS_ITS | Encounter Summary ---
Author Organization [facility] Address [address] [place] [address] Phone Care Team Providers Care Surgical Endoscopist Name Role Phone Tana Doran MD Primary Care Provider [phone] Daquan Dowd MD Primary Care Provider [phone] Reason for Visit * Reason Onset Date Comments New Patient 06/27/2021 new pt appt Encounter Details Date Type Department Care Team (Late st Contact Info) Description 06/27/2021 Telephone [facility] [address] [place] [address] Tana Doran MD [address] [facility] [address] [place] [address] New Patient (new pt appt) [...] AM CDT ----- Regarding: new patient [place] [facility] [place] Request Insurance of patient: joao [facility] Name of person calling: Andrea Grimes Relationship to patient: self Preferred phone number: [phone] Alternate phone number: na Region / Office location preference: [place] Provider preference (male/female, specific provider name): female Willing to see someone other than physician, such as [employer] SENIOR OFFICER, [place], resident? na Patient reason for appointment/any current symptoms: needing pcp/Daquan Dowd Other information (including need for byproducts pump operator): na Route ALL calls to: [facility] PATIENT TERMINAL PRESS OPERATOR documented in this encounter Plan of Treatment Not on file documented as of this encounter Visit Diagnoses Not on filedocumented in this encounter Additional Health Concerns Assessment Noted Time PHQ-9 Depression Total Score: 0 05/11/20 19 12:01 PM CDT documented as of this encounter Care Teams Surgical Endoscopist Relationship Specialty Start Date End Date Tana Doran MD [address] [place] [address] PCP - General Family Medicine 04/06/19 06/28/21 Daquan Dowd MD [address] [place] [address] PCP - General Family Medicine 06/29/21 04/26/22 documented as of this encounter
--- OUTSIDE RECORDS SUMMARY | 2025-09-28 07:52 | XMS_ITS | Encounter Summary ---
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 Gender Identity Not on file Sexual Orientation Not on file documented as of this encounter Plan of Treatment Not on file documented as of this encounter Procedures Procedure Name Priority Date/Time Associated Diagnosis Comments PATHOLOGY TISSUE Routine 04/06/2019 11:1 7 AM CDT Gross hematuria documented in this encounter Results * PATHOLOGY TISSUE (04/06/2019 11:17 AM CDT) Case Report Surgical Pathology Report Case: [id number] Authorizing Provider: Padmini Smith MD Collected: 04/06/2019 11:17 AM Pathologist: Jose Miguel Gaitan MD Received: 04/08/2019 11:17 AM Specimen: Urine 04/09/2019 10:09 AM T [facility] Final Diagnosis Urine, voided, Thin Prep, cytology: - Hypocellular for urothelial cells - Negative for high-grade urothelial neoplasia - Benign squamous cells are seen in abundance 04/09/2019 10:09 AM T [facility] at 1009 CDT Microscopic Description and Comment Performed 04/09/2019 10:09 AM T [facility] Clinical History Hematuria; cystoscopy negative. 04/09/2019 10:09 AM T [facility] Gross Description Prepared slide (1) received from [facility] labeled [id number], Andrea Grimes. All material will be returned. 04/09/2019 10:09 AM T [facility] Disclaimer The performance characteristics of all immunohistochemical and indirect immunofluorescence stains (if any) cited in this report were determined by the Histopathology Laboratory of [facility]. Some of these tests were developed [...] (teaching) pathologist. 04/09/2019 10:09 AM T [facility] Embedded Images 04/09/2019 10:09 AM T [facility] Pathology/Cytolo gy URINE / Unknown 04/06/2019 11:17 AM CDT 04/08/2019 11:17 AM CDT us Padmini Smith MD LAB - PATHOLOGY/CYTOLOGY ORDERAB LES Final Result [facility] [address] [phone] documented in this encounter Visit Diagnoses Diagnosis Gross hematuria documented in this encounter Care Teams Brush Holder Assembler Relationship Specialty Start Date End Date Oren Raymond DO [address] [place] [address] PCP - General 04/07/19 documented as of this encounter
--- NOTE | 2025-10-14 14:13 | WPDSLEEPSTUD ---
Sleep Study Date of Study: 09/28/25 Ordering Provider: Huong Baldwin, FLOOR CLEANER Interpreting Physician: Edith Nova MD Sleep Study Type: Polysomnogram Height: 1.57 m Weight: 87.997 kg Body Mass Index: 35.4 Neck Circumference (inches): 16 Ullin: 22 Reason for Sleep Study Hypersomnolence Sleep History Andrea Grimes is a 55-year-old woman with problems going to sleep, staying asleep, and she has frequent awakenings during the night. She uses zolpidem ER or trazodone to assist with falling asleep. She has excessive daytimes sleepiness. She frequently awakens from sleep short of breath. She occasionally wakes at night with heartburn, belching or coughing.??She never snores, and non one tells her that she snores loudly. She frequently has trouble sleeping when she has a cold. She occasionally wakes up gasping for breath during the night. She occasionally has breathing problems at night. She never sweats excessively at night. She frequently notices her heart pounding or beating irregularly during the night. She frequently falls asleep during the day. She occasionally falls asleep involuntarily, occasionally falls asleep while driving. She never experiences loss of muscle tone with strong emotion. She never feels paralyzed on waking or falling asleep. She occasionally experiences vivid dreams upon waking or falling asleep. She occasionally feels afraid of going to sleep. She occasionally has nightmares. She frequently recalls her dreams. She frequently has thoughts racing through her mind. She frequently feels sad or depressed. She constantly feels anxiety. She frequently notices parts of her body jerk. She occasionally kicks during the night. She occasionally feels crawling or aching feelings in her legs. She occasionally feels leg pain at night. She never has morning jaw pain, nor does she grind her teeth at night. She frequently feels bothered by pain during the day, is frequently awakened by pain during the night. She frequently wakes up feeling stiff in the morning, frequently wakes feeling sore or achy in the morning. She frequently awakens with pain in her neck, spine, or joints. Normal bedtime is between 9:00 p.m. and 9:30 p.m., falling asleep within 15 minutes if it is a good night, longer on other nights. She typically awakens between 2 and 3 times at night to go to the bathroom then may stay awake and read. Her normal wake time is 10:30 a.m.. She maintains the same schedule on weekends. She Reports getting between 5 and 9 hours of sleep at night. She indicates she does not take naps in the afternoon or evening. She is drowsy per 1 hour after waking. She feels better in the evening compared to other times of day. Habits:??Tobacco: Never smoked Caffeine: 1 caffeinated beverage every other day Alcohol: none Recreational substances: none PMF Past Medical History Medical History COVID-19 Breakthrough seizure PCOS (polycystic ovarian syndrome) Seizure disorder Obesity Slow rate of speech TAM (obstructive sleep apnea) With CPAP use Metabolic syndrome Essential (primary) hypertension Constipation by delayed colonic transit Congenital hernia of foramen of [place] Concussion syndrome Atrial tachycardia Anemia Hypothyroidism (acquired) Bilateral carpal tunnel syndrome Shingles Bipolar disorder Anxiety and depression Interstitial cystitis GERD (gastroesophageal reflux disease) Epilepsy TIA (transient ischemic attack) Asthma Seasonal allergies Migraine Surgical History Surgical History H/O carpal tunnel repair bilateral History of cholecystectomy History of bunionectomy History of left knee replacement History of foot surgery History of thyroidectomy, subtotal H/O arthroscopy of left knee H/O dilation and curettage Hx of gastric bypass Family History Family History Sibling Cerebrovascular accident, Onset Age: 19 Multiple sclerosis Father Hypertension Coronary artery disease Hyperlipidemia Mother Hypertension Heart disease Hyperlipidemia Diabetes mellitus Grandparent Family history of malignant neoplasm of cervix Family history of malignant neoplasm of breast Social History Social History Social History: The patient has been with her since 2005 they we will give when the lost changed. They have 3 medium to large his dogs at home. The patient works for the [employer]. She is lifelong nonsmoker but had history of heavy secondhand smoke exposure until she was a teenager. She never drinks alcohol and does not have any history of illicit substance use. 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 Gender identity (if verbalized by the patient): Female Sexual Orientation (if Verbalized by the Patient): Lesbian, Thompson, or Homosexual Spiritual care concerns: No Agree to blood products: Yes Medications Home Medications ?Medication ?Instructions ?Recorded ?Confirmed ?Type lorazepam 0.5 mg tablet 0.5 mg PO TID PRN Anxiety 01/31/23 06/21/25 History albuterol sulfate 90 mcg/actuation 2 puff inhalation Q4-6H PRN 08/25/23 06/21/25 Rx aerosol inhaler shortness of breath or wheezing 30 days #8.5 grams ipratropium 0.5 mg-albuterol 3 mg 3 ml inhalation Q4H PRN wheezing 08/27/23 06/21/25 Rx (2.5 mg base)/3 mL nebulization #180 mL soln Held on 09/06/23. Instructions: .Provider Order deutetrabenazine 12 mg tablet 12 mg PO DIRECTED 03/25/24 06/21/25 History (Austedo) budesonide 160 mcg-glycopyr 9 See Rx Instructions .Route 06/30/24 06/21/25 Rx mcg-formot 4.8 mcg/actuation HFA .COMPLEX #10.7 ea inhaler (Breztri Aerosphere) albuterol sulfate 90 mcg/actuation 2 puff inhalation QID PRN 09/28/24 06/21/25 Rx aerosol inhaler (Ventolin HFA) shortness of breath or wheezing #8.5 grams lithium carbonate 300 mg capsule mg 09/28/24 06/21/25 History nystatin 100,000 unit/gram topical 1 applic topical BID #30 grams 11/25/24 06/21/25 Rx powder levetiracetam 1,000 mg tablet 1,500 mg (1.5 x 1,000 mg) PO BID 06/21/25 06/21/25 Rx #180 tabs quetiapine 150 mg tablet 150 mg PO DAILY 06/21/25 06/21/25 History sumatriptan succinate 100 mg See Rx Instructions PO .COMPLEX 06/21/25 06/21/25 Rx tablet (Imitrex) #14 tabs fluticasone propionate 50 1 spray intranasal DAILY #16 grams 07/12/25 Rx mcg/actuation nasal spray,suspension (Flonase Allergy Relief) apixaban 5 mg tablet (Eliquis) 5 mg PO BID #60 tabs 07/15/25 Rx diphenhydramine HCl 50 mg capsule 50 mg PO BID 4 days #8 caps 07/15/25 Rx levothyroxine 100 mcg capsule 100 mcg PO DAILY #60 caps 09/07/25 Rx furosemide 40 mg tablet 40 mg PO DAILY #14 tabs 09/16/25 Rx metoprolol tartrate 25 mg tablet 12.5 mg (1/2 x 25 mg) PO BID #60 09/29/25 09/29/25 Rx tabs linaclotide 290 mcg capsule See Rx Instructions .Route 10/01/25 Rx (Linzess) .COMPLEX #90 caps semaglutide (weight loss) 0.25 0.25 mg (0.5 mL) subcut WEEKLY #2 10/08/25 Rx mg/0.5 mL subcutaneous pen mL injector (Wegovy) Sleep Procedure A full night polysomnogram using the [employer] multi-channel system recorded the standard physiologic parameters including EEG, EOG, submentalis EMG, anterior tibialis EMG, EKG, body position, nasal and oral airflow using nasal pressure sensor and thermistor. Respiratory parameters of chest and abdominal movements were recorded with Respiratory Inductance Plethysmography belts. Oxygen saturation was recorded by pulse oximetry. Video monitoring was also performed. Sleep stages, periodic limb movements, and EEG arousals were scored in 30 second epochs according to the criteria of the AASM Scoring Manual. The Apnea-Hypopnea Index was calculated using CMS guidelines for definition of hypopnea while scoring respiratory events. the patient did not take a sleep aid at the beginning of the study. She had a prolonged sleep latency, 161 minutes. Because she fell asleep so late the overall sleep efficiency was low, 57.6%. Sleep Architecture The total recording time was 520.5 minutes. The total sleep time was 300.0 minutes. Sleep latency was 161.4 minutes. REM latency was 112.0 minutes. Sleep efficiency was 57.6%. The patient had 35 awakenings for an awakening index of 7.0. Wake after sleep onset time was 59.5 minutes. The patient spent 33.5 minutes, 11.2% of total sleep time in Stage N1. The patient spent 180.5 minutes, 60.2% in Stage N2. The patient spent 48.5 minutes, 16.2% in Stage N3. The patient spent 37.5 minutes, 12.5% in Stage REM sleep. Respiratory Analysis The patient had 7 hypopneas, no obstructive apneas, no mixed apneas, and 2 central apneas for an overall Apnea Hypopnea Index of 1.8. The REM Apnea Hypopnea Index was 4.8. The NREM Apnea Hypopnea Index was 1.6. The patient had a Central Apnea Hypopnea Index of 0.4. There were no Respiratory Effort Related Arousals. The Respiratory Disturbance Index is 2.2 events per hour. There was no evidence of [place]-Peterson Respirations. Arousals There were 74 total arousals for an arousal index of 14.8. There were 56 spontaneous arousals for an index of 11.2. There was 1 arousal due to respiratory events for an index of 0.2. There were 9 arousals due to periodic limb movements for an index of 1.8. There were 8 arousals due to isolated limb movements for an index of 1.6. Periodic Limb Movements The patient had 52 isolated limb movements with an index of 10.4. The patient had 22 periodic limb movements with an index of 4.4. Patient had a total of 74 limb movements with a total limb movement index of 14.8. Oximetry Data The patient had an average oxygen saturation of 93.9% in sleep with a minimum oxygen saturation of 89.0% and a maximum oxygen saturation of 99.0%. The patient had 7 oxygen desaturations that were 4% or greater resulting in an Oxygen Desaturation Index of 1.4. The patient spent no sleep time with an oxygen saturation below 88%. Snoring Profile Snoring was mild. Cardiac Profile EKG showed normal sinus rhythm,, average pulse rate of 59.6 bpm with a minimum pulse of rate of 48 bpm and a maximum pulse rate of 99 bpm. Scattered PVCs. EEG Profile Unremarkable, no evidence of seizures. Assessment and Plan Assessment and Plan (1) Inadequate sleep hygiene: Code(s): Z72.821 - Inadequate sleep hygiene Status: Acute Assessment and Plan: This basic nocturnal polysomnogram on 09/28/2025 does not show sleep disordered breathing. The apnea-hypopnea index is 1.8 with a minimum desaturation of 89%. No time was spent below 88%. The patient has poor sleep hygiene, or sleep habits. She spends over 12 in bed from 9:30 p.m. until 10:30 a.m., only sleeping a total of 5 and 9 hours. I am recommending sleep hygiene measures including going to bed later and setting her alarm to wake up earlier. I recommend that she allows herself 7-8 hours in bed to sleep, waking in the morning at a fixed time, and avoiding naps in the day. This is called sleep restriction, and this increases the amount of sleep time in bed. I recommend bedtime 11:00 p.m., set alarm for 7:00 a.m. If she wakes in the night, she should not turn on lights to read, and should not use her cell phone in the night. These distractions can make it more difficult to return to sleep. Recommendations to improve sleep quality include: ? Practice a bedtime routine and keep the same sleep schedule including bedtime and wake up time, even on the weekends. Consistency makes it much easier to fall asleep and wake easily. ? If you have trouble sleeping at night, avoid naps, especially in the late afternoon. However, short naps lasting approximately 20 minutes can help alleviate daytime fatigue, sleepiness, and even provide cognitive benefit. Naps longer than 30 minutes can cause sleep inertia, a period of reduced alertness and cognitive performance after waking. ? Exercise daily. ? Maintain a sleep environment conducive to sleep. The bedroom should be comfortably cool. In population studies, nocturnal environmental light and noise significantly impact sleep quality and quantity. Use of blackout curtains, ear plugs, or sound machines may help promote an optimal sleep environment for individuals with sleep disruptions due to environmental stimuli. ? Sleep on a comfortable mattress and pillows. ? Regular bright light exposure in the mornings may help to maximize alertness and maintain a regular circadian rhythm. Studies in extreme latitudes where sunlight is minimal in the winter have found that an hour of exposure to white light in the morning helped subjects go to sleep earlier and wake earlier. Exposure to blue light in the morning may have more robust effects on the stability of the circadian rhythm and has been shown to improve daytime fatigue and sleepiness. ? Avoid cigarettes, caffeine, and heavy meals in the evening. While alcohol use does seem to reduce the time it takes to fall asleep, studies have reported that evening alcohol intake can cause more waking time or light sleep in the second half of the night and reduce self-reported sleep quality. Evening nicotine is associated with lower sleep efficiency and more awake time during the night. ? Wind down with quiet activities that may promote sleep, such as reading with a dim light. Avoid use of electronics at least 30 minutes before habitual bedtime and in the middle of the night if nocturnal awakenings occur. The blue light emitted from computer screens and hand-held devices can suppress natural melatonin production, resulting in difficulty falling asleep; however, the exact duration of use and intensity of lighting that cause this effect are variable in the literature. ? If you cannot sleep, do not look at a clock or turn on bright lights. Go into another room and do something relaxing until you feel drowsy enough to fall asleep again. If you read, use a soft light over the shoulder. Do not turn on the TV during the night. Return to bed when you are sleepy. BMI is 35. Weight management is advised. Clinical data suggests that weight loss of 10% can reduce daytime sleepiness aside from sleep disordered breathing. Data The data obtained during this sleep study is adequate for interpretation. Certification This sleep study has been reviewed by a board certified sleep medicine physician.
[2025-10-14 14:53] VITALS: BMI 35.4
== END 2025-09-29 06:44 | disposition home or self-care (01) ==
PROVIDERS: PCP Family Medicine; Visit Provider Nurse Practitioner Adult Health
DX: Z72.821 Inadequate sleep hygiene (principal); G47.33 Obstructive sleep apnea (adult) (pediatric)
CPT/HCPCS: 95810